=== PATIENT | male | born 1970 | race Caucasian/White ===

== ENCOUNTER → 2017-09-13 11:19 | Outpatient (CLI) | payer BC, SELFPAY ==
--- NOTE | 2017-09-13 11:22 | CT_ITS ---
STUDY: CT ABDOMEN AND PELVIS WITH AND WITHOUT CONTRAST REASON FOR EXAM: Male, 47 years old. Left abdominal pain with left flank pain. History of kidney stones and prior lithotripsy. RADIATION DOSAGE (If Supplied By Facility): CTDIvol = ( 26.67 ) mGy, DLP = ( 4712.12 ) mGycm TECHNIQUE: Transaxial images were obtained from the dome of the diaphragm to the symphysis pubis without oral contrast. 100 ml of Isovue 300 contrast was administered. Sagittal and coronal images were reconstructed. Individualized dose optimization techniques were used for this CT. COMPARISON: Comparison is made with prior study dated January 26, 2017. FINDINGS: The visualized lung bases are unremarkable. The visualized portions of the heart are within normal limits. There is decreased attenuation of the liver consistent with steatosis. Small amount of sludge or tiny gallstones along the dependent portion of the gallbladder lumen. Normal spleen. Atherosclerotic calcification of the splenic artery. Normal pancreas. Normal bilateral adrenal glands. Punctate calcification in the lower pole calyx of the right kidney. Tiny nonobstructive calculus in the mid lower aspect of the left kidney. There is a small hiatal hernia. Normal small intestine. There is diverticulosis, with thickening of the colon wall, and pericolonic inflammation changes consistent with acute diverticulitis. The appendix is visualized and appears normal. Normal abdominal aorta. Normal inferior vena cava. There is borderline retroperitoneal lymphadenopathy with enlarged nodes no greater than 10mm in the short axis diameter. Normal urinary bladder. Small bilateral inguinal hernias containing fat. Disc space narrowing at the L5-S1 level. CT/CT Abd/Pelvis W/WO Contrast IMPRESSION: Findings in keeping with a mild degree of the sigmoid diverticulitis. Stable nonobstructive bilateral intrarenal calculi. Fatty infiltration of the liver. Small sliding hiatal hernia. Electronically Signed: Erik Ramsey MD at 12:44 EDT Tel [phone], Service support ,
[2017-09-13 11:45] LABS: CREATININE FINGERSTICK 0.9 mg/dL (0.70-1.30); EGFR FINGERSTICK > 60.0000 mL/min (>60)
== END ==
PROVIDERS: Family Provider Nurse Practitioner; PCP Nurse Practitioner; Visit Provider Nurse Practitioner Gerontology
DX: R10.9 Unspecified abdominal pain (principal)
CPT/HCPCS: 74178; Q9967

== ENCOUNTER → 2017-12-07 16:17 | Outpatient (CLI) | payer BC, SELFPAY ==
[2017-12-07 17:48] LABS: ALB/GLOB Ratio 1.1 RATIO (0.9-2.4); AST(SGOT) 16 U/L (15-37); Alanine Aminotransfer ALT/SGPT 35 U/L (16-61); Albumin, Serum 3.6 g/dL (3.2-5.0); Alkaline Phosphatase 87 U/L (45-117); Anion Gap 8 (5-15); BUN 11 mg/dL (7-18); BUN/Creat Ratio 11.2 RATIO (10-20); Calcium,Total 8.3 mg/dL (8.5-10.1); Chloride 106 mmol/L (98-107); Creatinine, Serum 0.99 mg/dL (0.70-1.30); EST Glomerular Filtration Rate 86 mL/min (>60); Est Glom Filt Rate - Afr Amer 104 mL/min (>60); Globulin 3.4 g/dL (2.2-4.2); Glucose 187 mg/dL (74-106); Potassium 3.9 mmol/L (3.5-5.1); Sodium Level 143 mmol/L (136-145); Thyroid Stim Hormone (TSH) 1.29 uIU/mL (0.358-3.74)
[2017-12-07 18:13] LABS: Erythrocyte Sedimentation Rate 14 mm/hr (0-15)
[2017-12-08 08:41] LABS: Vitamin B12 695 pg/mL (211-911)
== END ==
LOC: LAB 16:19
PROVIDERS: Family Provider Nurse Practitioner; PCP Nurse Practitioner; Visit Provider Psychiatry & Neurology Neurology
DX: G62.9 Polyneuropathy, unspecified (principal)
CPT/HCPCS: 36415; 80053; 82607; 83036; 84443; 85652

== ENCOUNTER → 2018-03-04 09:46 | Outpatient (CLI) | payer BC, SELFPAY | LOC: HPRAD 09:47 | PROVIDERS: Family Provider Nurse Practitioner; PCP Nurse Practitioner; Visit Provider Nurse Practitioner | DX: M77.11 Lateral epicondylitis, right elbow (principal) | CPT/HCPCS: 73080 ==

== ENCOUNTER → 2018-07-18 09:20 | Outpatient (CLI) | payer BC, SELFPAY ==
--- NOTE | 2018-07-18 09:43 | US_ITS ---
STUDY: RENAL ULTRASOUND - COMPLETE REASON FOR EXAM: Male, 48 years old. Flank pain. TECHNIQUE: Ultrasound evaluation of the kidneys was performed with real-time and static nava-scale imaging. COMPARISON: Comparison is made with prior ultrasound dated April 22, [address] scan dated September 13, 2017. FINDINGS: RIGHT KIDNEY: Normal location of the right kidney, which is normal in size. The right kidney measures 11.9 cm x 5.5 cm x 6.0 cm. There is a normal cortex of the right kidney. The renal cortex measures 1.4 cm. There is no right renal mass or cyst. Findings suggestive of a 1.2 cm x 0.9 cm right intrarenal calculus. There is no right hydronephrosis. DISTAL RIGHT URETER: There is non-visualization of the distal right ureter. There is no demonstrated right ureterovesical junction calculus. There is no demonstrated right ureteral jet. LEFT KIDNEY: Normal location of the left kidney, which is normal in size. The left kidney measures 13.7 cm x 5.7 cm x 6.2 cm. There is a normal cortex of the left kidney. The renal cortex measures 1.9 cm. There is no left renal mass or cyst. There is an 8 mm x 7 mm calculus in the midportion of the left kidney. There is no left hydronephrosis. DISTAL LEFT URETER: There is non-visualization of the distal left ureter. There is no demonstrated left ureterovesical junction calculus. There is no demonstrated left ureteral jet. BLADDER: The distended urinary bladder has a volume of 41.2 ml. Moderate splenomegaly. The spleen measures 15.4 cm x 7.5 cm x 6.6 cm. US/Kidney and Bladder IMPRESSION: Findings suggestive of bilateral intrarenal calculi. Splenomegaly. Electronically Signed: Erik Ramsey MD at 15:35 EST Tel [phone], Service support ,
--- OUTSIDE RECORDS SUMMARY | 2018-09-19 16:20 | XMS RPT_ITS ---
:1970 Author Organization OHIP Care Team Providers Name Role Phone Kait Tam Attending Unavailable Kait Tam Referring Unavailable Kait Tam Consulting Unavailable Kait Tam Attending Unavailable Kait Tam Referring Unavailable Kait Tam Primary Care Unavailable Kait Tam Primary Care Unavailable Kait Tam Attending Unavailable Kait Tam Referring Unavailable Hong Petty Consulting Unavailable Mela Abrams DRAFTING SUPERVISOR-C Attending Unavailable Kait Tam Primary Care Unavailable [...] Status: F Source: [place] CONT 3:41 PM [facility] REPOSITORY [facility] Imaging Services [address] [place] [place] [address] Abdomen/Pelvis without Cont MR#: [id number] Acct: [id number] Name: NIEVES JACKSON Rep #: [id number] : 1970 M 48 From: Maricel Sanchez MD PCP: Kait Tam NP Status: REG CLI Study: Abdomen/Pelvis without Cont Date of Exam: 07/19/18 Exam# [id number] Ordering Dr: Kait Tam DRAFTING SUPERVISORKarissaC STUDY: CT ABDOMEN AND PELVIS WITHOUT CONTRAST [...] Service support , CC: Kait Tam NP Glass Blower Helper: Signed KIDNEY AND BLADDER Observed: 07/18/2018 Status: F Source: [place] 9:43 AM [facility] REPOSITORY [facility] Imaging Services [address] [place] [address] Kidney and Bladder MR#: [id number] Acct: [id number] Name: NIEVES JACKSON Rep #: [id number] : 1970 M 48 From: Erik Ramsey MD PCP: Kait Tam NP Status: REG CLI Study: Kidney and Bladder Date of Exam: 07/18/18 Exam# [id number] Ordering Dr: Kait Tam DRAFTING SUPERVISOR-C STUDY: RENAL ULTRASOUND - COMPLETE REASON FOR [...] Erik Ramsey MD at 15:35 EST Tel [phone], Service support , CC: Kait Tam NP Glass Blower Helper: Signed ELBOW MIN 3 VIEWS Observed: 03/04/2018 Status: F Source: [place] 9:49 AM [facility] REPOSITORY [facility] Imaging Services [address] [place] [address] Elbow min 3 Views MR#: [id number] Acct: [id number] Name: NIEVES JACKSON Rep #: [id number] : 1970 M 47 From: Anuradha Medel MD PCP: Kait Tam NP Status: REG CLI Study: Elbow min 3 Views Date of Exam: 03/04/18 Exam# [id number] Ordering Dr: Kait Tam STUDY: X-RAY - [...] Service support , CC: Kait Tam NP Glass Blower Helper: Signed COMPREHENSIVE METABOLIC Collected: 12/07/2017 Status: F Source: [place] EMIGDIO 4:27 PM [facility] REPOSITORY TYPE CODE TESTS RESULT OUT OF [...] 8 Performed By: #### L500.4050, L501.9520 #### [facility] [address] [place], [place], [address] THYROID STIM HORMONE Collected: 12/07/2017 Status: F Source: [place] (TSH) 4:27 PM [facility] REPOSITORY TYPE CODE TESTS RESULT OUT OF RANGE REFERENCE UNITS LAB L501.9520 0.358-3.74 uIU/mL Normal TSH 1.29 Performed By: #### L500.4050, L501.9520 #### [facility] [address] [place], [address] ERYTHROCYTE SED RATE Collected: 12/07/2017 Status: F Source: [place] 4:27 PM [facility] REPOSITORY TYPE CODE TESTS RESULT OUT OF RANGE REFERENCE UNITS LAB L102.0000 0-15 mm/hr Normal SED RATE 14 Performed By: #### L101.9900 #### [facility] [address] [place], [address] HEMOGLOBIN A1C Collected: 12/07/2017 Status: F Source: [place] 4:27 PM [facility] REPOSITORY TYPE CODE TESTS RESULT OUT OF RANGE REFERENCE UNITS LAB L501.9985 4.2-6.3 % High HGB A1C 7.0 Performed By: #### L501.9985 #### [facility] [address] [place], [address] VITAMIN B12 Collected: 12/07/2017 Status: F Source: [place] 4:27 PM [facility] REPOSITORY TYPE CODE TESTS RESULT OUT OF RANGE REFERENCE UNITS LAB L503.0105 211-911 pg/mL Normal Vitamin B12 695 Performed By: #### L503.0105 #### [facility] [address] [place], [address] CREATININE FINGERSTICK Collected: 09/13/2017 Status: F Source: [place] 11:38 AM [facility] REPOSITORY TYPE CODE TESTS RESULT OUT OF RANGE REFERENCE UNITS LAB L9100.0210 0.70-1.30 mg/dL Normal CREATININE WB 0.9 LAB L9100.0220 >60 mL/min EGFR WB Normal > 60.0000 Performed By: #### L9100.0200 #### [facility] Point of Care [address] [place] [address] CT ABD/PELVIS W/WO Observed: 09/13/2017 Status: F Source: [place] CONTRAST 11:22 AM [facility] REPOSITORY [facility] Imaging Services [address] [place] [address] CT Abd/Pelvis W/WO Contrast MR#: [id number] Acct: [id number] Name: NIEVES JACKSON Rep #: [id number] : 1970 M 47 From: Erik Ramsey MD PCP: Kait Tam NP Status: REG CLI Study: CT Abd/Pelvis W/WO Contrast Date of Exam: 09/13/17 Exam# [id number] Ordering Dr: Mela Abrams NP-C STUDY: CT [...] Erik Ramsey MD at 12:44 EDT Tel [phone], Service support , CC: Kait Tam NP; SAM Abrams Glass Blower Helper: Signed ALLERGIES ALLERGIES DATE TYPE / CODE NAME / CODE REACTION SEVERITY SOURCE 01/26/2017 Drug oxycodone BECOMES VIOLENT Unknown [facility] All[facility]/416 HCl/[id number](R [facility] 556861(SNOM XNORM) Repository ED CT) 01/26/2017 Drug Penicillins/F001 Rash Unknown [facility]/416 488437(RXNORM) [facility] 764863(SNOM Repository ED CT) 01/26/2017 Drug ibuprofen/P79010 Upset Stomach Unknown [place] [facility] All[facility]/416 2377(RXNORM) Hospital 364190(SNOM Repository ED CT) ENCOUNTERS ENCOUNTERS ADMIT/DISCHARGE ACCOUNT ADMITTING ENCOUNTER LOCATION SOURCE NUMBER CLASS 07/19/2018 [id number] Ambulatory [place] [facility] ing:CT Repository 07/18/2018 [id number] Ambulatory [place] 5 [facility] ing:US Repository 07/15/2018 [id number] Ambulatory Building:[facility] [place] Practices Repository 03/04/2018 [id number] Ambulatory [place] 3 [facility] ing:HPRAD Repository 12/28/2017 [id number] Ambulatory [place] 7 [facility] ing:SL Repository 12/07/2017 [id number] Ambulatory [place] 1 [facility] ing:LAB Repository 09/13/2017 [id number] Ambulatory [place] 1 [facility] ing:CT Repository PAYERS PAYERS ENCOUNTER GUARANTOR PAYER SUBSCRIBER SOURCE 07/19/2018 NIEVES Fernandez Primary DANGELO D [place] [id number] S Insurance:ANTHEMPolic [facility]: [facility] scott BRUNO Number: [id number] [facility] [address]Tdd: [id number] Repository Date:7630-13-56WU [address] () [address]19146YFBTXSW, [place] [address]CT: 07/19/2018 Secondary NOT GIVENUNK [place] Insurance:SELF PAY [facility] Number: Effective Repository Date:2018-07-15 07/18/2018 NIEVES Fernandez Primary DANGELO D [place] [id number] S Insurance:ANTHEMPolic HANCOCKDOB: [facility] scott Bruno Number: [id number] Comprehensive Health Care Facility [address]War: [id number] Repository Date:1860-60-07[address] () [place]797[address]XKIXZHL, [place] [address]KK: 07/18/2018 Secondary NOT GIVENUNK [place] Insurance:SELF PAY [facility] Number: Effective Repository Date:2018-07-15 07/15/2018 Nieves P Primary Nieves P OHIP Practices HancockDOB: Insurance:[place] HancockDOB: Repository [facility] Number: [id number] [facility] [id number] [place], [place] Date:0763-58-27WwpfNorth [place], [place] [address]Ime: (968) Name:[facility] [address] [address]Jkd: [place], [place] [address] () ()Tel: [phone]: [phone] 03/04/2018 Nieves P Primary DANGELO D [place] [id number] S Insurance:ANTHEMPolic HANCOCKDOB: Community Gerber [place], y Number: [id number] Comprehensive Health Care Facility [address]Prj: [id number] Repository Date:2516-74-35AV [address] () [address]BRPGOZC, [place] [address]LD: 03/04/2018 Secondary NOT GIVENUNK [place] Insurance:SELF PAY [facility] Number: Effective Repository Date:2018-03-04 12/28/2017 Nieves P Primary Dangelo D [place] [id number] Insurance:ANTHEMPolic HancockDOB: Community [facility] [place], y Number: [id number] Comprehensive Health Care Facility [address]Izp: [id number] Repository Date:2453-76-33CZ [address] () [address]367[address]PIJHWMM, [place] [address]NC: 12/28/2017 Secondary NOT GIVENUNK [place] Insurance:SELF PAY [facility] Number: Effective Repository Date:2017-12-08 12/07/2017 Nieves P Primary Dangelo [address] Insurance:ANTHEMPolic ManuelDOB: [facility] Gerber [place], y Number: [id number] Comprehensive Health Care Facility [address]Fpt: [id number] Repository Date:8279-96-66MR BOX () 127496ADTEAJJ [place] [address]LR: 12/07/2017 Secondary NOT GIVENUNK [place] Insurance:SELF PAY [facility] Number: Effective Repository Date:2017-12-07 09/13/2017 Nieves Fernandez Primary Dangelo [address] Insurance:ANTHEMPolic ManuelDOB: [facility] Gerber Bruno, y Number: [id number] Comprehensive Health Care Facility [address]Zjl: [id number] Repository Date:4916-80-57CI [address] () 386638MMXGDUV, [place] [address]JJ: 09/13/2017 Secondary NOT GIVENUNK [place] Insurance:SELF PAY [facility] Number: Effective Repository Date:2017-09-13
== END ==
LOC: US 09:20
PROVIDERS: Family Provider Nurse Practitioner; PCP Nurse Practitioner; Referring Provider Nurse Practitioner; Visit Provider Nurse Practitioner
DX: R10.9 Unspecified abdominal pain (principal)
CPT/HCPCS: 76770

== ENCOUNTER → 2018-07-19 15:08 | Outpatient (CLI) | payer BC, SELFPAY ==
--- NOTE | 2018-07-19 15:41 | CT_ITS ---
STUDY: CT ABDOMEN AND PELVIS WITHOUT CONTRAST REASON FOR EXAM: Male, 48 years old. Bilateral flank pain. RADIATION DOSAGE (If Supplied By Facility): CTDIvol = ( 24.18 ) mGy, DLP = ( 1377.32 ) mGycm TECHNIQUE: Transaxial images were obtained from the dome of the diaphragm to the symphysis pubis without oral contrast, and without intravenous contrast. Sagittal and coronal images were reconstructed. Individualized dose optimization techniques were used for this CT. COMPARISON: September 13, 2017 FINDINGS: The visualized lung bases are unremarkable. There are coronary artery calcifications. There is decreased attenuation of the liver consistent with steatosis. Normal gallbladder and extrahepatic biliary system. Normal spleen. Normal pancreas. Normal bilateral adrenal glands. There is a nonobstructing 2.8 mm right renal calculus. There is a 4.1 mm calculus within the proximal left ureter. There is no associated hydroureteronephrosis. There is a small hiatal hernia. There is retained fluid within the mid/distal esophagus. Normal small intestine. There are multiple colonic diverticula consistent with diverticulosis. The appendix is visualized and appears normal. Normal abdominal aorta. Normal inferior vena cava. Normal retroperitoneum. Normal urinary bladder. Normal abdominal wall. There are diffuse degenerative changes of the visualized lumbar spine. CT/Abdomen/Pelvis without Cont IMPRESSION: 4.1 mm calculus within the left proximal ureter. Nonobstructing 2.8 mm right renal calculus. Fatty infiltration of the liver. Hiatal hernia. Retained fluid within the mid/distal esophagus this may be secondary to underlying gastroesophageal reflux or dysmotility. Atherosclerosis. Electronically Signed: Maricel Sanchez MD at 16:10 EST Tel , Service support ,
--- OUTSIDE RECORDS SUMMARY | 2018-09-19 01:38 | XMS RPT_ITS | Continuity of Care Document ---
:1970 Author Organization [facility] Address [address] [facility] [address] [place] [address] Phone Care Team Providers Name Role Phone Kait Tam CNP Unavailable Veronica Casas Unavailable Elaine PENA, John Tucker Unavailable Monica Manuel Unavailable Unavailable Rox, [place] Unavailable Unavailable Slarb SEAWEED HARVESTER, Rita Unavailable Unavailable Long SEAWEED HARVESTER, Rachele L Unavailable Unavailable Unavailable Unavailable Problems Name Dates Details Abdominal pain (R10.9, 789.00) Status: Active Acute meniscal tear of right knee (S83.206A, 836.2) Status: Active Arthritis Comments: left knee Status: Active Backache Status: Active Bilateral kidney stones (N20.0, 592.0) Comments: Stable nonobstructive bilateral kidney stones.-09/13/17. Status: Active BMI 45.0-49.9, adult (Z68.42, V85.42) Status: Active CRP elevated (R79.82, 790.95) Comments: 13.90 on 03-19-16 Status: Active Diabetes mellitus type 2, uncontrolled (Renamed from Uncontrolled type 2 diabetes mellitus) (E11.65, 250.02) Comments: on metformin cannot take Farxiga because of cost Status: Active Elevated sed rate (R70.0, 790.1) Comments: 19 on 9-20-16 Status: Active Elevated WBC count (D72.829, 288.60) Status: Active Epicondylitis, lateral, right (M77.11, 726.32) Status: Active Epigastric pain (R10.13, 789.06) Status: Active Fatty liver (K76.0, 571.8) Status: Active Folliculitis (L73.9, 704.8) Comments: observe for now, use antibacterial soap Status: Active Foot pain, left (M79.672, 729.5) Comments: peripheral neuropathy ? left foot per MRI done by Asmita, nerve conduction pending, starting on metanx Status: Active GERD (gastroesophageal reflux disease) (K21.9, 530.81) Status: Active Hematuria (R31.9, 599.70) Status: Active History of kidney stones (Z87.442, V13.01) Status: Active History of pancreatitis (Z87.19, V12.79) Status: Active Hypercholesteremia (E78.00, 272.0) Comments: will increase rosuvastatin Status: Active Hyperglycemia (R73.9, 790.29) Comments: prediabetes 6.1 Status: Active Hypertension (I10, 401.9) Status: Active Hypertension (I10, 401.9) Status: Active Impaired fasting glucose (R73.01, 790.21) Comments: will start with metformin and add on trulicity once a week if labs up in December Status: Active Irritated nevus (D22.9, 216.9) Status: Active Kidney stone on left side (N20.0, 592.0) Comments: rt and left done on May 03, Lithotripsy passed more stones at work afterHas seen Jocelynn in past for kidney stone Status: Active Left elbow pain (M25.522, 719.42) Status: Active Left flank pain (R10.9, 789.09) Comments: consider CTand pelvic pain in male Status: Active Leg swelling (M79.89, 729.81) Comments: try support stockings Status: Active Low testosterone (R79.89, 790.99) Status: Active Metabolic syndrome (E88.81, 277.7) Comments: start on metformin add victoza later Status: Active Morning joint stiffness of multiple sites (M25.60, 719.59) Comments: begins on tailbone ribs, back, knees hips feet, starting on celebrex sending rheum as discussed with Dr. Dominguez Status: Active Need for prophylactic vaccination and inoculation against influenza (Renamed from Need for immunization against influenza) (Z23, V04.81) Status: Active Neuropathy (G62.9, 355.9) Comments: Length dependent neuropathy per nerve conduction 05-14 Status: Active Neuropathy, leg (G57.90, 355.8) Comments: Saw him in November, off gabapentin, wants back on metanex, Elaine gave him amitriptyline 25mg qhsper EMG read by Elaine is length dependant Status: Active Obesity (E66.9, 278.00) Comments: consider obesity med Status: Active Obesity, morbid (more than 100 lbs over ideal weight or BMI > 40) (E66.01, 278.01) Status: Active Osteoarthritis (M19.90, 715.90) Status: Active Pain of left calf (M79.662, 729.5) Status: Active Pancreatitis Status: Active Polyneuropathy (G62.9, 356.9) Comments: idiopathic Status: Active Sigmoid diverticulitis (K57.32, 562.11) Status: Active Sleep apnea (G47.30, 780.57) Comments: on cpap via [facility] Status: Active Sliding hiatal hernia (K44.9, 553.3) Status: Active Smoker (F17.200, 305.1) Status: Active Splenomegaly, not elsewhere classified (R16.1, 789.2) Comments: seen on US of 04-22-15 , but not seen on CT on 05-01-15 Status: Active Swelling of foot joint, left (M25.475, 719.07) Status: Active Unspecified Diagnosis Status: Active Unspecified Diagnosis Status: Active Unspecified Diagnosis Status: Active Vitamin B12 deficiency (E53.8, 266.2) Comments: had B12 shot weekly x 4 weeks, and daily SL cyanocobalamin, now switch to every other day recheck Oct Status: Active Vitamin D deficiency (E55.9, 268.9) Status: Active Medications Name Dates Details Amitriptyline HCl 25 MG Oral Tablet 1 (one) Tablet daily for 0 days Quantity: 90 {Tablet} Refills: 3 Ordered:6-Nov-2018 Yonatan AMBRIZ, Kait Garcia CNP Start : 03-May-2018 Active Amitriptyline HCl 25 MG Oral Tablet 1 (one) Tablet daily for 30 days Quantity: 30 {Tablet} Refills: 0 Ordered:03-May-2018 Yonatan AMBRIZ, Kait Garcia CNP Start : 03-May-2018 Active Cozaar 50 MG Oral Tablet 1 tablet Tablet daily for 90 days Quantity: 30 {Tablet} Refills: 11 Ordered:17-Jan-2018 Yonatan AMBRIZ, Kait Garcia CNP Start : 17-Jan-2018 Active Cozaar 50 MG Oral Tablet 1 tablet Tablet daily for 0 days Quantity: 90 {Tablet} Refills: 3 Ordered:17-Jan-2018 Yonatan AMBRIZ Kait Garcia CNP Start : 17-Jan-2018 Active Cyanocobalamin 2500 MCG Sublingual Tablet Sublingual 1 (one) Tablet Tablet daily for 90 days Quantity: 90 {Tablet} Refills: 3 Ordered:06-Aug-2017 Yonatan AMBRIZ Kait Garcia CNP Start : 06-Aug-2017 Active Ibuprofen 200 MG Oral Capsule 1 (one) Capsule Capsule q6hrs prn for 0 days Quantity: 30 {Capsule} Refills: 0 Ordered:03-May-2018 Virginia Gramajo Start : 04-Mar-2018 Active Comments:Not to exceed 2400mg /day MetFORMIN HCl ER 500 MG Oral Tablet Extended Release 24 Hour 2 (two) Tablet bid for 0 days Quantity: 360 {Tablet} Refills: 3 Ordered:03-May-2018 Yonatan AMBRIZ Kait Garcia CNP Start : 03-May-2018 Active MetFORMIN HCl ER 500 MG Oral Tablet Extended Release 24 Hour 2 (two) Tablet bid for 30 days Quantity: 60 {Tablet} Refills: 4 Ordered:03-May-2018 Yonatan AMBRIZ Kait Garcia CNP Start : 03-May-2018 Active PriLOSEC OTC 20 MG Oral Tablet Delayed Release 1 (one) Tablet DR before breakfast for 0 days Quantity: 30 {Tablet} Refills: 0 Ordered:28-Jan-2016 Yonatan AMBRIZ Kait Garcia CNP Start : 28-Jan-2016 Active Rosuvastatin Calcium 10 MG Oral Tablet 1 (one) Tablet qhs for 0 days Quantity: 90 {Tablet} Refills: 3 Ordered:03-May-2018 Yonatan AMBRIZ, Kait Sellers CNP, Belen Start : 03-May-2018 Active Rosuvastatin Calcium 10 MG Oral Tablet 1 (one) Tablet qhs for 0 days Quantity: 90 {Tablet} Refills: 3 Ordered:03-May-2018 Yonatan AMBRIZ, Kait Sellers CNP, Belen Start : 03-May-2018 Active Vitamin D3 2000 UNIT Oral Capsule 2 (two) Capsule daily for 0 days Quantity: 30 {Capsule} Refills: 0 Ordered:03-May-2018 Yonatan AMBRIZ, Kait Sellers CNP, Belen Start : 03-May-2018 Active Bactrim DS 800-160 MG Oral Tablet 1 (one) Tablet BID for 7 days Quantity: 14 {Tablet} Refills: 0 Ordered:13-Aug-2016 Mela Abrams Start : 13-Aug-2016 End : 20-Aug-2016 Inactive CeleBREX 200 MG Oral Capsule 1 (one) Capsule daily for 90 days Quantity: 90 {Capsule} Refills: 1 Ordered:30-Mar-2017 Mela Abrams Start : 31-Mar-2016 End : 30-Mar-2017 Inactive Comments:Generic is okay CeleBREX 200 MG Oral Capsule 1 (one) Capsule daily for 0 days Quantity: 90 {Capsule} Refills: 0 Ordered:30-Mar-2017 Mela Abrams Start : 31-Mar-2016 End : 30-Mar-2017 Inactive Comments:Generic Only Ciprofloxacin HCl 500 MG Oral Tablet 1 (one) Tablet PO BID for 14 days Quantity: 28 {Tablet} Refills: 0 Ordered:13-Sep-2017 Mela Abrams Start : 13-Sep-2017 End : 27-Sep-2017 Inactive Doxycycline Hyclate 100 MG Oral Capsule 1 (one) Capsule Capsule BID for 7 days Quantity: 14 {Capsule} Refills: 0 Ordered:30-Mar-2017 Rita Burks LPN Start : 30-Mar-2017 End : 06-Apr-2017 Inactive Gabapentin 300 MG Oral Capsule 1 (one) Tablet qhs for 1 week and then increase to bid for 0 days Quantity: 60 {Tablet} Refills: 6 Ordered:17-Jan-2018 Rita Burks LPN Start : 12-Oct-2017 End : 17-Jan-2018 Inactive Comments:Oarrs run for neuropathic pain Neuropathychronic Gabapentin 300 MG Oral Capsule 1 (one) Tablet qhs for 1 week and then increase to bid for 0 days Quantity: 60 {Tablet} Refills: 6 Ordered:17-Jan-2018 Rita Burks LPN Start : 12-Oct-2017 End : 17-Jan-2018 Inactive Comments:for neuropathy Oarrs run Ketorolac Tromethamine 10 MG Oral Tablet 1 (one) Tablet PO Q 6 Hours for 3 days Quantity: 12 {Tablet} Refills: 0 Ordered:13-Sep-2017 Mela Abrams Start : 13-Sep-2017 End : 16-Sep-2017 Inactive Comments:Take with food Metanx 3-90.314-2-35 MG Oral Capsule 1 (one) Capsule Capsule daily as directed for 0 days Quantity: 30 {Capsule} Refills: 11 Ordered:03-May-2018 Yonatan AMBRIZ, Kait Marcanomel AMBRIZ, Belen Start : 17-Jan-2018 End : 03-May-2018 Inactive Rosuvastatin Calcium 5 MG Oral Tablet 1 (one) Tablet Tablet daily for 0 days Quantity: 30 {Tablet} Refills: 6 Ordered:03-May-2018 Vytazmel AMBRIZ, Kait Sellers CREDIT COLLECTOR, Belen Start : 17-Jan-2018 End : 03-May-2018 Inactive Rosuvastatin Calcium 5 MG Oral Tablet 1 (one) Tablet Tablet daily for 0 days Quantity: 90 {Tablet} Refills: 3 Ordered:03-May-2018 Vyvaldemar CREDIT COLLECTOR, Kait Sellers CREDIT COLLECTOR, Belen Start : 17-Jan-2018 End : 03-May-2018 Inactive Vitamin D3 01178 UNIT Oral Capsule 1 (one) Capsule twice weekly for 0 days Quantity: 30 {Capsule} Refills: 0 Ordered:02-Apr-2017 Rita Burks LPN Start : 28-Jan-2016 End : 02-Apr-2017 Inactive CONTRAVE, 8/ 90MG (Oral Tablet) (Free Text) 2 (two) Tablet Tablet TAD for 0 days Quantity: 70 {Tablet} Refills: 0 Ordered:28-Jan-2016 Rita Burks LPN Start : 14-Aug-2015 End : 28-Jan-2016 Discontinued Comments:Week# 1 Take 1 tab in am Week #2 1 tab twice daily Week #3 2 tabs every am and 1 tab qpmWeek #4 2 tabs twice daily Ergocalciferol 43066 UNIT Oral Capsule 1 (one) Capsule twice weekly for 0 days Quantity: 24 {Capsule} Refills: 0 Ordered:28-Jan-2016 Rita Burks LPN Start : 05-Nov-2015 End : 28-Jan-2016 Discontinued Farxiga 5 MG Oral Tablet 1 (one) Tablet Tablet daily as directed for 0 days Quantity: 30 {Tablet} Refills: 3 Ordered:04-Mar-2018 MarMonica Start : 10-Dec-2017 End : 04-Mar-2018 Discontinued Medrol 4 MG Oral Tablet Therapy Pack 1 (one) Milligram TAD for 0 days Quantity: 1 {Package} Refills: 0 Ordered:03-May-2018 Virginia Gramajo Start : 04-Mar-2018 End : 03-May-2018 Discontinued Comments:with food MOBIC, 15MG (Oral Tablet) 1 tab at bedtime (15 MG) End : 20-Feb-2015 Discontinued probiotic daily End : 13-Sep-2017 Discontinued TRAMADOL HCL, 50MG (Oral Tablet) 1 tablet bid for 0 days Refills: 0 Ordered:14-Aug-2015 Rita Burks LPN Start : 06-Mar-2015 End : 14-Aug-2015 Discontinued Comments:Dr. Dominguez VITAMIN D3, 5000UNIT (Oral Capsule) 1 daily for 0 days Refills: 0 Ordered:14-Aug-2015 Rita Burks LPN Start : 05-Feb-2015 End : 14-Aug-2015 Discontinued ZORVOLEX, 18MG (Oral Capsule) 1 (one) Capsule tid for 0 days Quantity: 15 {Capsule} Refills: 0 Ordered:20-Feb-2015 Rita Burks LPN Start : 05-Feb-2015 End : 20-Feb-2015 Discontinued Allergies and Adverse Reactions Name Dates Details Penicillin G Potassium *PENICILLINS* (Allergy) Reaction: Rash Status: Active Percocet *ANALGESICS - OPIOID* (Allergy) Status: Active Comments: Mood swings Past Medical History Name Dates Details Abdominal pain (R10.9, 789.00) Comments: epigastric Ruq and left flank Status: Inactive as of 02-Apr-2017 BMI 45.0-49.9, adult (Z68.42, V85.42) Status: Inactive as of 02-Apr-2017 BMI 45.0-49.9, adult (Z68.42, V85.42) Status: Inactive as of 19-Apr-2017 BMI 45.0-49.9, adult (Z68.42, V85.42) Status: Inactive as of 12-Jul-2017 BMI 45.0-49.9, adult (Z68.42, V85.42) Status: Inactive as of 11-Oct-2017 Boil (L02.92, 680.9) Status: Inactive as of 02-Apr-2017 Cellulitis, leg (L03.119, 682.6) Status: Inactive as of 02-Apr-2017 Chest pain at rest (R07.9, 786.50) Status: Inactive as of 11-Oct-2017 Diarrhea (R19.7, 787.91) Comments: change in bowel habits Status: Inactive as of 02-Apr-2017 Diarrhea Status: Inactive as of 02-Apr-2017 Diarrhea (R19.7, 787.91) Status: Inactive as of 17-Jan-2018 Infected lesion of skin (L08.9, 686.9) Status: Inactive as of 02-Apr-2017 Knee pain, acute, right (M25.561, 719.46) Comments: on mobic 8 months without relief, will xray, PT, referral to Ortho and then ? MRI, on tramadol Status: Inactive as of 02-Apr-2017 Rib pain (R07.81, 786.50) Comments: to touch ? costochondritis vs fibro? Status: Inactive as of 17-Jan-2018 Procedures Procedure Dates Details Colonoscopy, Screening Completed Comments: When 18 years old Kidney stone sx Apr 2015 Completed Knee surgery Completed Comments: July 10 2015 left knee cap put back in place Completed meniscus tear 2007 Completed sinus sx Completed tubes in ears Completed Date Value Details 04-Mar-2018 Elbow min 3 Views Result: Comments: See Note; NOTES: [facility] Imaging Services [address] [place] [address] Elbow min 3 Views MR#: [id number] Acct: [id number] Name: NIEVES JACKOSN Rep #: [id number] : 1970 M 47 From: Anuradha Medel MD PCP: Kait Tam NP Status: REG CLI Study: Elbow min 3 Views Date of Exam: 03/04/18 Exam# [id number] Ordering Dr: Kait Tam STUDY: X-RAY - RIGHT ELBOW REAS ON FOR EXAM: Male, 47 years old. Pain swelling denies trauma TECHNIQUE: 3 view(s) of the elbow. COMPARISON: None. FINDINGS: Normal visualized humerus, radius and u plumbing assembler installer. Normal radiocapitellar and ulnotrochlear articulations. There is minimal enthesopathy at the lateral aspect of the humerus. The soft tissue structures are unremarkable. RAD/Elbow min 3 Views IMPRESSION: Normal x-ray examination of the elbow. Electronically Signed: Anuradha Medel MD at 19:49 EDT Tel , Service support , CC: Kait Tam NP Ornamenter: Signed 13-Sep-2017 CT Abd/Pelvis W/WO Contrast Result: Comments: See Note; NOTES: [facility] Imaging Services [address] [place] [address] Abd/Pelvis W/WO Contrast MR#: [id number] Acct: [id number] Name: NIEVES JACKSON Rep #: [id number] : 1970 M 47 From: Erik Ramsey MD PCP: Kait Tam NP Status: REG CLI Study: CT Abd/Pelvis W/WO Contrast Date of Exam: 09/13/17 Exam# [id number] Ordering Dr: Mela Abrams FURNACE CLEANER-C STUDY: CT ABDOMEN AND PELVIS WITH AND WITHOUT CONTRAST REASON FOR EXAM: Male, 47 years old. Left abdominal pain with left flank pain. History of kidney stones and prior lithotripsy. RADIATION DOSAG E (If Supplied By Facility): CTDIvol = ( 26.67 ) mGy, DLP = ( 4712.12 ) mGycm TECHNIQUE: Transaxial images were obtained from the dome of the diaphragm to the symphysis pubis without oral contrast. 100 ml of Isovue 300 contrast was administered. Sagittal and coronal images were reconstructed. Individualized dose optimization techniques were used for this CT. COMPARISON: Comparison is made with prio r study dated January 26, 2017. FINDINGS: The visualized lung bases are unremarkable. The visualized portions of the heart are within normal limits. There is decrease d attenuation of the liver consistent with steatosis. Small amount of sludge or tiny gallstones along the dependent portion of the gallbladder lumen. Normal spleen. Atherosclerotic calcification of the splenic artery. Normal pancreas. Normal bilateral adrenal glands. Punctate calcification in the lower pole calyx of the right kidney. Tiny nonobstructive calculus in the mid lower aspect of the left k idney. There is a small hiatal hernia. Normal small intestine. There is diverticulosis, with thickening of the colon wall, and pericolonic inflammation changes consistent with acute diverticulitis. The appendix is visualized and appears normal. Normal abdominal aorta. Normal inferior vena cava. There is borderline retroperitoneal lymphadenopathy with enlarged nodes no greater than 10mm in the short axis diameter. Normal urinary bladder. Small bilateral inguinal hernias containing fat. Disc space narrowing at the L5-S1 level. CT/CT Abd/Pelv is W/WO Contrast IMPRESSION: Findings in keeping with a mild degree of the sigmoid diverticulitis. Stable nonobstructive bilateral intrarenal calculi. Fatty infiltration of the liver. Small sliding hi atal hernia. Electronically Signed: Erik Ramsey MD at 12:44 EDT Tel [phone], Service support , CC: Kait Tam NP; SAM Abrams Ornamenter: Signed 26-May-2017 NCS and/or EMG Patient Result: Comments: See Note; NOTES: [facility] Pulmonary Services/Neurology [address] [place] [address] MR#: [id number] Acct: [id number] Name: NIEVES JACKSON Rep #: [id number] : 1 07/17/1969 47 From: John Henry MD Referring Dr: Kait Tam Status: REG CLI Ordering Dr: Date: Location: PSN Sex: M C NCS and/or EMG Patient Report Ordering Doctor: Kati Tam DATE OF SERVICE: 07/26/16 This is a left lower extremity EMG and nerve conduction study performed on this 47-year-old male with a history of abnormal sensations on the dorsum of his left foot worse at night and worse in the supine position. He denies back pain. He says he has very mild diabetes. Left lower extremity sensory and motor nerve conduction studies performed. The sural sensory responses normal. The common pe roneal motor distal latencies prolonged with reduced amplitude and conduction velocities. The tibial motor response below the knee is not obtainable. At the knee the distal latency is prolonged with red uced amplitude. The tibial F-wave on the left is not obtainable and the common peroneal F-wave on the left is prolonged. The tibial H reflex amplitudes are suppressed bilaterally more so on the right. Right lower extremity needle electromyography was performed. Muscles evaluated included the extensor digitorum brevis, abductor hallucis, medial gastrocnemius, anterior tibialis, vastus lateralis, and v astus medialis. Distal muscles demonstrated increased insertional activity with 1-2+ fibrillation potentials and large motor units. These abnormalities resolve more proximally. All other muscles demonst rated normal insertional activity with absence of pathologic spontaneous activity, motor unit potential recruitment pattern and amplitude was otherwise normal. Impression: Abnormal nerve conduction arthur dy and EMG consistent with length dependent neuropathy. There is no evidence of radiculopathy. 05/26/17 1029 <Electronically signed by John Henry MD> Date John Henry MD CC: Kait Tam; John Henry MD Date Dictated: 05/26/17 1025 Date Transcribed: 05/26/17 102 Ornamenter: NF Signed 13-Apr-2017 Venous Duplex Lower Extremity Result: Comments: See Note; NOTES: [facility] Cardiovascular Services [address] [facility] [address] Venous Duplex US, Unilateral 04/13/17 1054 MR#: [id number] Acct: [id number] Name: NIEVES COYNE Rep #: [id number] : 1970 46 From: Pasha Rosales MD Attending Dr: Kait Tam Status: REG CLI Ordering Dr: Kait Tam Date: 04/13/17 Location: [facility] Sex: M C Admitted: Reason F or Study: foot pain RIGHT LEFT CFV is compressible, spontaneous, phasic, GSV is normal. competent and demonstrates normal CFV is compressible, spontaneous, phasic, augmentation. competent, and demonstr ates normal Procedure augmentation. Exam performed in department. FV is compressible, spontaneous, phasic, The exam was diagnostic. competent and demonstrates normal A preliminary report was called and/ or faxed augmentation. to Kait Tam. POP V is compressible, spontaneous, phasic, competent and demonstrates normal augmentation. T/P Trunk is compressible. PTV is compressible. LT PerV is compressible. Interpretation Summary Deep veins of the left lower extremity are patent and compressible segmentally. There is no evidence of left lower extremity deep vein thrombosis. Valvular competence appears in tact within the proximal deep venous system on the left . The left greater saphenous vein appears patent and compressible segmentally. Ordering Physician: Kait Tam Performed By: Baldo Adams, RVT 04/13/17 1425 Date _ Pasha Rosales MD CC: Kait Tam Date Dictated: 04/13/17 1054 Date Transcribed: 04/13/17 1425 Ornamenter: Signed 08-Apr-2017 Ankle min 3 Views Result: Comments: See Note; NOTES: [facility] Imaging Services [address] [place] [address] Ankle min 3 Views MR#: [id number] Acct: [id number] Name: NIEVES JACKSON Rep #: [id number] : 1970 M 46 From: Erik Ramsey MD PCP: Kait Tam Status: REG CLI Study: Ankle min 3 Views Date of Exam: 04/08/17 Exam# [id number] Ordering Dr: Kait Tam STUDY: X-RAY - LEFT ANKLE R RAVINDER FOR EXAM: Male, 46 years old. Tingling in the foot. No known injury. TECHNIQUE: 3 view(s) of the ankle. COMPARISON: None. FINDINGS: Normal visualized distal tibia and fibula. Normal medial and lateral malleoli. Normal tibiotalar articulation and ankle mortise. Plantar spur. The visualized subtalar, talonavicular, calcaneocuboid and tarsal articulations ar e normal. The soft tissue structures are unremarkable. RAD/Ankle min 3 Views IMPRESSION: Plantar spur. Electronically Signed: Erik Zuñiga i, MD at 15:28 EDT Tel [phone], Service support , CC: Kait Tam Ornamenter: Signed 08-Apr-2017 Foot min 3 Views Result: Comments: See Note; NOTES: [facility] Imaging Services [address] [place] [address] Foot min 3 Views MR#: [id number] Acct: [id number] Name: NIEVES JACKSON Rep #: [id number] D OB: 1970 M 46 From: Erik Ramsey MD PCP: Kait Tam Status: REG CLI Study: Foot min 3 Views Date of Exam: 04/08/17 Exam# [id number] Ordering Dr: Kait Tam STUDY: X-RAY - LEFT FOOT CLIN ICAL: Male, 46 years old. Tingling sensation in the foot. TECHNIQUE: 3 view(s) of the foot. COMPARISON: None. FINDINGS: There is a plantar calcaneal spur. Normal visualized subtalar, talonavicular, calcaneocuboid, tarsal and tarsometatarsal articulations. Normal metatarsi. Normal metatarsophalangeal joint of the great toe. Normal tibial and fibular sesamoid yfn rommel. Normal interphalangeal joint of the great toe. Normal phalanges of the great toe. Normal second through fifth metatarsophalangeal joints. Normal interphalangeal joints and phalanges of the lesser toes. The soft tissue structures are unremarkable. RAD/Foot min 3 Views IMPRESSION: Plantar spur. Electronically Signed: Erik Ramsey MD at 15:27 EDT Tel [phone], Service support , CC: Kait Tam Ornamenter: Signed 26-Jan-2017 Discharge Instruction Result: Comments: See Note; NOTES: [facility] Medical Records Department [address] [place] [address] Discharge Instruction 01/26/17 1031 MR#: [id number] Acct: [id number] Name: JACKSON NIEVES Rep #: [id number] : 1970 46 From: Kyler Pickens MD PCP: Kait Tam Status: DEP ER ED Disposition - Plan for ED Patient: Chief Complaint: Flank Pain Instructions: ED Stone Renal W Co lic Prescriptions: Hydrocodone Bitart/Apap 5-325 [Swanquarter 5/325] 1 - 2 tablet PO Q4H PRN PRN #20 tablet PRN Reason: Pain Ondansetron [Zofran Odt] 4 mg PO Q8H PRN PRN #10 tablet PRN Reason: Nausea Tamsulos in HCl [Flomax] 0.4 mg PO DAILY 14 Days Referrals: Kait Tam [Primary Care Provider] - What to do if you have Problems For any increased pain, shortness of breath, bleeding, nausea or vomiting, stacey st pain, or any unexpected problems, contact your Primary Care Provider. Call [facility] ([phone]) or report to the closest Emergency Room. Call 911 if necessary. 01/26/17 1719 <Nicole ctronically signed by Kyler Pickens MD> Date Kyler Pickens MD Cosigner Signature (If Indicated): Date CC: Kait Tam 26-Jan-2017 Emergency Department Summary Result: Comments: See Note; NOTES: [facility] Medical Records Department [address] [facility] [address] Emergency Department Summary 01/26/17 0939 MR#: [id number] Acct: [id number] Name: NIEVES JACKSON Jim Rep #: [id number] : 1970 46 From: Kyler Pickens MD PCP: Kait Tam Status: DEP ER - ER Visit Summary Date of Service: 01/26/17 Chief Complaint: Flank pain History of Present Illness: The patient is a 46 M with a prior history of 23 kidney stones. He required lithotripsy in 2014. He presents today with sudden onset left flank pain that radiates to his left abdomen. It start ed at 3 AM last night suddenly. It feels sharp and severe. Nothing makes it better or worse. He also reports some associated subjective fevers, dysuria, hematuria, urinary frequency, nausea. Denies any other GI symptoms. Denies any history of vascular/aortic disease. Physical Examination: Blood pressure is 201/115. Heart rate 103. Otherwise afebrile vitals unremarkable. He appears uncomfortable but i s not toxic or in distress. Heart and lung exams unremarkable. Left side abdomen is tender to palpation and left CVA is tender to palpation. Test Results: Will check labs, urinalysis, CT. Emergency De partment Course and Treatment: Patient's history and symptoms are concerning for ureteral colic. I did consider vascular and GI causes as well. He was treated with fluids, Toradol, and Zofran while awai ting results. Lab work unremarkable. Patient is not septic. He does have some blood in his urine. His CT showed a 3 mm stone at the left UVJ with mild left hydronephrosis. The patient was feeling much better. Treatment Plan: Outpatient treatment. Pain medicine, nausea medicine, Flomax. Follow-up with urology. Return if worse. Disposition: Discharge home Impression: 1. Ureteral colic ED Dispositi on - Plan for ED Patient: Chief Complaint: Flank Pain What to do if you have Problems For any increased pain, shortness of breath, bleeding, nausea or vomiting, chest pain, or any unexpected proble ms, contact your Primary Care Provider. Call [facility] ([phone]) or report to the closest Emergency Room. Call 911 if necessary. 01/26/17 9367 <Electronically signed by Kyler schneider MD> Date Kyler Pickens MD Cosigner Signature (If Indicated): Date CC: Kait Tam 26-Jan-2017 Abdomen/Pelvis without Cont Result: Comments: See Note; NOTES: [facility] Imaging Services [address] [place] [address] Verdana 4d Abdomen/Pelvis without Cont MR#: [id number] Acct: [id number] Name: MALA JACKSON Rep #: [id number] : 1970 M 46 From: Erik Ramsey MD PCP: Kait Tam Status: REG ER Study: Abdomen/Pelvis without Cont Date of Exam: 01/26/17 Exam# [id number] Ordering Dr: Geovani Pickens MD STUDY: CT ABDOMEN AND PELVIS WITHOUT CONTRAST REASON FOR EXAM: Male, 46 years old. Left flank pain. Painful urination. History of prior nephrolithiasis. RADIATION DOSAGE (If Supplied By Facilit y): CTDIvol = ( 17.58 ) mGy, DLP = ( 902.13 ) mGycm TECHNIQUE: Transaxial images were obtained from the dome of the diaphragm to the symphysis pubis without oral contrast, and without intravenous contr ast. Sagittal and coronal images were reconstructed. Individualized dose optimization techniques were used for this CT. COMPARISON: Comparison is made with prior examination dated May 01, 2015. __ FINDINGS: The visualized lung bases are unremarkable. The visualized portions of the heart are within normal limits. There is decreased attenuation of the liver consi stent with steatosis. Normal gallbladder and extrahepatic biliary system. Normal spleen. Normal pancreas. Normal bilateral adrenal glands. Normal right kidney. Mild degree of left hydronephrosis. Ther e is a 3 mm calculus at the left ureterovesical junction as it enters the bladder. Punctate calcification in the middle pole calyx of the left kidney. There is a small hiatal hernia with fluid in the d istal esophagus.. Normal small intestine. Normal colon. The appendix is visualized and appears normal. Normal abdominal aorta. Normal inferior vena cava. There is borderline retroperitoneal lymphadenop athy with enlarged nodes no greater than 10mm in the short axis diameter. The bladder is not adequately distended with mild degree of bladder wall thickness. There are prostatic calcifications. Small b enign appearing bilateral inguinal lymph nodes. Small bilateral inguinal hernias containing fat. Disc space narrowing and disc degeneration at the L5-S1 level ORDE R #: [id number] CT/Abdomen/Pelvis without Cont IMPRESSION: 3 mm calculus at the left ureterovesical junction causing a mild degree of left hydronephrosis. Fatty infiltration of the liver. Electronicall y Signed: Erik Ramsey MD at 10:01 EDT Tel [phone], Service support , CC: Kait Tam; Kyler Pickens MD Ornamenter: Signed 17-Nov-2016 Abd Inc Decub and/or Erect Result: Comments: See Note; NOTES: [facility] Imaging Services [address] [place] [address] Verdana 4d Abd Inc Decub and/or Erect MR#: [id number] Acct: [id number] Name: NIEVES JACKSON Rep #: [id number] : 1970 46 From: Erik Ramsey MD PCP: Kait Tam Status: REG CLI Study: Abd Inc Decub and/or Erect Date of Exam: 11/17/16 Exam# [id number] Ordering Dr: Otoniel Peoples STUDY: X-RAY - ABDOMEN/PELVIS REASON FOR EXAM: Male, 46 years old. Left- sided abdominal pain and diarrhea for one week. TECHNIQUE: AP supine and upright views of the abdomen and pelvis. COMPARIS ON: None. FINDINGS: Normal visualized lung bases. There is a moderate amount of colonic fecal material. There is no demonstrated free abdominal air. The visualized liver, spleen and kidneys are grossly normal in size and morphology. Normal soft tissue structures. Normal visualized osseous structures. RAD/A bd Inc Decub and/or Erect IMPRESSION: A moderate amount of fecal material is seen in the colon. Electronically Signed: Erik Ramsey MD at 14:11 EDT Tel [phone], Service support 07-05 [phone], CC: Kait GOMEZ Ornamenter: Signed 17-Nov-2016 Chest 1 View Result: Comments: See Note; NOTES: [facility] Imaging Services [address] [place] [address] Verdana 4d Chest 1 View MR#: [id number] Acct: [id number] Name: NIEVES JACKSON Jim Rep #: [id number] : 1970 M 46 From: Erik Ramsey MD PCP: Kait Tam Status: REG CLI Study: Chest 1 View Date of Exam: 11/17/16 Exam# [id number] Ordering Dr: Otoniel Peoples STUDY: X-RAY CHEST TANVI SON FOR EXAM: Male, 46 years old. Left-sided chest pain and abdominal pain. TECHNIQUE: Single AP portable view of the chest. COMPARISON: None. FINDINGS: The lungs are clear and expanded. There is no demonstrated pleural abnormality. Normal size heart. Normal mediastinum and noemi. Normal visualized pulmonary arteries. Normal visualized aortic arch and descending thoracic aorta. Normal visualized thoracic spine. Normal visualized ribs, clavicles, and shoulders. There is no demonstrated abnormality of the visualized soft tissue structures of the upper abdomen. RAD/Chest 1 View IMPRESSION: Normal x-ray examination of the chest. Electronically Signed: Erik Ramsey MD at 14:10 EDT Tel [phone], Service support , CC: Kait Tam; Otoniel GOMEZ Ornamenter: Signed 13-Aug-2016 Venous Duplex Lower Extremity Result: Comments: See Note; NOTES: [facility] Cardiovascular Services [address] [place] [address] Venous Duplex US, Unilateral 08/13/16 1202 MR#: [id number] Acct: [id number] Name: Alberto KATIERONALDONIEVES Rep #: [id number] : 1970 46 From: Pasha Rosales MD Attending Dr: Marcia Hughes DO Status: REG CLI Ordering Dr: Marcia Hughes DO Date: 08/13/16 Location: CVS Sex: M C Admitted : Reason For Study: LEG PAIN RIGHT LEFT CFV is compressible, spontaneous, phasic, GSV is normal. competent and demonstrates normal CFV is compressible, spontaneous, phasic , augmentation. competen t, and demonstrates normal Procedure augmentation. Exam performed in department. FV is compressible, spontaneous, phasic, A preliminary report was called and/or faxed competent and demonstrates normal t o Dr. Hughes. augmentation. POP V is compressible, spontaneous, phasic, competent and demonstrates normal augmentation. T/P Trunk is compressible. PTV is compressible. LT PerV is compressible. Interpre tation Summary Deep veins of the left lower extremity are patent and compressible segmentally. There is no evidence of left lower extremity deep vein thrombosis. Valvular competence appears intact withi n the proximal deep venous system on the left . The left greater saphenous vein appears patent and compressible segmentally. Ordering Physician: Marcia Hughes Performed By: Valentina Mackay RVT 08/13/16 1602 Date _ Pasha Rosales MD CC: Kait Tam; Marcia Hughes DO Date Dictated: 08/13/16 1202 Date Transcribed: 08/13/16 1602 Ornamenter: Signed 18-Apr-2016 Lower Ext/No Jt/w/o Result: Comments: See Note; NOTES: [facility] Imaging Services [address] [place] [address] Verdana 4d Lower Ext/No Jt/w/o MR#: [id number] Acct: [id number] Name: NIEVES JACKSON Rep #: [id number] : 1970 M 45 From: Clinton Valdez MD PCP: Kait Tam Status: REG CLI Study: Lower Ext/No Jt/w/o Date of Exam: 04/18/16 Exam# [id number] Ordering Dr: Diogo Tian DPGarrett STUDY: MRI LEFT FOREFOOT WITHOUT CONTRAST REASON FOR EXAM: Male, 45 years old. Torn plantar plate second MTP joint. Capsulitis. No injury. Pain in the distal mid second and third MTP joints. Feels like walki ng on a ball. Symptoms for 3 years TECHNIQUE: Standardized fat and water weighted pulse sequences were obtained in all 3 orthogonal planes. COMPARISON: None. FINDI NGS: There are mild degenerative changes of the metatarsophalangeal joint of the hallux. There are degenerative changes of the first metatarsal sesamoid joints Normal interphalangeal joint of the hallux . Normal proximal and distal phalanges of the great toe. Normal medial and lateral heads of the flexor hallucis brevis tendons. Normal flexor and extensor hallucis longus tendons. Normal second throug h fifth metatarsophalangeal (MTP) joints. Normal interphalangeal joints of the second through fifth toes. Normal proximal, middle and distal phalanges of the second through fifth toes. Normal first thr ough fourth intermetatarsal spaces. Normal flexor and extensor tendons of the second through fifth toes. Normal metatarsi. Normal tarsometatarsal joint with normal Lisfranc ligament complex appear nor mal visualized tarsal bones and intertarsal joints. There is diffuse atrophy of the intrinsic muscles of the forefoot consisten twith a peripheral neuropathy. OR GLYNN #: [id number] MRI/Lower Ext/No Jt/w/o IMPRESSION: Degenerative changes of first MTP joint and first metatarsal sesamoid joints. No evidence of plantar plate degeneration or tear. No signs of interme tatarsal neuroma. Diffuse atrophy of the intrinsic muscles of the foot possibly related to peripheral neuropathy. Electronically Signed: Clinton Valdez MD, FACR at 17:59 EDT Tel , Service support [phone], CC: Kait Tam; Diogo Tian DPM Ornamenter: Signed 17-Mar-2016 L/S Spine w Bend Min 6 Vw Result: Comments: See Note; NOTES: [facility] Imaging Services [address] [place] [address] Verdana 4d L/S Spine w Bend Min 6 Vw MR#: [id number] Acct: [id number] Name: NIEVES JACKSON Rep #: [id number] : 1970 M 45 From: Clinton Valdez MD PCP: Kait Tam Status: REG CLI Study: L/S Spine w Bend Min 6 Vw Date of Exam: 03/17/16 Exam# [id number] Ordering Dr: Carola Francis STUDY: X-RAY - LUMBOSACRAL SPINE REASON FOR EXAM: Male, 45 years old. Low back pain TECHNIQUE: 8 view(s) of the lumbosacral spine were obtained. COMPARISON: Prior x-rays of the lumbar spine on 0 07-11-14 FINDINGS: Normal lumbar lordosis. There is levoscoliosis. There is normal alignment of the vertebrae. There are no signs of instability on the lateral flexio n-extension views Normal vertebral bodies. There is degenerative disc disease at L5-S1 with disc space narrowing, vacuum phenomenon and small anterior osteophytes. There is facet arthrosis . Normal bi lateral sacral ala, sacroiliac joints, and visualized sacrum. Normal visualized soft tissue structures. 0042 RAD/L/S Spine w Bend Min 6 Vw IMPRESSIO N: L5-S1 degenerative disc disease with facet arthrosis. Unchanged since the last examination. Electronically Signed: Clinton Valdez MD, FACR at 11:13 EDT , Service suppo rt [phone], CC: Kait Tam; Carola Francis DO Ornamenter: Signed 24-Oct-2015 PT D/C of Non Returning Pt (1) Result: Comments: See Note; NOTES: [facility] Physical Therapy [facility] [place], [place] [address] Fax REHABILITATION SE RVICES DISCHARGE SUMMARY MR#: [id number] Acct: [id number] Name: NIEVES JACKSON Rep #: [id number] : 1970 45 From: Linda Moon DPT Referring DrKailyn: Carola Francis DO Status: REG RCR E janeth Date: Discharge Date: HP - Discharge Summary (1) - Patient Information NIEVES JACKSON was seen in my office for initial evaluation on 07/24/15. The following Plan of Care was establishe d for this patient: Initial Frequency: 2-3x /Week Initial Duration: 4 Weeks - Anticipated Interventions Patient/Client Instruction: Educate patient on: Benefits of Fitness Program For the Purpose of:: To increase tolerance to activity/condition/position Therapeutic Exercise to Include: Strength training, Endurance training, Agility training, Postural training, Flexibilty training, Gait and lo comotor training, Passive ROM, Active ROM For the Purpose of:: To improve muscle performance and motor function TENS: Yes Cryotherapy (ice pack, ice massage): Yes Thermo therapy (hot pack): Yes Ult rasound (thermal/non thermal): Yes For the Purpose of:: To decrease pain This patient was last seen in our office . Pertinent comments regarding their Physical therapy will appear below: Patient has not attended PT and it is appropriate for discharge and return to MD for further evaluation. At this point I will be discontinuing this patient from physical therapy. I would be happy to see this patient again in the future if found appropriate by the physician. Thank you! Linda Moon <Electronically signed by Linda Moon DPT> 10/24/15 1334 CC: Kait Tam; Carola grover DO ELR Signed 2-Jul-2015 Inital Evaluation (1) - PT Result: Comments: See Note; NOTES: [facility] Physical Therapy [facility] [address] [place] [address] Fax REHABILITATION SE RVICES INITIAL EVALUATION MR#: [id number] Acct: [id number] Name: NIEVES JACKSON Rep #: [id number] : 1970 45 From: Linda Moon DPDerrek Referring Dr.: Carola Francis DO Status: REG RCR Insurance: [employer] Date: Patient's Visit Information NIEVES JACKSON is a 45 year old M, referred to Physical Therapy by Carola Francis,, with a diagnosis of Right knee scope. Date of Ev aluation: 07/24/15 Physical Therapist: Linda Moon - Visit Plan Frequency: 2-3x /Week Duration: 4 Weeks - Subjective Dr Cabrera performed a knee scope and cleaned out the meniscus. It was worst then they thought. Surgery was performed 2 weeks ago 07/10/15. Saw MD yesterday who was happy with progress. Dr. Ricks said don't push into pain and is concerned about the quad weakness. Will sta rt ice machine again today. Pain is located around the whole knee- sharp. Hip was killing him last night. Worst: 7/10, Best: 0/10. Agg: being up on it, sleep Eases:ice, elevation, rest. Hard to sleep- wakes him up- sleeps on left side. 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 - Objective Posture: FH, RS, Increased kyphosis. Stairs: non recip with 2 HR. Gait: antalgic- uses axillary crut ch in the right hand- when asked to switch the left he reports having a bad arm- doesn't use at home. Antalgic with decreased stance on the right LE. Decreased heel/toe strike. HR/TR- able but increas ed pain with TR. Balance: WS but unable to SLS. Observation: well healed incisions. Palpation: tender along medial joint line. Strength:Ankle:5/5, Knee: 4 /5, Hip:4/5. ROM: 10 degrees from neutral to 9 8 degrees - Goals Goal 1:: Patient will be I with HEP and progression Goal Time Frame: 4-6 Weeks Goal 2:: Patient will ambulate >300 feet with a normalized gait pattern. Goal Time Frame: 4 -6 Weeks Goal 3:: Patient will asc/desc 8 stairs recip with 0/10 pain and 1 HR. Goal Time Frame: 4-6 Weeks Goal 4:: Patient will report 0/10 pain with return to all normal ADL's and work rel ated tasks. Goal Time Frame: 4-6 Weeks - Rehabilitation Potential Physical Therapy Diagnosis: Right knee scope Rehabilitation Potential: Good - Anticipated Interventions Patient/Client Instructi on: Educate patient on: Benefits of Fitness Program For the Purpose of:: To increase tolerance to activity/condition/position Therapeutic Exercise to Include: Strength training, Endurance training, Ag ility training, Postural training, Flexibilty training, Gait and locomotor training, Passive ROM, Active ROM For the Purpose of:: To improve muscle performance and motor function TENS: Yes Cryothera py (ice pack, ice massage): Yes Thermo therapy (hot pack): Yes Ultrasound (thermal/non thermal): Yes For the Purpose of:: To decrease pain Thank you for the opportunity to evaluate your patient. For Medicare and Medicare HMO plans, please review the plan of care and approve it. It will need to be FAXED BACK to us at [phone] for Medicare purposes. Please let me know if there are ques tions or concerns regarding this plan of care. Physician Signature: Date: <Electronically signed by Linda Moon DPT> 0 07/30/15 9513 CC: Kait Francis DO ELR Signed For Medicare only, by signing this I certify the plan of care. Physicians Signature Date 08-May-2015 Operative Report Result: Comments: See Note; NOTES: [facility] Medical Records Department [address] [place] [address] Operative Report MR#: [id number] Acct: [id number] Name: NIEVES BARROSO Rep #: [id number] : 1970 44 From: Eros Gomez MD PCP: Kait Tam Status: DEP [facility] DATE OF SERVICE: DATE OF PROCEDURE: May 03, 2015. PREOPERATIVE DIAGNOSIS: Bilateral renal li thiasis. POSTOPERATIVE DIAGNOSIS: Bilateral renal lithiasis. PROCEDURE: Cystoscopy and bilateral extracorporeal shockwave lithotripsy. INDICATIONS: This is a 44-year-old gentleman who has noted a little bit of blood in the urine and during evaluation was found to have a stone on the right and left side, one was 4 mm and one was 6 and he had seen some blood in urine, but no clots. He is [facility] at this time for resolution of the stones as well as evaluation of the bladder. DESCRIPTION OF PROCEDURE: The patient was taken to the operating room and was placed under general anesthesia by Yesenia Tellez and Dr. Rojo. He was positioned on the table, some difficulty identifying where the stones were evident. We started on the right side first. However, prior to this, we elected a cys toscopy before blood was coming down the ureter and subsequently a flexible cystoscopy was performed after prepping and draping genital with sterile technique. No evidence of any strictures. Prostatic fossa showed some mild obstruction and the bladder itself had to be distended slightly, visualized the whole bladder, but no evidence of any stones or tumors nor any pathology was seen within the jennie dder itself. There was no evidence of any strictures and at this point, all the instruments were removed. Extracorporeal shockwave lithotripsy was initiated and did the right side first, the left eric e second and both stones were very difficult to see prior, but they were visible and nothing could be found at the end of procedure. Overall, the patient appeared to tolerate the procedure well. He wa s then taken to recovery room in stable condition. Eros Gomez MD T: NTS JOB: [id number] 05/08/15 1450 <Electronically signed by Eros Gomez MD> Date Eros Gomez MD Cosigner Signature (If Indicated): Date CC: Kait Tam; Eros Gomez MD Date Dictated: 05/06 Date Transcribed: 05/06/151745 Ornamenter: Signed 08-May-2015 PT D/C of Non Returning Pt. Result: Comments: See Note; NOTES: [facility] Physical Therapy [facility] [address] [place], [place] [address] Fax REHABILITATION RVICES DISCHARGE SUMMARY MR#: [id number] Acct: [id number] Name: NIEVES BARROSO Rep #: [id number] : 1970 44 From: Linda Moon Referring Dr.: Kait Tam Status: PRE RCR Eval Date: Discha rge Date: HP - Discharge Summary - Patient Information NIEVES BARROSO was seen in my office for initial evaluation on 02/08/15. The following Plan of Care was established for this patient: In itial Duration: 4 Weeks - Anticipated Interventions Patient/Client Instruction: Educate patient on: Benefits of Fitness Program Therapeutic Exercise to Include: Strength training, Endurance training , Balance training, Coordination, Body mechanics, Postural training, Flexibilty training, Gait and locomotor training, Neuromotor development, Dynamic Lumbar Stabilization TENS: Yes Cryotherapy (ice pack, ice massage): Yes Thermo therapy (hot pack): Yes Ultrasound (thermal/non thermal): Yes This patient was last seen in our office 02/26/15. Pertinent comments regarding their Physical therapy wi ll appear below: Patient has not returned to PT since 02/26/15 and is appropriate to be d/c at this time. At this point I will be discontinuing this patient from physical therapy. I would be happy to see this patient again in the future if found appropriate by the physician. Thank you! Linda Snow Red <Electronically signed by Linda Moon > 05/08/15 0953 CC: Kait Tam ELR Signed 03-May-2015 12 Lead Electrocardiogram Result: Comments: See Note; NOTES: [facility] Cardiovascular Services [address] [place] [address] EKG - SDC 05/01/1532 MR#: [id number] Acct: [id number] Name: NIEVES BARROSO Rep #: [id number] : 1970 44 From: Kyler Zambrano MD Attending Dr: Eros Gomez MD Status: REG [facility] Ordering Dr: Eros Gomez MD Date: 05/01/15 Location: AC Sex: M C Admitted: Te st Reason : Blood Pressure : / mmHG Vent. Rate : 085 BPM Atrial Rate : 085 BPM P-R Int : 156 ms QRS Dur : 090 ms QT Int : 368 ms P-R-T Axes : 026 034 032 degrees QTc Int : 437 ms Normal sinus rhythm Normal ECG Confirmed by KYLER ZAMBRANO ([id number]), editorial assistant GIBRAN POWELL ([id number]) on 05/03/2015 1:15:28 PM Referred By: JULITO Confirmed By:KYLER ZAMBRANO 05/03/15 1315 Date ____ Kyler Zambrano MD CC: Kait Tam; Kyler Zambrano MD Date Dictated: 05/01/1532 Date Transcribed: 05/01/15931 Ornamenter: Signed 03-May-2015 Discharge Instruction Result: Comments: See Note; NOTES: [facility] Medical Records Department [address] [place] [address] Instructions for Home/Discharge Instructions 05/03/15 1236 MR#: [id number] Acct: [id number] Name: NIEVES BARROSO Rep #: [id number] : 1970 44 From: Eros Gomez MD PCP: Kait Tam Status: REG [facility] Discharge Diet: No Restrictions Discharge Activity: Return to Normal Activity, May Not Drive - UNTIL TOMORROW, May not drive while taking narcotic pain medications., May Shower, - - EXPECT SOME BLOOD IN URINE Return to work on:: 05/06/15 Call your doctor if your incision/area has: Increased Redness Call your doctor if you observe: Fever of 101 or Higher, Inability to urinate Allergies/Adverse Reactions: Allergies Penicillins Allergy (Verified 05/01/15 09:07) Rash ibuprofen Adverse Reaction (Verified 05/01/15 09:07) Upset Stomach oxycodone HCl [From Percocet] Adverse Reaction (Verified 05/01/15 09:07) Other Medications to take at Discharge Ergocalciferol [Vitamin D] 50,000 unit PO SUWE 09/25/14 Omeprazole [Prilosec] 40 mg PO QHS 09/25/14 TraMADol [Ultram (G)] 50 mg PO Q4H PRN PRN #20 tablet 09/25/14 Losartan Potassium [Cozaar] 50 mg PO QHS 05/01/15 Please Follow Up With: Eros Gomez - [phone] When: CALL SOON ON WEDNESDAY FOR AN APPT IN 4-5 WKS [phone] TO PAGE 05/03/15 6167 <Electronically signed by Eros Gomez MD> Date Eros Gomez MD CC: Kait Mcclellantazmel 01-May-2015 Abdomen/Pelvis without Cont Result: Comments: See Note; NOTES: [facility] Imaging Services [address] [place] [address] Verdana 4d Abdomen/Pelvis without Cont MR#: [id number] Acct: [id number] Name: NIEVES BARROSO Rep #: [id number] : 1970 M 44 From: Erik Ramsey MD PCP: Kait Tam Status: PRE SDC Study: Abdomen/Pelvis without Cont Date of Exam: 05/01/15 Exam# [id number] Ordering Dr : Eros Gomez MD STUDY: CT ABDOMEN AND PELVIS WITHOUT CONTRAST REASON FOR EXAM: Male, 44 years old. History of bilateral renal calculi. RADIATION DOSAGE (If Supplied By Facility): CTDIvol = ( 36.42 ) mGy, DLP = ( 1982.48 ) mGycm TECHNIQUE: Transaxial images were obtained from the dome of the diaphragm to the symphysis pubis without oral contrast, and without intravenous contrast. Sagi ttal and coronal images were reconstructed. COMPARISON: Comparison is made with prior study dated September 07, 2011. FINDINGS: The visualized lung bases are unrema rkable. The visualized portions of the heart are within normal limits. There is decreased attenuation of the liver consistent with steatosis. Normal gallbladder and extrahepatic biliary system. Norm al spleen. Normal pancreas. Normal bilateral adrenal glands. There is a 4.1 mm calculus in the proximal portion of the right renal pelvis. No significant hydronephrosis is seen. There is a 6 mm x 1 mm calculus in the midportion of the left kidney. Small hiatal hernia with air-fluid level. Normal small intestine. Normal colon. The appendix is visualized and appears normal. Normal abdominal aorta. Normal inferior vena cava. There is borderline retroperitoneal lymphadenopathy with enlarged nodes no greater than 10mm in the short axis diameter. Normal urinary bladder. There are prostatic calcifications. Small bilateral inguinal hernias containing fat. Disc space narrowing and disc degeneration at the L4-L5 and L5-S1 levels. IMPRESSION: Small n onobstructive bilateral intrarenal calculi. Fatty infiltration of the liver. Electronically Signed: Erik Ramsey MD at 10:30 EST Tel [phone], Service support [phone], Fa x [phone] CC: Kait Tam; Eros Gomez MD Ornamenter: Signed 22-Apr-2015 Kidney and Bladder Result: Comments: See Note; NOTES: [facility] Imaging Services [address] [place] [address] [place] 4d Kidney and Bladder MR#: [id number] Acct: [id number] Name: ALFREDO BARROSO Rep #: [id number] : 1970 M 44 From: Erik Ramesy MD PCP: Kait Tam Status: REG CLI Study: Kidney and Bladder Date of Exam: 04/22/15 Exam# [id number] Ordering Dr: Marcia Hughes DO STUDY: RENAL ULTRASOUND - COMPLETE REASON FOR EXAM: Male, 44 years old. History of bilateral nephrolithiasis. TECHNIQUE: Ultrasound evaluation of the kidneys was performed with real-time a nd static nava-scale imaging. COMPARISON: None. FINDINGS: RIGHT KIDNEY: Normal location of the right kidney, which is normal in size. The right kidney measure s 12.2 cm x 6.5 cm x 5.2 cm. There is a normal cortex of the right kidney. The renal cortex measures 1.9 cm. There is no right renal mass or cyst. There are 2 tiny nonobstructive intrarenal calculi. The larger measures 5 mm. There is no right hydronephrosis. DISTAL RIGHT URETER: There is non-visualization of the distal right ureter. There is no demonstrated right ureterovesical junction calculu s. There is a visualized right ureteral jet. LEFT KIDNEY: Normal location of the left kidney, which is normal in size. The left kidney measures 12.5 cm x 6.5 cm x 5.3 cm. There is a normal cortex o f the left kidney. The renal cortex measures 1.6 cm. There is no left renal mass or cyst. There are 3 nonobstructive intrarenal calculi. The largest measures 8 mm x 9 mm x 7 mm. There is no left hydro nephrosis. DISTAL LEFT URETER: There is non-visualization of the distal left ureter. There is no demonstrated left ureterovesical junction calculus. There is a visualized left ureteral jet. BLADDE R: The distended urinary bladder has a volume of 49.1 ml. The empty urinary bladder has a volume of 2.0 ml. There is a normal wall thickness of the distended urinary bladder. There is no demonstrated mass within the urinary bladder. There are no demonstrated bladder calculi. Incidental note is made of splenomegaly. The spleen measures 14.6 cm x 6.2 cm x 7.7 cm per IMPRESSION: Small bilateral intrarenal calculi. Splenomegaly. Electronically Signed: Erik Ramsey MD at 12:30 EDT Tel [phone], Service support [phone], Fax CC: Kait Tam; Marcia Hughes DO Ornamenter: Signed 18-Apr-2015 Abdomen Single View Result: Comments: See Note; NOTES: [facility] Imaging Services [address] [place] [address] [place] 4d Abdomen Single View MR#: [id number] Acct: [id number] Name: Hugo BARROSO Rep #: [id number] : 1970 M 44 From: Anthony Garcia MD PCP: Kait Tam Status: REG CLI Study: Abdomen Single View Date of Exam: 04/18/15 Exam# [id number] Ordering Dr: Marcia Hughes DO STUDY: X-RAY - ABDOMEN/PELVIS REASON FOR EXAM: Male, 44 years old. Hematuria. Patient has history of kidney stones TECHNIQUE: Two AP supine views of the abdomen and pelvis. COMPARISON: CT sc an from September 07, 2011. FINDINGS: Normal visualized lung bases. There is an unremarkable bowel gas pattern. There is no demonstrated free abdominal air. Calc ifications are seen projecting over both kidneys suggesting kidney stones largest is in the left kidney measures 5 mm. Normal soft tissue structures. Normal visualized osseous structures. IMPRESSION: Bilateral kidney stones largest in the left kidney measures 5 mm. Electronically Signed: Crissy Garcia MD at 9:10 EDT Tel , Service support [phone], RAD/Abdomen Single View IMPRESSION: Bilateral kidney stones largest in the left kidney measures 5 mm. Electronically Signed: Crissy noriega MD at 9:10 EDT Tel , Service support [phone], CC: Kait Tam; Marcia Hughes DO Ornamenter: Signed 13-Mar-2015 Lower Ext Joint Only (Routine) Result: Comments: See Note; NOTES: [facility] Imaging Services [address] [place] [address] MRI Report MR#: [id number] Acct: [id number] Name: NIEVES BARROSO Rep #: [id number] : 1970 M 44 From: Clinton Valdez MD PCP: Kait Tam Status: REG CLI Study: Lower Ext Joint Only (Routine) Date of Exam: 03/13/15 Exam# [id number] Ordering Dr: Carola Francis DO STUDY: MR I RIGHT KNEE REASON FOR EXAM: Male, 44 years old. Right knee pain. Rule out medial meniscal tear. Medial pain. No known injury. TECHNIQUE: Standardized fat and water weighted pulse sequences were obtained in all 3 orthogonal planes. COMPARISON: X-rays of the right knee on 02-05-15. FINDINGS: There is an irregular tear of the posterior horn of the medial meniscus with extension into the anterior horn (sagittal T2 series 4 image 20 and coronal T2 series 6 image 17). There is meniscal extrusion. There is diffuse, greater than 50% thickness articular ca rtilage loss of the medial femorotibial compartment. Normal medial femoral condyle and tibial plateau. Normal medial collateral ligamentous complex (MCL). Normal distal semimembranosus, gracilis an d semitendinosus tendons. Normal lateral meniscus. Normal hyaline cartilage of the lateral femorotibial compartment. Normal lateral femoral condyle and tibial plateau. Normal proximal tibiofibular articulation. Normal lateral collateral (fibular) ligament. Normal popliteus tendon. Normal biceps femoris tendon. Normal anterior cruciate ligament (ACL). Normal posterior crucia te ligament (PCL). Normal congruent patellofemoral articulation. Normal hyaline cartilage of the patellofemoral compartment. Normal medial and lateral patellar retinaculum. Normal quadriceps tend on. Normal patellar tendon. Normal Hoffa's fat pad. There is a small volume joint effusion. There is a short medial patellar plica The soft tissues are unremarkable. The otherwise visualized osseou s structures are unremarkable. IMPRESSION: Irregular tear of the medial meniscus with meniscal extrusion. Arthrosis of the medial compartment. Small volume j oint effusion Electronically Signed: Clinton Valdez MD, FACR at 8:51 EDT , Service support [phone], CC: Kait Tam; Carola Francis DO Ornamenter: Signed 08-Feb-2015 Inital Evaluation - PT Result: Comments: See Note; NOTES: [facility] [address] [place] [address]. [address] [place] [address] Fax REHABILITATION SERVICES INITIAL EVALUATION MR#: [id number] Acct: [id number] Name: NIEVES BARROSO Rep #: [id number] : 1970 44 From: Linda Moon Referring DrKailyn: Kait Tam Status: REG R [facility] Date: Patient's Visit Information NIEVES BARROSO is a 44 year old M, referred to Physical Therapy by Kait Tam,, with a diagnosis of Right Knee. Date of Evaluation: 02/08/15 Physical Therapist : Linda Moon - Visit Plan Frequency: 3x /Week Duration: 4 Weeks - Subjective Right knee pain since about June with insidious onset. Started with swelling and pain. Agg : walking up steps, Going from sit to stand, bending the knee for to long, touch. Eases: ice- but very little. Sleep is disturbed- on his side with a pillow between the knees. No N/T. Dull/Achy pain. No radiating pain-mo stly medial knee and posterior knee. 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 Special Tests: Steps: rec with 2 HR. Signifi cant UE assistance both asc/desc. Very slow with descent. HR-no pain TR-increases pain but is able to perform. Gait: antalgic- decreased rosas with toes turned out. Balance: SLS- unable without UE A a nd does report pain. Palpation: tender along medial joint line and posterior knee. Sensation: WNL. ROM: 0-120 degrees. Strength: Ankle-5/5. Knee-4+/5. Hip- 4/ 5 t/o. Core- poor minus. VMO-4-/5 - Goal s Goal 1:: Patient will be independent with HEP and progression Goal Time Frame: 4-6 Weeks Goal 2:: Patient will demonstrate 5/5 strength in LE where deficit to ease ADL's. Goal Time Frame: 4-6 Week s Goal 3:: Patient will asc/desc 8 steps rec without HR to ease ADL's. Goal Time Frame: 4-6 Weeks Goal 4:: Patient will report 0/10 pain for 1 week to ease ADL's - Rehabilitation Potential Rehabilitation Potential: Fair - Anticipated Interventions Patient/Client Instruction: Educate patient on: Benefits of Fitness Program For the Purpose of:: To increase tolerance to activity/condit ion/position Therapeutic Exercise to Include: Strength training, Endurance training, Balance training, Coordination, Body mechanics, Postural training, Flexibilty training, Gait and locomotor trainin g, Neuromotor development, Dynamic Lumbar Stabilization For the Purpose of:: To improve muscle performance and motor function TENS: Yes Cryotherapy (ice pack, ice massage): Yes Thermo therapy (hot p ack): Yes Ultrasound (thermal/non thermal): Yes For the Purpose of:: To decrease pain, To decrease swelling/inflammation Thank you for the opportunity to evaluate your patient. For Medicare and Medicare HMO plans, please review the plan of care and approve it. It will need to be FAXED BACK to us at [phone] for Medicare purposes. Please let me know if there are questions or concerns r egarding this plan of care. Physician Signature: Date: <Electronically signed by Linda Moon > 02/08/15 0947 CC: ELR Signed For Medicare only, by signing this I certify the plan of care. Physicians Signature Date 05-Feb-2015 Knee 4 or More Views Result: Comments: See Note; NOTES: [facility] Imaging Services [address] [place] [address] Radiology Report MR#: [id number] Acct: [id number] Name: NIEVES BARROSO Rep #: [id number] : 1970 M 44 From: Josue Meza DO PCP: Kait Tam Status: REG CLI Study: Knee 4 or More Views Date of Exam: 02/05/15 Exam# [id number] Ordering Dr: Kait Tam STUDY: X-RAY - RIGHT KNE E REASON FOR EXAM: Male, 44 years old. Knee pain without injury. TECHNIQUE: 4 view(s) of the knee. COMPARISON: None. FINDINGS: Normal visualized distal femu r. Normal visualized proximal tibia and fibula. Normal proximal tibiofibular articulation. There is no acute fracture, dislocation or destructive osseous pathology. There is mild degenerative arthro sis of the medial femorotibial compartment. There is mild degenerative arthrosis of the lateral femorotibial compartment. There is mild degenerative arthrosis of the patellofemoral articulation. Ther e is no demonstrated joint effusion. The soft tissue structures are unremarkable. IMPRESSION: Periarticular soft tissue swelling. Electronically Signed: Malika Meza at 23:52 EDT Tel [phone], Service support [phone], RAD/Knee 4 or More Views IMPRESSION: Periarticular soft tissue swelling. 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 Comments: 20 cig. a day Status: Active Vital Signs Date Test Result Details :02 Temperature 97.7 f Comments: Method: Temporal Pulse 82 /min Comments: Pattern: Regular Respiration Rate 16 /min Comments: Pattern: Unlabored O2 SAT 96 % Comments: Room air BP Systolic 148 mm[Hg] Comments: Patient Position: Sitting; Cuff Location: Left Arm; Cuff Size: Standard BP Diastolic 92 mm[Hg] Comments: Patient Position: Sitting; Cuff Location: Left Arm; Cuff Size: Standard Weight 354.125 lb Height 73 in Body Mass Index Calculated 46.72 kg/m2 Body Surface Area Calculated 2.74 m2 :52 Temperature 96.5 f Comments: Method: Temporal Pulse 102 /min Comments: Pattern: Regular Respiration Rate 18 /min Comments: Pattern: Unlabored O2 SAT 95 % Comments: Room air BP Systolic 142 mm[Hg] Comments: Patient Position: Sitting; Cuff Location: Left Arm; Cuff Size: Standard BP Diastolic 88 mm[Hg] Comments: Patient Position: Sitting; Cuff Location: Left Arm; Cuff Size: Standard Weight 349.125 lb Height 73 in Body Mass Index Calculated 46.06 kg/m2 Body Surface Area Calculated 2.73 m2 :50 Temperature 97.4 f Pulse 83 /min Comments: Pattern: Regular Respiration Rate 17 /min Comments: Pattern: Unlabored O2 SAT 96 % Comments: Room air BP Systolic 126 mm[Hg] Comments: Patient Position: Sitting; Cuff Location: Left Arm; Cuff Size: Standard BP Diastolic 84 mm[Hg] Comments: Patient Position: Sitting; Cuff Location: Left Arm; Cuff Size: Standard Weight 349.125 lb Height 73 in Body Mass Index Calculated 46.06 kg/m2 Body Surface Area Calculated 2.73 m2 [id number]-[id number]:47 Temperature 97.6 f Pulse 98 /min Comments: Pattern: Regular Respiration Rate 17 /min Comments: Pattern: Unlabored O2 SAT 97 % Comments: Room air BP Systolic 130 mm[Hg] Comments: Patient Position: Sitting; Cuff Location: Left Arm; Cuff Size: Standard BP Diastolic 84 mm[Hg] Comments: Patient Position: Sitting; Cuff Location: Left Arm; Cuff Size: Standard Weight 355 lb Height 73 in Body Mass Index Calculated 46.84 kg/m2 Body Surface Area Calculated 2.75 m2 :56 Temperature 97.7 f Comments: Method: Temporal Pulse 55 /min Comments: Pattern: Regular Respiration Rate 16 /min Comments: Pattern: Unlabored O2 SAT 96 % Comments: Room air BP Systolic 130 mm[Hg] Comments: Patient Position: Sitting; Cuff Location: Left Arm; Cuff Size: Standard BP Diastolic 76 mm[Hg] Comments: Patient Position: Sitting; Cuff Location: Left Arm; Cuff Size: Standard Weight 356 lb Height 73 in Body Mass Index Calculated 46.97 kg/m2 Body Surface Area Calculated 2.75 m2 :05 Weight 356 lb Height 73 in Body Mass Index Calculated 46.97 kg/m2 Body Surface Area Calculated 2.75 m2 [id number]-[id number]:33 Temperature 97.6 f Pulse 90 /min Comments: Pattern: Regular Respiration Rate 16 /min Comments: Pattern: Unlabored O2 SAT 96 % Comments: Room air BP Systolic 128 mm[Hg] Comments: Patient Position: Sitting; Cuff Location: Left Arm; Cuff Size: Standard BP Diastolic 82 mm[Hg] Comments: Patient Position: Sitting; Cuff Location: Left Arm; Cuff Size: Standard Weight 356 lb Height 73 in Body Mass Index Calculated 46.97 kg/m2 Body Surface Area Calculated 2.75 m2 :50 Temperature 97.4 f Pulse 95 /min Comments: Pattern: Regular Respiration Rate 16 /min Comments: Pattern: Unlabored O2 SAT 95 % Comments: Room air BP Systolic 126 mm[Hg] Comments: Patient Position: Sitting; Cuff Location: Left Arm; Cuff Size: Standard BP Diastolic 84 mm[Hg] Comments: Patient Position: Sitting; Cuff Location: Left Arm; Cuff Size: Standard Weight 358.25 lb Height 73 in Body Mass Index Calculated 47.26 kg/m2 Body Surface Area Calculated 2.76 m2 :30 Temperature 97.6 f Pulse 86 /min Comments: Pattern: Regular Respiration Rate 16 /min Comments: Pattern: Unlabored O2 SAT 97 % Comments: Room air BP Systolic 132 mm[Hg] Comments: Patient Position: Sitting; Cuff Location: Left Arm; Cuff Size: Standard BP Diastolic 84 mm[Hg] Comments: Patient Position: Sitting; Cuff Location: Left Arm; Cuff Size: Standard Weight 358.5 lb Height 73 in Body Mass Index Calculated 47.3 kg/m2 Body Surface Area Calculated 2.76 m2 :59 Pulse 85 /min Comments: Pattern: Regular Respiration Rate 18 /min Comments: Pattern: Unlabored O2 SAT 94 % Comments: Room air BP Systolic 138 mm[Hg] Comments: Patient Position: Sitting; Cuff Location: Left Arm; Cuff Size: Large BP Diastolic 88 mm[Hg] Comments: Patient Position: Sitting; Cuff Location: Left Arm; Cuff Size: Large Weight 356.375 lb Height 73 in Body Mass Index Calculated 47.02 kg/m2 Body Surface Area Calculated 2.75 m2 52-[id number]-[id number]:11 Pulse 90 /min Comments: Pattern: Regular Respiration Rate 18 /min Comments: Pattern: Unlabored O2 SAT 95 % Comments: Room air BP Systolic 126 mm[Hg] Comments: Patient Position: Standing; Cuff Location: Left Arm; Cuff Size: Large BP Diastolic 84 mm[Hg] Comments: Patient Position: Standing; Cuff Location: Left Arm; Cuff Size: Large Weight 356.375 lb Height 73 in Body Mass Index Calculated 47.02 kg/m2 Body Surface Area Calculated 2.75 m2 :13 Temperature 97.9 f Pulse 96 /min Comments: Pattern: Regular Respiration Rate 18 /min Comments: Pattern: Unlabored O2 SAT 97 % Comments: Room air BP Systolic 142 mm[Hg] Comments: Patient Position: Sitting; Cuff Location: Left Arm; Cuff Size: Standard BP Diastolic 90 mm[Hg] Comments: Patient Position: Sitting; Cuff Location: Left Arm; Cuff Size: Standard Weight 335 lb Height 73 in Body Mass Index Calculated 44.2 kg/m2 Body Surface Area Calculated 2.68 m2 :01 Temperature 97.8 f Pulse 93 /min Comments: Pattern: Regular Respiration Rate 18 /min Comments: Pattern: Unlabored O2 SAT 95 % Comments: Room air BP Systolic 138 mm[Hg] Comments: Patient Position: Sitting; Cuff Location: Left Arm; Cuff Size: Standard BP Diastolic 88 mm[Hg] Comments: Patient Position: Sitting; Cuff Location: Left Arm; Cuff Size: Standard Weight 335 lb Height 73 in Body Mass Index Calculated 44.2 kg/m2 Body Surface Area Calculated 2.68 m2 :25 Temperature 98.6 f Pulse 87 /min Comments: Pattern: Regular Respiration Rate 17 /min Comments: Pattern: Unlabored O2 SAT 97 % Comments: Room air BP Systolic 128 mm[Hg] Comments: Patient Position: Sitting; Cuff Location: Left Arm; Cuff Size: Standard BP Diastolic 82 mm[Hg] Comments: Patient Position: Sitting; Cuff Location: Left Arm; Cuff Size: Standard Weight 335 lb Height 73 in Body Mass Index Calculated 44.2 kg/m2 Body Surface Area Calculated 2.68 m2 :26 Temperature 98.2 f Pulse 94 /min Comments: Pattern: Regular Respiration Rate 18 /min Comments: Pattern: Unlabored O2 SAT 98 % Comments: Room air BP Systolic 138 mm[Hg] Comments: Patient Position: Sitting; Cuff Location: Left Arm; Cuff Size: Standard BP Diastolic 86 mm[Hg] Comments: Patient Position: Sitting; Cuff Location: Left Arm; Cuff Size: Standard Weight 342.25 lb Height 73 in Body Mass Index Calculated 45.15 kg/m2 Body Surface Area Calculated 2.7 m2 :52 Temperature 97.6 f Pulse 85 /min Comments: Pattern: Regular Respiration Rate 16 /min Comments: Pattern: Unlabored O2 SAT 96 % Comments: Room air BP Systolic 126 mm[Hg] Comments: Patient Position: Sitting; Cuff Location: Left Arm; Cuff Size: Standard BP Diastolic 78 mm[Hg] Comments: Patient Position: Sitting; Cuff Location: Left Arm; Cuff Size: Standard Weight 335.125 lb Height 73 in Body Mass Index Calculated 44.21 kg/m2 Body Surface Area Calculated 2.68 m2 :00 Pulse 97 /min Comments: Pattern: Regular Respiration Rate 20 /min Comments: Pattern: Unlabored O2 SAT 95 % Comments: Room air BP Systolic 142 mm[Hg] Comments: Patient Position: Sitting; Cuff Location: Left Arm; Cuff Size: Large BP Diastolic 82 mm[Hg] Comments: Patient Position: Sitting; Cuff Location: Left Arm; Cuff Size: Large Weight 343.5 lb Height 73 in Body Mass Index Calculated 45.32 kg/m2 Body Surface Area Calculated 2.71 m2 :18 Temperature 98.9 f Pulse 89 /min Comments: Pattern: Regular Respiration Rate 18 /min Comments: Pattern: Unlabored O2 SAT 98 % Comments: Room air BP Systolic 118 mm[Hg] Comments: Patient Position: Sitting; Cuff Location: Left Arm; Cuff Size: Standard BP Diastolic 82 mm[Hg] Comments: Patient Position: Sitting; Cuff Location: Left Arm; Cuff Size: Standard Weight 343.5 lb Height 73 in Body Mass Index Calculated 45.32 kg/m2 Body Surface Area Calculated 2.71 m2 :07 Temperature 97.5 f Pulse 96 /min Comments: Pattern: Regular Respiration Rate 18 /min Comments: Pattern: Unlabored O2 SAT 97 % Comments: Room air BP Systolic 132 mm[Hg] Comments: Patient Position: Sitting; Cuff Location: Left Arm; Cuff Size: Standard BP Diastolic 86 mm[Hg] Comments: Patient Position: Sitting; Cuff Location: Left Arm; Cuff Size: Standard Weight 342.125 lb Height 73 in Body Mass Index Calculated 45.14 kg/m2 Body Surface Area Calculated 2.7 m2 :15 Temperature 97.4 f Pulse 88 /min Comments: Pattern: Regular Respiration Rate 16 /min Comments: Pattern: Unlabored O2 SAT 97 % Comments: Room air BP Systolic 128 mm[Hg] Comments: Patient Position: Sitting; Cuff Location: Left Arm; Cuff Size: Standard BP Diastolic 84 mm[Hg] Comments: Patient Position: Sitting; Cuff Location: Left Arm; Cuff Size: Standard Weight 185 lb Height 185 in Body Mass Index Calculated 3.8 kg/m2 Body Surface Area Calculated 4.09 m2 Results Date Description Value Details :04 HgA1C , Office (54023) HgA1C , Office 7.1 % (Normal) Range: 4.6 - 7.1 8-Szn-068412:04 Blood Glucose , Office (67696) Blood Glucose , Office 147 (Normal) 4-Yhz-467749:31 URIC ACID BLOOD (81843) Comments: PATIENT NOT FASTINGPERFORMED BY: [facility] [id number] RoadDublin [place] [id number] Uric Acid 4.9 mg/dL (Normal) Range: 3.7-8.6 Comments: Therapeutic target for gout patients: <6.0 5-Lin-667986:28 TESTOSTERONE FREE (75429) Comments: Mar 2018; PATIENT WAS FASTINGPERFORMED BY: [facility] [id number] [facility] [place] [id number] BY: [facility] [address] [id number] Free Testosterone(Direct) 7.1 pg/mL (Normal) Range: 6.8-21.5 9-Wfd-012493:28 CALCIFEDIOL (47765) Comments: Mar 2018; PATIENT WAS FASTINGPERFORMED BY: [facility] [id number] [facility] [place] [id number] BY: [facility] [address] [id number] Vitamin D, 25-Hydroxy 19.4 ng/mL (Abnormal) Range: 30.0-100.0 Comments: Vitamin D deficiency has been defined by the [place] of[facility] and an Endocrine Society practice guideline as alevel of serum 25-OH vitamin D less than 20 ng/mL (1,2).The Endocrine Society went on to further define vitamin Dinsufficiency as a level between 21 and 29 ng/mL (2).1. IOM ([place] of Medicine). 2010. Dietary reference intakes for calcium and D. [place]: The National Academies Press.2. Pietro MF, Joaquin EVANS, Bonifacio HANSON, et al. Evaluation, treatment, and prevention of vitamin D deficiency: an Endocrine Society clinical practice guideline. JCEM. 2010; 96(7):1911-30. 4-Zew-424542:28 Metabolic Panel, Comments: Mar 2018; PATIENT WAS FASTINGPERFORMED BY: Gimmie Mazuzs8604 [facility] [id number] BY: [employer] [id number] Comprehensive (93780) ALT (SGPT) 31 [iU]/L (Normal) Range: 0-44 AST (SGOT) 29 [iU]/L (Normal) Range: 0-40 Alkaline Phosphatase 85 [iU]/L (Normal) Range: 39-117 Bilirubin, Total 0.8 mg/dL (Normal) Range: 0.0-1.2 A/G Ratio 1.8 (Normal) Range: 1.2-2.2 Globulin, Total 2.4 g/dL (Normal) Range: 1.5-4.5 Albumin 4.2 g/dL (Normal) Range: 3.5-5.5 Protein, Total 6.6 g/dL (Normal) Range: 6.0-8.5 Calcium 9.1 mg/dL (Normal) Range: 8.7-10.2 Carbon Dioxide, Total 24 mmol/L (Normal) Range: 20-29 Chloride 100 mmol/L (Normal) Range: 96-106 Potassium 4.9 mmol/L (Normal) Range: 3.5-5.2 Sodium 143 mmol/L (Normal) Range: 134-144 BUN/Creatinine Ratio 10 (Normal) Range: 9-20 eGFR If Africn Am 112 mL/min/1.73 (Normal) eGFR If NonAfricn Am 97 mL/min/1.73 (Normal) Creatinine 0.93 mg/dL (Normal) Range: 0.76-1.27 BUN 9 mg/dL (Normal) Range: 6-24 Glucose 151 mg/dL (Abnormal) Range: 65-99 0-Cup-329986:28 LIPID PANEL (15869) Comments: Mar 2018; PATIENT WAS FASTINGPERFORMED BY: GimmieMonmouth Medical CenterGdxltn5023 [facility] [id number] BY: InDMusic[address] [id number] LDL/HDL Ratio 3.3 {ratio} (Normal) Range: 0.0-3.6 Comments: LDL/HDL Ratio Men Women 1/2 Avg.Risk 1.0 1.5 Av g.Risk 3.6 3.2 2X Avg.Risk 6.2 5.0 3X Avg.Risk 8.0 6.1 LDL Cholesterol Calc 137 mg/dL (Abnormal) Range: 0-99 VLDL Cholesterol Sundar 21 mg/dL (Normal) Range: 5-40 HDL Cholesterol 42 mg/dL (Normal) Triglycerides 104 mg/dL (Normal) Range: 0-149 Cholesterol, Total 200 mg/dL (Abnormal) Range: 100-199 0-Hku-977230:28 VITAMIN B12 AND FOLATES Comments: Mar 2018; PATIENT WAS FASTINGPERFORMED BY: Dejamor70 [facility] [id number] BY: InDMusic[address] [id number] (39817) Folate (Folic Acid), Serum 7.2 ng/mL (Normal) Comments: A serum folate concentration of less than 3.1 ng/mL isconsidered to represent clinical deficiency. Vitamin B12 645 pg/mL (Normal) Range: 232-1245 13-Roi-604066:28 TESTOSTERONE FREE (78897) Comments: PATIENT WAS FASTINGPERFORMED BY: [employer]6370 [facility] [id number] BY: InDMusic[address] [id number] Free Testosterone(Direct) 5.1 pg/mL (Abnormal) Range: 6.8-21.5 76-Ior-514393:28 CALCIFEDIOL (71457) Comments: PATIENT WAS FASTINGPERFORMED BY: Dejamor70 [facility] [id number] BY: InDMusic[address] [id number] Vitamin D, 25-Hydroxy 19.4 ng/mL (Abnormal) Range: 30.0-100.0 Comments: Vitamin D deficiency has been defined by the [place] ofMedicine and an Endocrine Society practice guideline as alevel of serum 25-OH vitamin D less than 20 ng/mL (1,2).The Endocrine Society went on to further define vitamin Dinsufficiency as a level between 21 and 29 ng/mL (2).1. IOM ([place] of Medicine). 2010. Dietary reference intakes for calcium and D. [place]: The National Academies Press.2. Pietro MF, Joaquin NC, Bonifacio HANSON, et al. Evaluation, treatment, and prevention of vitamin D deficiency: an Endocrine Society clinical practice guideline. JCEM. 2010; 96(7):1911-30. 96-Eqy-186196:28 Metabolic Panel, Comments: PATIENT WAS FASTINGPERFORMED BY: CB [facility] Imwgrz2393 [facility] [id number] BY: BN [facility] Pzrcswxrur0645 [facility] [id number] Inf ormation: [id number] Comprehensive (85283) ALT (SGPT) 29 [iU]/L (Normal) Range: 0-44 AST (SGOT) 21 [iU]/L (Normal) Range: 0-40 Alkaline Phosphatase 92 [iU]/L (Normal) Range: 39-117 Bilirubin, Total 0.6 mg/dL (Normal) Range: 0.0-1.2 A/G Ratio 1.6 (Normal) Range: 1.2-2.2 Globulin, Total 2.5 g/dL (Normal) Range: 1.5-4.5 Albumin 4.1 g/dL (Normal) Range: 3.5-5.5 Protein, Total 6.6 g/dL (Normal) Range: 6.0-8.5 Calcium 8.9 mg/dL (Normal) Range: 8.7-10.2 Carbon Dioxide, Total 23 mmol/L (Normal) Range: 20-29 Chloride 104 mmol/L (Normal) Range: 96-106 Potassium 4.3 mmol/L (Normal) Range: 3.5-5.2 Sodium 141 mmol/L (Normal) Range: 134-144 BUN/Creatinine Ratio 8 (Abnormal) Range: 9-20 eGFR If Africn Am 108 mL/min/1.73 (Normal) eGFR If NonAfricn Am 93 mL/min/1.73 (Normal) Creatinine 0.96 mg/dL (Normal) Range: 0.76-1.27 BUN 8 mg/dL (Normal) Range: 6-24 Glucose 120 mg/dL (Abnormal) Range: 65-99 13-Fds-606657:28 LIPID PANEL (37644) Comments: PATIENT WAS FASTINGPERFORMED BY: InDMusicMonmouth Medical CenterIeycxl2981 [facility] [id number] BY: [address] [id number] LDL/HDL Ratio 3.3 {ratio} (Normal) Range: 0.0-3.6 Comments: LDL/HDL Ratio Men Women 1/2 Avg.Risk 1.0 1.5 Av g.Risk 3.6 3.2 2X Avg.Risk 6.2 5.0 3X Avg.Risk 8.0 6.1 LDL Cholesterol Calc 127 mg/dL (Abnormal) Range: 0-99 VLDL Cholesterol Sundar 19 mg/dL (Normal) Range: 5-40 HDL Cholesterol 38 mg/dL (Abnormal) Triglycerides 93 mg/dL (Normal) Range: 0-149 Cholesterol, Total 184 mg/dL (Normal) Range: 100-199 98-Vvh-683927:28 VITAMIN B12 AND FOLATES Comments: PATIENT WAS FASTINGPERFORMED BY: InDMusicRicky [place] 9090270 [facility] [id number] BY: Black [employer] [id number] (86246) Folate (Folic Acid), Serum 7.1 ng/mL (Normal) Comments: A serum folate concentration of less than 3.1 ng/mL isconsidered to represent clinical deficiency. Vitamin B12 665 pg/mL (Normal) Range: 232-1245 77-Mea-830158:27 Comprehensive Metabolic Profil Comments: [facility] [address] [place], [address] GAP 8 (Normal) Range: 5-15 CO2 29.0 mmol/L (Normal) Range: 21.0-32.0 CL 106 mmol/L (Normal) Range: 98-107 K 3.9 mmol/L (Normal) Range: 3.5-5.1 NA 143 mmol/L (Normal) Range: 136-145 T BILI 0.30 mg/dL (Normal) Range: 0.20-1.00 ALT 35 U/L (Normal) Range: 16-61 ALK P 87 U/L (Normal) Range: 45-117 AST 16 U/L (Normal) Range: 15-37 CA 8.3 mg/dL (Abnormal) Range: 8.5-10.1 A/G 1.1 {RATIO} (Normal) Range: 0.9-2.4 GLOB 3.4 g/dL (Normal) Range: 2.2-4.2 ALB 3.6 g/dL (Normal) Range: 3.2-5.0 T PROT 7.0 g/dL (Normal) Range: 6.4-8.2 BUN/CRE 11.2 {RATIO} (Normal) Range: 10-20 EST GFR - AA 104 mL/min (Normal) Comments: GFR Calc EST GFR 86 mL/min (Normal) Comments: Non- GFR Calc CREAT,SERUM 0.99 mg/dL (Normal) Range: 0.70-1.30 Comments: The validity of the calculated GFR AND GFRAA in patients over70 years has not been determined. Clinical correlation isessential. BUN 11 mg/dL (Normal) Range: 7-18 GLU 187 mg/dL (Abnormal) Range: 74-106 Comments: Fasting Glucose result greater than or equal to 126 mg/dLsuggests DIABETES MELLITUS per A.D.A. criteria.Please note revised GLUCOSE reference range wojtheoqj67/02/2018. 98-Ykr-707812:27 Erythrocyte Sed Rate Comments: [facility] Yjdjdoxpqb1588 [facility] [address]. [place], [place], [address] SED RATE 14 mm/h (Normal) Range: 0-15 40-Thb-852309:27 Hemoglobin A1c Comments: [facility] Azspdvhkkq6738 [facility] [place], [address] HGB A1C 7.0 % (Abnormal) Range: 4.2-6.3 27-Dhy-009643:27 Thyroid Stim Hormone (TSH) Comments: [facility] [address] [place], [place], [address] TSH 1.29 {uIU/mL} (Normal) Range: 0.358-3.74 83-Rny-601679:27 Vitamin B12 695 pg/mL (Normal) Comments: [facility] [address] [place], [place], [address] Range: 211-911 16-Hkv-942233:38 HgA1C , Office (05971) HgA1C , Office 6.5 % (Normal) Range: 4.6 - 7.1 74-Has-978544:38 Blood Glucose , Office (42159) Blood Glucose , Office 129 (Normal) 47-Lav-502825:38 CREATININE FINGERSTICK Comments: [facility] LaboratoryPoint of Otvn[address] [place], [place] [address] EGFR WB > 60.0000 mL/min (Normal) CREATININE WB 0.9 mg/dL (Normal) Range: 0.70-1.30 22-Esk-603590:35 URINE BROOKS CULTURE-IDENTIFICATN Comments: PATIENT NOT FASTINGPERFORMED BY: [employer]6370 [facility] [id number] Information: SRC:UC (60783) Result 1 NG36 (Normal) Comments: No growth in 36 - 48 hours. Urine Culture,Comprehensive Final report (Normal) 65-Kvc-601856:00 Urinalysis, Office (70169) UA - LEUKOCYTE ESTERASE Negative (Normal) UA - NITRITE Negative (Normal) URINE UROBILINGN EUGENIE TIMED Normal mg/dL (Normal) UA - PROTEIN Negative mg/dL (Normal) UA - PH 6 (Abnormal) UA - BLOOD Negative (Normal) UA - SPECIFIC GRAVITY 1.025 (Normal) UA - KETONES Negative mg/dL (Normal) UA - BILIRUBIN Negative (Normal) UA - GLUCOSE Negative (Normal) 17-Vhu-715252:10 UPEP (94041) Comments: PATIENT NOT FASTINGPERFORMED BY: [facility] Cgvgqa0958 [facility] [id number] Please note: SPRCS (Normal) Comments: Protein electrophoresis scan will follow via computer, mail, orcourier delivery. M-Jaspal, % Not Observed % (Normal) Gamma Globulin, U 22.7 % (Normal) Beta Globulin, U 31.8 % (Normal) Vhcxj-5-Rmemnben, U 19.5 % (Normal) Wqdmq-6-Adopbezz, U 3.9 % (Normal) Albumin, U 22.1 % (Normal) Protein,Total,Urine 11.8 mg/dL (Normal) 28-Qbs-483877:10 [facility] (39308) Comments: PATIENT NOT FASTINGPERFORMED BY: [employer]6370 [facility] [id number] Please note: SPRCS (Normal) Comments: Protein electrophoresis scan will follow via computer, mail, orcourier delivery. A/G Ratio 1.1 (Normal) Range: 0.7-1.7 Globulin, Total 3.1 g/dL (Normal) Range: 2.2-3.9 M-Jaspal Not Observed g/dL (Normal) Gamma Globulin 1.0 g/dL (Normal) Range: 0.4-1.8 Beta Globulin 1.1 g/dL (Normal) Range: 0.7-1.3 Wngei-2-Dndghnbv 0.8 g/dL (Normal) Range: 0.4-1.0 Nuovs-4-Vabygfua 0.3 g/dL (Normal) Range: 0.0-0.4 Albumin 3.5 g/dL (Normal) Range: 2.9-4.4 Protein, Total, Serum 6.6 g/dL (Normal) Range: 6.0-8.5 23-Pps-366715:10 VITAMIN B12 AND FOLATES Comments: PATIENT NOT FASTINGPERFORMED BY: Dejamor70 [facility] [id number] (25543) Folate (Folic Acid), Serum 7.3 ng/mL (Normal) Comments: A serum folate concentration of less than 3.1 ng/mL isconsidered to represent clinical deficiency. Vitamin B12 390 pg/mL (Normal) Range: 232-1245 50-Gvs-812746:21 HgA1C , Office (77320) HgA1C , Office 140 % (Abnormal) Range: 4.6 - 7.1 8-Dua-010394:07 HGB A1C (44889) Comments: PATIENT NOT FASTINGPERFORMED BY: Dejamor70 [facility] [id number] Hemoglobin A1c 6.3 % (Abnormal) Range: 4.8-5.6 Comments: . Pre-diabetes: 5.7 - 6.4 Diabetes: >6.4 Glycemic control for adults with diabetes: <7.0 4-Pdf-357928:07 Metabolic Panel, Comments: PATIENT NOT FASTINGPERFORMED BY: InDMusicMonmouth Medical CenterJfgpxv7255 [facility] [id number] Information: [id number] [facility] (64439) ALT (SGPT) 24 [iU]/L (Normal) Range: 0-44 AST (SGOT) 19 [iU]/L (Normal) Range: 0-40 Alkaline Phosphatase, S 85 [iU]/L (Normal) Range: 39-117 Bilirubin, Total 0.5 mg/dL (Normal) Range: 0.0-1.2 A/G Ratio 1.7 (Normal) Range: 1.2-2.2 Globulin, Total 2.5 g/dL (Normal) Range: 1.5-4.5 Albumin, Serum 4.3 g/dL (Normal) Range: 3.5-5.5 Protein, Total, Serum 6.8 g/dL (Normal) Range: 6.0-8.5 Calcium, Serum 9.3 mg/dL (Normal) Range: 8.7-10.2 Carbon Dioxide, Total 25 mmol/L (Normal) Range: 18-29 Chloride, Serum 99 mmol/L (Normal) Range: 96-106 Potassium, Serum 4.5 mmol/L (Normal) Range: 3.5-5.2 Sodium, Serum 142 mmol/L (Normal) Range: 134-144 BUN/Creatinine Ratio 11 (Normal) Range: 9-20 eGFR If Africn Am 108 mL/min/1.73 (Normal) eGFR If NonAfricn Am 94 mL/min/1.73 (Normal) Creatinine, Serum 0.96 mg/dL (Normal) Range: 0.76-1.27 BUN 11 mg/dL (Normal) Range: 6-24 Glucose, Serum 122 mg/dL (Abnormal) Range: 65-99 2-Cpd-663772:30 Anaerobic and Aerobic Comments: PATIENT NOT FASTINGPERFORMED BY: InDMusicMonmouth Medical CenterLaxmmk0097 [facility] [id number] BY: [employer] [id number] Inf ormation: SRC:LE SRC:AM Culture Result 1 Mixed skin carlene (Normal) Aerobic Culture Final report (Normal) Result 1 CATRINA (Normal) Comments: No anaerobes recovered. Anaerobic Culture Final report (Normal) 26-Jan-20179:20 Basic Metabolic Profile (BMP) Comments: [facility] [address] [place], [address] GAP 8 (Normal) Range: 5-15 CO2 28.0 mmol/L (Normal) Range: 21.0-32.0 CL 106 mmol/L (Normal) Range: 98-107 K 3.8 mmol/L (Normal) Range: 3.5-5.1 NA 142 mmol/L (Normal) Range: 136-145 CA 9.0 mg/dL (Normal) Range: 8.5-10.1 BUN/CRE 9.0 {RATIO} (Abnormal) Range: 10-20 Estimated CRCL 103.20 ml/min (Normal) EST GFR - AA 103 mL/min (Normal) Comments: GFR Calc EST GFR 85 mL/min (Normal) Comments: Non- GFR Calc CREAT,SERUM 1.00 mg/dL (Normal) Range: 0.70-1.30 Comments: The validity of the calculated GFR AND GFRAA in patients over70 years has not been determined. Clinical correlation isessential. BUN 9 mg/dL (Normal) Range: 7-18 GLU 120 mg/dL (Abnormal) Range: 70-110 Comments: Fasting Glucose result from 110 to <126 mg/dLsuggests IMPAIRED HOMEOSTASIS per A.D.A. criteria. 67-Vzv-606877:05 ANTINUCLEAR ANTIBODIES DIRECT Comments: Order Date: 03/17/16Order Date: 03/17/16[facility] (refer to report for specific site)refer to report for address and phone number GORDON-DIRECT Negative (Normal) Comments: Performed at: - [facility] [address] [id number] Director: Jordy Alfredo PhD, Phone: [phone] 23-Pqu-488796:05 CBC W/Diff, Automated Comments: Order Date: 03/17/16Interface Comments: Reason:Order Date: [facility]/17/[facility] [address]vezz[address] [place], [place], [address] ; another doc Absolute Lymph 1.58 {X10_3/ul} (Normal) Range: 0.83-4.51 Absolute Neut 6.9 {X10_3/uL} (Normal) Range: 2.0-7.7 IM GRAN % 0.500 % (Normal) Range: 0.0-0.9 Comments: IG% - Immature Granulocytes (promyelocytes, myelocytes andmetamyelocytes) > 1% indicates that a LEFT SHIFT is Present. BASO% 0.1 % (Normal) Range: 0-1 EO% 0.9 % (Normal) Range: 0-5 MONO% 7.3 % (Normal) Range: 0-10 LY% 17.0 % (Abnormal) Range: 19-41 NEUT% 74.2 % (Abnormal) Range: 47-70 MPV 11.2 fL (Normal) Range: 6.2-12.0 PLT 233 K/mm3 (Normal) Range: 150-450 RDW SD 46.1 fL (Abnormal) Range: 35.1-43.9 RDW CV 14.2 % (Normal) Range: 11.6-14.6 MCHC 33.7 {g/gl} (Normal) Range: 32-36 MCH 30.0 pg (Normal) Range: 27.0-32.0 MCV 89.1 fL (Normal) Range: 80-94 HCT 47.5 % (Normal) Range: 40-54 HGB 16.0 g/dL (Normal) Range: 13.0-16.5 RBC 5.33 {M/mm3} (Normal) Range: 4.6-6.2 WBC 9.3 K/mm3 (Normal) Range: 4.4-11.0 :05 CRP Comments: Order Date: 03/17/16Order Date: 03/17/16[facility] [address]wrfxawbh[address] [place], [place], [address] C-REACTIVE PROT 13.90 mg/L (Abnormal) Range: 0.0-3.0 Comments: C-Reactive Protein (CRP) provides useful information for thediagnosis, therapy and monitoring of inflammatory processesand associated diseases. For the evaluation of Relative Riskfor Cardiovascular Dise ase, a High Sensitivity CRP (HSCRP)should be ordered. :05 Erythrocyte Sed Rate Comments: Order Date: 03/17/16Interface Comments: Reason:Order Date: 03/17/16[facility] [address] [place], [place], [address] SED RATE 19 mm/h (Abnormal) Range: 0-15 42-Elh-944180:05 Lyme Screen W/Reflex WB Comments: Order Date: 03/17/16Order Date: 03/17/16[facility] (refer to report for specific site)refer to report for address and phone number LYME SCN INTERP (Normal) Comments: ISR 0.00 - 0.90Negative <0.91Equivocal 0.91 - 1.09Positive >1.09 LYME SCN AB <0.91 (Normal) 13-Iag-853053:05 Rheumatoid Factor Comments: Order Date: 03/17/16Order Date: 03/17/16[facility] Taglp[address]chk[address] [place], [place], [address] RHEUMATOID FAC < 10.0 {IU/mL} (Normal) 1-Ddg-365913:29 Blood Glucose , Office (59880) Blood Glucose , Office 92 (Normal) 3-Ddm-378077:29 HgA1C , Office (78341) HgA1C , Office 6.1 % (Normal) Range: 4.6 - 7.1 :29 CBC, Platelets & Auto Diff Comments: PATIENT NOT FASTINGPERFORMED BY: [facility] Plhlov7541 [facility] [id number] Information: [id number] (42232) Immature Grans (Abs) 0.0 {x10E3/uL} (Normal) Range: 0.0-0.1 Immature Granulocytes 0 % (Normal) Baso (Absolute) 0.0 {x10E3/uL} (Normal) Range: 0.0-0.2 Eos (Absolute) 0.1 {x10E3/uL} (Normal) Range: 0.0-0.4 Monocytes(Absolute) 0.7 {x10E3/uL} (Normal) Range: 0.1-0.9 Lymphs (Absolute) 1.8 {x10E3/uL} (Normal) Range: 0.7-3.1 Neutrophils (Absolute) 7.2 {x10E3/uL} (Abnormal) Range: 1.4-7.0 Basos 0 % (Normal) Eos 1 % (Normal) Monocytes 7 % (Normal) Lymphs 18 % (Normal) Neutrophils 74 % (Normal) Platelets 243 {x10E3/uL} (Normal) Range: 150-379 RDW 14.3 % (Normal) Range: 12.3-15.4 MCHC 33.9 g/dL (Normal) Range: 31.5-35.7 MCH 29.7 pg (Normal) Range: 26.6-33.0 MCV 88 fL (Normal) Range: 79-97 Hematocrit 44.3 % (Normal) Range: 37.5-51.0 Hemoglobin 15.0 g/dL (Normal) Range: 12.6-17.7 RBC 5.05 {x10E6/uL} (Normal) Range: 4.14-5.80 WBC 9.8 {x10E3/uL} (Normal) Range: 3.4-10.8 2-Zca-114787:29 Metabolic Panel, Comprehensive Comments: PATIENT NOT FASTINGPERFORMED BY: LabCoMonmouth Medical CenterOlalbb4168 [facility] [id number] (16179) ALT (SGPT) 20 [iU]/L (Normal) Range: 0-44 AST (SGOT) 11 [iU]/L (Normal) Range: 0-40 Alkaline Phosphatase, S 85 [iU]/L (Normal) Range: 39-117 Bilirubin, Total 0.5 mg/dL (Normal) Range: 0.0-1.2 A/G Ratio 2.0 (Normal) Range: 1.1-2.5 Globulin, Total 2.1 g/dL (Normal) Range: 1.5-4.5 Albumin, Serum 4.3 g/dL (Normal) Range: 3.5-5.5 Protein, Total, Serum 6.4 g/dL (Normal) Range: 6.0-8.5 Calcium, Serum 9.2 mg/dL (Normal) Range: 8.7-10.2 Carbon Dioxide, Total 25 mmol/L (Normal) Range: 18-29 Chloride, Serum 101 mmol/L (Normal) Range: 97-108 Potassium, Serum 4.7 mmol/L (Normal) Range: 3.5-5.2 Sodium, Serum 141 mmol/L (Normal) Range: 134-144 BUN/Creatinine Ratio 11 (Normal) Range: 9-20 eGFR If Africn Am 113 mL/min/1.73 (Normal) eGFR If NonAfricn Am 98 mL/min/1.73 (Normal) Creatinine, Serum 0.93 mg/dL (Normal) Range: 0.76-1.27 BUN 10 mg/dL (Normal) Range: 6-24 Glucose, Serum 105 mg/dL (Abnormal) Range: 65-99 :29 AMYLASE (70119) Comments: PATIENT NOT FASTINGPERFORMED BY: [facility] Cenywe0448 [facility] [id number] Amylase, Serum 57 U/L (Normal) Range: 31-124 :29 LIPASE (53369) Comments: PATIENT NOT FASTINGPERFORMED BY: [address] YOYO [facility] [id number] Lipase, Serum 32 U/L (Normal) Range: 0-59 :29 OVA & PARASITE DIR SMEAR Comments: PATIENT NOT FASTINGPERFORMED BY: Gimmie Msbayj9895 [facility] [id number] (07697) Result 1 NOCP (Normal) Comments: No ova, cysts, or parasites seen. Ova + Parasite Exam Final report (Normal) Comments: These results were obtained using wet preparation(s) and trichromestained smear. This test does not include testing for Cryptosporidiumparvum, Cyclospora, or Microsporidia. :29 OCCULT BLOOD FECES SCREEN Comments: PATIENT NOT FASTINGPERFORMED BY: [facility] Gnqzqz3946 [facility] [id number] (19974) Occult Blood, Fecal, IA Negative (Normal) :29 LEUKOCYTE COUNT, FECAL (30194) Comments: PATIENT NOT FASTINGPERFORMED BY: [facility]6370 [facility] [id number] Result 1 NWBC (Normal) Comments: No white blood cells seen. White Blood Cells (WBC), Final report (Normal) Stool :26 C-DIFFICILE, STOOL (31667) Comments: PATIENT NOT FASTINGPERFORMED BY: [facility]6370 [facility] [id number] Information: [id number] C difficile Toxins A+B, EIA Negative (Normal) :29 BROOKS CULTURE-STOOL (35339) Comments: PATIENT NOT FASTINGPERFORMED BY: [facility]6370 [facility] [id number] Information: [id number] E coli Shiga Toxin EIA Negative (Normal) Result 1 NCI (Normal) Comments: No Campylobacter species isolated. Campylobacter Culture Final report (Normal) Result 1 NSS (Normal) Comments: No Salmonella or Shigella recovered. Salmonella/Shigella Screen Final report (Normal) :47 HgA1C , Office (06163) HgA1C , Office 6.1 % (Normal) Range: 4.6 - 7.1 :16 CALCIFEDIOL (43028) Comments: PATIENT NOT FASTINGPERFORMED BY: [facility]6370 [facility] [id number] Vitamin D, 25-Hydroxy 24.6 ng/mL (Abnormal) Range: 30.0-100.0 Comments: Vitamin D deficiency has been defined by the [place] ofMedicine and an Endocrine Society practice guideline as alevel of serum 25-OH vitamin D less than 20 ng/mL (1,2).The Endocrine Society went on to further define vitamin Dinsufficiency as a level between 21 and 29 ng/mL (2).1. IOM ([place] of Medicine). 2010. Dietary reference intakes for calcium and D. [place]: The National Academies Press.2. Pietro MF, Joaquin NC, Bonifacio HANSON, et al. Evaluation, treatment, and prevention of vitamin D deficiency: an Endocrine Society clinical practice guideline. JCEM. 2010; 96(7):1911-30. :16 CBC, Platelets & Auto Diff Comments: PATIENT NOT FASTINGPERFORMED BY: [place] 7112170 [facility] [id number] Information: [id number] (78185) Immature Grans (Abs) 0.0 {x10E3/uL} (Normal) Range: 0.0-0.1 Immature Granulocytes 0 % (Normal) Baso (Absolute) 0.0 {x10E3/uL} (Normal) Range: 0.0-0.2 Eos (Absolute) 0.1 {x10E3/uL} (Normal) Range: 0.0-0.4 Monocytes(Absolute) 1.0 {x10E3/uL} (Abnormal) Range: 0.1-0.9 Lymphs (Absolute) 2.4 {x10E3/uL} (Normal) Range: 0.7-3.1 Neutrophils (Absolute) 7.4 {x10E3/uL} (Abnormal) Range: 1.4-7.0 Basos 0 % (Normal) Eos 1 % (Normal) Monocytes 9 % (Normal) Lymphs 22 % (Normal) Neutrophils 68 % (Normal) Platelets 244 {x10E3/uL} (Normal) Range: 150-379 RDW 14.3 % (Normal) Range: 12.3-15.4 MCHC 34.8 g/dL (Normal) Range: 31.5-35.7 MCH 29.8 pg (Normal) Range: 26.6-33.0 MCV 86 fL (Normal) Range: 79-97 Hematocrit 43.4 % (Normal) Range: 37.5-51.0 Hemoglobin 15.1 g/dL (Normal) Range: 12.6-17.7 RBC 5.07 {x10E6/uL} (Normal) Range: 4.14-5.80 WBC 10.9 {x10E3/uL} (Abnormal) Range: 3.4-10.8 33-Ils-851013:32 AFP, Tumor Marker Comments: Is Patient ? NComments: [id number] BLOOD SMEAR INTERPRETATION,LAV,[facility] (refer to report for specific site)refer to report for address and phone number AFP TUMOR 2253 1.8 ng/mL (Normal) Range: 0.0-8.3 Comments: Ashlee ECLIA methodologyPerformed at: CB - [facility] [address] [id number] Director: Jordy Alfredo PhD, Phone: [phone] 33-Zhs-563244:32 Bilirubin, Direct Comments: Comments: [id number] BLOOD SMEAR INTERPRETATION,LAV,[facility] Licfpmonmr[address], [place], [address] D BILI 0.15 mg/dL (Normal) Range: 0.00-0.30 64-Icd-531502:32 CBC W/Diff, Automated Comments: [facility] [address] [place], [place], [id number] Absolute Lymph 1.68 {X10_3/ul} (Normal) Range: 0.83-4.51 Absolute Neut 5.5 {X10_3/uL} (Normal) Range: 2.0-7.7 IM GRAN % 0.400 % (Normal) Range: 0.0-0.9 Comments: IG% - Immature Granulocytes (promyelocytes, myelocytes andmetamyelocytes) > 1% indicates that a LEFT SHIFT is Present. BASO% 0.3 % (Normal) Range: 0-1 EO% 1.6 % (Normal) Range: 0-5 MONO% 7.5 % (Normal) Range: 0-10 LY% 21.1 % (Normal) Range: 19-41 NEUT% 69.1 % (Normal) Range: 47-70 MPV 11.0 fL (Normal) Range: 6.2-12.0 PLT 240 K/mm3 (Normal) Range: 150-450 RDW SD 45.6 fL (Abnormal) Range: 35.1-43.9 RDW CV 13.9 % (Normal) Range: 11.6-14.6 MCHC 34.1 {g/gl} (Normal) Range: 32-36 MCH 31.0 pg (Normal) Range: 27.0-32.0 MCV 91.0 fL (Normal) Range: 80-94 HCT 43.4 % (Normal) Range: 40-54 HGB 14.8 g/dL (Normal) Range: 13.0-16.5 RBC 4.77 {M/mm3} (Normal) Range: 4.6-6.2 WBC 8.0 K/mm3 (Normal) Range: 4.4-11.0 [id number] Comprehensive Metabolic Comments: Comments: [id number] BLOOD SMEAR INTERPRETATION,LAV,[facility]Woo[facility] [id number], [address] Profil GAP 4 (Abnormal) Range: 5-15 CO2 31.0 mmol/L (Normal) Range: 21.0-32.0 CL 108 mmol/L (Abnormal) Range: 98-107 K 4.5 mmol/L (Normal) Range: 3.5-5.1 NA 143 mmol/L (Normal) Range: 136-145 T BILI 0.70 mg/dL (Normal) Range: 0.20-1.00 ALT 38 U/L (Normal) Range: 12-78 ALK P 85 U/L (Normal) Range: 50-136 AST 19 U/L (Normal) Range: 15-37 CA 8.8 mg/dL (Normal) Range: 8.5-10.1 A/G 1.2 {RATIO} (Normal) Range: 0.9-2.4 GLOB 3.2 g/dL (Normal) Range: 2.3-3.5 ALB 3.9 g/dL (Normal) Range: 3.4-5.0 T PROT 7.1 g/dL (Normal) Range: 6.4-8.2 BUN/CRE 10.9 {RATIO} (Normal) Range: 10-20 EST GFR - AA 102 mL/min (Normal) Comments: GFR Calc EST GFR 85 mL/min (Normal) Comments: Non- GFR Calc CREAT,SERUM 1.01 mg/dL (Normal) Range: 0.70-1.30 Comments: The validity of the calculated GFR AND GFRAA in patients over70 years has not been determined. Clinical correlation isessential. BUN 11 mg/dL (Normal) Range: 7-18 GLU 110 mg/dL (Normal) Range: 70-110 Comments: Fasting Glucose result from 110 to <126 mg/dLsuggests IMPAIRED HOMEOSTASIS per A.D.A. criteria. [id number] Hepatitis ABC Profile Comments: Is Patient ? NComments: [id number] BLOOD SMEAR INTERPRETATION,LAV,[facility] (refer to report for specific site)refer to report for address and phone number COMMENT Comment (Normal) Comments: Non reactive HCV antibody screen is consistent with no HCVinfection, unless recent infection is suspected or otherevidence exists to indicate HCV infection. HCV Ab <0.1 {s/co_ratio} (Normal) Range: 0.0-0.9 Hep B Nehal AB Non Reactive (Normal) Comments: Non Reactive: Inconsistent with immunity, less than 10 mIU/mL Reactive: Consistent with immunity, greater than 9.9 mIU/ mL HEP B CORE,TOT Negative (Normal) HB CORE [id number] Negative (Normal) HB SURF AG Negative (Normal) HEP A AB,T.6726 Positive (Abnormal) HEP A IgM 6734 Negative (Normal) :32 Vitamin D,25 Hydroxy Comments: [facility] [id number] [place], [place], [address] Vitamin D 25-OH 94.6 ng/mL (Normal) Comments: Vitamin D 25(OH) Status Range Deficiency <20 ng/mL (50nmol/L) Insuffciency 20 - 30 ng/mL (50 - 75 nmol/L) Sufficiency 30 - 100 ng/mL (75 - 250 nmol/L) Toxicity >100 ng/mL (>250 nmol/L) :39 Basic Metabolic Profile (BMP) Comments: [facility] [id number] [place], [place], [id number] GAP 5 (Normal) Range: 5-15 CO2 30.0 mmol/L (Normal) Range: 21.0-32.0 CL 107 mmol/L (Normal) Range: 98-107 K 4.3 mmol/L (Normal) Range: 3.5-5.1 NA 142 mmol/L (Normal) Range: 136-145 CA 8.6 mg/dL (Normal) Range: 8.5-10.1 BUN/CRE 13.4 {RATIO} (Normal) Range: 10-20 Estimated CRCL 108.68 ml/min (Normal) EST GFR - AA 107 mL/min (Normal) Comments: GFR Calc EST GFR 88 mL/min (Normal) Comments: Non- GFR Calc CREAT,SERUM 0.97 mg/dL (Normal) Range: 0.70-1.30 Comments: The validity of the calculated GFR AND GFRAA in patients over70 years has not been determined. Clinical correlation isessential. BUN 13 mg/dL (Normal) Range: 7-18 GLU 88 mg/dL (Normal) Range: 70-110 :39 CBC-Complete Blood Cnt No Diff Comments: [facility] [id number] [place], [address] MPV 10.8 fL (Normal) Range: 6.2-12.0 PLT 227 K/mm3 (Normal) Range: 150-450 RDW SD 46.8 fL (Abnormal) Range: 35.1-43.9 RDW CV 14.4 % (Normal) Range: 11.6-14.6 MCHC 33.9 {g/gl} (Normal) Range: 32-36 MCH 30.5 pg (Normal) Range: 27.0-32.0 MCV 90.2 fL (Normal) Range: 80-94 HCT 44.3 % (Normal) Range: 40-54 HGB 15.0 g/dL (Normal) Range: 13.0-16.5 RBC 4.91 {M/mm3} (Normal) Range: 4.6-6.2 WBC 10.7 K/mm3 (Normal) Range: 4.4-11.0 35-Fox-992764:05 URINE BROOKS CULTURE (EUEGNIE Comments: PATIENT NOT FASTINGPERFORMED BY: [facility]sw[facility]ks[facility] [id number] Information: SRC:[facility] [id number] COL COUNT) ([id number]) Result 1 NG36 (Normal) Comments: No growth in 36 - 48 hours. Urine Culture,Comprehensive Final report (Normal) 34-Zyt-29206:58 Urinalysis, Office (07701) UA - LEUKOCYTE ESTERASE Negative (Normal) UA - NITRITE Negative (Normal) URINE UROBILINGN EUGENIE TIMED Normal mg/dL (Normal) UA - PROTEIN Trace mg/dL (Normal) UA - PH 6 (Abnormal) UA - BLOOD Hemolyzed Large (Normal) UA - SPECIFIC GRAVITY 1.020 (Normal) UA - KETONES Negative mg/dL (Normal) UA - BILIRUBIN Small (Normal) UA - GLUCOSE Negative (Normal) 48-Tzo-[id number]:16 Urinalysis, Office ([id number]) UA - LEUKOCYTE ESTERASE Negative (Normal) UA - NITRITE Negative (Normal) URINE UROBILINGN EUGENIE TIMED Normal mg/dL (Normal) UA - PROTEIN Negative mg/dL (Normal) UA - PH 7.0 (Normal) UA - BLOOD Negative (Normal) UA - SPECIFIC GRAVITY 1.020 (Normal) UA - KETONES Negative mg/dL (Normal) UA - BILIRUBIN Negative (Normal) UA - GLUCOSE Negative (Normal) Plan of Care Name Dates Details Instructions Vitamin D deficiency : Follow up in 3 months Indication: Vitamin D deficiency Vitamin D deficiency : Reviewed Lab Indication: Vitamin D deficiency Neuropathy, leg : Reviewed Lab Indication: Neuropathy, leg Hypercholesteremia : Reviewed Lab Indication: Hypercholesteremia Smoker : Eprescribed prescriptions (G8553) Indication: Smoker Epicondylitis, lateral, right : Follow up as needed Indication: Epicondylitis, lateral, right Epicondylitis, lateral, right : Lateral Epicondylitis (Tennis Elbow) *: elbow Indication: Epicondylitis, lateral, right Smoker : Eprescribed prescriptions (G8553) Indication: Smoker Irritated nevus : Follow up in 3 months for gen med and as needed for removal of skin tags Indication: Irritated nevus Hypertension : Eprescribed prescriptions (G8553) Indication: Hypertension Smoker : Follow up in 3 months Indication: Smoker Impaired fasting glucose : Eprescribed prescriptions (G8553) Indication: Impaired fasting glucose Sliding hiatal hernia : Continue Current Prescription(s) Indication: Sliding hiatal hernia Epigastric pain : Reflux Esophagitis *: heartburn Indication: Epigastric pain Abdominal pain : Follow up if no improvement or if symptoms worsen Indication: Abdominal pain Smoker : Eprescribed prescriptions (G8553) Indication: Smoker BMI 45.0-49.9, adult : Follow up in 3 months Indication: BMI 45.0-49.9, adult Impaired fasting glucose : Eprescribed prescriptions (G8553) Indication: Impaired fasting glucose Smoker : Follow up in 3 months Indication: Smoker Foot pain, left : Eprescribed prescriptions (G8553) Indication: Foot pain, left Smoker : Follow up in 2 weeks Indication: Smoker Swelling of foot joint, left : Eprescribed prescriptions (G8553) Indication: Swelling of foot joint, left Boil : Follow up if no improvement or if symptoms worsen Indication: Boil Boil : Boils and Carbuncles: bacteria Indication: Boil Smoker : Follow up if no improvement or if symptoms worsen Indication: Smoker CRP elevated : Reviewed Lab Indication: CRP elevated Elevated sed rate : Reviewed Lab Indication: Elevated sed rate Morning joint stiffness of multiple sites : Reviewed Lab Indication: Morning joint stiffness of multiple sites Vitamin D deficiency : Follow up in 3 months Indication: Vitamin D deficiency Diarrhea : Celiac Disease and the Gluten-Free Diet: diet Indication: Diarrhea Diarrhea : Reviewed Lab Indication: Diarrhea Folliculitis : Follow up in 1 week Indication: Folliculitis Diarrhea : Diarrhea instructions Indication: Diarrhea Diarrhea : *Abd Pain Red Flags Indication: Diarrhea Diarrhea : Eprescribed prescriptions (G8553) Indication: Diarrhea Fatty liver : Diet, Exercise, and Wt loss Indication: Fatty liver BMI 45.0-49.9, adult : Follow up in 1 month Indication: BMI 45.0-49.9, adult Vitamin D deficiency : Follow up in 3 months Indication: Vitamin D deficiency Hematuria : Eprescribed prescriptions (G8553) Indication: Hematuria Hematuria : Hematuria (Blood in Urine): bleeding Indication: Hematuria Leg swelling : Follow up in 2 weeks Indication: Leg swelling Obesity : Follow up in 2 weeks Indication: Obesity Planned Observations LIPID PANEL (40154)Indication: Hypercholesteremia On: 83-Vxm-749538:02 Request CALCIFEDIOL (63777)Indication: Vitamin D deficiency On: 09-Aug-2018 Request METABOLIC PANEL, COMPREHENSIVE (98764)Indication: Abdominal pain On: 79-Jmr-166590:23 Request Blood Glucose , Office (10947)Indication: Impaired fasting glucose On: 65-Cbx-556503:21 Request Anaerobic & Aerobic Culture (61486)Indication: Infected lesion of skin On: 3-Svt-344261:26 Request MRSA Culture (56555)Indication: Infected lesion of skin On: 2-Lfn-249002:20 Request CALCIFEDIOL (87496)Indication: Vitamin D deficiency On: 31-Ogo-65384:33 Request KHHJB-ZAHNWHAKTLJ-DQATT (55469)Indication: Fatty liver On: 71-Onp-35373:31 Request HEPATIC FUNCTION PANEL (82122)Indication: Fatty liver On: :31 Request Metabolic Panel, Comprehensive (03795)Indication: Fatty liver On: 76-Wjw-30113:29 Request HEPATITIS PANEL (42267)Indication: Fatty liver On: :29 Request BLOOD SMEAR INTERPRETATION (95091)Indication: Splenomegaly, not elsewhere classified On: 89-Ezo-21694:15 Request CBC, Platelets & Auto Diff ([id number])Indication: Splenomegaly, not elsewhere classified On: 14-Swt-58170:12 Request Planned Encounters Medical; 3 Month FU - On: 15-Aug-2018 8:30 [facility] Kait Tam CNP Ciesa CREDIT COLLECTOR, Kait Farooq Planned Procedures XR ELBOW RIGHT COMPLETE ([id number])By: On: 04-Mar-2018 Intent Yonatan AMBRIZ BelenOseas Tam CNP Kait Farooq Toradol Injection, 30 mg ([id number])By: On: 13-Sep-2017 Intent Mela Abrams Comments: [id number]/2019 CT - Abdomen & Pelvis Stone On: 13-Sep-2017 Intent ProtocolBy: Mela Abrams Comments: R/O left sided kidney stone CT - Abdomen & Pelvis (IV Contrast On: 13-Sep-2017 Intent Needed)By: Mela Abrams Comments: R/O diverticulitis. ELECTROCARDIOGRAM, COMPLETE (ECG) On: 13-Sep-2017 Intent (71284)By: Mela Abrams Comments: NSR-Hr 86 B 12 Injection, 1000 mcg (J3420)By: On: 06-Aug-2017 Intent Visit, Nurse Comments: [id number] - 1mlMLONG SEAWEED HARVESTER B 12 Injection, 1000 mcg (J3420)By: On: 30-Jul-2017 Intent Yonatan AMBRIZ Belen Citazmel AMBRIZ Kait Farooq Comments: vitamin b12 1000mcg injectionlot: [id number]: 10/2019L DELT IMpt tolerated wellAD SEAWEED HARVESTER B 12 Injection, 1000 mcg (J3420)By: On: 23-Jul-2017 Intent Marcia Hughes DO Comments: lot [id number] mcgright dltdIMas, SEAWEED HARVESTER INJECTION, VITAMIN B-12 On: 16-Jul-2017 Intent CYANOCOBALAMIN, UP TO 1000 MCG Comments: [id number]/[id number]/mlr arm, IMMLONG (Special Coverage Instructions Apply. See CIM: 45-4 and MCM: 2049) (J3420)By: Visit, Nurse Flu Vaccine (Quadrivalent) [id number]: On: 02-Apr-2017 Intent Yonatan AMBRIZ BelenOseas Tam CNP Belen Comments: QUAD flu shotlot number: [id number]: 09/2017L Deltoid IMAD SEAWEED HARVESTER Venous Doppler - LeftBy: Yonatan AMBRIZ, On: 02-Apr-2017 Intent Kait العراقي CNP EMGBy: Kait Tam CNP, CNP, On: 02-Apr-2017 Intent Belen Nerve ConductionBy: Yonatan PB Kait Farooq On: 02-Apr-2017 Intent Yonatan PB Kait Farooq Radiology - Ankle - LeftBy: Yonatan PB, On: 02-Apr-2017 Intent Kait Tam PB Kait Farooq Radiology - Foot - LeftBy: Yonatan PB, On: 02-Apr-2017 Intent Kait Tam PB Kait Farooq DOPPLER ULTRASOUND OF LEFT LOWER On: 13-Aug-2016 Intent EXTREMITY FOR VENOUS THROMBOEMBOLISM Comments: Eval for venous insufficency. ([id number]) : STATBy: Mela Abrams Nuclear Medicine - HIDA w/CPKBy: Ciesa On: 28-Jan-2016 Intent PB BelenOseas Tam CNP [place] Ultrasound - GallbladderBy: Vytazmel AMBRIZ, On: 28-Jan-2016 Intent Kait Velezmel AMBRIZ [place] Ultrasound - RenalBy: Saul ALMONTE, On: 19-Apr-2015 Intent Marcia CODY ([id number])By: Marcia Hughes DO On: 18-Apr-2015 Intent PHYSICAL THERAPY EVALUATION ([id number])By: On: 05-Feb-2015 Intent Yonatan AMBRIZ Belen Agustinmel AMBRIZ [facility] Radiology - Knee - RightBy: Vytazmel AMBRIZ, On: 05-Feb-2015 Intent Kait Farooq Vytazmel AMBRIZ [place]en Planned Medications INJECTION, KETOROLAC TROMETHAMINE, PER 15 MG Ordered: 13-Sep-2017 Pending Mela Abrams Vitamin B-12 1000 MCG/ML Injection Solution Ordered: 16-Jul-2017 Pending Visit, Nurse Vitamin B-12 1000 MCG/ML Injection Solution Ordered: 23-Jul-2017 Pending Marcia Hughes DO Vitamin B-12 1000 MCG/ML Injection Solution Ordered: 30-Jul-2017 Pending Yonatan AMBRIZ Belen Citazmel AMBRIZ Bleen Vitamin B-12 1000 MCG/ML Injection Solution Ordered: 06-Aug-2017 Pending Visit, Nurse Instructions Name Dates Details Smoker : How to access health information online Indication: Smoker Smoker : How to access health information online - Detail Indication: Smoker Vitamin D deficiency : Patient Instructions Indication: Vitamin D deficiency Smoker : How to access health information online Indication: Smoker Smoker : How to access health information online - Detail Indication: Smoker Smoker : Patient Instructions Indication: Smoker Hypertension : How to access health information online Indication: Hypertension Hypertension : How to access health information online - Detail Indication: Hypertension Low testosterone : Patient Instructions Indication: Low testosterone Impaired fasting glucose : How to access health information online Indication: Impaired fasting glucose Impaired fasting glucose : How to access health information online - Detail Indication: Impaired fasting glucose Impaired fasting glucose : Patient Instructions Indication: Impaired fasting glucose Smoker : How to access health information online Indication: Smoker Smoker : How to access health information online - Detail Indication: Smoker Left flank pain : Patient Instructions Indication: Left flank pain Impaired fasting glucose : How to access health information online Indication: Impaired fasting glucose Impaired fasting glucose : How to access health information online - Detail Indication: Impaired fasting glucose Impaired fasting glucose : Patient Instructions Indication: Impaired fasting glucose Foot pain, left : How to access health information online Indication: Foot pain, left Foot pain, left : How to access health information online - Detail Indication: Foot pain, left Foot pain, left : Patient Instructions Indication: Foot pain, left Swelling of foot joint, left : How to access health information online Indication: Swelling of foot joint, left Swelling of foot joint, left : How to access health information online - Detail Indication: Swelling of foot joint, left Swelling of foot joint, left : Patient Instructions Indication: Swelling of foot joint, left Smoker : How to access health information online Indication: Smoker Smoker : How to access health information online - Detail Indication: Smoker Smoker : Patient Instructions Indication: Smoker Smoker : How to access health information online Indication: Smoker Smoker : How to access health information online - Detail Indication: Smoker Smoker : Patient Instructions Indication: Smoker Diarrhea : Patient Instructions Indication: Diarrhea Diarrhea : Patient Instructions Indication: Diarrhea Diarrhea : How to access health information online Indication: Diarrhea Diarrhea : How to access health information online - Detail Indication: Diarrhea Hyperglycemia : Patient Instructions Indication: Hyperglycemia Vitamin D deficiency : Patient Instructions Indication: Vitamin D deficiency Hematuria : How to access health information online Indication: Hematuria Hematuria : How to access health information online - Detail Indication: Hematuria Hematuria : Patient Instructions Indication: Hematuria Encounters Office Visit On: 03-May-2018 9:59 Encounter Reason: Follow up for chronic medical issues - The patient feels well with no complaints, has decreased energy level and is sleeping poorly. Patient has been compliant with instructions. Current medication use: End: 03-May-2018 11:16 non-compliant with dosing regimen (stop taking diabetic medication). Patient sleeps 6 hours per night. Nutrition: balanced diet. The medical issues the patient is following up for include other (GERD, Spleenomegaly, vitamin D def. ). Note for Follow up for chronic medical issues: Review labs and get refillsEncounter Diagnosis: Smoker, Diabetes mellitus type 2, uncontrolled (Renamed from Uncontrolled type 2 diabetes mellitus), BMI 45.0-49.9, adult, Hypercholesteremia, Neuropathy, leg, Vitamin D deficiency [facility] Office Visit On: 04-Mar-2018 8:51 Encounter Reason: Elbow Problem - This condition occurred without any known injury. The patient is right hand dominant. The injury involved the right elbow. Symptoms include difficulty extending the elbow, difficulty fle End: 04-Mar-2018 9:36 fernando the elbow, stiffness and elbow pain. Note for Elbow problem: Elbow pain x 3 weeks and getting worse. Just touching with shirt.Encounter Diagnosis: BMI 45.0-49.9, adult, Smoker, Epicondylitis, lateral, right, Left elbow pain [facility] Annotation/Addendum On: 18-Jan-2018 11:39 Encounter Diagnosis: Polyneuropathy End: 18-Jan-2018 11:55 [facility] Office Visit On: 17-Jan-2018 7:35 Encounter Reason: Follow up for chronic medical issues - The patient feels well with minor complaints (left lower back pain, skin lesions). Patient has been compliant with instructions. Patient sleeps 7 hours per night. End: 17-Jan-2018 10:41 Nutrition: balanced diet. The medical issues the patient is following up for include other (GERD, Spleenomegaly, vitamin D def. ). Note for Follow up for chronic medical issues: Seeing neurologist for neuropathy, [ADDITIONAL REASON] Follow up tests - Diagnostic tests include other (labs). Encounter Diagnosis: Neuropathy, leg, Hypertension, Smoker, BMI 45.0-49.9, adult, Bilateral kidney stones, Fatty liver, Leg swelling, Vitamin B12 deficiency, Vitamin D deficiency, Hypercholesteremia, Low testosterone, Diabetes mellitus type 2, uncontrolled (Renamed from Uncontrolled type 2 diabetes mellitus), Irritated nevus [facility] Annotation/Addendum On: 10-Dec-2017 12:56 Encounter Diagnosis: Unspecified Diagnosis End: 10-Dec-2017 13:10 [facility] Annotation/Addendum On: 09-Dec-2017 22:10 [facility] End: 09-Dec-2017 22:11 Annotation/Addendum On: 12-Oct-2017 13:07 Encounter Diagnosis: Unspecified Diagnosis End: 12-Oct-2017 13:10 [facility] Office Visit On: 11-Oct-2017 10:35 Encounter Reason: Follow up for chronic medical issues - The patient feels well with minor complaints (Still having neuropathy). Patient has been compliant with instructions. Current medication use: experiencing side eff End: 11-Oct-2017 11:55 ects (Metformin). Nutrition: balanced diet. The medical issues the patient is following up for include other (GERD, Spleenomegaly, vitamin D def. ). Note for Follow up for chronic medical issues: Pain in feet and legs, left worse foot with standing. Had nerve conduction. Seeing neuron December 06thEncounter Diagnosis: Impaired fasting glucose, Smoker, Neuropathy, leg, Vitamin B12 deficiency [facility] Annotation/Addendum On: 13-Sep-2017 13:13 Encounter Diagnosis: Sliding hiatal hernia, Bilateral kidney stones, Sigmoid diverticulitis End: 13-Sep-2017 13:20 [facility] Office Visit On: 13-Sep-2017 9:55 Encounter Reason: Abdominal pain - The pain has been occurring for 3 days. Note for Pain: Symptoms started 3 days ago with left flank pain radiating around to right abd, and lower abd pain. Diarrhea at first and now st End: 13-Sep-2017 10:53 ools are soft. Nausea for about and hour and then goes away. No appetite. Gas pains in lower abd. No fever or chills, vomiting, blood in urine,frequency or urgency. 2 days ago had pressure in lower abd while urinating, also noticed a slight odor. Does have Chest pain right in the epigastric area while laying down-started 2 days ago-feels like punched in chest-once stands up goes away-no dizziness or l ightheadedness, jaw pain, or pain radiating to left arm. History of kidney stones, and still has appendix. Has taken tylenol arthritis with ??little relief.Encounter Diagnosis: BMI 45.0-49.9, adult, Smoker, Left flank pain, History of kidney stones, Diarrhea, Abdominal pain, Chest pain at rest, Epigastric pain [facility] Nurse Visit On: 06-Aug-2017 10:04 Encounter Reason: Injections - The medication the patient is here to receive is vitamin B12 IM.Encounter Diagnosis: Vitamin B12 deficiency End: 06-Aug-2017 16:04 [facility] Office Visit On: 30-Jul-2017 8:47 Encounter Reason: Injections - The medication the patient is here to receive is vitamin B12 IM.Encounter Diagnosis: Vitamin B12 deficiency End: 30-Jul-2017 9:48 [facility] Office Visit On: 23-Jul-2017 10:38 Encounter Reason: Injections - The medication the patient is here to receive is vitamin B12 IM.Encounter Diagnosis: Vitamin B12 deficiency End: 23-Jul-2017 12:48 [facility] Office Visit On: 16-Jul-2017 10:32 Encounter Reason: InjectionsEncounter Diagnosis: Vitamin B12 deficiency End: 16-Jul-2017 10:55 [facility] Annotation/Addendum On: 13-Jul-2017 16:50 Encounter Diagnosis: Vitamin B12 deficiency End: 13-Jul-2017 16:57 [facility] Office Visit On: 12-Jul-2017 11:20 Encounter Reason: Follow up for chronic medical issues - The patient feels well with minor complaints (skin tags.). Patient has been compliant with instructions. Current medication use: no side effects. Patient sleeps 4 End: 12-Jul-2017 12:34 hours per night. Nutrition: balanced diet. The medical issues the patient is following up for include other (GERD, Spleenomegaly, vitamin D def. ). Note for Follow up for chronic medical issues: Bar davalos metformin A1c 6.3, Probiotic is helping gut and diarrhea, [ADDITIONAL REASON] Skin Lesions - Symptoms include multiple skin lesions. The symptoms occur constantly. , [ADDITIONAL REASON] Follow up tests - Diagnostic tests include other (nerve conduction). Encounter Diagnosis: Smoker, Impaired fasting glucose, BMI 45.0-49.9, adult, Neuropathy, leg [facility] Annotation/Addendum On: 27-May-2017 8:24 Encounter Diagnosis: Neuropathy End: 27-May-2017 8:29 [facility] Office Visit On: 19-Apr-2017 8:13 Encounter Reason: Follow up tests - Diagnostic tests include other (labs, doppler) and X-Ray., [ADDITIONAL REASON] Mood swing - having mood swings with taking gabapentin for nerve pain , End: 19-Apr-2017 10:43 [ADDITIONAL REASON] Leg Numbness - Note for Leg numbness: foot pain bilateral Encounter Diagnosis: BMI 45.0-49.9, adult, Foot pain, left, Smoker, Metabolic syndrome, Impaired fasting glucose [facility] Office Visit On: 04-Apr-2017 7:33 Encounter Diagnosis: Impaired fasting glucose End: 04-Apr-2017 7:35 [facility] Annotation/Addendum On: 02-Apr-2017 9:36 Encounter Diagnosis: Need for prophylactic vaccination and inoculation against influenza (Renamed from Need for immunization against influenza) End: 02-Apr-2017 11:23 [facility] Office Visit On: 02-Apr-2017 8:25 Encounter Reason: Foot Problem - This condition occurred without any known injury. The injury involved the left foot. Symptoms include foot pain (needles in foot, ankle has been giving out. Lately having burning sensatio End: 02-Apr-2017 9:29 n. Worse at night when laying down.), foot swelling and foot numbness. Symptoms are located in the left foot. The symptoms occur constantly. The patient describes symptoms as worsening. Previous present ation included foot pain, foot swelling and foot numbness. Note for Foot problem: Left foot sweeling, color change and pigment worsening, and on going burning at night worse, when flex foot pain in calfJob is standing.Encounter Diagnosis: BMI 45.0-49.9, adult, Smoker, Swelling of foot joint, left, Foot pain, left [facility] Office Visit On: 30-Mar-2017 9:56 Encounter Reason: Skin Lesions - No changes in management were made at the last visit. Symptoms include single skin lesion. Lesion(s) are located on the right trunk area (under skin fold). Onset was sudden. The symptoms End: 30-Mar-2017 11:53 occur constantly. The patient describes this as moderate in severity and worsening. The patient is not currently being treated for this problem. Note for Skin lesions: Noticed a painful lump right kendall in area a few days ago. Looked at it yesterday and it was inflammed, red, and purple center. Squeezed-blood came out, then this morning seems to be bigger. No fever or chills, SOB, CP.Encounter Diagnosis: BMI 45.0-49.9, adult, Smoker, Infected lesion of skin, Boil [facility] Office Visit On: 13-Aug-2016 9:54 Encounter Reason: Leg Pain - This condition occurred without any known injury. The patient sustained an injury to the left lower leg. This occurred 4 day(s) ago. Symptoms include leg pain and decreased range of motion.Encounter Diagnosis: End: 13-Aug-2016 14:45 BMI 45.0-49.9, adult, Smoker, Pain of left calf, Cellulitis, leg [facility] Office Visit On: 31-Mar-2016 8:35 Encounter Reason: Follow up tests - Diagnostic tests include other (labs) and X- Ray.Encounter Diagnosis: Morning joint stiffness of multiple sites, Elevated sed rate, CRP elevated End: 31-Mar-2016 9:55 [facility] Annotation/Addendum On: 14-Feb-2016 15:38 Encounter Diagnosis: Unspecified Diagnosis End: 14-Feb-2016 15:40 [facility] Office Visit On: 04-Feb-2016 8:17 Encounter Reason: Follow up tests - Diagnostic tests include other (labs/stools). Current symptoms include other (low back pain).Encounter Diagnosis: Diarrhea, Vitamin D deficiency, Hyperglycemia, Morning joint stiffness of multiple sites End: 04-Feb-2016 12:02 [facility] Office Visit On: 28-Jan-2016 10:16 Encounter Reason: Diarrhea - Adult - Symptoms include diarrhea and fecal urgency. The stools are described as loose, watery, green and mucoid. The symptoms occur intermittently., End: 28-Jan-2016 11:21 [ADDITIONAL REASON] Skin Lesions - Symptoms include single skin lesion. Lesion(s) are located on the right trunk area (groin). The patient describes the lesion(s) as crusted. The symptoms occur constantly. Encounter Diagnosis: Vitamin D deficiency, Diarrhea, Abdominal pain, Left flank pain, Folliculitis, Rib pain [facility] Office Visit On: 14-Aug-2015 7:54 Encounter Reason: Follow up for chronic medical issues - The patient feels well with minor complaints (would like to discuss hep. A results, also vitamin D. ??Noticing feeling need to move arms). Patient has been complia End: 14-Aug-2015 9:19 nt with instructions. Current medication use: no side effects. Patient sleeps 4 hours per night. Nutrition: balanced diet. The medical issues the patient is following up for include other (GERD, Spleeno megaly, vitamin D def. ). Note for Follow up for chronic medical issues: Jul 10 Rt Encounter Diagnosis: Vitamin D deficiency, Fatty liver, Elevated WBC count, Hyperglycemia, BMI 45.0-49.9, adult [facility] Annotation/Addendum On: 08-Aug-2015 8:11 Encounter Diagnosis: Vitamin D deficiency, Splenomegaly, not elsewhere classified End: 09-Aug-2015 8:36 [facility] Office Visit On: 08-May-2015 8:41 Encounter Reason: Follow up tests - Diagnostic tests include ultrasound.Encounter Diagnosis: Splenomegaly, not elsewhere classified, Kidney stone on left side, Acute meniscal tear of right knee, Fatty liver, Vitamin D deficiency End: 08-May-2015 9:36 [facility] Phone Encounter On: 19-Apr-2015 10:01 Encounter Diagnosis: Kidney stone on left side End: 19-Apr-2015 10:09 [facility] Office Visit On: 18-Apr-2015 8:55 Encounter Reason: Hematuria - The last clinic visit was 1 day(s) ago. No changes in management were made at the last visit. Symptoms include bright red urine, charbel colored urine and tea colored urine, while symptoms do n End: 18-Apr-2015 9:31 ot include frequency, abdominal pain or flank pain. There is no known event that preceded symptom onset. The symptoms occur constantly. The patient describes this as moderate in severity and worsening. The patient is not currently being treated for this problem.Encounter Diagnosis: Hematuria [facility] Office Visit On: 06-Mar-2015 7:54 Encounter Reason: Back Pain - This condition occurred without any known injury. The injury involved the lower back. This occurred 1 month(s) ago. Symptoms include back pain. Symptoms are located in the left lower back. T End: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
--- OUTSIDE RECORDS SUMMARY | 2018-09-19 01:39 | XMS RPT_ITS | Continuity of Care Document ---
:1970 Author Organization [facility] Address [address] [facility] [address] [place] [address] Phone Care Team Providers Name Role Phone Kait Tam CNP Unavailable Veronica Casas Unavailable Elaine PENA, John Tuckre Unavailable Jovanny REYNOSO MD, Hugo Sullivan Unavailable Monica Manuel Unavailable Unavailable Robbin Camarena Unavailable Unavailable Slarb AGRICULTURAL APPRAISER, Rita Unavailable Unavailable Long AGRICULTURAL APPRAISER, Rachele Snow Unavailable Unavailable Unavailable Unavailable Problems Name Dates [...] sed rate (R70.0, 790.1) Comments: 19 on 03-17-16 Status: Active Elevated WBC count (D72.829, 288.60) Status: Active Epicondylitis, lateral, right (M77.11, 726.32) Status: Active Epigastric pain (R10.13, 789.06) Status: Active Fatty liver (K76.0, 571.8) Status: Active Flank pain (R10.9, 789.09) Comments: suspect stone Status: Active Folliculitis (L73.9, 704.8) Comments: observe [...] as discussed with Dr. Dominguez Status: Active Nausea (R11.0, 787.02) Status: Active Need for prophylactic vaccination and [...] Pancreatitis Status: Active Polyneuropathy (G62.9, 356.9) Comments: idiopathic, both legs Status: Active Sigmoid diverticulitis (K57.32, 562.11) Status: Active Sleep apnea (G47.30, 780.57) Comments: on cpap via [facility] Status: Active Sliding hiatal hernia (K44.9, 553.3) [...] now switch to every other day recheck Mar Status: Active Vitamin D deficiency (E55.9, 268.9) Status: Active Medications Name Dates Details Cozaar 50 MG Oral Tablet 1 tablet Tablet daily for 0 days Quantity: 90 {Tablet} Refills: 3 Ordered:17-Jan-2018 Yonatan AMBRIZ, Kait Garcia CNP Start [...] Kait Garcia CNP Start : 06-Aug-2017 Active Flomax 0.4 MG Oral Capsule 1 (one) Capsule daily for 14 days Quantity: 30 {Capsule} Refills: 0 Ordered:15-Jul-2018 Yonatan AMBRIZ Kait Sellers CNP Kait Farooq Start : 15-Jul-2018 Active Ibuprofen 200 MG Oral Capsule 1 (one) Capsule Capsule q6hrs prn for 0 days Quantity: 30 {Capsule} Refills: 0 Ordered:03-May-2018 Virginia Gramajo Start : 04-Mar-2018 Active Comments:Not to exceed 2400mg /day Ketorolac Tromethamine 10 MG Oral Tablet 1 (one) Tablet PO Q 6 Hours for 3 days Quantity: 12 {Tablet} Refills: 0 Ordered:15-Jul-2018 Yonatan AMBRIZ Kait Sellers CNP Kait Farooq Start : 15-Jul-2018 Active Comments:Take with food MetFORMIN HCl ER 500 MG Oral Tablet Extended Release 24 Hour 2 (two) Tablet bid for 0 days Quantity: 360 {Tablet} Refills: 3 Ordered:03-May-2018 Yonatan AMBRIZ Kait Garcia CNP Start : 03-May-2018 Active MetFORMIN HCl ER 500 MG Oral Tablet Extended Release 24 Hour 2 (two) Tablet bid for 30 days Quantity: 60 {Tablet} Refills: 4 Ordered:03-May-2018 Yonatan AMBRIZ Kait Sellers CNP Kait Farooq Start : 03-May-2018 Active PriLOSEC OTC 20 MG Oral Tablet Delayed Release 1 (one) Tablet DR before breakfast for 0 days Quantity: 30 {Tablet} Refills: 0 Ordered:28-Jan-2016 Yonatan AMBRIZ, Kait Garcia CNP Start : 28-Jan-2016 Active Promethazine HCl 25 MG Oral Tablet 1 (one) Tablet q8hrs prn for nausea for 0 days Quantity: 30 {Tablet} Refills: 0 Ordered:15-Jul-2018 Yonatan AMBRIZ, Kait Garcia CNP Start : 15-Jul-2018 Active Rosuvastatin Calcium 10 MG Oral Tablet 1 (one) Tablet Tablet qhs for 0 days Quantity: 90 {Tablet} Refills: 3 Ordered:03-May-2018 Monica Manuel Start : 03-May-2018 Active Rosuvastatin Calcium 10 MG Oral Tablet 1 (one) Tablet Tablet qhs for 0 days Quantity: 90 {Tablet} Refills: 3 Ordered:03-May-2018 Monica Manuel Start : 03-May-2018 Active Vitamin D3 2000 UNIT Oral Capsule 2 (two) Capsule daily for 0 days Quantity: 30 {Capsule} Refills: 0 Ordered:03-May-2018 Yonatan AMBRIZ, Kait Garcia CNP Start : 03-May-2018 Active Amitriptyline HCl 25 MG Oral Tablet 1 (one) Tablet daily for 30 days Quantity: 30 {Tablet} Refills: 0 Ordered:03-May-2018 Yonatan AMBRIZ, Kait Garcia CNP Start : 03-May-2018 End : 02-Jun-2018 Inactive Amitriptyline HCl 25 MG Oral Tablet 1 (one) Tablet daily for 0 days Quantity: 90 {Tablet} Refills: 3 Ordered:03-May-2018 Yonatan AMBRIZ, Kait Garcia CNP Start : 03-May-2018 End : 02-Jun-2018 Inactive Bactrim DS 800-160 MG Oral Tablet 1 (one) Tablet BID for 7 days Quantity: 14 {Tablet} Refills: 0 Ordered:13-Aug-2016 Mela Abrams Start : 13-Aug-2016 End : 20-Aug-2016 Inactive CeleBREX 200 MG Oral Capsule 1 (one) Capsule daily for 0 days Quantity: 90 {Capsule} Refills: 0 Ordered:30-Mar-2017 Mela Abrams Start : 31-Mar-2016 End : 30-Mar-2017 Inactive Comments:Generic Only CeleBREX 200 MG Oral Capsule 1 (one) Capsule daily for 90 days Quantity: 90 {Capsule} Refills: 1 Ordered:30-Mar-2017 Mela Abrams Start : 31-Mar-2016 End : 30-Mar-2017 Inactive Comments:Generic is okay Ciprofloxacin HCl 500 MG Oral Tablet 1 [...] : 17-Jan-2018 Inactive Comments:for neuropathy Oarrs run Gabapentin 300 MG Oral Capsule 1 (one) Tablet qhs for 1 week and then increase to bid for 0 days Quantity: 60 {Tablet} Refills: 6 Ordered:17-Jan-2018 Rita Burks LPN Start : 12-Oct-2017 End : 17-Jan-2018 Inactive Comments:Oarrs run for neuropathic pain Neuropathychronic Metanx 3-90.314-2-35 MG Oral Capsule 1 (one) Capsule Capsule daily as directed for 0 days Quantity: 30 {Capsule} Refills: 11 Ordered:03-May-2018 Kait Tam CNP, CNP, Mary E Start : 17-Jan-2018 End : 03-May-2018 Inactive Rosuvastatin Calcium 5 MG Oral Tablet 1 (one) Tablet Tablet daily for 0 days Quantity: 30 {Tablet} Refills: 6 Ordered:03-May-2018 Kait Tam CNP, CNP, Mary E Start : 17-Jan-2018 End : 03-May-2018 Inactive Rosuvastatin Calcium 5 MG Oral Tablet 1 (one) Tablet Tablet daily for 0 days Quantity: 90 {Tablet} Refills: 3 Ordered:03-May-2018 Kait Tam CNP, CNP, Mary E Start : 17-Jan-2018 End : 03-May-2018 Inactive Vitamin D3 41615 UNIT Oral Capsule 1 (one) Capsule twice [...] qpmWeek #4 2 tabs twice daily Ergocalciferol 32150 UNIT Oral Capsule 1 (one) Capsule twice weekly for 0 days Quantity: 24 {Capsule} Refills: 0 Ordered:28-Jan-2016 Rita Burks LPN Start : 05-Nov-2015 End : 28-Jan-2016 Discontinued Farxiga 5 MG Oral Tablet 1 (one) Tablet Tablet daily as directed for 0 days Quantity: 30 {Tablet} Refills: 3 Ordered:04-Mar-2018 Monica Manuel Start : 10-Dec-2017 End : 04-Mar-2018 Discontinued [...] 3 Views Result: Comments: See Note; NOTES: [facility] Imaging Services [address] [place] [address] Elbow min 3 Views MR#: [id number] Acct: [id number] Name: GARIMANIEVES Rep #: [id number] : 1970 M 47 From: Anuradha Medel MD PCP: Kait Tam NP Status: REG CLI Study: Elbow min 3 Views Date of Exam: 03/04/18 Exam# [id number] Ordering Dr: Kait Tam STUDY: X-RAY - RIGHT ELBOW REAS ON FOR EXAM: Male, 47 years old. Pain swelling denies trauma TECHNIQUE: 3 view(s) of the elbow. COMPARISON: None. FINDINGS: Normal visualized humerus, radius and u [employer] financial[employer] consultant. Normal radiocapitellar and ulnotrochlear articulations. There is minimal enthesopathy at the lateral aspect of the humerus. The soft tissue structures are unremarkable. RAD/Elbow min 3 Views IMPRESSION: Normal x-ray examination of the elbow. Electronically Signed: Anuradha Medel MD at 19:49 EDT Tel , Service support , CC: Kait Tam NP Math And Science Instructor: Signed 13-Sep-2017 CT Abd/Pelvis W/WO Contrast Result: Comments: See Note; NOTES: [facility] Imaging Services [address] [place] [address] CT Abd/Pelvis W/WO Contrast MR#: [id number] Acct: [id number] Name: NIEVES JACKSON Rep #: [id number] : 1970 M 47 From: Erik Ramsey MD PCP: Kait Tam NP Status: REG CLI Study: CT Abd/Pelvis W/WO Contrast Date of Exam: 09/13/17 Exam# [id number] Ordering Dr: Mela Abrams ELEMENTARY EDUCATION TEACHER-C STUDY: CT ABDOMEN AND PELVIS WITH AND [...] Erik Ramsey MD at 12:44 EDT Tel [phone], Service support , CC: Kait Tam ELEMENTARY EDUCATION TEACHER; SAM Abrams Math And Science Instructor: Signed 26-May-2017 NCS and/or EMG Patient Result: Comments: See Note; NOTES: [facility] Pulmonary Services/Neurology [address] [place] [address] MR#: [id number] Acct: [id number] Name: NIEVES JACKSON Rep #: [id number] : 1 07/17/1969 47 From: John Henry MD Referring Dr: Kait Tam Status: REG CLI Ordering Dr: Date: Location: [facility] Sex: M C NCS and/or EMG Patient Report Ordering Doctor: Kait Tam DATE OF SERVICE: 07/26/16 This is [...] Kait Tam; John Henry MD Date Dictated: 05/26/171024 Date Transcribed: 05/26/171024 Math And Science Instructor: NF Signed 13-Apr-2017 Venous Duplex Lower Extremity Result: Comments: See Note; NOTES: [facility] Cardiovascular Services [address] [place] [address] Venous Duplex US, Unilateral 04/13/17 1054 MR#: [id number] Acct: [id number] Name: NIEVES COYNE Rep #: [id number] : 1970 46 From: Pasha Rosales MD [...] Tam Date Dictated: 04/13/17 1054 Date Transcribed: 04/13/171424 Math And Science Instructor: Signed 08-Apr-2017 Ankle min 3 Views Result: Comments: See Note; NOTES: [facility] Imaging Services [address] [place] [address] Ankle min 3 Views MR#: [id number] Acct: [id number] Name: NIEVES JACKSON Rep #: [id number] : 1970 M 46 From: Erik Ramsey MD PCP: Kait Tam Status: REG CLI Study: Ankle min 3 Views Date of Exam: 04/08/17 Exam# [id number] Ordering Dr: Kait Tam STUDY: X-RAY - [...] Zuñiga i, MD at 15:28 EDT Tel [phone], Service support , CC: Kait Tam Math And Science Instructor: Signed 08-Apr-2017 Foot min 3 Views Result: Comments: See Note; NOTES: [facility] Imaging Services [address] [place] [address] Foot min 3 Views MR#: [id number] Acct: [id number] Name: NIEVES JACKSON Rep #: [id number] D OB: 1970 M 46 From: Erik Ramsey MD PCP: Kait Tam Status: REG CLI Study: Foot min 3 Views Date of Exam: 04/08/17 Exam# [id number] Ordering Dr: Kait Tam STUDY: X-RAY - [...] Erik Ramsey MD at 15:27 EDT Tel [phone], Service support , CC: Kait Tam Math And Science Instructor: Signed 26-Jan-2017 Discharge Instruction Result: Comments: See Note; NOTES: [facility] Medical Records Department [address] [place] [address] Discharge Instruction 01/26/17 1031 MR#: [id number] Acct: [id number] Name: NIEVES JACKSON Rep #: [id number] : 1970 46 From: Kyler Pickens MD PCP: Kait Tam Status: DEP ER ED Disposition - Plan for ED Patient: Chief Complaint: Flank Pain Instructions: ED Stone Renal W Co lic Prescriptions: Hydrocodone Bitart/Apap 5-325 [Madison 5/325] 1 - 2 tablet PO Q4H [...] your Primary Care Provider. Call [facility] ([phone]) or report to the closest Emergency Room. Call 911 if necessary. 01/26/17 1719 <Nicole ctronically signed by Kyler Pickens MD> Date Kyler Pickens MD Cosigner Signature (If Indicated): Date CC: Kait Tam 26-Jan-2017 Emergency Department Summary Result: Comments: See Note; NOTES: [facility] Medical Records Department [address] [place] [address] Emergency Department Summary 01/26/17 0939 MR#: [id number] Acct: [id number] Name: NIEVES JACKSON Rep #: [id number] : 1970 46 From: Kyler Pickens MD [...] your Primary Care Provider. Call [facility] ([phone]) or report to the closest Emergency Room. Call 911 if necessary. 01/26/17 2047 <Electronically signed by Kyler schneider MD> Date Kyler Pickens MD Cosigner Signature (If Indicated): Date CC: Kait Tam 26-Jan-2017 Abdomen/Pelvis without Cont Result: Comments: See Note; NOTES: [facility] Imaging Services [address] [place] [address] Verdana 4d Abdomen/Pelvis without Cont MR#: [id number] Acct: [id number] Name: MALA JACKSON Rep #: [id number] : 1970 M 46 From: Erik Ramsey MD PCP: Kait Tam Status: REG ER Study: Abdomen/Pelvis without Cont Date of Exam: 01/26/17 Exam# [id number] Ordering Dr: Geovani Pickens MD STUDY: CT [...] at the L5-S1 level ORDE R #: [id number] CT/Abdomen/Pelvis without Cont IMPRESSION: 3 mm calculus at the left ureterovesical junction causing a mild degree of left hydronephrosis. Fatty infiltration of the liver. Electronicall y Signed: Erik Ramsey MD at 10:01 EDT Tel [phone], Service support , CC: Kait Tam; Kyler Pickens MD Math And Science Instructor: Signed 17-Nov-2016 Abd Inc Decub and/or Erect Result: Comments: See Note; NOTES: [facility] Imaging Services [address] [place] [address] Verdana 4d Abd Inc Decub and/or Erect MR#: [id number] Acct: [id number] Name: NIEVES JACKSON Rep #: [id number] : 1970 46 From: Erik Ramsey MD PCP: Kait Tam Status: REG CLI Study: Abd Inc Decub and/or Erect Date of Exam: 11/17/16 Exam# [id number] Ordering Dr: Otoniel Peoples STUDY: X-RAY - [...] Erik Ramsey MD at 14:11 EDT Tel [phone], Service support 07-05 [phone], CC: Kait Tam; Otoniel GOMEZ Math And Science Instructor: Signed 17-Nov-2016 Chest 1 View Result: Comments: See Note; NOTES: [facility] Imaging Services [address] [place] [address] Verdana 4d Chest 1 View MR#: [id number] Acct: [id number] Name: NIEVES JACKSON Rep #: [id number] : 1970 M 46 From: Erik Ramsey MD PCP: Kait Tam Status: REG CLI Study: Chest 1 View Date of Exam: 11/17/16 Exam# [id number] Ordering Dr: Otoniel Peoples STUDY: X-RAY CHEST [...] Ramsey MD at 14:10 EDT Tel [phone], Service support , CC: Kait Tam; Otoniel GOMEZ Math And Science Instructor: Signed 13-Aug-2016 Venous Duplex Lower Extremity Result: Comments: See Note; NOTES: [facility] Cardiovascular Services [address] [place] [address] Venous Duplex US, Unilateral 08/13/16 1202 MR#: [id number] Acct: [id number] Name: NIEVES COYNE Rep #: [id number] : 1970 46 From: Pasha Rosales MD [...] _ Pasha Rosales MD CC: Kait Tam; Marcialuna Hughes DO Date Dictated: 08/13/16 1202 Date Transcribed: 08/13/16 1602 Math And Science Instructor: Signed 18-Apr-2016 Lower Ext/No Jt/w/o Result: Comments: See Note; NOTES: [facility] Imaging Services [address] [facility] [place] [address] Verdana 4d Lower Ext/No Jt/w/o MR#: [id number] Acct: [id number] Name: NIEVES JACKSON Rep #: [id number] : 1970 M 45 From: Clinton Valdez MD PCP: Kait Tam Status: REG CLI Study: Lower Ext/No Jt/w/o Date of Exam: 04/18/16 Exam# [id number] Ordering Dr: Diogo Tian DPGarrett STUDY: MRI [...] twith a peripheral neuropathy. OR GLYNN #: [id number] MRI/Lower Ext/No Jt/w/o IMPRESSION: Degenerative changes of first MTP joint and first metatarsal sesamoid joints. No evidence of plantar plate degeneration or tear. No signs of interme tatarsal neuroma. Diffuse atrophy of the intrinsic muscles of the foot possibly related to peripheral neuropathy. Electronically Signed: Clinton Valdez MD, FACR at 17:59 EDT Tel , Service support [phone], CC: Kait Tam; Diogo Tian DPM Math And Science Instructor: Signed 17-Mar-2016 L/S Spine w Bend Min 6 Vw Result: Comments: See Note; NOTES: [facility] Imaging Services [address] [place] [address] Verdana 4d L/S Spine w Bend Min 6 Vw MR#: [id number] Acct: [id number] Name: NIEVES JACKSON Rep #: [id number] : 1970 M 45 From: Clinton Valdez MD PCP: Kait Tam Status: REG CLI Study: L/S Spine w Bend Min 6 Vw Date of Exam: 03/17/16 Exam# [id number] Ordering Dr: Carola Francis STUDY: X-RAY - [...] at 11:13 EDT , Service suppo rt [phone], CC: Kait Tam; Carola Francis DO Math And Science Instructor: Signed 24-Oct-2015 PT D/C of Non Returning Pt (1) Result: Comments: See Note; NOTES: [facility] [address] [place] [address]. [address] [place] [address] Fax REHABILITATION RVICES DISCHARGE SUMMARY MR#: [id number] Acct: [id number] Name: NIEVES JACKSON Rep #: [id number] : 1970 45 From: Linda Moon DPT Referring : Carola Francis DO Status: REG RCR E [...] Kait Tam; Carola grover DO ELR Signed 30-Jul-2015 Inital Evaluation (1) - PT Result: Comments: See Note; NOTES: [facility] [address] [place] [address]. [address] [place], [place] [address] Fax REHABILITATION SE RVICES INITIAL EVALUATION MR#: [id number] Acct: [id number] Name: NIEVES JACKSON Rep #: [id number] : 1970 45 From: Linda Moon DPT Referring DrKailyn: Carola Francis DO Status: REG R Insurance: ANTH Evtx Date: Patient's Visit Information NIEVES JACKSON is [...] was performed 2 weeks ago 07/10/15. Saw yesterday who was happy with progress. Dr. [...] side. 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 - Objective Posture: FH, RS, Increased kyphosis. [...] to be FAXED BACK to us at [phone] for Medicare purposes. Please let me know if there are ques tions or concerns regarding this plan of care. Physician Signature: Date: <Electronically signed by Linda Moon DPT> 0 07/30/15 1551 CC: Kait Tam; Carola Francis DO ELR Signed For Medicare only, by signing this I certify the plan of care. Physicians Signature Date 08-May-2015 Operative Report Result: Comments: See Note; NOTES: [facility] Medical Records Department [address] [place] [address] Operative Report MR#: [id number] Acct: [id number] Name: NIEVES BARROSO Rep #: [id number] : 1970 44 From: Eros Gomez MD PCP: Kait Tam Status: [facility] DATE OF SERVICE: DATE OF PROCEDURE: May [...] urine, but no clots. He is brou t at this time for resolution of the [...] condition. Eros Gomez MD T: NTS JOB: [id number] 05/08/15 1450 <Electronically signed by Eros Gomez MD> Date Eros Gomez MD Cosigner Signature (If Indicated): Date CC: Kait Gomez MD Date Dictated: 05/06 Date Transcribed: 05/06/151745 Math And Science Instructor: Signed 08-May-2015 PT D/C of Non Returning Pt. Result: Comments: See Note; NOTES: [facility] [facility]. [address] [place], [place] [address] Fax REHABILITATION SE RVICES DISCHARGE SUMMARY MR#: [id number] Acct: [id number] Name: NIEVES BARROSO Rep #: [id number] : 1970 44 From: Linda Moon Referring [...] Linda Moon <Electronically signed by Linda Moon > 05/08/15 0953 CC: Kait Tam ELR Signed 03-May-2015 12 Lead Electrocardiogram Result: Comments: See Note; NOTES: [facility] Cardiovascular Services [address] [place] [address] EKG - [facility] 05/01/15 0932 MR#: [id number] Acct: [id number] Name: NIEVES BARROSO Rep #: [id number] : 1970 44 From: Kyler Zambrano MD Attending Dr: Eros Gomez MD Status: REG [facility] Ordering Dr: Eros Gomez MD Date: 05/01/15 [...] Normal ECG Confirmed by KYLER ZAMBRANO ([id number]), videotape editor GIBRAN POWELL ([id number]) on 05/03/2015 1:15:28 PM Referred By: JULITO Confirmed By:KYLER ZAMBRANO 05/03/15 1315 Date ____ Kyler Zambrano MD CC: Kait Tam; Kyler Zambrano MD Date Dictated: 05/01/15931 Date Transcribed: 05/01/15931 Math And Science Instructor: Signed 03-May-2015 Discharge Instruction Result: Comments: See Note; NOTES: [facility] Medical Records Department [address] [place] [address] Instructions for Home/Discharge Instructions 05/03/15 1236 MR#: [id number] Acct: [id number] Name: NIEVES BARROSO Rep #: [id number] : 1970 44 From: Eros Gomez MD PCP: Kait Tam Status: REG [facility] Discharge Diet: No Restrictions Discharge Activity: Return [...] Please Follow Up With: Eros Gomez - [phone] When: CALL SOON ON WEDNESDAY FOR AN APPT IN 4-5 WKS [phone] TO PAGE 05/03/15 1723 <Electronically signed by Eros Gomez MD> Date Eros Gomez MD CC: Kait Tam 01-May-2015 Abdomen/Pelvis without Cont Result: Comments: See Note; NOTES: [facility] Imaging Services [address] [place] [address] Verdana 4d Abdomen/Pelvis without Cont MR#: [id number] Acct: [id number] Name: NIEVES BARROSO Rep #: [id number] : 1970 M 44 From: Erik Ramsey MD PCP: Kait Tam Status: PRE SDC Study: Abdomen/Pelvis without Cont Date of Exam: 05/01/15 Exam# [id number] Ordering Dr : Eros Gomez MD STUDY: [...] Erik Ramsey MD at 10:30 EST Tel [phone], Service support [phone], Fa x [phone] CC: Kait Tam; Eros Gomez MD Math And Science Instructor: Signed 22-Apr-2015 Kidney and Bladder Result: Comments: See Note; NOTES: [facility] Imaging Services [address] [place] [address] Verdana 4d Kidney and Bladder MR#: [id number] Acct: [id number] Name: ALFREDO BARROSO EB Rep #: [id number] : 1970 M 44 From: Erik Ramsey MD PCP: Kati Tam Status: REG CLI Study: Kidney and Bladder Date of Exam: 04/22/15 Exam# [id number] Ordering Dr: Marcia Hughes DO STUDY: RENAL [...] Erik Ramsey MD at 12:30 EDT Tel [phone], Service support [phone], Fax CC: Kait Tam; Marcia Hughes DO Math And Science Instructor: Signed 18-Apr-2015 Abdomen Single View Result: Comments: See Note; NOTES: [facility] Imaging Services [address] [place] [address] Verdana 4d Abdomen Single View MR#: [id number] Acct: [id number] Name: Hugo BARROSO Rep #: [id number] : 1970 M 44 From: Anthony Garcia MD PCP: Kait Tam Status: REG CLI Study: Abdomen Single View Date of Exam: 04/18/15 Exam# [id number] Ordering Dr: Marcia Hughes DO STUDY: X-RAY [...] at 9:10 EDT Tel , Service support [phone], RAD/Abdomen Single View IMPRESSION: Bilateral kidney stones largest in the left kidney measures 5 mm. Electronically Signed: Crissy noriega MD at 9:10 EDT Tel , Service support [phone], CC: Kait Tam; Marcia Hughes DO Math And Science Instructor: Signed 13-Mar-2015 Lower Ext Joint Only (Routine) Result: Comments: See Note; NOTES: [facility] Imaging Services [address] [place] [address] MRI Report MR#: [id number] Acct: [id number] Name: NIEVES BARROSO Rep #: [id number] : 1970 M 44 From: Clinton Valdez MD PCP: Kait Tam Status: REG CLI Study: Lower Ext Joint Only (Routine) Date of Exam: 03/13/15 Exam# [id number] Ordering Dr: Carola Francis DO STUDY: MR [...] FACR at 8:51 EDT , Service support [phone], CC: Kait Francis DO Math And Science Instructor: Signed 08-Feb-2015 Inital Evaluation - PT Result: Comments: See Note; NOTES: [facility] Physical [facility] [address] [place] [address]. [address] [place] [address] Fax REHABILITATION SERVICES INITIAL EVALUATION MR#: [id number] Acct: [id number] Name: NIEVES BARROSO Rep #: [id number] : 1970 44 From: Linda Moon Referring Dr.: Kait Tam Status: REG R [facility] Date: Patient's Visit Information NIEVES BARROSO is [...] medial knee and posterior knee. 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 Please let me know if there are questions or concerns r egarding this plan of care. Physician Signature: Date: <Electronically signed by Linda Moon > 02/08/15 0947 CC: ELR Signed For Medicare only, by signing this I certify the plan of care. Physicians Signature Date 05-Feb-2015 Knee 4 or More Views Result: Comments: See Note; NOTES: [facility] Imaging Services [address] [facility] [place] [address] Radiology Report MR#: [id number] Acct: [id number] Name: NIEVES BARROSO Rep #: [id number] : 1970 M 44 From: Josue Meza DO PCP: Kait Tam Status: REG CLI Study: Knee 4 or More Views Date of Exam: 02/05/15 Exam# [id number] Ordering Dr: Kait Tam STUDY: X-RAY - [...] soft tissue swelling. Electronically Signed: Malika Meza DO at 23:52 EDT Tel [phone], Service support [phone], RAD/Knee 4 or More Views IMPRESSION: Periarticular soft tissue swelling. E lectronically Signed: Josue Meza DO at 23:52 EDT Tel [phone], Service support [phone], CC: Kait Tam Math And Science Instructor: Signed Family History Unknown Family Member Name [...] Active Vital Signs Date Test Result Details [id number]-Ibs-525497:02 Temperature 97.7 f Comments: Method: Temporal Pulse 91 /min Comments: Pattern: Regular Respiration Rate 19 /min Comments: Pattern: Unlabored O2 SAT 93 % Comments: Room air BP Systolic 148 mm[Hg] Comments: Patient Position: Sitting; Cuff Location: Left Arm; Cuff Size: Standard BP Diastolic 98 mm[Hg] Comments: Patient Position: Sitting; Cuff Location: Left Arm; Cuff Size: Standard Weight 354.125 lb Height 73 in Body Mass Index Calculated 46.72 kg/m2 Body Surface Area Calculated 2.74 m2 :02 Temperature 97.7 f Comments: Method: Temporal [...] kg/m2 Body Surface Area Calculated 2.73 m2 :47 Temperature 97.6 f Pulse 98 /min Comments: [...] kg/m2 Body Surface Area Calculated 2.75 m2 :33 Temperature 97.6 f Pulse 90 /min Comments: [...] kg/m2 Body Surface Area Calculated 2.75 m2 :11 Pulse 90 /min Comments: Pattern: Regular Respiration [...] 4.09 m2 Results Date Description Value Details 35-Mar-263342:03 Urinalysis, Office (66430) UA - LEUKOCYTE ESTERASE Negative (Normal) UA - NITRITE Negative (Normal) URINE UROBILINGN EUGENIE TIMED Normal mg/dL (Normal) UA - PROTEIN Negative mg/dL (Normal) UA - PH 6 (Abnormal) UA - BLOOD + (Abnormal) UA - SPECIFIC GRAVITY 1.030 (Abnormal) UA - KETONES Negative mg/dL (Normal) UA - BILIRUBIN Negative (Normal) UA - GLUCOSE Negative (Normal) :04 HgA1C , Office (90731) HgA1C , Office 7.1 % (Normal) Range: 4.6 - 7.1 :04 Blood Glucose , Office (53030) Blood Glucose , Office 147 (Normal) :31 URIC ACID BLOOD (21652) Comments: PATIENT NOT FASTINGPERFORMED BY: [facility] Ztqbxh9212 [facility] [id number] Uric Acid 4.9 mg/dL (Normal) Range: 3.7-8.6 Comments: Therapeutic target for gout patients: <6.0 2-Cri-887470:28 TESTOSTERONE FREE (92519) Comments: Mar 2018; PATIENT WAS FASTINGPERFORMED BY: [facility] Nxmtcj1446 [facility] [id number] BY: [address] [id number] Free Testosterone(Direct) 7.1 pg/mL (Normal) Range: 6.8-21.5 1-Hem-047219:28 CALCIFEDIOL (42390) Comments: Mar 2018; PATIENT WAS FASTINGPERFORMED BY: [facility] Ltkjue6564 [facility] [id number] BY: eGym[address] [id number] Vitamin D, 25-Hydroxy 19.4 ng/mL (Abnormal) Range: 30.0-100.0 Comments: Vitamin D deficiency has been defined by the [place] ofMedicine and an Endocrine Society practice guideline as alevel of serum 25-OH vitamin D less than 20 ng/mL (1,2).The Endocrine Society went on to further define vitamin Dinsufficiency as a level between 21 and 29 ng/mL (2).1. IOM ([place] of Medicine). 2010. Dietary reference intakes for calcium and D. [place]: The National Academies Press.2. Pietro MF, Joaquin EVANS, Bonifacio HANSON, et al. Evaluation, treatment, and prevention of vitamin D deficiency: an Endocrine Society clinical practice guideline. JCEM. 2010; 96(7):1911-30. 4-Xty-763524:28 Metabolic Panel, Comments: Mar 2018; PATIENT WAS FASTINGPERFORMED BY: [facility] Etwhpe8158 [facility] [id number] BY: eGym[address] [id number] Comprehensive (39742) ALT (SGPT) 31 [iU]/L (Normal) Range: 0-44 [...] 6-24 Glucose 151 mg/dL (Abnormal) Range: 65-99 1-Lww-006865:28 LIPID PANEL (64335) Comments: Mar 2018; PATIENT WAS FASTINGPERFORMED BY: CB [facility] Wiqxku8316 [facility] [id number] BY: BN [facility] [address] [id number] LDL/HDL Ratio 3.3 {ratio} (Normal) Range: 0.0-3.6 Comments: LDL/HDL Ratio Men Women 1/2 Avg.Risk 1.0 1.5 Av g.Risk 3.6 3.2 2X Avg.Risk 6.2 5.0 3X Avg.Risk 8.0 6.1 LDL Cholesterol Calc 137 mg/dL (Abnormal) Range: 0-99 VLDL Cholesterol Sundar 21 mg/dL (Normal) Range: 5-40 HDL Cholesterol 42 mg/dL (Normal) Triglycerides 104 mg/dL (Normal) Range: 0-149 Cholesterol, Total 200 mg/dL (Abnormal) Range: 100-199 3-Mfe-265009:28 VITAMIN B12 AND FOLATES Comments: Mar 2018; PATIENT WAS FASTINGPERFORMED BY: Foodyn Chfedh8142 [facility] [id number] BY: eGym[address] [id number] (59265) Folate (Folic Acid), Serum 7.2 ng/mL (Normal) Comments: A serum folate concentration of less than 3.1 ng/mL isconsidered to represent clinical deficiency. Vitamin B12 645 pg/mL (Normal) Range: 232-1245 84-Lvv-451973:28 TESTOSTERONE FREE (68452) Comments: PATIENT WAS FASTINGPERFORMED BY: [facility] Riruex5198 [facility] [id number] BY: Foodyn[address] [id number] Free Testosterone(Direct) 5.1 pg/mL (Abnormal) Range: 6.8-21.5 84-Foa-780579:28 CALCIFEDIOL (94093) Comments: PATIENT WAS FASTINGPERFORMED BY: Foodynrp Tutdea1880 [facility] [id number] BY: Foodyn[address] [id number] Vitamin D, 25-Hydroxy 19.4 ng/mL (Abnormal) Range: 30.0-100.0 Comments: Vitamin D deficiency has been defined by the [place] of[facility] Hospitalcine and an Endocrine Society practice guideline as alevel of serum 25-OH vitamin D less than 20 ng/mL (1,2).The Endocrine Society went on to further define vitamin Dinsufficiency as a level between 21 and 29 ng/mL (2).1. IOM ([place] of Medicine). 2010. Dietary reference intakes for calcium and D. [place]: The National Academies Press.2. Pietro MF, Joaquin EVANS, Bonifacio HANSON, et al. Evaluation, treatment, and prevention of vitamin D deficiency: an Endocrine Society clinical practice guideline. JCEM. 2010; 96(7):1911-30. 85-Nqz-104017:28 Metabolic Panel, Comments: PATIENT WAS FASTINGPERFORMED BY: [employer]70 [facility] [id number] BY: Foodyn[address] [id number] Inf ormation: [id number] Comprehensive (25941) ALT (SGPT) 29 [iU]/L (Normal) Range: 0-44 [...] 6-24 Glucose 120 mg/dL (Abnormal) Range: 65-99 70-Lqw-714393:28 LIPID PANEL (18311) Comments: PATIENT WAS FASTINGPERFORMED BY: [employer] Ifuvnw7442 [facility] [id number] BY: Foodyn[address] [id number] LDL/HDL Ratio 3.3 {ratio} (Normal) Range: 0.0-3.6 Comments: LDL/HDL Ratio Men Women 1/2 Avg.Risk 1.0 1.5 Av g.Risk 3.6 3.2 2X Avg.Risk 6.2 5.0 3X Avg.Risk 8.0 6.1 LDL Cholesterol Calc 127 mg/dL (Abnormal) Range: 0-99 VLDL Cholesterol Sundar 19 mg/dL (Normal) Range: 5-40 HDL Cholesterol 38 mg/dL (Abnormal) Triglycerides 93 mg/dL (Normal) Range: 0-149 Cholesterol, Total 184 mg/dL (Normal) Range: 100-199 28-Lhp-261679:28 VITAMIN B12 AND FOLATES Comments: PATIENT WAS FASTINGPERFORMED BY: CB [facility] Ykoqzp8521 [facility] [id number] BY: BN [facility] Eixnqgmxop8499 [facility] [id number] (67162) Folate (Folic Acid), Serum 7.1 ng/mL (Normal) Comments: A serum folate concentration of less than 3.1 ng/mL isconsidered to represent clinical deficiency. Vitamin B12 665 pg/mL (Normal) Range: 232-1245 48-Ovh-157111:27 Comprehensive Metabolic Profil Comments: [facility] [address] [place], [place], [address] GAP 8 (Normal) Range: 5-15 CO2 29.0 [...] A.D.A. criteria.Please note revised GLUCOSE reference range omdnmcgmp14/02/2018. 25-Nmv-751168:27 Erythrocyte Sed Rate Comments: [facility] [address] [place], [place], [address] SED RATE 14 mm/h (Normal) Range: 0-15 34-Lmk-282003:27 Hemoglobin A1c Comments: [facility] [address] [place], [place], [address] HGB A1C 7.0 % (Abnormal) Range: 4.2-6.3 91-Xwg-655760:27 Thyroid Stim Hormone (TSH) Comments: [facility] [address] [place], [place], [address] TSH 1.29 {uIU/mL} (Normal) Range: 0.358-3.74 14-Fgm-453519:27 Vitamin B12 695 pg/mL (Normal) Comments: [facility] [address] [place], [place], [address] Range: 211-911 26-Wgx-595516:38 HgA1C , Office (68924) HgA1C , Office 6.5 % (Normal) Range: 4.6 - 7.1 45-Lgn-214600:38 Blood Glucose , Office (82907) Blood Glucose , Office 129 (Normal) :38 CREATININE FINGERSTICK Comments: [facility] LaboratoryPoint of Riv[address] [place] [address] EGFR WB > 60.0000 mL/min (Normal) CREATININE WB 0.9 mg/dL (Normal) Range: 0.70-1.30 41-Pkp-280883:35 URINE BROOKS CULTURE-IDENTIFICATN Comments: PATIENT NOT FASTINGPERFORMED BY: [employer] Fjtkks2712 [facility] [id number] Information: SRC:UC (65260) Result 1 NG36 (Normal) Comments: No growth in 36 - 48 hours. Urine Culture,Comprehensive Final report (Normal) 54-Njw-142363:00 Urinalysis, Office (65026) UA - LEUKOCYTE ESTERASE Negative (Normal) UA - NITRITE Negative (Normal) URINE UROBILINGN EUGENIE TIMED Normal mg/dL (Normal) UA - PROTEIN Negative mg/dL (Normal) UA - PH 6 (Abnormal) UA - BLOOD Negative (Normal) UA - SPECIFIC GRAVITY 1.025 (Normal) UA - KETONES Negative mg/dL (Normal) UA - BILIRUBIN Negative (Normal) UA - GLUCOSE Negative (Normal) 97-Lmj-475015:10 UPEP (86295) Comments: PATIENT NOT FASTINGPERFORMED BY: [employer]70 [facility] [id number] Please note: SPRCS (Normal) Comments: Protein electrophoresis scan will follow via computer, mail, orcourier delivery. M-Jaspal, % Not Observed % (Normal) Gamma Globulin, U 22.7 % (Normal) Beta Globulin, U 31.8 % (Normal) Kuqjo-9-Bpzttfiv, U 19.5 % (Normal) Jmjql-8-Itorbbju, U 3.9 % (Normal) Albumin, U 22.1 % (Normal) Protein,Total,Urine 11.8 mg/dL (Normal) 60-Jxc-066019:10 SPEP (13840) Comments: PATIENT NOT FASTINGPERFORMED BY: [employer] Ftxapv8668 [facility] [id number] Please note: SPRCS (Normal) Comments: Protein electrophoresis scan will follow via computer, mail, orcourier delivery. A/G Ratio 1.1 (Normal) Range: 0.7-1.7 Globulin, Total 3.1 g/dL (Normal) Range: 2.2-3.9 M-Jaspal Not Observed g/dL (Normal) Gamma Globulin 1.0 g/dL (Normal) Range: 0.4-1.8 Beta Globulin 1.1 g/dL (Normal) Range: 0.7-1.3 Euagh-8-Sovfyzyt 0.8 g/dL (Normal) Range: 0.4-1.0 Xxowz-6-Gtqwulfh 0.3 g/dL (Normal) Range: 0.0-0.4 Albumin 3.5 g/dL (Normal) Range: 2.9-4.4 Protein, Total, Serum 6.6 g/dL (Normal) Range: 6.0-8.5 23-Ybb-578651:10 VITAMIN B12 AND FOLATES Comments: PATIENT NOT FASTINGPERFORMED BY: [employer] [facility] [id number] (09977) Folate (Folic Acid), Serum 7.3 ng/mL (Normal) Comments: A serum folate concentration of less than 3.1 ng/mL isconsidered to represent clinical deficiency. Vitamin B12 390 pg/mL (Normal) Range: 232-1245 37-Ltx-894979:21 HgA1C , Office (28748) HgA1C , Office 140 % (Abnormal) Range: 4.6 - 7.1 0-Fml-510830:07 HGB A1C (49600) Comments: PATIENT NOT FASTINGPERFORMED BY: [employer] Feayiw8955 [facility] [id number] Hemoglobin A1c 6.3 % (Abnormal) Range: 4.8-5.6 Comments: . Pre-diabetes: 5.7 - 6.4 Diabetes: >6.4 Glycemic control for adults with diabetes: <7.0 6-Cyz-008112:07 Metabolic Panel, Comments: PATIENT NOT FASTINGPERFORMED BY: [employer] Springr [facility] [id number] Information: [id number] Comprehensive (77715) ALT (SGPT) 24 [iU]/L (Normal) Range: 0-44 [...] Glucose, Serum 122 mg/dL (Abnormal) Range: 65-99 8-Pbs-688826:30 Anaerobic and Aerobic Comments: PATIENT NOT FASTINGPERFORMED BY: [facility] Zrfffh3289 [facility] [id number] BY: [facility] [address] [id number] Inf ormation: SRC:DIANE SRC:AM Culture Result 1 Mixed skin carlene (Normal) Aerobic Culture Final report (Normal) Result 1 CATRINA (Normal) Comments: No anaerobes recovered. Anaerobic Culture Final report (Normal) 26-Jan-20179:20 Basic Metabolic Profile (BMP) Comments: [facility] [address] [place], [address] GAP 8 (Normal) Range: 5-15 CO2 28.0 [...] <126 mg/dLsuggests IMPAIRED HOMEOSTASIS per A.D.A. criteria. 09-Hwv-049916:05 ANTINUCLEAR ANTIBODIES DIRECT Comments: Order Date: 03/17/16Order Date: 03/17/16[facility] (refer to report for specific site)refer to report for address and phone number GORDON-DIRECT Negative (Normal) Comments: Performed at: - [facility] [id number] Director: Jordy Alfredo PhD, Phone: [phone] 42-Mev-303122:05 CBC W/Diff, Automated Comments: Order Date: 03/17/16Interface Comments: Reason:Order Date: 03/17/16[facility] [address] [place], [address] ; another doc Absolute Lymph 1.58 {X10_3/ul} [...] 4.6-6.2 WBC 9.3 K/mm3 (Normal) Range: 4.4-11.0 05-Uzm-117000:05 CRP Comments: Order Date: 03/17/16Order Date: 03/17/16[facility] [address] [place], [place], [id number] C-REACTIVE PROT 13.90 mg/L (Abnormal) Range: 0.0-3.0 Comments: C-Reactive Protein (CRP) provides useful information for thediagnosis, therapy and monitoring of inflammatory processesand associated diseases. For the evaluation of Relative Riskfor Cardiovascular Dise ase, a High Sensitivity CRP (HSCRP)should be ordered. 29-Jee-041769:05 Erythrocyte Sed Rate Comments: Order Date: 03/17/16Interface Comments: Reason:Order Date: 03/17/16[facility] [address] [place], [address] SED RATE 19 mm/h (Abnormal) Range: 0-15 :05 Lyme Screen W/Reflex WB Comments: Order Date: 03/17/16Order Date: 03/17/16[facility] (refer to report for specific site)refer to report for address and phone number LYME SCN INTERP (Normal) Comments: ISR 0.00 - 0.90Negative <0.91Equivocal 0.91 - 1.09Positive >1.09 LYME SCN AB <0.91 (Normal) 68-Fpr-098445:05 Rheumatoid Factor Comments: Order Date: 03/17/16Order Date: 03/17/16[facility] [address] [place], [place], [address] RHEUMATOID FAC < 10.0 {IU/mL} (Normal) :29 Blood Glucose , Office (73280) Blood Glucose , Office 92 (Normal) :29 HgA1C , Office (27108) HgA1C , Office 6.1 % (Normal) Range: 4.6 - 7.1 :29 CBC, Platelets & Auto Diff Comments: PATIENT NOT FASTINGPERFORMED BY: [facility] Ucgdmy5175 [facility] [id number] Information: [id number] (54154) Immature Grans (Abs) 0.0 {x10E3/uL} (Normal) Range: [...] 4.14-5.80 WBC 9.8 {x10E3/uL} (Normal) Range: 3.4-10.8 :29 Metabolic Panel, Comprehensive Comments: PATIENT NOT FASTINGPERFORMED BY: [facility]CoH[facility]ow[facility] HospitalCexnrd5015 [facility] [id number] (23572) ALT (SGPT) 20 [iU]/L (Normal) Range: 0-44 [...] Glucose, Serum 105 mg/dL (Abnormal) Range: 65-99 0-Bun-729649:29 AMYLASE (21672) Comments: PATIENT NOT FASTINGPERFORMED BY: [facility]6370 [facility] [id number] Amylase, Serum 57 U/L (Normal) Range: 31-124 :29 LIPASE (59158) Comments: PATIENT NOT FASTINGPERFORMED BY: [facility]6370 [facility] [id number] Lipase, Serum 32 U/L (Normal) Range: 0-59 2-Ozv-439675:29 OVA & PARASITE DIR SMEAR Comments: PATIENT NOT FASTINGPERFORMED BY: [facility]6370 [facility] [id number] (48393) Result 1 NOCP (Normal) Comments: No ova, cysts, or parasites seen. Ova + Parasite Exam Final report (Normal) Comments: These results were obtained using wet preparation(s) and trichromestained smear. This test does not include testing for Cryptosporidiumparvum, Cyclospora, or Microsporidia. :29 OCCULT BLOOD FECES SCREEN Comments: PATIENT NOT FASTINGPERFORMED BY: [facility]6370 [facility] [id number] (24797) Occult Blood, Fecal, IA Negative (Normal) :29 LEUKOCYTE COUNT, FECAL (61184) Comments: PATIENT NOT FASTINGPERFORMED BY: [facility]6370 [facility] [id number] Result 1 NWBC (Normal) Comments: No white blood cells seen. White Blood Cells (WBC), Final report (Normal) Stool :26 C-DIFFICILE, STOOL (57028) Comments: PATIENT NOT FASTINGPERFORMED BY: [facility]6370 [facility] [id number] Information: [id number] C difficile Toxins A+B, EIA Negative (Normal) :29 BROOKS CULTURE-STOOL (84498) Comments: PATIENT NOT FASTINGPERFORMED BY: [facility]6370 [facility] [id number] Information: [id number] E coli Shiga Toxin EIA Negative (Normal) Result 1 NCI (Normal) Comments: No Campylobacter species isolated. Campylobacter Culture Final report (Normal) Result 1 NSS (Normal) Comments: No Salmonella or Shigella recovered. Salmonella/Shigella Screen Final report (Normal) :47 HgA1C , Office (50338) HgA1C , Office 6.1 % (Normal) Range: 4.6 - 7.1 :16 CALCIFEDIOL (61470) Comments: PATIENT NOT FASTINGPERFORMED BY: [facility]6370 [facility] [id number] Vitamin D, 25-Hydroxy 24.6 ng/mL (Abnormal) Range: 30.0-100.0 Comments: Vitamin D deficiency has been defined by the [place] ofMedicine and an Endocrine Society practice guideline as alevel of serum 25-OH vitamin D less than 20 ng/mL (1,2).The Endocrine Society went on to further define vitamin Dinsufficiency as a level between 21 and 29 ng/mL (2).1. IOM ([place] of [employer]). 2010. Dietary reference intakes for calcium and D. [place]: The National Academies Press.2. Pietro MF, Joaquin NC, Zina-Eliot HANSON, et al. Evaluation, treatment, and prevention of vitamin D deficiency: an Endocrine Society clinical practice guideline. JCEM. 2010; 96(7):1911-30. :16 CBC, Platelets & Auto Diff Comments: PATIENT NOT FASTINGPERFORMED BY: [facility]6370 [facility] [id number] Information: [id number] (77644) Immature Grans (Abs) 0.0 {x10E3/uL} (Normal) Range: [...] 4.14-5.80 WBC 10.9 {x10E3/uL} (Abnormal) Range: 3.4-10.8 08-Vih-391181:32 AFP, Tumor Marker Comments: Is Patient ? NComments: [id number] BLOOD SMEAR INTERPRETATION,LAV,[facility] (refer to report for specific site)refer to report for address and phone number AFP TUMOR 2253 1.8 ng/mL (Normal) Range: 0.0-8.3 Comments: Ashlee ECLIA methodologyPerformed at: [facility] [address] [id number] Director: Jordy Alfredo PhD, Phone: [phone] 90-Vfy-851970:32 Bilirubin, Direct Comments: Comments: [id number] BLOOD SMEAR INTERPRETATION,LAV,[facility] [address] [place], [address] D BILI 0.15 mg/dL (Normal) Range: 0.00-0.30 91-Kxg-368992:32 CBC W/Diff, Automated Comments: [facility] [address] [place], [address] Absolute Lymph 1.68 {X10_3/ul} (Normal) Range: 0.83-4.51 [...] 4.6-6.2 WBC 8.0 K/mm3 (Normal) Range: 4.4-11.0 76-Yvh-467214:32 Comprehensive Metabolic Comments: Comments: [id number] BLOOD SMEAR INTERPRETATION,[facility] [address] [place], [place], [address] Profil GAP 4 (Abnormal) Range: 5-15 CO2 [...] <126 mg/dLsuggests IMPAIRED HOMEOSTASIS per A.D.A. criteria. 18-Led-609231:32 Hepatitis ABC Profile Comments: Is Patient ? NComments: [id number] BLOOD SMEAR INTERPRETATION,LAV,[facility] (refer to report for [...] HEP B CORE,TOT Negative (Normal) HB CORE [id number] Negative (Normal) HB SURF AG Negative (Normal) HEP A AB,T.6726 Positive (Abnormal) HEP A IgM 6734 Negative (Normal) 30-Xkp-082144:32 Vitamin D,25 Hydroxy Comments: [facility] [address] [place], [id number] Vitamin D 25-OH 94.6 ng/mL (Normal) Comments: Vitamin D 25(OH) Status Range Deficiency <20 ng/mL (50nmol/L) Insuffciency 20 - 30 ng/mL (50 - 75 nmol/L) Sufficiency 30 - 100 ng/mL (75 - 250 nmol/L) Toxicity >100 ng/mL (>250 nmol/L) :39 Basic Metabolic Profile (BMP) Comments: [facility] [address] [place], [id number] GAP 5 (Normal) Range: 5-15 CO2 30.0 [...] :39 CBC-Complete Blood Cnt No Diff Comments: [facility] [address] [place], [address] MPV 10.8 fL (Normal) Range: 6.2-12.0 PLT [...] 4.6-6.2 WBC 10.7 K/mm3 (Normal) Range: 4.4-11.0 17-Zwc-779098:05 URINE BROOKS CULTURE (EUGENIE Comments: PATIENT NOT FASTINGPERFORMED BY: [facility] Alajgn3030 [facility] [id number] Information: SRC:UR [id number] COL COUNT) (24134) Result 1 NG36 (Normal) Comments: No growth in 36 - 48 hours. Urine Culture,Comprehensive Final report (Normal) 48-Ffl-99061:58 Urinalysis, Office (99499) UA - LEUKOCYTE ESTERASE Negative (Normal) UA - NITRITE Negative (Normal) URINE UROBILINGN EUGENIE TIMED Normal mg/dL (Normal) UA - PROTEIN Trace mg/dL (Normal) UA - PH 6 (Abnormal) UA - BLOOD Hemolyzed Large (Normal) UA - SPECIFIC GRAVITY 1.020 (Normal) UA - KETONES Negative mg/dL (Normal) UA - BILIRUBIN Small (Normal) UA - GLUCOSE Negative (Normal) 63-Xhc-068207:16 Urinalysis, Office (56784) UA - LEUKOCYTE ESTERASE Negative (Normal) UA - NITRITE Negative (Normal) URINE UROBILINGN EUGENIE TIMED Normal mg/dL (Normal) UA - PROTEIN Negative mg/dL (Normal) UA - PH 7.0 (Normal) UA - BLOOD Negative (Normal) UA - SPECIFIC GRAVITY 1.020 (Normal) UA - KETONES Negative mg/dL (Normal) UA - BILIRUBIN Negative (Normal) UA - GLUCOSE Negative (Normal) Plan of Care Name Dates Details Instructions Smoker : Follow up if no improvement or if symptoms worsen Indication: Smoker Smoker : Eprescribed prescriptions (G8553) Indication: Smoker Vitamin D deficiency : Follow up in [...] weeks Indication: Obesity Planned Observations LIPID PANEL (83510)Indication: Hypercholesteremia On: 82-Vvm-951100:02 Request CALCIFEDIOL (49405)Indication: Vitamin D deficiency On: 09-Aug-2018 Request METABOLIC PANEL, COMPREHENSIVE (50111)Indication: Abdominal pain On: 42-Abi-006187:23 Request Blood Glucose , Office (53707)Indication: Impaired fasting glucose On: 60-Qub-707405:21 Request Anaerobic & Aerobic Culture (07978)Indication: Infected lesion of skin On: 4-Mto-955455:26 Request MRSA Culture (37514)Indication: Infected lesion of skin On: 3-Hbd-029137:20 Request CALCIFEDIOL (41976)Indication: Vitamin D deficiency On: 49-Hgf-88155:33 Request DBSXE-WHMKCLSDIOS-UOHQS (40933)Indication: Fatty liver On: 82-Qhg-76988:31 Request HEPATIC FUNCTION PANEL (00633)Indication: Fatty liver On: 68-Myt-97035:31 Request Metabolic Panel, Comprehensive (93776)Indication: Fatty liver On: 72-Xks-84666:29 Request HEPATITIS PANEL (18186)Indication: Fatty liver On: 83-Wat-27567:29 Request BLOOD SMEAR INTERPRETATION (77231)Indication: Splenomegaly, not elsewhere classified On: 49-Bkb-56201:15 Request CBC, Platelets & Auto Diff (32540)Indication: Splenomegaly, not elsewhere classified On: 73-Hgt-11990:12 Request Planned Encounters Medical; 3 Month FU - On: 15-Aug-2018 8:30 Comprehensive Internal Medicine Kait Tam CNP, CNP, Mary E Planned Procedures COMPLETE ULTRASOUND OF KIDNEY On: 15-Jul-2018 Intent (40577)By: Kait Tam CNP Comments: Left sided pain checking for kidney stones Kait AMBRIZ Toradol Injection, 30 mg (J1885)By: On: 15-Jul-2018 Intent Kait Tam CNP, CNP, Mary E CT - Abdomen & Pelvis Stone On: 15-Jul-2018 Intent ProtocolBy: Kait Tam CNP, CNP, Mary E XR ELBOW RIGHT COMPLETE (65922)By: On: 04-Mar-2018 Intent Kait Tam CNP, CNP, Mary E Toradol Injection, 30 mg (J1885)By: On: 13-Sep-2017 Intent Mela Abrams Comments: 80-334-dk01/2019 CT - Abdomen & Pelvis Stone On: 13-Sep-2017 Intent ProtocolBy: Mela Abrams Comments: R/O left sided kidney stone CT - Abdomen & Pelvis (IV Contrast On: 13-Sep-2017 Intent Needed)By: Mela Abrams Comments: R/O diverticulitis. ELECTROCARDIOGRAM, COMPLETE (ECG) On: 13-Sep-2017 Intent (04321)By: Mela Abrams Comments: NSR-Hr 86 B 12 Injection, 1000 mcg (J3420)By: On: 06-Aug-2017 Intent Visit, Nurse Comments: [id number] - 1mlMLONG AGRICULTURAL APPRAISER B 12 Injection, 1000 mcg (J3420)By: On: 30-Jul-2017 Intent Kait Tam CNP, CNP, Mary E Comments: vitamin b12 1000mcg injectionlot: [id number]: 10/2019L DELT IMpt tolerated wellAD AGRICULTURAL APPRAISER B 12 Injection, 1000 mcg (J3420)By: On: 23-Jul-2017 Intent Marcia Hughes DO Comments: lot [id number] mcgright dltdIMas, AGRICULTURAL APPRAISER INJECTION, VITAMIN B-12 On: 16-Jul-2017 Intent CYANOCOBALAMIN, UP TO 1000 MCG Comments: 2096921.15/020154fqi/mlr arm, IMMLONG (Special Coverage Instructions Apply. See CIM: 45-4 and MCM: 2049) (J3420)By: Visit, Nurse Flu Vaccine (Quadrivalent) 50085Cp: On: 02-Apr-2017 Intent Kait Tam CNP, CNP, Mary E Comments: QUAD flu shotlot number: [id number]: 09/2017L Deltoid IMAD AGRICULTURAL APPRAISER Venous Doppler - LeftBy: Yonatan AMBRIZ On: 02-Apr-2017 Intent Kait Tam CNP, Kait Farooq EMGBy: Yonatan AMBRIZ, Belen Yonatan AMBRIZ, On: 02-Apr-2017 Intent Kait Farooq Nerve ConductionBy: Yonatan PB Kait Farooq On: 02-Apr-2017 Intent Yonatan DOG SHOW JUDGE, Kait Farooq Radiology - Ankle - LeftBy: Agustina DOG SHOW JUDGE, On: 02-Apr-2017 Intent Kait Tam CNP Kait Farooq Radiology - Foot - LeftBy: Agustina DOG SHOW JUDGE, On: 02-Apr-2017 Intent Kait Tam CNP, Kait Farooq DOPPLER ULTRASOUND OF LEFT LOWER On: 13-Aug-2016 Intent EXTREMITY FOR VENOUS THROMBOEMBOLISM Comments: Eval for venous insufficency. ([id number]) : STATBy: Mela Abrams Nuclear Medicine - HIDA w/CPKBy: Ciesa On: 28-Jan-2016 Intent Kait AMBRIZ PB Kait Farooq Ultrasound - GallbladderBy: Agustinmel AMBRIZ, On: 28-Jan-2016 Intent Kait Tam PB, Kait Farooq Ultrasound - RenalBy: Saul ALMONTE, On: 19-Apr-2015 Intent Marcia CODY ([id number])By: Marcia Hughes DO On: 18-Apr-2015 Intent PHYSICAL THERAPY EVALUATION ([id number])By: On: 05-Feb-2015 Intent Yonatan PB Kait Tam PB Kait Farooq Radiology - Knee - RightBy: Yonatan PB, On: 05-Feb-2015 Intent Kait Tam PB, Kait Farooq Planned Medications INJECTION, KETOROLAC TROMETHAMINE, PER 15 MG Ordered: 13-Sep-2017 Pending Mela Abrams INJECTION, KETOROLAC TROMETHAMINE, PER 15 MG Ordered: 15-Jul-2018 Pending Vytazmel AMBRIZ Kait Tam PB Kait Farooq Vitamin B-12 1000 MCG/ML Injection Solution Ordered: 16-Jul-2017 Pending Visit, Nurse Vitamin B-12 1000 MCG/ML Injection Solution Ordered: 23-Jul-2017 Pending Marcia Hughes DO Vitamin B-12 1000 MCG/ML Injection Solution Ordered: 30-Jul-2017 Pending Agustinmel AMBRIZ Kait Veleza DOG SHOW JUDGE, Kait Farooq Vitamin B-12 1000 MCG/ML Injection Solution Ordered: 9-Feb-2018 Pending Visit, Nurse Instructions Name Dates Details [...] Hematuria : Patient Instructions Indication: Hematuria Encounters Annotation/Addendum On: 15-Jul-2018 12:53 Encounter Diagnosis: Flank pain End: 15-Jul-2018 12:59 [facility] Office Visit On: 15-Jul-2018 11:01 Encounter Reason: UTI - The urinary symptoms are described as flank pain. The symptoms have been occurring for 1 day. The urine is described as bloody. The symptoms have been associated with nausea., End: 15-Jul-2018 11:45 [ADDITIONAL REASON] Hematuria - Note for Hematuria: Peeing blood , [ADDITIONAL REASON] Nausea - Note for Nausea: Nausea with back pain , [ADDITIONAL REASON] Flank Pain - Note for Flank pain: left flank pain Encounter Diagnosis: BMI 45.0-49.9, adult, Smoker, Flank pain, History of kidney stones, Nausea [facility] Annotation/Addendum On: 03-May-2018 13:13 Encounter Diagnosis: Polyneuropathy End: 03-May-2018 16:22 [facility] Office Visit On: 03-May-2018 9:59 Encounter Reason: [...] around [address] Crawford in [place])., [ADDITIONAL REASON] Back Pain - This condition [...]
--- OUTSIDE RECORDS SUMMARY | 2018-09-19 01:40 | XMS RPT_ITS ---
:1970 Author Organization OHIP Care Team Providers Name Role Phone Kait Tam Attending Unavailable Kait Tam Referring Unavailable Kait Tam Consulting Unavailable Kait Tam Attending Unavailable Kait Tam Referring Unavailable Kait Tam Primary Care Unavailable Kait Tam Primary Care Unavailable Kait Tam Attending Unavailable Kait Tam Referring Unavailable Hong Petty Consulting Unavailable Mela Abrams LEADERSHIP COACH-C Attending Unavailable Kait Tam Primary Care Unavailable John Henry Attending Unavailable John Henry Referring Unavailable Kait Tam Primary Care Unavailable John Henry Attending Unavailable Kait Tam Primary Care Unavailable Kait Tam Attending Unavailable Kait Tam Referring Unavailable Kait Tam Primary Care Unavailable PROBLEMS PROBLEMS No Problem Records FoundPROCEDURES PROCEDURES No Procedure Records FoundRESULTS RESULTS ABDOMEN/PELVIS WITHOUT Observed: 07/19/2018 Status: F Source: [place] CONT 3:41 PM [facility] REPOSITORY [facility] Imaging Services [address] [place] [address] Abdomen/Pelvis without Cont MR#: [id number] Acct: [id number] Name: NIEVES JACKSON Rep #: [id number] : 1970 M 48 From: Maricel Sanchez MD PCP: Kait Tam NP Status: REG CLI Study: Abdomen/Pelvis without Cont Date of Exam: 07/19/18 Exam# [id number] Ordering Dr: Kait Tam LEADERSHIP COACHKarissaC STUDY: CT ABDOMEN AND PELVIS WITHOUT CONTRAST REASON FOR EXAM: Male, 48 years old. Bilateral flank pain. RADIATION DOSAGE (If Supplied By Facility): CTDIvol = ( 24.18 ) mGy, DLP = ( 1377.32 ) mGycm TECHNIQUE: Transaxial images were obtained from the dome of the diaphragm to the symphysis pubis without oral contrast, and without intravenous contrast. Sagittal and coronal images were reconstructed. Individualized dose optimization techniques were used for this CT. COMPARISON: September 13, 2017 FINDINGS: The visualized lung bases are unremarkable. There are coronary artery calcifications. There is decreased attenuation of the liver consistent with steatosis. Normal gallbladder and extrahepatic biliary system. Normal spleen. Normal pancreas. Normal bilateral adrenal glands. There is a nonobstructing 2.8 mm right renal calculus. There is a 4.1 mm calculus within the proximal left ureter. There is no associated hydroureteronephrosis. There is a small hiatal hernia. There is retained fluid within the mid/distal esophagus. Normal small intestine. There are multiple colonic diverticula consistent with diverticulosis. The appendix is visualized and appears normal. Normal abdominal aorta. Normal inferior vena cava. Normal retroperitoneum. Normal urinary bladder. Normal abdominal wall. There are diffuse degenerative changes of the visualized lumbar spine. CT/Abdomen/Pelvis without Cont IMPRESSION: 4.1 mm calculus within the left proximal ureter. Nonobstructing 2.8 mm right renal calculus. Fatty infiltration of the liver. Hiatal hernia. Retained fluid within the mid/distal esophagus this may be secondary to underlying gastroesophageal reflux or dysmotility. Atherosclerosis. Electronically Signed: Maricel Sanchez MD at 16:10 EST Tel , Service support , CC: Kait Tam NP Deburrer Machine: Signed KIDNEY AND BLADDER Observed: 07/18/2018 Status: F Source: [place] 9:43 AM [facility] REPOSITORY [facility] Imaging Services [address] [place] [address] Kidney and Bladder MR#: [id number] Acct: [id number] Name: NIEVES JACKSON Rep #: [id number] : 1970 M 48 From: Erik Ramsey MD PCP: Kait Tam NP Status: REG CLI Study: Kidney and Bladder Date of Exam: 07/18/18 Exam# [id number] Ordering Dr: Kait Tam LEADERSHIP COACH-C STUDY: RENAL ULTRASOUND - COMPLETE REASON FOR EXAM: Male, 48 years old. Flank pain. TECHNIQUE: Ultrasound evaluation of the kidneys was performed with real-time and static nava-scale imaging. COMPARISON: Comparison is made with prior ultrasound dated April 22, [address] scan dated September 13, 2017. FINDINGS: RIGHT KIDNEY: Normal location of the right kidney, which is normal in size. The right kidney measures 11.9 cm x 5.5 cm x 6.0 cm. There is a normal cortex of the right kidney. The renal cortex measures 1.4 cm. There is no right renal mass or cyst. Findings suggestive of a 1.2 cm x 0.9 cm right intrarenal calculus. There is no right hydronephrosis. DISTAL RIGHT URETER: There is non-visualization of the distal right ureter. There is no demonstrated right ureterovesical junction calculus. There is no demonstrated right ureteral jet. LEFT KIDNEY: Normal location of the left kidney, which is normal in size. The left kidney measures 13.7 cm x 5.7 cm x 6.2 cm. There is a normal cortex of the left kidney. The renal cortex measures 1.9 cm. There is no left renal mass or cyst. There is an 8 mm x 7 mm calculus in the midportion of the left kidney. There is no left hydronephrosis. DISTAL LEFT URETER: There is non-visualization of the distal left ureter. There is no demonstrated left ureterovesical junction calculus. There is no demonstrated left ureteral jet. BLADDER: The distended urinary bladder has a volume of 41.2 ml. Moderate splenomegaly. The spleen measures 15.4 cm x 7.5 cm x 6.6 cm. US/Kidney and Bladder IMPRESSION: Findings suggestive of bilateral intrarenal calculi. Splenomegaly. Electronically Signed: Erik Ramsey MD at 15:35 EST Tel [phone], Service support , CC: Kait Tam NP Deburrer Machine: Signed ELBOW MIN 3 VIEWS Observed: 03/04/2018 Status: F Source: [place] 9:49 AM [facility] REPOSITORY [facility] Imaging Services [address] [place] [address] Elbow min 3 Views MR#: [id number] Acct: [id number] Name: NIEVES JACKSON Rep #: [id number] : 1970 M 47 From: Anuradha Medel MD PCP: Kait Tam NP Status: REG CLI Study: Elbow min 3 Views Date of Exam: 03/04/18 Exam# [id number] Ordering Dr: Kait Tam STUDY: X-RAY - RIGHT ELBOW REASON FOR EXAM: Male, 47 years old. Pain swelling denies trauma TECHNIQUE: 3 view(s) of the elbow. COMPARISON: None. FINDINGS: Normal visualized humerus, radius and ulna. Normal radiocapitellar and ulnotrochlear articulations. There is minimal enthesopathy at the lateral aspect of the humerus. The soft tissue structures are unremarkable. RAD/Elbow min 3 Views IMPRESSION: Normal x-ray examination of the elbow. Electronically Signed: Anuradha Medel MD at 19:49 EDT Tel , Service support , CC: Kait Tam NP Deburrer Machine: Signed COMPREHENSIVE METABOLIC Collected: 12/07/2017 Status: F Source: [place] 4:27 PM [facility] REPOSITORY TYPE CODE TESTS RESULT OUT OF RANGE REFERENCE UNITS LAB L501.0100 74-106 mg/dL High GLU 187 Result Comment: Fasting Glucose result greater than or equal to 126 mg/dL suggests DIABETES MELLITUS per A.D.A. criteria. Please note revised GLUCOSE reference range effective 2017. LAB L501.1000 7-18 mg/dL Normal BUN 11 LAB L501.1100 0.70-1.30 mg/dL Normal CREAT,SERUM 0.99 Result Comment: The validity of the calculated GFR AND GFRAA in patients over 70 years has not been determined. Clinical correlation is essential. LAB L501.1110 >60 mL/min Normal EST GFR 86 Result Comment: Non- GFR Calc LAB L501.1115 >60 mL/min Normal EST GFR - AA 104 Result Comment: GFR Calc LAB L501.1300 10-20 RATIO Normal BUN/CRE 11.2 LAB L501.1500 6.4-8.2 g/dL T Normal PROT 7.0 LAB L501.1800 3.2-5.0 g/dL Normal ALB 3.6 LAB L501.1950 2.2-4.2 g/dL Normal GLOB 3.4 LAB L501.2000 0.9-2.4 RATIO Normal A/G 1.1 LAB L501.2200 8.5-10.1 mg/dL Low CA 8.3 LAB L501.4100 15-37 U/L Normal AST 16 LAB L501.4305 45-117 U/L Normal ALK P 87 LAB L501.4405 16-61 U/L Normal ALT 35 LAB L501.4600 0.20-1.00 mg/dL T Normal BILI 0.30 LAB L501.5300 136-145 mmol/L NA Normal 143 LAB L501.5600 3.5-5.1 mmol/L K Normal 3.9 LAB L501.5900 98-107 mmol/L CL Normal 106 LAB L501.6100 21.0-32.0 mmol/L Normal CO2 29.0 LAB L501.6200 5-15 Normal GAP 8 Performed By: #### L500.4050, L501.9520 #### [facility] [address] [place], [place], [address] THYROID STIM HORMONE Collected: 12/07/2017 Status: F Source: [place] (TSH) 4:27 PM [facility] REPOSITORY TYPE CODE TESTS RESULT OUT OF RANGE REFERENCE UNITS LAB L501.9520 0.358-3.74 uIU/mL Normal TSH 1.29 Performed By: #### L500.4050, L501.9520 #### [facility] [address] [place], [address] ERYTHROCYTE SED RATE Collected: 12/07/2017 Status: F Source: [place] 4:27 PM [facility] REPOSITORY TYPE CODE TESTS RESULT OUT OF RANGE REFERENCE UNITS LAB L102.0000 0-15 mm/hr Normal SED RATE 14 Performed By: #### L101.9900 #### [facility] [address] [place], [address] HEMOGLOBIN A1C Collected: 12/07/2017 Status: F Source: [place] 4:27 PM [facility] REPOSITORY TYPE CODE TESTS RESULT OUT OF RANGE REFERENCE UNITS LAB L501.9985 4.2-6.3 % High HGB A1C 7.0 Performed By: #### L501.9985 #### [facility] [address] [place], [address] VITAMIN B12 Collected: 12/07/2017 Status: F Source: [place] 4:27 PM [facility] REPOSITORY TYPE CODE TESTS RESULT OUT OF RANGE REFERENCE UNITS LAB L503.0105 211-911 pg/mL Normal Vitamin B12 695 Performed By: #### L503.0105 #### [facility] [address] [place], [address] CREATININE FINGERSTICK Collected: 09/13/2017 Status: F Source: [place] 11:38 AM [facility] REPOSITORY TYPE CODE TESTS RESULT OUT OF RANGE REFERENCE UNITS LAB L9100.0210 0.70-1.30 mg/dL Normal CREATININE WB 0.9 LAB L9100.0220 >60 mL/min EGFR WB Normal > 60.0000 Performed By: #### L9100.0200 #### [facility] Point of Care [address] [place] [address] CT ABD/PELVIS W/WO Observed: 09/13/2017 Status: F Source: [place] CONTRAST 11:22 AM [facility] REPOSITORY [facility] Imaging Services [address] [place] [address] CT Abd/Pelvis W/WO Contrast MR#: [id number] Acct: [id number] Name: NIEVES JACKSON Rep #: [id number] : 1970 M 47 From: Erik Ramsey MD PCP: Kait Tam NP Status: REG CLI Study: CT Abd/Pelvis W/WO Contrast Date of Exam: 09/13/17 Exam# [id number] Ordering Dr: Mela Abrams NP-C STUDY: CT ABDOMEN AND PELVIS WITH AND WITHOUT CONTRAST REASON FOR EXAM: Male, 47 years old. Left abdominal pain with left flank pain. History of kidney stones and prior lithotripsy. RADIATION DOSAGE (If Supplied By Facility): CTDIvol [...] CT. COMPARISON: Comparison is made with prior study dated January 26, 2017. FINDINGS: The [...] the mid lower aspect of the left kidney. There is a small hiatal hernia. Normal [...] space narrowing at the L5-S1 level. CT/CT Abd/Pelvis W/WO Contrast IMPRESSION: Findings in keeping with a mild degree of the sigmoid diverticulitis. Stable nonobstructive bilateral intrarenal calculi. Fatty infiltration of the liver. Small sliding hiatal hernia. Electronically Signed: Erik Ramsey MD at 12:44 EDT Tel [phone], Service support , CC: Kait Tam NP; SAM Abrams Deburrer Machine: Signed ALLERGIES ALLERGIES DATE TYPE / CODE NAME / CODE REACTION SEVERITY SOURCE 01/26/2017 Drug oxycodone BECOMES VIOLENT Unknown [facility] HCl/[id number](R [facility] 731357(SNOM XNORM) Repository ED CT) 01/26/2017 Drug Penicillins/F001 Rash Unknown [facility]416 067032(RXNORM) Hospital 820668(SNOM Repository ED CT) 01/26/2017 Drug ibuprofen/K87840 Upset Stomach Unknown [facility]416 2377(RXNORM) Hospital 292145(SNOM Repository ED CT) ENCOUNTERS ENCOUNTERS ADMIT/DISCHARGE ACCOUNT ADMITTING ENCOUNTER LOCATION SOURCE NUMBER CLASS 07/19/2018 [id number] Ambulatory [place] [facility] ing:CT Repository 07/18/2018 [id number] Ambulatory [place] [facility] ing:US Repository 07/15/2018 [id number] Ambulatory Building:[facility] [place] Practices Repository 03/04/2018 [id number] Ambulatory [place] [facility] ing:HPRAD Repository 12/28/2017 [id number] Ambulatory [place] 7 [facility] ing:SL Repository 12/07/2017 [id number] Ambulatory [place] 1 [facility] ing:LAB Repository 09/13/2017 [id number] Ambulatory [place] 1 [facility] ing:CT Repository PAYERS PAYERS ENCOUNTER GUARANTOR PAYER SUBSCRIBER SOURCE 07/19/2018 NIEVES Fernandez Primary DANGELO D [place] [id number] Insurance:ANTHEMPolic [facility] [place] [place] Number: [id number] [address]Peh: [id number] Repository Date:7409-86-45[address] () [address]XYYKZWZ, [place] [address]PP: 07/19/2018 Secondary NOT GIVENUNK [place] Insurance:SELF PAY [facility] Number: Effective Repository Date:2018-07-15 07/18/2018 NIEVES Fernandez Primary DNAGELO D [place] [id number] Insurance:ANTHEMPolic HANCOCKDOB: [facility] sc[facility] [place] Number: [id number] County Hospital [address]Uoh: [id number] Repository Date:1039-67-33JR [address] () [address]OMQVZCN, [place] [address]DP: 07/18/2018 Secondary NOT GIVENUNK [place] Insurance:SELF PAY [facility] Number: Effective Repository Date:2018-07-15 07/15/2018 Nieves P Primary Nieves P OHIP Practices HancockDOB: Insurance:Darfur HancockDOB: Repository /[facility] Number: [id number] [facility] [id number] [place], [place] Date:6510-63-92[place]apjKernersville, [place] [address]Zgo: ([phone]) Name:[facility] [address] [address]Xya: [address], [place] [address] () ()Tel: [phone]: [phone] 03/04/2018 Nieves P Primary DANGELO D [place] [id number] Insurance:ANTHEMPolic HANCOCKDOB: [facility] [place], y Number: [id number] County Hospital [address]Qwc: [id number] Repository Date:4104-05-92[address] () [address], [place] [address]KW: 03/04/2018 Secondary NOT GIVENUNK [place] Insurance:SELF PAY [facility] Number: Effective Repository Date:2018-03-04 12/28/2017 Nieves P Primary Dangelo D [place] [id number] S Insurance:ANTHEMPolic HancockDOB: [facility] [place], y Number: [id number] County Hospital [address]Zgk: [id number] Repository Date:3462-80-66CT [address] () [address]798[address]UZGWCIC, [place] [address]JV: 12/28/2017 Secondary NOT GIVENUNK [place] Insurance:SELF PAY [facility] Number: Effective Repository Date:2017-12-08 12/07/2017 Nieves P Primary Dangelo [id number] Insurance:ANTHEMPolic ManuelDOB: [facility] Ger[place], y Number: [id number] County Hospital [address]Ryt: [id number] Repository Date:9571-13-91QL [address] () [id number] [place] [address]ZM: 12/07/2017 Secondary NOT GIVENUNK [place] Insurance:SELF PAY [facility] Number: Effective Repository Date:2017-12-07 09/13/2017 Nieves Fernandez Primary Dangelo [id number] Insurance:ANTHEMPolic ManuelDOB: [facility] Ger[place], y Number: [id number] County Hospital [address]Yht: [id number] Repository Date:8075-62-02DR [address] () [address]20[address]DVFBGSM, [place] [address]XL: 09/13/2017 Secondary NOT GIVENUNK [place] Insurance:SELF PAY [facility] Number: Effective Repository Date:2017-09-13
--- OUTSIDE RECORDS SUMMARY | 2018-09-19 01:40 | XMS RPT_ITS | Continuity of Care Document ---
:1970 Author Organization [facility] Address [address] [place] [address] Phone Care Team Providers Name Role Phone Kait Tam CNP Unavailable Veronica Casas Unavailable Elaine PENA, John Tucker Unavailable Monica Manuel Unavailable Unavailable Rox, Virginia Unavailable Unavailable Slarb PASSENGER CAR UPHOLSTERER APPRENTICE, Rita Unavailable Unavailable Long PASSENGER CAR UPHOLSTERER APPRENTICE, Rachele L Unavailable Unavailable Unavailable Unavailable Problems [...] apnea (G47.30, 780.57) Comments: on cpap via [facility] Status: Active Sliding [...] 3 Ordered:03-May-2018 Yonatan AMBRIZ, Kait Sellers CNP, Kait Farooq Start : 03-May-2018 Active Amitriptyline HCl 25 MG Oral Tablet 1 (one) Tablet daily for 30 days Quantity: 30 {Tablet} Refills: 0 Ordered:03-May-2018 Yonatan AMBRIZ, Kait Sellers CNP, Kait Farooq Start : 03-May-2018 Active Cozaar 50 MG Oral Tablet 1 tablet Tablet daily for 90 days Quantity: 30 {Tablet} Refills: 11 Ordered:17-Jan-2018 Yonatan AMBRIZ, Kait Sellers CNP, Kait Farooq Start : 17-Jan-2018 Active Cozaar 50 MG [...] days Quantity: 30 {Capsule} Refills: 11 Ordered:03-May-2018 Vytazmel AMBRIZ, Kait Marcanomel AMBRIZ, Belen Start : 17-Jan-2018 End : 03-May-2018 Inactive Rosuvastatin Calcium 5 MG Oral Tablet 1 (one) Tablet Tablet daily for 0 days Quantity: 30 {Tablet} Refills: 6 Ordered:03-May-2018 Vytazmel AMBRIZ, Kait Sellers DEPUTY DIRECTOR, Belen Start : 17-Jan-2018 End : 03-May-2018 Inactive Rosuvastatin Calcium 5 MG Oral Tablet 1 (one) Tablet Tablet daily for 0 days Quantity: 90 {Tablet} Refills: 3 Ordered:03-May-2018 Yonatan DEPUTY DIRECTOR, Kait Sellers DEPUTY DIRECTOR, Belen Start : 17-Jan-2018 End : 03-May-2018 Inactive Vitamin D3 68902 UNIT Oral Capsule 1 (one) Capsule twice [...] qpmWeek #4 2 tabs twice daily Ergocalciferol 37689 UNIT Oral Capsule 1 (one) Capsule twice [...] 3 Views Result: Comments: See Note; NOTES: [facility] Imaging Services [address] [place] [address] Elbow min 3 Views MR#: [id number] Acct: [id number] Name: NIEVES JACKSON Rep #: [id number] : 1970 M 47 From: Anuradha Medel MD PCP: Kait Tam NP Status: REG CLI Study: Elbow min 3 Views Date of Exam: 03/04/18 Exam# [id number] Ordering Dr: Kait Tam STUDY: X-RAY - RIGHT ELBOW REAS ON FOR EXAM: Male, 47 years old. Pain swelling denies trauma TECHNIQUE: 3 view(s) of the elbow. COMPARISON: None. FINDINGS: Normal visualized humerus, radius and u computer science intern. Normal radiocapitellar and ulnotrochlear articulations. There is minimal enthesopathy at the lateral aspect of the humerus. The soft tissue structures are unremarkable. RAD/Elbow min 3 Views IMPRESSION: Normal x-ray examination of the elbow. Electronically Signed: Anuradha Medel MD at 19:49 EDT Tel , Service support , CC: Kait Tam NP Unloader Operator: Signed 13-Sep-2017 CT Abd/Pelvis W/WO Contrast Result: Comments: See Note; NOTES: [facility] Imaging Services [address] [place] [address] Abd/Pelvis W/WO Contrast MR#: [id number] Acct: [id number] Name: NIEVES JACKSON Rep #: [id number] : 1970 M 47 From: Erik Ramsey MD PCP: Kait Tam NP Status: REG CLI Study: CT Abd/Pelvis W/WO Contrast Date of Exam: 09/13/17 Exam# [id number] Ordering Dr: Mela Abrams LIQUID FERTILIZER SERVICER-C STUDY: CT ABDOMEN AND PELVIS WITH AND [...] Erik Ramsey MD at 12:44 EDT Tel [phone], Service support , CC: Kait Tam NP; SAM Abrams Unloader Operator: Signed 26-May-2017 NCS and/or EMG Patient Result: Comments: See Note; NOTES: [facility] Pulmonary Services/Neurology [address] [place] [address] MR#: [id number] Acct: [id number] Name: NIEVES JACKSON #: [id number] : 1 07/17/1969 47 From: John Henry MD Referring Dr: Kait Tam Status: REG CLI Ordering Dr: Date: Location: [facility] Sex: M C NCS and/or EMG Patient [...] Dictated: 05/26/17 1025 Date Transcribed: 05/26/17 102 Unloader Operator: NF Signed 13-Apr-2017 Venous Duplex Lower Extremity Result: Comments: See Note; NOTES: [facility] Cardiovascular Services [address] [facility] [place] [address] Venous Duplex US, Unilateral 04/13/17 1054 MR#: [id number] Acct: [id number] Name: NIEVES COYNE Rep #: [id number] : 1970 46 From: Pasha Rosales MD [...] Dictated: 04/13/17 1054 Date Transcribed: 04/13/17 1425 Unloader Operator: Signed 08-Apr-2017 Ankle min 3 Views Result: Comments: See Note; NOTES: [facility] Imaging Services [address] [place] [address] Ankle min 3 Views MR#: [id number] Acct: [id number] Name: NIEVES JACKSON Rep #: [id number] : 1970 M 46 From: Erik Ramsey MD PCP: Kait Tam Status: REG CLI Study: Ankle min 3 Views Date of Exam: 04/08/17 Exam# [id number] Ordering Dr: Kait Tam STUDY: X-RAY - [...] Zuñiga i, MD at 15:28 EDT Tel [phone], Service support , CC: Kait Tam Unloader Operator: Signed 08-Apr-2017 Foot min 3 Views Result: Comments: See Note; NOTES: [facility] Imaging Services [address] [place] [address] Foot min 3 Views MR#: [id number] Acct: [id number] Name: NIEVES JACKSON Jim Rep #: [id number] D OB: 1970 M 46 From: Erik Ramsey MD PCP: Kait Tam Status: REG CLI Study: Foot min 3 Views Date of Exam: 04/08/17 Exam# [id number] Ordering Dr: Kait Tam STUDY: X-RAY - [...] Erik Ramsey MD at 15:27 EDT Tel [phone], Service support , CC: Kait Tam Unloader Operator: Signed 26-Jan-2017 Discharge Instruction Result: Comments: See Note; NOTES: [facility] Medical Records Department [address] [place] [address] Discharge Instruction 01/26/17 1031 MR#: [id number] Acct: [id number] Name: JACKSON NIEVES Rep #: [id number] : 1970 46 From: Kyler Pickens MD PCP: Kait Tam Status: DEP ER ED Disposition - Plan for ED Patient: Chief Complaint: Flank Pain Instructions: ED Stone Renal W Co lic Prescriptions: Hydrocodone Bitart/Apap 5-325 [Columbia 5/325] 1 - 2 tablet PO Q4H [...] your Primary Care Provider. Call [facility] ([phone]) or report to the closest Emergency Room. Call 911 if necessary. 01/26/17 1719 <Nicole ctronically signed by Kyler Pickens MD> Date Kyler Pickens MD Cosigner Signature (If Indicated): Date CC: Kait Tam 26-Jan-2017 Emergency Department Summary Result: Comments: See Note; NOTES: [facility] Medical Records Department [address] [place] [address] Emergency Department Summary 01/26/17 0939 MR#: [id number] Acct: [id number] Name: NIEVES JACKSON Jim Rep #: [id number] : 1970 46 From: Kyler Pickens MD [...] your Primary Care Provider. Call [facility] ([phone]) or report to the closest Emergency Room. Call 911 if necessary. 01/26/17 5136 <Electronically signed by Kyler schneider MD> Date Kyler Pickens MD Cosigner Signature (If Indicated): Date CC: Kait Tam 26-Jan-2017 Abdomen/Pelvis without Cont Result: Comments: See Note; NOTES: [facility] Imaging Services [address] [place] [address] Verdana 4d Abdomen/Pelvis without Cont MR#: [id number] Acct: [id number] Name: MALA JACKSON Rep #: [id number] : 1970 M 46 From: Erik Ramsey MD PCP: Kait Tam Status: REG ER Study: Abdomen/Pelvis without Cont Date of Exam: 01/26/17 Exam# [id number] Ordering Dr: Geovani Pickens MD STUDY: CT [...] at the L5-S1 level ORDE R #: [id number] CT/Abdomen/Pelvis without Cont IMPRESSION: 3 mm calculus at the left ureterovesical junction causing a mild degree of left hydronephrosis. Fatty infiltration of the liver. Electronicall y Signed: Erik Ramsey MD at 10:01 EDT Tel [phone], Service support , CC: Kait Tam; Kyler Pickens MD Unloader Operator: Signed 17-Nov-2016 Abd Inc Decub and/or Erect Result: Comments: See Note; NOTES: [facility] Imaging Services [address] [place] [address] Verdana 4d Abd Inc Decub and/or Erect MR#: [id number] Acct: [id number] Name: NIEVES JACKSON Rep #: [id number] : 1970 46 From: Erik Ramsey MD PCP: Kait Tam Status: REG CLI Study: Abd Inc Decub and/or Erect Date of Exam: 11/17/16 Exam# [id number] Ordering Dr: Otoniel Peoples STUDY: X-RAY - [...] Erik Ramsey MD at 14:11 EDT Tel [phone], Service support 07-05 [phone], CC: Kait GOMEZ Unloader Operator: Signed 17-Nov-2016 Chest 1 View Result: Comments: See Note; NOTES: [facility] Imaging Services [address] [place] [address] Verdana 4d Chest 1 View MR#: [id number] Acct: [id number] Name: NIEVES JACKSON Jim Rep #: [id number] : 1970 M 46 From: Erik Ramsey MD PCP: Kait Tam Status: REG CLI Study: Chest 1 View Date of Exam: 11/17/16 Exam# [id number] Ordering Dr: Otoniel Peoples STUDY: X-RAY CHEST [...] Ramsey MD at 14:10 EDT Tel [phone], Service support , CC: Kait GOMEZ Unloader Operator: Signed 13-Aug-2016 Venous Duplex Lower Extremity Result: Comments: See Note; NOTES: [facility] Cardiovascular Services [address] [place] [address] Venous Duplex US, Unilateral 08/13/16 1202 MR#: [id number] Acct: [id number] Name: NIEVES COYNE Rep #: [id number] : 1970 46 From: Pasha Rosales MD [...] Dictated: 08/13/16 1202 Date Transcribed: 08/13/16 1602 Unloader Operator: Signed 18-Apr-2016 Lower Ext/No Jt/w/o Result: Comments: See Note; NOTES: [facility] Imaging Services [address] [place] [address] Verdana 4d Lower Ext/No Jt/w/o MR#: [id number] Acct: [id number] Name: NIEVES JACKSON Rep #: [id number] : 1970 M 45 From: Clinton Valdez MD PCP: Kait Tam Status: REG CLI Study: Lower Ext/No Jt/w/o Date of Exam: 04/18/16 Exam# [id number] Ordering Dr: Diogo Tian DPGarrett STUDY: MRI [...] twith a peripheral neuropathy. OR GLYNN #: [id number] MRI/Lower Ext/No Jt/w/o IMPRESSION: Degenerative changes of first MTP joint and first metatarsal sesamoid joints. No evidence of plantar plate degeneration or tear. No signs of interme tatarsal neuroma. Diffuse atrophy of the intrinsic muscles of the foot possibly related to peripheral neuropathy. Electronically Signed: Clinton Valdez MD, FACR at 17:59 EDT Tel , Service support [phone], CC: Kait Tam; Diogo Tian DPM Unloader Operator: Signed 17-Mar-2016 L/S Spine w Bend Min 6 Vw Result: Comments: See Note; NOTES: [facility] Imaging Services [address] [place] [address] Verdana 4d L/S Spine w Bend Min 6 Vw MR#: [id number] Acct: [id number] Name: NIEVES JACKSON Rep #: [id number] : 1970 M 45 From: Clinton Valdez MD PCP: Kait Tam Status: REG CLI Study: L/S Spine w Bend Min 6 Vw Date of Exam: 03/17/16 Exam# [id number] Ordering Dr: Carola Francis STUDY: X-RAY - [...] at 11:13 EDT , Service suppo rt [phone], CC: Kait Tam; Carola Francis DO Unloader Operator: Signed 24-Oct-2015 PT D/C of Non Returning Pt (1) Result: Comments: See Note; NOTES: [facility] Physical Therapy [facility] [facility] [place], [place] [address] Fax REHABILITATION SE RVICES DISCHARGE SUMMARY MR#: [id number] Acct: [id number] Name: NIEVES JACKSON Rep #: [id number] : 1970 45 From: Linda Moon DPT [...] Kait Tam; Carola grover DO ELR Signed 2 Inital Evaluation (1) - PT Result: Comments: See Note; NOTES: [facility] [address] [facility] [place] [address] Fax REHABILITATION SE RVICES INITIAL EVALUATION MR#: [id number] Acct: [id number] Name: NIEVES JACKSON Rep #: [id number] : 1970 45 From: Linda Moon DPDerrek Referring Dr.: Carola Francis DO Status: REG RCR Insurance: [employer] 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 - Objective Posture: FH, RS, Increased kyphosis. [...] to be FAXED BACK to us at [phone] for Medicare purposes. Please let me know if there are ques tions or concerns regarding this plan of care. Physician Signature: Date: <Electronically signed by Linda Moon DPT> 0 07/30/15 9386 CC: Kait Francis DO, ELR Signed For Medicare only, by signing this I certify the plan of care. Physicians Signature Date 08-May-2015 Operative Report Result: Comments: See Note; NOTES: [facility] Medical Records Department [address] [place] [address] Operative Report MR#: [id number] Acct: [id number] Name: NIEVES BARROSO Rep #: [id number] : 1970 44 From: Eros Gomez MD PCP: Kait Tam Status: [facility] DATE OF SERVICE: DATE OF PROCEDURE: May [...] urine, but no clots. [facility] for [facility] the [...] condition. Eros Gomez MD T: NTS JOB: [id number] 05/08/15 1450 <Electronically signed by Eros Gomez MD> Date Eros Gomez MD Cosigner Signature (If Indicated): Date CC: Kait Tam; Eros Gomez MD Date Dictated: 05/06 Date Transcribed: 05/06/151745 Unloader Operator: Signed 08-May-2015 PT D/C of Non Returning Pt. Result: Comments: See Note; NOTES: [facility] Physical Therapy [facility] [address] [place] [address]. [address] [place], [place] [address] Fax REHABILITATION SE RVICES DISCHARGE SUMMARY MR#: [id number] Acct: [id number] Name: NIEVES BARROSO Rep #: [id number] : 1970 44 From: Linda Moon Referring [...] Lead Electrocardiogram Result: Comments: See Note; NOTES: [facility] Cardiovascular Services [address] [place] [address] EKG - SDC 05/01/15931 MR#: [id number] Acct: [id number] Name: NIEVES BARROSO Rep #: [id number] : 1970 44 From: Kyler Zambrano MD Attending Dr: Eros Gomez MD Status: REG [facility] Ordering Dr: Eros Gomez MD Date: 05/01/15 [...] Normal ECG Confirmed by KYLER ZAMBRANO ([id number]), loan expeditor GIBRAN POWELL ([id number]) on 05/03/2015 1:15:28 PM Referred By: JULITO Confirmed By:KYLER ZAMBRANO 05/03/15 1315 Date ____ Kyler Zambrano MD CC: Kait Tam; Kyler Zambrano MD Date Dictated: 05/01/1532 Date Transcribed: 05/01/15931 Unloader Operator: Signed 03-May-2015 Discharge Instruction Result: Comments: See Note; NOTES: [facility] Medical Records Department [address] [place] [address] Instructions for Home/Discharge Instructions 05/03/15 1236 MR#: [id number] Acct: [id number] Name: NIEVES BARROSO Rep #: [id number] : 1970 44 From: Eros Gomez MD PCP: Kait Tam Status: REG [facility] Discharge Diet: No Restrictions Discharge Activity: Return [...] Please Follow Up With: Eros Gomez - [phone] When: CALL SOON ON WEDNESDAY FOR AN APPT IN 4-5 WKS [phone] TO PAGE 05/03/15 8856 <Electronically signed by Eros Gomez MD> Date Eros Gomez MD CC: Kait Tam 01-May-2015 Abdomen/Pelvis without Cont Result: Comments: See Note; NOTES: [facility] Imaging Services [address] [facility] [facility] [address] Verdana 4d Abdomen/Pelvis without Cont MR#: [id number] Acct: [id number] Name: NIEVES BARROSO Rep #: [id number] : 1970 M 44 From: Erik Ramsey MD PCP: Kait Tam Status: PRE NCC Study: Abdomen/Pelvis without Cont Date of Exam: 05/01/15 Exam# [id number] Ordering Dr : Eros Gomez MD STUDY: [...] Erik Ramsey MD at 10:30 EST Tel [phone], Service support [phone], Fa x [phone] CC: Kait Tam; Eros Gomez MD Unloader Operator: Signed 22-Apr-2015 Kidney and Bladder Result: Comments: See Note; NOTES: [facility] Imaging Services [address] [place] [address] [place] 4d Kidney and Bladder MR#: [id number] Acct: [id number] Name: ALFREDO BARROSO Rep #: [id number] : 1970 M 44 From: Erik Ramsey MD PCP: Kait Tam Status: REG CLI Study: Kidney and Bladder Date of Exam: 04/22/15 Exam# [id number] Ordering Dr: Marcia Hughes DO STUDY: RENAL [...] Erik Ramsey MD at 12:30 EDT Tel [phone], Service support [phone], Fax CC: Kait Tam; Marcia Hughes DO Unloader Operator: Signed 18-Apr-2015 Abdomen Single View Result: Comments: See Note; NOTES: [facility] Imaging Services [address] [place] [address] Verdana 4d Abdomen Single View MR#: [id number] Acct: [id number] Name: Hugo BARROSO Rep #: [id number] : 1970 M 44 From: Anthony Garcia MD PCP: Kait Tam Status: REG CLI Study: Abdomen Single View Date of Exam: 04/18/15 Exam# [id number] Ordering Dr: Marcia Hughes DO STUDY: X-RAY [...] at 9:10 EDT Tel , Service support [phone], RAD/Abdomen Single View IMPRESSION: Bilateral kidney stones largest in the left kidney measures 5 mm. Electronically Signed: Crissy noriega MD at 9:10 EDT Tel , Service support [phone], CC: Kait Tam; Marcia Hughes DO Unloader Operator: Signed 13-Mar-2015 Lower Ext Joint Only (Routine) Result: Comments: See Note; NOTES: [facility] Imaging Services [address] [facility] [place] [address] MRI Report MR#: [id number] Acct: [id number] Name: NIEVES BARROSO Rep #: [id number] : 1970 M 44 From: Clinton Valdez MD PCP: Kait Tam Status: REG CLI Study: Lower Ext Joint Only (Routine) Date of Exam: 03/13/15 Exam# [id number] Ordering Dr: Carola Francis DO STUDY: MR [...] FACR at 8:51 EDT , Service support [phone], CC: Kait Francis DO Unloader Operator: Signed 08-Feb-2015 Inital Evaluation - PT Result: Comments: See Note; NOTES: [facility] Physical Therapy [facility] [address] [place] [address]. [address] [place] [address] Fax REHABILITATION SERVICES INITIAL EVALUATION MR#: [id number] Acct: [id number] Name: NIEVES BARROSO Rep #: [id number] : 1970 44 From: Linda Moon Referring Dr.: Kait Tam Status: REG RCR Insurance: [email or web address] Date: Patient's Visit Information NIEVES BARROSO is [...] knee and posterior knee. 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 Please let me know if there are questions or concerns r egarding this plan of care. Physician Signature: Date: <Electronically signed by Linda Moon > 02/08/15 0947 CC: ELR Signed For Medicare only, by signing this I certify the plan of care. Physicians Signature Date 05-Feb-2015 Knee 4 or More Views Result: Comments: See Note; NOTES: [facility] Imaging Services [address] [place] [address] Radiology Report MR#: [id number] Acct: [id number] Name: NIEVES BARROSO Rep #: [id number] : 1970 M 44 From: Josue Meza DO PCP: Kait Tam Status: REG CLI Study: Knee 4 or More Views Date of Exam: 02/05/15 Exam# [id number] Ordering Dr: Kait Tam STUDY: X-RAY - [...] Periarticular soft tissue swelling. Electronically Signed: Malika Meza, at 23:52 EDT Tel [phone], Service support [phone], RAD/Knee 4 or More Views IMPRESSION: Periarticular soft tissue swelling. E lectronically Signed: Josue Meza at 23:52 EDT Tel [phone], Service support [phone], CC: Kait Tam Unloader Operator: Signed Family History Unknown Family Member Name [...] kg/m2 Body Surface Area Calculated 2.73 m2 74-Fjg-800247:47 Temperature 97.6 f Pulse 98 /min Comments: [...] kg/m2 Body Surface Area Calculated 2.75 m2 64-Dit-449023:33 Temperature 97.6 f Pulse 90 /min Comments: [...] Description Value Details :04 HgA1C , Office (92016) HgA1C , Office 7.1 % (Normal) Range: 4.6 - 7.1 9-Iab-233779:04 Blood Glucose , Office (61955) Blood Glucose , Office 147 (Normal) 9-Vzi-011325:31 URIC ACID BLOOD (15325) Comments: PATIENT NOT FASTINGPERFORMED BY: CB [facility] Tsdjmg7[address] Road[address]ublin [place] [id number] Uric Acid 4.9 mg/dL (Normal) Range: 3.7-8.6 Comments: Therapeutic target for gout patients: <6.0 9-Jia-230544:28 TESTOSTERONE FREE (55393) Comments: Mar 2018; PATIENT WAS FASTINGPERFORMED BY: CB [facility] Agdaxi[address] [facility] [place] [id number] BY: [facility] [address] [id number] Free Testosterone(Direct) 7.1 pg/mL (Normal) Range: 6.8-21.5 1-Vni-163660:28 CALCIFEDIOL (39407) Comments: Mar 2018; PATIENT WAS FASTINGPERFORMED BY: CB [facility] Feoeqw[address] [facility] [place] [id number] BY: [facility] [address] [id number] Vitamin D, 25-Hydroxy 19.4 ng/mL (Abnormal) Range: 30.0-100.0 Comments: Vitamin D deficiency has been defined by the [place] of[facility] and an Endocrine Society practice guideline as alevel of serum 25-OH vitamin D less than 20 ng/mL (1,2).The Endocrine Society went on to further define vitamin Dinsufficiency as a level between 21 and 29 ng/mL (2).1. IOM ([place] of Medicine). 2010. Dietary reference intakes for calcium and D. [place]: The National Academies Press.2. Pietro MF, Joaquin EVANS, Bonifacio HANSON, et al. Evaluation, treatment, and prevention of vitamin D deficiency: an Endocrine Society clinical practice guideline. JCEM. 2010; 96(7):1911-30. 9-Muj-334588:28 Metabolic Panel, Comments: Mar 2018; PATIENT WAS FASTINGPERFORMED BY: [employer]6370 [facility] [id number] BY: [employer] [id number] Comprehensive (49135) ALT (SGPT) 31 [iU]/L (Normal) Range: 0-44 [...] 6-24 Glucose 151 mg/dL (Abnormal) Range: 65-99 8-Vvg-220141:28 LIPID PANEL (58827) Comments: Mar 2018; PATIENT WAS FASTINGPERFORMED BY: [employer]70 [facility] [id number] BY: [employer] [id number] LDL/HDL Ratio 3.3 {ratio} (Normal) Range: 0.0-3.6 Comments: LDL/HDL Ratio Men Women 1/2 Avg.Risk 1.0 1.5 Av g.Risk 3.6 3.2 2X Avg.Risk 6.2 5.0 3X Avg.Risk 8.0 6.1 LDL Cholesterol Calc 137 mg/dL (Abnormal) Range: 0-99 VLDL Cholesterol Sundar 21 mg/dL (Normal) Range: 5-40 HDL Cholesterol 42 mg/dL (Normal) Triglycerides 104 mg/dL (Normal) Range: 0-149 Cholesterol, Total 200 mg/dL (Abnormal) Range: 100-199 8-Ldh-588671:28 VITAMIN B12 AND FOLATES Comments: Mar 2018; PATIENT WAS FASTINGPERFORMED BY: [employer] [facility] [id number] BY: [place]ured Mail[place] [id number] (71760) Folate (Folic Acid), Serum 7.2 ng/mL (Normal) Comments: A serum folate concentration of less than 3.1 ng/mL isconsidered to represent clinical deficiency. Vitamin B12 645 pg/mL (Normal) Range: 232-1245 03-Koq-395053:28 TESTOSTERONE FREE (19733) Comments: PATIENT WAS FASTINGPERFORMED BY: [employer]70 [facility] [id number] BY: [employer] [id number] Free Testosterone(Direct) 5.1 pg/mL (Abnormal) Range: 6.8-21.5 75-Qnb-793507:28 CALCIFEDIOL (08923) Comments: PATIENT WAS FASTINGPERFORMED BY: [employer] [facility] [id number] BY: [employer] [id number] Vitamin D, 25-Hydroxy 19.4 ng/mL (Abnormal) Range: 30.0-100.0 Comments: Vitamin D deficiency has been defined by the [place] ofMedicine and an Endocrine Society practice guideline as alevel of serum 25-OH vitamin D less than 20 ng/mL (1,2).The Endocrine Society went on to further define vitamin Dinsufficiency as a level between 21 and 29 ng/mL (2).1. IOM ([place] of Medicine). 2010. Dietary reference intakes for calcium and D. [place]: The National Academies Press.2. Pietro MF, Joaquin EVANS, Bonifacio HANSON, et al. Evaluation, treatment, and prevention of vitamin D deficiency: an Endocrine Society clinical practice guideline. JCEM. 2010; 96(7):1911-30. 36-Rdg-931747:28 Metabolic Panel, Comments: PATIENT WAS FASTINGPERFORMED BY: CB [facility] Ynizbv6433 [facility] [id number] BY: BN [facility] Lkocabxoya1931 [facility] [id number] Inf ormation: [id number] Comprehensive (09662) ALT (SGPT) 29 [iU]/L (Normal) Range: 0-44 [...] 6-24 Glucose 120 mg/dL (Abnormal) Range: 65-99 65-Nxf-767257:28 LIPID PANEL (91311) Comments: PATIENT WAS FASTINGPERFORMED BY: Secured MailJohn [place] 6721370 [facility] [id number] BY: [address] [id number] LDL/HDL Ratio 3.3 {ratio} (Normal) Range: 0.0-3.6 Comments: LDL/HDL Ratio Men Women 1/2 Avg.Risk 1.0 1.5 Av g.Risk 3.6 3.2 2X Avg.Risk 6.2 5.0 3X Avg.Risk 8.0 6.1 LDL Cholesterol Calc 127 mg/dL (Abnormal) Range: 0-99 VLDL Cholesterol Sundar 19 mg/dL (Normal) Range: 5-40 HDL Cholesterol 38 mg/dL (Abnormal) Triglycerides 93 mg/dL (Normal) Range: 0-149 Cholesterol, Total 184 mg/dL (Normal) Range: 100-199 27-Npu-303751:28 VITAMIN B12 AND FOLATES Comments: PATIENT WAS FASTINGPERFORMED BY: LabVuzixJohn Ville [id number] [facility] [id number] BY: Secured Mail[address] [id number] (90927) Folate (Folic Acid), Serum 7.1 ng/mL (Normal) Comments: A serum folate concentration of less than 3.1 ng/mL isconsidered to represent clinical deficiency. Vitamin B12 665 pg/mL (Normal) Range: 232-1245 70-Bqt-212362:27 Comprehensive Metabolic Profil Comments: [facility] [address] [place], [address] GAP 8 (Normal) Range: 5-15 CO2 29.0 [...] A.D.A. criteria.Please note revised GLUCOSE reference range /02/2018. 56-Xkl-622709:27 Erythrocyte Sed Rate Comments: [facility] [address] [facility] [place], [place], [id number] SED RATE 14 mm/h (Normal) Range: 0-15 66-Jix-844119:27 Hemoglobin A1c Comments: [facility] Xinfl[address]ajt[address] [facility] [place], [place], [address] HGB A1C 7.0 % (Abnormal) Range: 4.2-6.3 21-Pgl-170214:27 Thyroid Stim Hormone (TSH) Comments: [facility] [address] [place], [place], [address] TSH 1.29 {uIU/mL} (Normal) Range: 0.358-3.74 19-Irh-560459:27 Vitamin B12 695 pg/mL (Normal) Comments: [facility] Doore[address]gr[address] [facility] [place], [place], [address] Range: 211-911 51-Mnp-045488:38 HgA1C , Office (29556) HgA1C , Office 6.5 % (Normal) Range: 4.6 - 7.1 46-Nfn-774585:38 Blood Glucose , Office (95085) Blood Glucose , Office 129 (Normal) 38-Dzc-831910:38 CREATININE FINGERSTICK Comments: [facility] LaboratoryPoint of Freb[address] [place], [place] [address] EGFR WB > 60.0000 mL/min (Normal) CREATININE WB 0.9 mg/dL (Normal) Range: 0.70-1.30 70-Tgc-250573:35 URINE BROOKS CULTURE-IDENTIFICATN Comments: PATIENT NOT FASTINGPERFORMED BY: Donews [facility] Zkblmt1470 [facility] [id number] Information: SRC:UC (37133) Result 1 NG36 (Normal) Comments: No growth in 36 - 48 hours. Urine Culture,Comprehensive Final report (Normal) 19-Wvs-367956:00 Urinalysis, Office (94124) UA - LEUKOCYTE ESTERASE Negative (Normal) UA - NITRITE Negative (Normal) URINE UROBILINGN EUGENIE TIMED Normal mg/dL (Normal) UA - PROTEIN Negative mg/dL (Normal) UA - PH 6 (Abnormal) UA - BLOOD Negative (Normal) UA - SPECIFIC GRAVITY 1.025 (Normal) UA - KETONES Negative mg/dL (Normal) UA - BILIRUBIN Negative (Normal) UA - GLUCOSE Negative (Normal) 19-Kws-608145:10 UPEP (66868) Comments: PATIENT NOT FASTINGPERFORMED BY: Donews [facility] Uobujk0443 [facility] [id number] Please note: SPRCS (Normal) Comments: Protein electrophoresis scan will follow via computer, mail, orcourier delivery. M-Jaspal, % Not Observed % (Normal) Gamma Globulin, U 22.7 % (Normal) Beta Globulin, U 31.8 % (Normal) Qpucy-0-Owgjrrzi, U 19.5 % (Normal) Bimxd-0-Pjpgflae, U 3.9 % (Normal) Albumin, U 22.1 % (Normal) Protein,Total,Urine 11.8 mg/dL (Normal) 42-Vch-883798:10 SPEP (63761) Comments: PATIENT NOT FASTINGPERFORMED BY: [employer]70 [facility] [id number] Please note: SPRCS (Normal) Comments: Protein electrophoresis scan will follow via computer, mail, orcourier delivery. A/G Ratio 1.1 (Normal) Range: 0.7-1.7 Globulin, Total 3.1 g/dL (Normal) Range: 2.2-3.9 M-Jaspal Not Observed g/dL (Normal) Gamma Globulin 1.0 g/dL (Normal) Range: 0.4-1.8 Beta Globulin 1.1 g/dL (Normal) Range: 0.7-1.3 Rmpsj-0-Awnuxcgv 0.8 g/dL (Normal) Range: 0.4-1.0 Vxfuo-9-Xpkjjccm 0.3 g/dL (Normal) Range: 0.0-0.4 Albumin 3.5 g/dL (Normal) Range: 2.9-4.4 Protein, Total, Serum 6.6 g/dL (Normal) Range: 6.0-8.5 26-Jos-787000:10 VITAMIN B12 AND FOLATES Comments: PATIENT NOT FASTINGPERFORMED BY: [employer]6370 [employer] [id number] (94006) Folate (Folic Acid), Serum 7.3 ng/mL (Normal) Comments: A serum folate concentration of less than 3.1 ng/mL isconsidered to represent clinical deficiency. Vitamin B12 390 pg/mL (Normal) Range: 232-1245 37-Zjs-818618:21 HgA1C , Office (16516) HgA1C , Office 140 % (Abnormal) Range: 4.6 - 7.1 0-Hok-577383:07 HGB A1C (70900) Comments: PATIENT NOT FASTINGPERFORMED BY: [employer] Tfauep6862 [facility] [id number] Hemoglobin A1c 6.3 % (Abnormal) Range: 4.8-5.6 Comments: . Pre-diabetes: 5.7 - 6.4 Diabetes: >6.4 Glycemic control for adults with diabetes: <7.0 6-Bvl-582779:07 Metabolic Panel, Comments: PATIENT NOT FASTINGPERFORMED BY: Secured MailLyons VA Medical CenterGgaqct4484 [facility] [id number] Information: [id number], [id number] [facility] (69806) ALT (SGPT) 24 [iU]/L (Normal) Range: 0-44 [...] Glucose, Serum 122 mg/dL (Abnormal) Range: 65-99 8-Lfq-706947:30 Anaerobic and Aerobic Comments: PATIENT NOT FASTINGPERFORMED BY: Secured MailLyons VA Medical CenterPnleqk7230 [facility] [id number] BY: Lab[address] [id number] Inf ormation: SRC:LE SRC:AM Culture Result 1 Mixed skin carlene (Normal) Aerobic Culture Final report (Normal) Result 1 CATRINA (Normal) Comments: No anaerobes recovered. Anaerobic Culture Final report (Normal) 26-Jan-20179:20 Basic Metabolic Profile (BMP) Comments: [facility] [address] [place], [address] GAP 8 (Normal) Range: 5-15 [...] <126 mg/dLsuggests IMPAIRED HOMEOSTASIS per A.D.A. criteria. 48-Ofg-429662:05 ANTINUCLEAR ANTIBODIES DIRECT Comments: Order Date: 03/17/16Order Date: 03/17/16[facility] (refer to report for specific site)refer to report for address and phone number GORDON-DIRECT Negative (Normal) Comments: Performed at: - [facility] [address] [id number] Director: Jordy Alfredo PhD, Phone: [phone] 58-Yjn-091102:05 CBC W/Diff, Automated Comments: Order Date: 03/17/16Interface Comments: Reason:Order Date: 03/17/16[facility] [address]ajd[address] [place], [place], [id number] ; another doc Absolute Lymph 1.58 {X10_3/ul} [...] :05 CRP Comments: Order Date: 03/17/16Order Date: 03/17/16[facility] [address] [place], [place], [address] C-REACTIVE PROT 13.90 mg/L (Abnormal) Range: 0.0-3.0 Comments: C-Reactive Protein (CRP) provides useful information for thediagnosis, therapy and monitoring of inflammatory processesand associated diseases. For the evaluation of Relative Riskfor Cardiovascular Dise ase, a High Sensitivity CRP (HSCRP)should be ordered. :05 Erythrocyte Sed Rate Comments: Order Date: 03/17/16Interface Comments: Reason:Order Date: 03/17/16[facility] [address] [place], [place], [address] SED RATE 19 mm/h (Abnormal) Range: 0-15 07-Sva-135751:05 Lyme Screen W/Reflex WB Comments: Order Date: 03/17/16Order Date: 03/17/16[facility] (refer to report for specific site)refer to report for address and phone number LYME SCN INTERP (Normal) Comments: ISR 0.00 - 0.90Negative <0.91Equivocal 0.91 - 1.09Positive >1.09 LYME SCN AB <0.91 (Normal) 87-Nqe-692856:05 Rheumatoid Factor Comments: Order Date: 03/17/16Order Date: 03/17/16[facility] [address] [place], [place], [address] RHEUMATOID FAC < 10.0 {IU/mL} (Normal) 6-Hzt-946250:29 Blood Glucose , Office (10842) Blood Glucose , Office 92 (Normal) 5-Dbj-868724:29 HgA1C , Office (36994) HgA1C , Office 6.1 % (Normal) Range: 4.6 - 7.1 :29 CBC, Platelets & Auto Diff Comments: PATIENT NOT FASTINGPERFORMED BY: [facility] Ybcebd8634 [facility] [id number] Information: [id number] (97324) Immature Grans (Abs) 0.0 {x10E3/uL} (Normal) Range: [...] 4.14-5.80 WBC 9.8 {x10E3/uL} (Normal) Range: 3.4-10.8 8-Buf-495574:29 Metabolic Panel, Comprehensive Comments: PATIENT NOT FASTINGPERFORMED BY: [facility] Hkqzlc8425 [facility] [id number] (49887) ALT (SGPT) 20 [iU]/L (Normal) Range: 0-44 [...] Glucose, Serum 105 mg/dL (Abnormal) Range: 65-99 2-Tuj-432622:29 AMYLASE (22753) Comments: PATIENT NOT FASTINGPERFORMED BY: [facility]6370 [facility] [id number] Amylase, Serum 57 U/L (Normal) Range: 31-124 :29 LIPASE (05916) Comments: PATIENT NOT FASTINGPERFORMED BY: [employer] Mhgziu4388 [facility] [id number] Lipase, Serum 32 U/L (Normal) Range: 0-59 4-Tnv-895493:29 OVA & PARASITE DIR SMEAR Comments: PATIENT NOT FASTINGPERFORMED BY: Secured MailLyons VA Medical CenterSkavdh8813 [facility] [id number] (62795) Result 1 NOCP (Normal) Comments: No ova, cysts, or parasites seen. Ova + Parasite Exam Final report (Normal) Comments: These results were obtained using wet preparation(s) and trichromestained smear. This test does not include testing for Cryptosporidiumparvum, Cyclospora, or Microsporidia. :29 OCCULT BLOOD FECES SCREEN Comments: PATIENT NOT FASTINGPERFORMED BY: [facility]6370 [facility] [id number] (29816) Occult Blood, Fecal, IA Negative (Normal) :29 LEUKOCYTE COUNT, FECAL (50042) Comments: PATIENT NOT FASTINGPERFORMED BY: [facility]6370 [facility] [id number] Result 1 NWBC (Normal) Comments: No white blood cells seen. White Blood Cells (WBC), Final report (Normal) Stool :26 C-DIFFICILE, STOOL (55208) Comments: PATIENT NOT FASTINGPERFORMED BY: [facility]6370 [facility] [id number] Information: [id number] C difficile Toxins A+B, EIA Negative (Normal) :29 BROOKS CULTURE-STOOL (85144) Comments: PATIENT NOT FASTINGPERFORMED BY: [facility]6370 [facility] [id number] Information: [id number] E coli Shiga Toxin EIA Negative (Normal) Result 1 NCI (Normal) Comments: No Campylobacter species isolated. Campylobacter Culture Final report (Normal) Result 1 NSS (Normal) Comments: No Salmonella or Shigella recovered. Salmonella/Shigella Screen Final report (Normal) :47 HgA1C , Office (03456) HgA1C , Office 6.1 % (Normal) Range: 4.6 - 7.1 :16 CALCIFEDIOL (15691) Comments: PATIENT NOT FASTINGPERFORMED BY: [facility]6370 [facility] [id number] Vitamin D, 25-Hydroxy 24.6 ng/mL (Abnormal) Range: 30.0-100.0 Comments: Vitamin D deficiency has been defined by the [place] ofMedicine and an Endocrine Society practice guideline as alevel of serum 25-OH vitamin D less than 20 ng/mL (1,2).The Endocrine Society went on to further define vitamin Dinsufficiency as a level between 21 and 29 ng/mL (2).1. IOM ([place] of Medicine). 2010. Dietary reference intakes for calcium and D. [place]: The National Academies Press.2. Pietro MF, Joaquin [place], Bonifacio HANSON, et al. Evaluation, treatment, and prevention of vitamin D deficiency: an Endocrine Society clinical practice guideline. JCEM. 2010; 96(7):1911-30. :16 CBC, Platelets & Auto Diff Comments: PATIENT NOT FASTINGPERFORMED BY: [facility]6370 [facility] [id number] Information: [id number] (07374) Immature Grans (Abs) 0.0 {x10E3/uL} (Normal) Range: [...] 4.14-5.80 WBC 10.9 {x10E3/uL} (Abnormal) Range: 3.4-10.8 25-Usf-980015:32 AFP, Tumor Marker Comments: Is Patient ? NComments: [id number] BLOOD SMEAR INTERPRETATION,LAV,[facility] (refer to report for specific site)refer to report for address and phone number AFP TUMOR 2253 1.8 ng/mL (Normal) Range: 0.0-8.3 Comments: Ashlee ECLIA methodologyPerformed at: CB - [facility] [address] [id number] Director: Jordy Alfredo PhD, Phone: [phone] 33-Pea-163290:32 Bilirubin, Direct Comments: Comments: [id number] BLOOD SMEAR INTERPRETATION,LAV,[facility] [address]sl[address] [place], [place], [address] D BILI 0.15 mg/dL (Normal) Range: 0.00-0.30 :32 CBC W/Diff, Automated Comments: [facility] [address] [place], [place], [address] Absolute Lymph 1.68 {X10_3/ul} (Normal) Range: 0.83-4.51 [...] 4.6-6.2 WBC 8.0 K/mm3 (Normal) Range: 4.4-11.0 94-Tod-652489:32 Comprehensive Metabolic Comments: Comments: [id number] BLOOD SMEAR INTERPRETATION,LAV,RTWSumma Health [facility] [address]ewl[address] [place], [place], [address] Profil GAP 4 (Abnormal) Range: 5-15 CO2 [...] <126 mg/dLsuggests IMPAIRED HOMEOSTASIS per A.D.A. criteria. 72-Drb-837834:32 Hepatitis ABC Profile Comments: Is Patient ? NComments: [id number] BLOOD SMEAR INTERPRETATION,LAV,[facility] (refer to report for [...] HEP B CORE,TOT Negative (Normal) HB CORE [id number] Negative (Normal) HB SURF AG Negative (Normal) HEP A AB,T.6726 Positive (Abnormal) HEP A IgM 6734 Negative (Normal) :32 Vitamin D,25 Hydroxy Comments: [facility] [address] [place], [place], [address] Vitamin D 25-OH 94.6 ng/mL (Normal) Comments: Vitamin D 25(OH) Status Range Deficiency <20 ng/mL (50nmol/L) Insuffciency 20 - 30 ng/mL (50 - 75 nmol/L) Sufficiency 30 - 100 ng/mL (75 - 250 nmol/L) Toxicity >100 ng/mL (>250 nmol/L) :39 Basic Metabolic Profile (BMP) Comments: [facility] [address] [place], [place], [address] GAP 5 (Normal) Range: 5-15 CO2 30.0 [...] :39 CBC-Complete Blood Cnt No Diff Comments: [facility] [address] [place], [address] MPV 10.8 fL (Normal) Range: 6.2-12.0 PLT [...] 4.6-6.2 WBC 10.7 K/mm3 (Normal) Range: 4.4-11.0 83-Hel-949787:05 URINE BROOKS CULTURE (EUGENIE Comments: PATIENT NOT FASTINGPERFORMED BY: LabCoLyons VA Medical CenterCsvvey0444 [facility] [id number] Information: SRC:[facility] [id number] COL COUNT) (37762) Result 1 NG36 (Normal) Comments: No growth in 36 - 48 hours. Urine Culture,Comprehensive Final report (Normal) 34-Oin-40811:58 Urinalysis, Office (48624) UA - LEUKOCYTE ESTERASE Negative (Normal) UA - NITRITE Negative (Normal) URINE UROBILINGN EUGENIE TIMED Normal mg/dL (Normal) UA - PROTEIN Trace mg/dL (Normal) UA - PH 6 (Abnormal) UA - BLOOD Hemolyzed Large (Normal) UA - SPECIFIC GRAVITY 1.020 (Normal) UA - KETONES Negative mg/dL (Normal) UA - BILIRUBIN Small (Normal) UA - GLUCOSE Negative (Normal) 59-Xuu-895373:16 Urinalysis, Office (29224) UA - LEUKOCYTE ESTERASE Negative (Normal) UA [...] weeks Indication: Obesity Planned Observations LIPID PANEL (25158)Indication: Hypercholesteremia On: 46-Szb-875661:02 Request CALCIFEDIOL (27831)Indication: Vitamin D deficiency On: 09-Aug-2018 Request METABOLIC PANEL, COMPREHENSIVE (12560)Indication: Abdominal pain On: 06-Ury-289805:23 Request Blood Glucose , Office (89249)Indication: Impaired fasting glucose On: 21-Nuc-907056:21 Request Anaerobic & Aerobic Culture (07862)Indication: Infected lesion of skin On: 7-Hqy-763662:26 Request MRSA Culture (80697)Indication: Infected lesion of skin On: 8-Ubx-912530:20 Request CALCIFEDIOL (47066)Indication: Vitamin D deficiency On: 34-Qtj-14254:33 Request SSQFB-CWHOWUNRPKD-IOYEU (42551)Indication: Fatty liver On: :31 Request HEPATIC FUNCTION PANEL (65083)Indication: Fatty liver On: :31 Request Metabolic Panel, Comprehensive (45769)Indication: Fatty liver On: :29 Request HEPATITIS PANEL (33646)Indication: Fatty liver On: :29 Request BLOOD SMEAR INTERPRETATION (66468)Indication: Splenomegaly, not elsewhere classified On: :15 Request CBC, Platelets & Auto Diff (25040)Indication: Splenomegaly, not elsewhere classified On: 21-Phw-59830:12 Request Planned Encounters Medical; 3 Month FU - On: 15-Aug-2018 8:30 Comprehensive Internal Medicine [facility], Kait Tam PB Kait Farooq Planned Procedures XR ELBOW RIGHT COMPLETE (88876)By: On: 04-Mar-2018 Intent Vytazmel AMBRIZ Kait Farooq Vytazmel AMBRIZ Kait Farooq Toradol Injection, 30 mg (J1885)By: On: 13-Sep-2017 Intent Mela Abrams Comments: 80-334-dk01/2019 CT - Abdomen & Pelvis Stone On: 13-Sep-2017 Intent ProtocolBy: Mela Abrams Comments: R/O left sided kidney stone CT - Abdomen & Pelvis (IV Contrast On: 13-Sep-2017 Intent Needed)By: Mela Abrams Comments: R/O diverticulitis. 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 (81091) : STATBy: Mela Abrams Nuclear Medicine - HIDA w/CPKBy: Ciesa On: 28-Jan-2016 Intent PB Kait Tam PB [place] Ultrasound - GallbladderBy: Yonatan PB, On: 28-Jan-2016 Intent Kait Tam PB Kait Farooq Ultrasound - RenalBy: Saul ALMONTE, On: 19-Apr-2015 Intent Marcia CODY (03717)By: Marcia Hughes DO On: 18-Apr-2015 Intent PHYSICAL THERAPY EVALUATION (21535)By: On: 05-Feb-2015 Intent Agustinmel AMBRIZ Kait Tam PB [place] Radiology - Knee - RightBy: Vytazmel AMBRIZ, On: 05-Feb-2015 Intent Kait Tam PB Kait Farooq Planned Medications INJECTION, KETOROLAC TROMETHAMINE, PER 15 MG Ordered: 13-Sep-2017 Pending Mela Abrams Vitamin B-12 1000 MCG/ML Injection Solution Ordered: 16-Jul-2017 Pending Visit, Nurse Vitamin B-12 1000 MCG/ML Injection Solution Ordered: 23-Jul-2017 Pending Marcia Hughes DO Vitamin B-12 1000 MCG/ML Injection Solution Ordered: 30-Jul-2017 Pending Vytazmel AMBRIZ [place] Yonatan PB Kait Farooq Vitamin B-12 1000 MCG/ML [...] Patient Instructions Indication: Hematuria Encounters Annotation/Addendum On: 03-May-2018 13:13 Encounter Diagnosis: Polyneuropathy [...] for Follow up for chronic medical issues: Takin g metformin A1c 6.3, Probiotic is helping gut [...] 05-Feb-2015 9:15 Encounter Reason: new patient male yue - Last seen between 1-3 months ago. [...] around [address] Crawford in [place])., [ADDITIONAL REASON] Back Pain - This condition [...] Comprehensive Internal Medicine Payers Lamin DANGELO/Justin Jackson; a guarantor
--- OUTSIDE RECORDS SUMMARY | 2018-09-19 01:40 | XMS RPT_ITS | Continuity of Care Document ---
:1970 Author Organization [facility] Address [address] [place] [address] Phone Care Team Providers Name Role Phone Kait Tam CNP Unavailable Veronica Casas Unavailable Elaine PENA, John Tucker Unavailable Monica Manuel Unavailable Unavailable Rox, Virginia Unavailable Unavailable Slarb SOLAR LAB TECHNICIAN, Rita Unavailable Unavailable Long SOLAR LAB TECHNICIAN, Rachele L Unavailable Unavailable Unavailable Unavailable Problems [...] apnea (G47.30, 780.57) Comments: on cpap via [facility] Status: Active Sliding hiatal hernia (K44.9, [...] Refills: 6 Ordered:03-May-2018 Vytazmel AMBRIZ, Kait Sellers ENERGY BROKER, Belen Start : 17-Jan-2018 End : 03-May-2018 Inactive Rosuvastatin Calcium 5 MG Oral Tablet 1 (one) Tablet Tablet daily for 0 days Quantity: 90 {Tablet} Refills: 3 Ordered:03-May-2018 Vyvaldemar ENERGY BROKER, Kait Sellers ENERGY BROKER, Belen Start : 17-Jan-2018 End : 03-May-2018 Inactive Vitamin D3 03455 UNIT Oral Capsule 1 (one) Capsule twice [...] qpmWeek #4 2 tabs twice daily Ergocalciferol 00588 UNIT Oral Capsule 1 (one) Capsule twice [...] 3 Views Result: Comments: See Note; NOTES: [facility] Imaging Services [address] [place] [address] Elbow min 3 Views MR#: [id number] Acct: [id number] Name: NIEVES JACKSON Rep #: [id number] : 1970 M 47 From: Anuradha Medel MD PCP: Kait Tam NP Status: REG CLI Study: Elbow min 3 Views Date of Exam: 03/04/18 Exam# [id number] Ordering Dr: Kait Tam STUDY: X-RAY - RIGHT ELBOW REAS ON FOR EXAM: Male, 47 years old. Pain swelling denies trauma TECHNIQUE: 3 view(s) of the elbow. COMPARISON: None. FINDINGS: Normal visualized humerus, radius and u counter help. Normal radiocapitellar and ulnotrochlear articulations. There is minimal enthesopathy at the lateral aspect of the humerus. The soft tissue structures are unremarkable. RAD/Elbow min 3 Views IMPRESSION: Normal x-ray examination of the elbow. Electronically Signed: Anuradha Medel MD at 19:49 EDT Tel , Service support , CC: Kait Tam NP Silk Presser: Signed 13-Sep-2017 CT Abd/Pelvis W/WO Contrast Result: Comments: See Note; NOTES: [facility] Imaging Services [address] [place] [address] [address] Abd/Pelvis W/WO Contrast MR#: [id number] Acct: [id number] Name: NIEVES JACKSON Rep #: [id number] : 1970 M 47 From: Erik Ramsey MD PCP: Kait Tam NP Status: REG CLI Study: CT Abd/Pelvis W/WO Contrast Date of Exam: 09/13/17 Exam# [id number] Ordering Dr: Mela Abrams CHIEF COUNSEL-C STUDY: CT ABDOMEN AND PELVIS WITH AND [...] Erik Ramsey MD at 12:44 EDT Tel [phone], Service support , CC: Kait Tam NP; SAM Abrams Silk Presser: Signed 26-May-2017 NCS and/or EMG Patient Result: Comments: See Note; NOTES: [facility] Pulmonary Services/Neurology [address] [place] [address] MR#: [id number] Acct: [id number] Name: NIEVES JACKSON Rep #: [id number] : 1 07/17/1969 47 From: John Henry [...] Dictated: 05/26/17 1025 Date Transcribed: 05/26/17 102 Silk Presser: NF Signed 13-Apr-2017 Venous Duplex Lower Extremity Result: Comments: See Note; NOTES: [facility] Cardiovascular Services [address] [place] [address] Venous Duplex US, Unilateral 04/13/17 1054 MR#: [id number] Acct: [id number] Name: NIEVES COYNE Rep #: [id number] : 1970 46 From: Pasha Rosales MD [...] Dictated: 04/13/17 1054 Date Transcribed: 04/13/17 1425 Silk Presser: Signed 08-Apr-2017 Ankle min 3 Views Result: Comments: See Note; NOTES: [facility] Imaging Services [address] [place] [address] Ankle min 3 Views MR#: [id number] Acct: [id number] Name: NIEVES JACKSON Rep #: [id number] : 1970 M 46 From: Erik Ramsey MD PCP: Kait Tam Status: REG CLI Study: Ankle min 3 Views Date of Exam: 04/08/17 Exam# [id number] Ordering Dr: Kait Tam STUDY: X-RAY - [...] Zuñiga i, MD at 15:28 EDT Tel [phone], Service support , CC: Kait Tam Silk Presser: Signed 08-Apr-2017 Foot min 3 Views Result: Comments: See Note; NOTES: [facility] Imaging Services [address] [place] [address] Foot min 3 Views MR#: [id number] Acct: [id number] Name: NIEVES JACKSON Rep #: [id number] D OB: 1970 M 46 From: Erik Ramsey MD PCP: Kait Tam Status: REG CLI Study: Foot min 3 Views Date of Exam: 04/08/17 Exam# [id number] Ordering Dr: Kait Tam STUDY: X-RAY - [...] Erik Ramsey MD at 15:27 EDT Tel [phone], Service support , CC: Kait Tam Silk Presser: Signed 26-Jan-2017 Discharge Instruction Result: Comments: See Note; NOTES: [facility] Medical Records Department [address] [place] [address] Discharge Instruction 01/26/17 1031 MR#: [id number] Acct: [id number] Name: JACKSON NIEVES Rep #: [id number] : 1970 46 From: Kyler Pickens MD PCP: Kait Tam Status: DEP ER ED Disposition - Plan for ED Patient: Chief Complaint: Flank Pain Instructions: ED Stone Renal W Co lic Prescriptions: Hydrocodone Bitart/Apap 5-325 [[place] 5/325] 1 - 2 tablet PO Q4H [...] your Primary Care Provider. Call [facility] ([phone]) or report to the closest Emergency Room. Call 911 if necessary. 01/26/17 1719 <Nicole ctronically signed by Kyler Pickens MD> Date Kyler Pickens MD Cosigner Signature (If Indicated): Date CC: Kait Tam 26-Jan-2017 Emergency Department Summary Result: Comments: See Note; NOTES: [facility] Medical Records Department [address] [place] [address] Emergency Department Summary 01/26/17 0939 MR#: [id number] Acct: [id number] Name: NIEVES JACKSON Jim Rep #: [id number] : 1970 46 From: Kyler Pickens MD [...] your Primary Care Provider. Call [facility] ([phone]) or report to the closest Emergency Room. Call 911 if necessary. 01/26/17 2898 <Electronically signed by Kyler schneider MD> Date Kylre Pickens MD Cosigner Signature (If Indicated): Date CC: Kait Tam 26-Jan-2017 Abdomen/Pelvis without Cont Result: Comments: See Note; NOTES: [facility] Imaging Services [address] [place] [address] Verdana 4d Abdomen/Pelvis without Cont MR#: [id number] Acct: [id number] Name: MALA JACKSON Rep #: [id number] : 1970 M 46 From: Erik Ramsey MD PCP: Kait Tam Status: REG ER Study: Abdomen/Pelvis without Cont Date of Exam: 01/26/17 Exam# [id number] Ordering Dr: Geovani Pickens MD STUDY: CT [...] at the L5-S1 level ORDE R #: [id number] CT/Abdomen/Pelvis without Cont IMPRESSION: 3 mm calculus at the left ureterovesical junction causing a mild degree of left hydronephrosis. Fatty infiltration of the liver. Electronicall y Signed: Erik Ramsey MD at 10:01 EDT Tel [phone], Service support , CC: Kait Tam; Kyler Pickens MD Silk Presser: Signed 17-Nov-2016 Abd Inc Decub and/or Erect Result: Comments: See Note; NOTES: [facility] Imaging Services [address] [place] [address] Verdana 4d Abd Inc Decub and/or Erect MR#: [id number] Acct: [id number] Name: NIEVES JACKSON Rep #: [id number] : 1970 46 From: Erik Ramsey MD PCP: Kait Tam Status: REG CLI Study: Abd Inc Decub and/or Erect Date of Exam: 11/17/16 Exam# [id number] Ordering Dr: Otoniel Peoples STUDY: X-RAY - [...] Erik Ramsey MD at 14:11 EDT Tel [phone], Service support 07-05 [phone], CC: Kait GOMEZ Silk Presser: Signed 17-Nov-2016 Chest 1 View Result: Comments: See Note; NOTES: [facility] Imaging Services [address] [place] [address] Verdana 4d Chest 1 View MR#: [id number] Acct: [id number] Name: NIEVES JACKSON Jim Rep #: [id number] : 1970 M 46 From: Erik Ramsey MD PCP: Kait Tam Status: REG CLI Study: Chest 1 View Date of Exam: 11/17/16 Exam# [id number] Ordering Dr: Otoniel Peoples STUDY: X-RAY CHEST [...] Ramsey MD at 14:10 EDT Tel [phone], Service support , CC: Kait Tam; Otoniel GOMEZ Silk Presser: Signed 13-Aug-2016 Venous Duplex Lower Extremity Result: Comments: See Note; NOTES: [facility] Cardiovascular Services [address] [place] [address] Venous Duplex US, Unilateral 08/13/16 1202 MR#: [id number] Acct: [id number] Name: Alberto KATIERONALDONIEVES Rep #: [id number] : 1970 46 From: Pasha Rosales MD [...] Dictated: 08/13/16 1202 Date Transcribed: 08/13/16 1602 Silk Presser: Signed 18-Apr-2016 Lower Ext/No Jt/w/o Result: Comments: See Note; NOTES: [facility] Imaging Services [address] [place] [address] Verdana 4d Lower Ext/No Jt/w/o MR#: [id number] Acct: [id number] Name: NIEVES JACKSON Rep #: [id number] : 1970 M 45 From: Clinton Valdez MD PCP: Kait Tam Status: REG CLI Study: Lower Ext/No Jt/w/o Date of Exam: 04/18/16 Exam# [id number] Ordering Dr: Diogo Tian DPGarrett STUDY: MRI [...] twith a peripheral neuropathy. OR GLYNN #: [id number] MRI/Lower Ext/No Jt/w/o IMPRESSION: Degenerative changes of first MTP joint and first metatarsal sesamoid joints. No evidence of plantar plate degeneration or tear. No signs of interme tatarsal neuroma. Diffuse atrophy of the intrinsic muscles of the foot possibly related to peripheral neuropathy. Electronically Signed: Clinton Valdez MD, FACR at 17:59 EDT Tel , Service support [phone], CC: Kait Tam; Diogo Tian DPM Silk Presser: Signed 17-Mar-2016 L/S Spine w Bend Min 6 Vw Result: Comments: See Note; NOTES: [facility] Imaging Services [address] [place] [address] Verdana 4d L/S Spine w Bend Min 6 Vw MR#: [id number] Acct: [id number] Name: NIEVES JACKSON Rep #: [id number] : 1970 M 45 From: Clinton Valdez MD PCP: Kait Tam Status: REG CLI Study: L/S Spine w Bend Min 6 Vw Date of Exam: 03/17/16 Exam# [id number] Ordering Dr: Carola Francis STUDY: X-RAY - [...] at 11:13 EDT , Service suppo rt [phone], CC: Kait Tam; Carola Francis DO Silk Presser: Signed 24-Oct-2015 PT D/C of Non Returning Pt (1) Result: Comments: See Note; NOTES: [facility] [place], [place] [address] Fax REHABILITATION SE RVICES DISCHARGE SUMMARY MR#: [id number] Acct: [id number] Name: NIEVES JACKSON Rep #: [id number] : 1970 45 From: Linda Moon DPT [...] PT Result: Comments: See Note; NOTES: [facility] 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 - Objective Posture: FH, RS, Increased kyphosis. [...] to be FAXED BACK to us at [phone] for Medicare purposes. Please let me know if there are ques tions or concerns regarding this plan of care. Physician Signature: Date: <Electronically signed by Linda Moon DPT> 0 07/30/15 8874 CC: Kait Francis DO ELR Signed For Medicare only, by signing this I certify the plan of care. Physicians Signature Date 08-May-2015 Operative Report Result: Comments: See Note; NOTES: [facility] Medical Records Department [address] [place] [address] Operative Report MR#: [id number] Acct: [id number] Name: NIEVES BARROSO Rep #: [id number] : 1970 44 From: Eros Gomez MD PCP: Kait Tam Status: DEP [facility] DATE OF SERVICE: DATE OF PROCEDURE: May [...] urine, but no clots. [facility] of [...] condition. Eros Gomez MD T: NTS JOB: [id number] 05/08/15 1450 <Electronically signed by Eros Gomez MD> Date Eros Gomez MD Cosigner Signature (If Indicated): Date CC: Kait Tam; Eros Gomez MD Date Dictated: 05/06 Date Transcribed: 05/06/151745 Silk Presser: Signed 08-May-2015 PT D/C of Non Returning Pt. Result: Comments: See Note; NOTES: [facility] [address] [place], [place] [address] Fax REHABILITATION RVICES DISCHARGE SUMMARY MR#: [id number] Acct: [id number] Name: NIEVES BARROSO Rep #: [id number] : 1970 44 From: Linda Moon Referring [...] Lead Electrocardiogram Result: Comments: See Note; NOTES: [facility] Cardiovascular Services [address] [place] [address] EKG - SDC 05/01/1532 MR#: [id number] Acct: [id number] Name: NIEVES BARROSO Rep #: [id number] : 1970 44 From: Kyler Zambrano MD Attending Dr: Eros Gomez MD Status: REG [facility] Ordering Dr: Eros Gomez MD Date: 05/01/15 [...] Normal ECG Confirmed by KYLER ZAMBRANO ([id number]), editor producer GIBRAN POWELL ([id number]) on 05/03/2015 1:15:28 PM Referred By: JULITO Confirmed By:KYLER ZAMBRANO 05/03/15 1315 Date ____ Kyler Zambrano MD CC: Kait Tam; Kyler Zambrano MD Date Dictated: 05/01/1532 Date Transcribed: 05/01/15931 Silk Presser: Signed 03-May-2015 Discharge Instruction Result: Comments: See Note; NOTES: [facility] Medical Records Department [address] [place] [address] Instructions for Home/Discharge Instructions 05/03/15 1236 MR#: [id number] Acct: [id number] Name: NIEVES BARROSO Rep #: [id number] : 1970 44 From: Eros Gomez MD PCP: Kait Tam Status: REG [facility] Discharge Diet: No Restrictions Discharge Activity: Return [...] Please Follow Up With: Eros Gomez - [phone] When: CALL SOON ON WEDNESDAY FOR AN APPT IN 4-5 WKS [phone] TO PAGE 05/03/15 0509 <Electronically signed by Eros Gomez MD> Date Eros Gomez MD CC: Kait Mcclellantazmel 01-May-2015 Abdomen/Pelvis without Cont Result: Comments: See Note; NOTES: [facility] Imaging Services [address] [place] [address] Verdana 4d Abdomen/Pelvis without Cont MR#: [id number] Acct: [id number] Name: NIEVES BARROSO Rep #: [id number] : 1970 M 44 From: Erik Ramsey MD PCP: Kait Tam Status: PRE SDC Study: Abdomen/Pelvis without Cont Date of Exam: 05/01/15 Exam# [id number] Ordering Dr : Eros Gomez MD STUDY: [...] Erik Ramsey MD at 10:30 EST Tel [phone], Service support [phone], Fa x [phone] CC: Kait Tam; Eros Gomez MD Silk Presser: Signed 22-Apr-2015 Kidney and Bladder Result: Comments: See Note; NOTES: [facility] Imaging Services [address] [place] [address] [place] 4d Kidney and Bladder MR#: [id number] Acct: [id number] Name: ALFREDO BARROSO Rep #: [id number] : 1970 M 44 From: Erik Ramsey MD PCP: Kait Tam Status: REG CLI Study: Kidney and Bladder Date of Exam: 04/22/15 Exam# [id number] Ordering Dr: Marcia Hughes DO STUDY: RENAL [...] Erik Ramsey MD at 12:30 EDT Tel [phone], Service support [phone], Fax CC: Kait Tam; Marcia Hughes DO Silk Presser: Signed 18-Apr-2015 Abdomen Single View Result: Comments: See Note; NOTES: [facility] Imaging Services [address] [place] [address] Verdana 4d Abdomen Single View MR#: [id number] Acct: [id number] Name: Hugo BARROSO Rep #: [id number] : 1970 M 44 From: Anthony Garcia MD PCP: Kait Tam Status: REG CLI Study: Abdomen Single View Date of Exam: 04/18/15 Exam# [id number] Ordering Dr: Marcia Hughes DO STUDY: X-RAY [...] at 9:10 EDT Tel , Service support [phone], RAD/Abdomen Single View IMPRESSION: Bilateral kidney stones largest in the left kidney measures 5 mm. Electronically Signed: Crissy noriega MD at 9:10 EDT Tel , Service support [phone], CC: Kait Tam; Marcia Hughes DO Silk Presser: Signed 13-Mar-2015 Lower Ext Joint Only (Routine) Result: Comments: See Note; NOTES: [facility] Imaging Services [address] [place] [address] MRI Report MR#: [id number] Acct: [id number] Name: NIEVES BARROSO Rep #: [id number] : 1970 M 44 From: Clinton Valdez MD PCP: Kait Tam Status: REG CLI Study: Lower Ext Joint Only (Routine) Date of Exam: 03/13/15 Exam# [id number] Ordering Dr: Carola Francis DO STUDY: MR [...] FACR at 8:51 EDT , Service support [phone], CC: Kait Tam; Carola Francis DO Silk Presser: Signed 08-Feb-2015 Inital Evaluation - PT Result: Comments: See Note; NOTES: [facility] [address] [place] [address]. [address] [place] [address] Fax REHABILITATION SERVICES INITIAL EVALUATION MR#: [id number] Acct: [id number] Name: NIEVES BARROSO Rep #: [id number] : 1970 44 From: Linda Moon Referring DrKailyn: Kait Tam Status: REG R [facility] Date: Patient's Visit Information NIEVES BARROSO is [...] medial knee and posterior knee. 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 Please let me know if there are questions or concerns r egarding this plan of care. Physician Signature: Date: <Electronically signed by Lidna Moon > 02/08/15 0947 CC: ELR Signed For Medicare only, by signing this I certify the plan of care. Physicians Signature Date 05-Feb-2015 Knee 4 or More Views Result: Comments: See Note; NOTES: [facility] Imaging Services [address] [place] [address] Radiology Report MR#: [id number] Acct: [id number] Name: NIEVES BARROSO Rep #: [id number] : 1970 M 44 From: Josue Meza DO PCP: Kait Tam Status: REG CLI Study: Knee 4 or More Views Date of Exam: 02/05/15 Exam# [id number] Ordering Dr: Kait Tam STUDY: X-RAY - [...] Signed: Malika Meza at 23:52 EDT Tel [phone], Service support [phone], RAD/Knee 4 or More Views IMPRESSION: Periarticular soft tissue swelling. E lectronically Signed: Josue MezaDO at 23:52 EDT Tel [phone], Service support [phone], CC: Kait Tam Silk Presser: Signed Family History Unknown Family Member Name [...] kg/m2 Body Surface Area Calculated 2.73 m2 57-Zfy-324416:47 Temperature 97.6 f Pulse 98 /min Comments: [...] kg/m2 Body Surface Area Calculated 2.75 m2 48-Ksk-589869:33 Temperature 97.6 f Pulse 90 /min Comments: [...] kg/m2 Body Surface Area Calculated 2.75 m2 08-Kuy-349758:11 Pulse 90 /min Comments: Pattern: Regular Respiration [...] Description Value Details :04 HgA1C , Office (06699) HgA1C , Office 7.1 % (Normal) Range: 4.6 - 7.1 7-Cbk-451180:04 Blood Glucose , Office (37864) Blood Glucose , Office 147 (Normal) 4-Vde-009306:31 URIC ACID BLOOD (16408) Comments: PATIENT NOT FASTINGPERFORMED BY: [facility] Duwtem[address] Road[place]ublin [place] [id number] Uric Acid 4.9 mg/dL (Normal) Range: 3.7-8.6 Comments: Therapeutic target for gout patients: <6.0 7-Jzr-284211:28 TESTOSTERONE FREE (59810) Comments: Mar 2018; PATIENT WAS FASTINGPERFORMED BY: DiBcom [facility] Ozadwj[address] [facility] [place] [id number] BY: [facility] [address] [id number] Free Testosterone(Direct) 7.1 pg/mL (Normal) Range: 6.8-21.5 6-Jbw-298105:28 CALCIFEDIOL (59535) Comments: Mar 2018; PATIENT WAS FASTINGPERFORMED BY: [facility] Kabpwj[address] [facility] [place] [id number] BY: [facility] [address] [id number] Vitamin D, 25-Hydroxy 19.4 ng/mL (Abnormal) Range: 30.0-100.0 Comments: Vitamin D deficiency has been defined by the [place] [facility] and an Endocrine Society practice guideline as alevel of serum 25-OH vitamin D less than 20 ng/mL (1,2).The Endocrine Society went on to further define vitamin Dinsufficiency as a level between 21 and 29 ng/mL (2).1. IOM ([place] [employer]). 2010. Dietary reference intakes for calcium and D. [place]: The National Academies Press.2. Pietro MF, Joaquin EVANS, Bonifacio HANSON, et al. Evaluation, treatment, and prevention of vitamin D deficiency: an Endocrine Society clinical practice guideline. JCEM. 2010; 96(7):1911-30. 9-Ejp-127804:28 Metabolic Panel, Comments: Mar 2018; PATIENT WAS FASTINGPERFORMED BY: [employer] Hcgpxs1586 [facility] [id number] BY: [employer] [id number] Comprehensive (79103) ALT (SGPT) 31 [iU]/L (Normal) Range: 0-44 [...] 6-24 Glucose 151 mg/dL (Abnormal) Range: 65-99 4-Gbx-759680:28 LIPID PANEL (86268) Comments: Mar 2018; PATIENT WAS FASTINGPERFORMED BY: BesstechJFK Medical CenterScjaie9238 [facility] [id number] BY: [employer] [id number] LDL/HDL Ratio 3.3 {ratio} (Normal) Range: 0.0-3.6 Comments: LDL/HDL Ratio Men Women 1/2 Avg.Risk 1.0 1.5 Av g.Risk 3.6 3.2 2X Avg.Risk 6.2 5.0 3X Avg.Risk 8.0 6.1 LDL Cholesterol Calc 137 mg/dL (Abnormal) Range: 0-99 VLDL Cholesterol Sundar 21 mg/dL (Normal) Range: 5-40 HDL Cholesterol 42 mg/dL (Normal) Triglycerides 104 mg/dL (Normal) Range: 0-149 Cholesterol, Total 200 mg/dL (Abnormal) Range: 100-199 8-Ivw-978614:28 VITAMIN B12 AND FOLATES Comments: Mar 2018; PATIENT WAS FASTINGPERFORMED BY: [employer]70 [facility] [id number] BY: [employer] [id number] (63345) Folate (Folic Acid), Serum 7.2 ng/mL (Normal) Comments: A serum folate concentration of less than 3.1 ng/mL isconsidered to represent clinical deficiency. Vitamin B12 645 pg/mL (Normal) Range: 232-1245 26-Vyz-006252:28 TESTOSTERONE FREE (53593) Comments: PATIENT WAS FASTINGPERFORMED BY: [employer]6370 [facility] [id number] BY: [employer] [id number] Free Testosterone(Direct) 5.1 pg/mL (Abnormal) Range: 6.8-21.5 75-Eix-095833:28 CALCIFEDIOL (22491) Comments: PATIENT WAS FASTINGPERFORMED BY: [employer]70 [facility] [id number] BY: [employer] [id number] Vitamin D, 25-Hydroxy 19.4 ng/mL (Abnormal) Range: 30.0-100.0 Comments: Vitamin D deficiency has been defined by the [place] of[place]icine and an Endocrine Society practice guideline as alevel of serum 25-OH vitamin D less than 20 ng/mL (1,2).The Endocrine Society went on to further define vitamin Dinsufficiency as a level between 21 and 29 ng/mL (2).1. IOM ([place] [employer]). 2010. Dietary reference intakes for calcium and D. [place]: The National Academies Press.2. Pietro MF, Joaquin [place], Bonifacio HANSON, et al. Evaluation, treatment, and prevention of vitamin D deficiency: an Endocrine Society clinical practice guideline. JCEM. 2010; 96(7):1911-30. 53-Lkc-178900:28 Metabolic Panel, Comments: PATIENT WAS FASTINGPERFORMED BY: CB [facility] Cszfvt6512 [facility] [id number] BY: BN [facility] Wfftuiynaa9008 [facility] [id number] Inf ormation: [id number],O77400 Comprehensive (29416) ALT (SGPT) 29 [iU]/L (Normal) Range: 0-44 [...] 6-24 Glucose 120 mg/dL (Abnormal) Range: 65-99 85-Mic-799065:28 LIPID PANEL (17540) Comments: PATIENT WAS FASTINGPERFORMED BY: Object[employer] CommunicationsJFK Medical CenterBncisl2923 [facility] [id number] BY: [address] [id number] LDL/HDL Ratio 3.3 {ratio} (Normal) Range: 0.0-3.6 Comments: LDL/HDL Ratio Men Women 1/2 Avg.Risk 1.0 1.5 Av g.Risk 3.6 3.2 2X Avg.Risk 6.2 5.0 3X Avg.Risk 8.0 6.1 LDL Cholesterol Calc 127 mg/dL (Abnormal) Range: 0-99 VLDL Cholesterol Sundar 19 mg/dL (Normal) Range: 5-40 HDL Cholesterol 38 mg/dL (Abnormal) Triglycerides 93 mg/dL (Normal) Range: 0-149 Cholesterol, Total 184 mg/dL (Normal) Range: 100-199 04-Tfn-159146:28 VITAMIN B12 AND FOLATES Comments: PATIENT WAS FASTINGPERFORMED BY: [employer] CommunicationsJamie [place] 6270070 [facility] [id number] BY: [employer] [id number] (00122) Folate (Folic Acid), Serum 7.1 ng/mL (Normal) Comments: A serum folate concentration of less than 3.1 ng/mL isconsidered to represent clinical deficiency. Vitamin B12 665 pg/mL (Normal) Range: 232-1245 78-Zwq-318995:27 Comprehensive Metabolic Profil Comments: [facility] [address] [place], [address] GAP 8 (Normal) Range: 5-15 CO2 29.0 [...] A.D.A. criteria.Please note revised GLUCOSE reference range nbncjixvm21/02/2018. 88-Bup-381095:27 Erythrocyte Sed Rate Comments: [facility] Oxfedputjx8960 [facility] [address]. [place], [place], [address] SED RATE 14 mm/h (Normal) Range: 0-15 86-Vri-891416:27 Hemoglobin A1c Comments: [facility] Mqzxorioja9522 [facility] [place], [address] HGB A1C 7.0 % (Abnormal) Range: 4.2-6.3 15-Ovi-733975:27 Thyroid Stim Hormone (TSH) Comments: [facility] [address] [place], [place], [address] TSH 1.29 {uIU/mL} (Normal) Range: 0.358-3.74 65-Rcl-100553:27 Vitamin B12 695 pg/mL (Normal) Comments: [facility] [address] [place], [place], [address] Range: 211-911 57-Crq-846847:38 HgA1C , Office (68447) HgA1C , Office 6.5 % (Normal) Range: 4.6 - 7.1 17-Zqo-341642:38 Blood Glucose , Office (68943) Blood Glucose , Office 129 (Normal) 48-Dya-207402:38 CREATININE FINGERSTICK Comments: [facility] LaboratoryPoint of Hjgl[address] [place], [place] [address] EGFR WB > 60.0000 mL/min (Normal) CREATININE WB 0.9 mg/dL (Normal) Range: 0.70-1.30 38-Uyv-608178:35 URINE BROOKS CULTURE-IDENTIFICATN Comments: PATIENT NOT FASTINGPERFORMED BY: GigsTime6370 [facility] [id number] Information: SRC:UC (15565) Result 1 NG36 (Normal) Comments: No growth in 36 - 48 hours. Urine Culture,Comprehensive Final report (Normal) 04-Unx-552477:00 Urinalysis, Office (62001) UA - LEUKOCYTE ESTERASE Negative (Normal) UA - NITRITE Negative (Normal) URINE UROBILINGN EUGENIE TIMED Normal mg/dL (Normal) UA - PROTEIN Negative mg/dL (Normal) UA - PH 6 (Abnormal) UA - BLOOD Negative (Normal) UA - SPECIFIC GRAVITY 1.025 (Normal) UA - KETONES Negative mg/dL (Normal) UA - BILIRUBIN Negative (Normal) UA - GLUCOSE Negative (Normal) 77-Sbu-238660:10 UPEP (52066) Comments: PATIENT NOT FASTINGPERFORMED BY: DiBcom [facility] Dnorlx5129 [facility] [id number] Please note: SPRCS (Normal) Comments: Protein electrophoresis scan will follow via computer, mail, orcourier delivery. M-Jaspal, % Not Observed % (Normal) Gamma Globulin, U 22.7 % (Normal) Beta Globulin, U 31.8 % (Normal) Csgnv-9-Asvvitdu, U 19.5 % (Normal) Qotcm-9-Hgisfxbg, U 3.9 % (Normal) Albumin, U 22.1 % (Normal) Protein,Total,Urine 11.8 mg/dL (Normal) 77-Cuv-376390:10 [facility] (44076) Comments: PATIENT NOT FASTINGPERFORMED BY: GigsTime6370 [facility]Rita Sloss EnterprisesC[facility] [id number] Please note: SPRCS (Normal) Comments: Protein electrophoresis scan will follow via computer, mail, orcourier delivery. A/G Ratio 1.1 (Normal) Range: 0.7-1.7 Globulin, Total 3.1 g/dL (Normal) Range: 2.2-3.9 M-Jaspal Not Observed g/dL (Normal) Gamma Globulin 1.0 g/dL (Normal) Range: 0.4-1.8 Beta Globulin 1.1 g/dL (Normal) Range: 0.7-1.3 Ttmby-7-Trvdrpcc 0.8 g/dL (Normal) Range: 0.4-1.0 Ufbza-0-Xlivyljz 0.3 g/dL (Normal) Range: 0.0-0.4 Albumin 3.5 g/dL (Normal) Range: 2.9-4.4 Protein, Total, Serum 6.6 g/dL (Normal) Range: 6.0-8.5 03-Cjp-934021:10 VITAMIN B12 AND FOLATES Comments: PATIENT NOT FASTINGPERFORMED BY: [employer]ak70 [facility]-Rita Sloss EnterprisesC[facility] [id number] (13236) Folate (Folic Acid), Serum 7.3 ng/mL (Normal) Comments: A serum folate concentration of less than 3.1 ng/mL isconsidered to represent clinical deficiency. Vitamin B12 390 pg/mL (Normal) Range: 232-1245 68-Gbf-297008:21 HgA1C , Office (48258) HgA1C , Office 140 % (Abnormal) Range: 4.6 - 7.1 9-Sxd-056007:07 HGB A1C (35245) Comments: PATIENT NOT FASTINGPERFORMED BY: [employer]ak70 [facility] [id number] Hemoglobin A1c 6.3 % (Abnormal) Range: 4.8-5.6 Comments: . Pre-diabetes: 5.7 - 6.4 Diabetes: >6.4 Glycemic control for adults with diabetes: <7.0 1-Pis-294315:07 Metabolic Panel, Comments: PATIENT NOT FASTINGPERFORMED BY: Objectworld CommunicationsJFK Medical CenterPcqnys9833 [facility] [id number] Information: [id number], [id number] [facility] (68331) ALT (SGPT) 24 [iU]/L (Normal) Range: 0-44 [...] Glucose, Serum 122 mg/dL (Abnormal) Range: 65-99 0-Qzq-448430:30 Anaerobic and Aerobic Comments: PATIENT NOT FASTINGPERFORMED BY: Objectworld CommunicationsJFK Medical CenterHzzfhz1897 [facility] [id number] BY: [employer] [id number] Inf ormation: SRC:LE SRC:AM Culture Result 1 Mixed skin carlene (Normal) Aerobic Culture Final report (Normal) Result 1 CATRINA (Normal) Comments: No anaerobes recovered. Anaerobic Culture Final report (Normal) 26-Jan-20179:20 Basic Metabolic Profile (BMP) Comments: [facility] [address] [place], [address] GAP 8 (Normal) Range: 5-15 [...] <126 mg/dLsuggests IMPAIRED HOMEOSTASIS per A.D.A. criteria. 64-Pvj-363052:05 ANTINUCLEAR ANTIBODIES DIRECT Comments: Order Date: 03/17/16Order Date: 03/17/16[facility] (refer to report for specific site)refer to report for address and phone number GORDON-DIRECT Negative (Normal) Comments: Performed at: - [facility] [address] [id number] Director: Jordy Alfredo PhD, Phone: [phone] 60-Kbq-836675:05 CBC W/Diff, Automated Comments: Order Date: 03/17/16Interface Comments: Reason:Order Date: [facility]/16[facility] V[address]feimqbn22[address] [place], [place], [address] ; another doc Absolute Lymph 1.58 {X10_3/ul} [...] :05 CRP Comments: Order Date: 03/17/16Order Date: 03/17/16[facility] Pgvimxcygq7856 [address] [place], [place], [address] C-REACTIVE PROT 13.90 mg/L (Abnormal) Range: 0.0-3.0 Comments: C-Reactive Protein (CRP) provides useful information for thediagnosis, therapy and monitoring of inflammatory processesand associated diseases. For the evaluation of Relative Riskfor Cardiovascular Dise ase, a High Sensitivity CRP (HSCRP)should be ordered. :05 Erythrocyte Sed Rate Comments: Order Date: 03/17/16Interface Comments: Reason:Order Date: 03/17/16[facility] [address] [place], [place], [address] SED RATE 19 mm/h (Abnormal) Range: 0-15 92-Bvk-347138:05 Lyme Screen W/Reflex WB Comments: Order Date: 03/17/16Order Date: 03/17/16[facility] (refer to report for specific site)refer to report for address and phone number LYME SCN INTERP (Normal) Comments: ISR 0.00 - 0.90Negative <0.91Equivocal 0.91 - 1.09Positive >1.09 LYME SCN AB <0.91 (Normal) 99-Zga-073989:05 Rheumatoid Factor Comments: Order Date: 03/17/16Order Date: 03/17/16[facility] Gerwfxxvco[address] [place], [place], [address] RHEUMATOID FAC < 10.0 {IU/mL} (Normal) 1-Tmj-777231:29 Blood Glucose , Office (36071) Blood Glucose , Office 92 (Normal) 3-Hxu-032340:29 HgA1C , Office (82102) HgA1C , Office 6.1 % (Normal) Range: 4.6 - 7.1 :29 CBC, Platelets & Auto Diff Comments: PATIENT NOT FASTINGPERFORMED BY: [facility] Valwvh3703 [facility] [id number] Information: [id number] (02178) Immature Grans (Abs) 0.0 {x10E3/uL} (Normal) Range: [...] 4.14-5.80 WBC 9.8 {x10E3/uL} (Normal) Range: 3.4-10.8 1-Iho-608330:29 Metabolic Panel, Comprehensive Comments: PATIENT NOT FASTINGPERFORMED BY: LabCoJFK Medical CenterFrlorh1909 [facility] [id number] (13170) ALT (SGPT) 20 [iU]/L (Normal) Range: 0-44 [...] 105 mg/dL (Abnormal) Range: 65-99 :29 AMYLASE (08318) Comments: PATIENT NOT FASTINGPERFORMED BY: Lit MotorsSaint Mary'S Health Center Fsvjwq5168 [facility] [id number] Amylase, Serum 57 U/L (Normal) Range: 31-124 :29 LIPASE (87054) Comments: PATIENT NOT FASTINGPERFORMED BY: [employer] [facility] [id number] Lipase, Serum 32 U/L (Normal) Range: 0-59 :29 OVA & PARASITE DIR SMEAR Comments: PATIENT NOT FASTINGPERFORMED BY: [employer] Vtfnle7377 [facility] [id number] (26796) Result 1 NOCP (Normal) Comments: No ova, cysts, or parasites seen. Ova + Parasite Exam Final report (Normal) Comments: These results were obtained using wet preparation(s) and trichromestained smear. This test does not include testing for Cryptosporidiumparvum, Cyclospora, or Microsporidia. :29 OCCULT BLOOD FECES SCREEN Comments: PATIENT NOT FASTINGPERFORMED BY: Lit MotorsSaint Mary'S Health Center Oyuvry6866 [facility] [id number] (30641) Occult Blood, Fecal, IA Negative (Normal) :29 LEUKOCYTE COUNT, FECAL (58304) Comments: PATIENT NOT FASTINGPERFORMED BY: Lit MotorsVon Voigtlander Women'S Hospital6370 [facility] [id number] Result 1 NWBC (Normal) Comments: No white blood cells seen. White Blood Cells (WBC), Final report (Normal) Stool :26 C-DIFFICILE, STOOL (54604) Comments: PATIENT NOT FASTINGPERFORMED BY: [facility]6370 [facility] [id number] Information: [id number] C difficile Toxins A+B, EIA Negative (Normal) :29 BROOKS CULTURE-STOOL (29317) Comments: PATIENT NOT FASTINGPERFORMED BY: [facility]6370 [facility] [id number] Information: [id number] E coli Shiga Toxin EIA Negative (Normal) Result 1 NCI (Normal) Comments: No Campylobacter species isolated. Campylobacter Culture Final report (Normal) Result 1 NSS (Normal) Comments: No Salmonella or Shigella recovered. Salmonella/Shigella Screen Final report (Normal) :47 HgA1C , Office (62658) HgA1C , Office 6.1 % (Normal) Range: 4.6 - 7.1 :16 CALCIFEDIOL (44618) Comments: PATIENT NOT FASTINGPERFORMED BY: [facility]6370 [facility] [id number] Vitamin D, 25-Hydroxy 24.6 ng/mL (Abnormal) Range: 30.0-100.0 Comments: Vitamin D deficiency has been defined by the [place] and an Endocrine Society practice guideline as alevel of serum 25-OH vitamin D less than 20 ng/mL (1,2).The Endocrine Society went on to further define vitamin Dinsufficiency as a level between 21 and 29 ng/mL (2).1. IOM ([place] [employer]). 2010. Dietary reference intakes for calcium and D. [place]: The National Academies Press.2. Pietro MF, Joaquin NC, Bonifacio HANSON, et al. Evaluation, treatment, and prevention of vitamin D deficiency: an Endocrine Society clinical practice guideline. JCEM. 2010; 96(7):1911-30. :16 CBC, Platelets & Auto Diff Comments: PATIENT NOT FASTINGPERFORMED BY: [place] 9050170 [facility] [id number] Information: [id number] (93899) Immature Grans (Abs) 0.0 {x10E3/uL} (Normal) Range: [...] 4.14-5.80 WBC 10.9 {x10E3/uL} (Abnormal) Range: 3.4-10.8 79-Gjw-771622:32 AFP, Tumor Marker Comments: Is Patient ? NComments: [id number] BLOOD SMEAR INTERPRETATION,LAV,[facility] (refer to report for specific site)refer to report for address and phone number AFP TUMOR 2253 1.8 ng/mL (Normal) Range: 0.0-8.3 Comments: Ashlee ECLIA methodologyPerformed at: CB - [facility] [address] [id number] Director: Jordy Alfredo PhD, Phone: [phone] 09-Xqj-685409:32 Bilirubin, Direct Comments: Comments: [id number] BLOOD SMEAR INTERPRETATION,LAV,[facility] Dxrhbfiekz[address] [place], [place], [address] D BILI 0.15 mg/dL (Normal) Range: 0.00-0.30 14-Vrx-060929:32 CBC W/Diff, Automated Comments: [facility] [address]ty[address]cf[address] [place], [place], [address] Absolute Lymph 1.68 {X10_3/ul} (Normal) Range: 0.83-4.51 [...] 4.6-6.2 WBC 8.0 K/mm3 (Normal) Range: 4.4-11.0 92-Rya-868406:32 Comprehensive Metabolic Comments: Comments: [id number] BLOOD SMEAR INTERPRETATION,LAV,RTWooMansfield Hospital Yspkjcvegm5[address] [place], [address] Profil GAP 4 (Abnormal) Range: 5-15 CO2 [...] <126 mg/dLsuggests IMPAIRED HOMEOSTASIS per A.D.A. criteria. 75-Jpm-376086:32 Hepatitis ABC Profile Comments: Is Patient ? NComments: [id number] BLOOD SMEAR INTERPRETATION,LAV,[facility] (refer to report for [...] HEP B CORE,TOT Negative (Normal) HB CORE [id number] Negative (Normal) HB SURF AG Negative (Normal) HEP A AB,T.6726 Positive (Abnormal) HEP A IgM 6734 Negative (Normal) :32 Vitamin D,25 Hydroxy Comments: [facility] [address] [place], [place], [address] Vitamin D 25-OH 94.6 ng/mL (Normal) Comments: Vitamin D 25(OH) Status Range Deficiency <20 ng/mL (50nmol/L) Insuffciency 20 - 30 ng/mL (50 - 75 nmol/L) Sufficiency 30 - 100 ng/mL (75 - 250 nmol/L) Toxicity >100 ng/mL (>250 nmol/L) :39 Basic Metabolic Profile (BMP) Comments: [facility] [address] [place], [place], [address] GAP 5 (Normal) Range: 5-15 CO2 30.0 [...] CBC-Complete Blood Cnt No Diff Comments: [facility] [address]feyx[address] [place], [address] MPV 10.8 fL (Normal) Range: 6.2-12.0 PLT [...] 4.6-6.2 WBC 10.7 K/mm3 (Normal) Range: 4.4-11.0 96-Rbm-756628:05 URINE BROOKS CULTURE (EUGENIE Comments: PATIENT NOT FASTINGPERFORMED BY: LabCoJFK Medical CenterMuetkk7861 [facility] [id number] Information: SRC:[facility] [id number] COL COUNT) (41865) Result 1 NG36 (Normal) Comments: No growth in 36 - 48 hours. Urine Culture,Comprehensive Final report (Normal) 54-Zlq-83805:58 Urinalysis, Office (83495) UA - LEUKOCYTE ESTERASE Negative (Normal) UA - NITRITE Negative (Normal) URINE UROBILINGN EUGENIE TIMED Normal mg/dL (Normal) UA - PROTEIN Trace mg/dL (Normal) UA - PH 6 (Abnormal) UA - BLOOD Hemolyzed Large (Normal) UA - SPECIFIC GRAVITY 1.020 (Normal) UA - KETONES Negative mg/dL (Normal) UA - BILIRUBIN Small (Normal) UA - GLUCOSE Negative (Normal) 13-Hio-857301:16 Urinalysis, Office (75188) UA - LEUKOCYTE ESTERASE Negative (Normal) UA [...] weeks Indication: Obesity Planned Observations LIPID PANEL (07170)Indication: Hypercholesteremia On: 10-Hji-580583:02 Request CALCIFEDIOL (22271)Indication: Vitamin D deficiency On: 09-Aug-2018 Request METABOLIC PANEL, COMPREHENSIVE (49900)Indication: Abdominal pain On: 15-Kyc-762094:23 Request Blood Glucose , Office (48116)Indication: Impaired fasting glucose On: 68-Vhx-092941:21 Request Anaerobic & Aerobic Culture (97519)Indication: Infected lesion of skin On: 0-Hwg-916115:26 Request MRSA Culture (88070)Indication: Infected lesion of skin On: 1-Xxt-475722:20 Request CALCIFEDIOL (99772)Indication: Vitamin D deficiency On: 20-Yas-46470:33 Request HDEWK-RVXXEGWWXBG-GKWKX (95414)Indication: Fatty liver On: 86-Yni-99896:31 Request HEPATIC FUNCTION PANEL (97246)Indication: Fatty liver On: :31 Request Metabolic Panel, Comprehensive (77664)Indication: Fatty liver On: 32-Res-52948:29 Request HEPATITIS PANEL (79840)Indication: Fatty liver On: :29 Request BLOOD SMEAR INTERPRETATION (53734)Indication: Splenomegaly, not elsewhere classified On: 13-Tbf-67892:15 Request CBC, Platelets & Auto Diff (95601)Indication: Splenomegaly, not elsewhere classified On: 84-Mia-06945:12 Request Planned Encounters Medical; 3 Month FU - On: 15-Aug-2018 8:30 Comprehensive Internal Medicine Kait Tam CNP Ciesa ENERGY BROKER, Kait Farooq Planned Procedures XR ELBOW RIGHT COMPLETE (44901)By: On: 04-Mar-2018 Intent Yonatan AMBRIZ BelenOseas Tam CNP Kait Farooq Toradol Injection, 30 mg (J1885)By: On: 13-Sep-2017 Intent Mela Abrams Comments: 80-334-dk01/2019 CT - Abdomen & Pelvis Stone On: 13-Sep-2017 Intent ProtocolBy: Mela Abrams Comments: R/O left sided kidney stone CT - Abdomen & Pelvis (IV Contrast On: 13-Sep-2017 Intent Needed)By: Mela Abrams Comments: R/O diverticulitis. ELECTROCARDIOGRAM, COMPLETE (ECG) On: 13-Sep-2017 Intent (87873)By: Mela Abrams Comments: NSR-Hr 86 B 12 Injection, 1000 mcg (J3420)By: On: 06-Aug-2017 Intent Visit, Nurse Comments: 1182211.15/[id number] - 1mlMLONG SOLAR LAB TECHNICIAN B 12 Injection, 1000 mcg (J3420)By: On: 30-Jul-2017 Intent Yonatan AMBRIZ Belen Citazmel AMBRIZ Kait Farooq Comments: vitamin b12 1000mcg injectionlot: [id number]: 10/2019L DELT IMpt tolerated wellAD SOLAR LAB TECHNICIAN B 12 Injection, 1000 mcg (J3420)By: On: 23-Jul-2017 Intent Marcia Hughes DO Comments: lot [id number]/[id number] mcgright dltdIMas, SOLAR LAB TECHNICIAN INJECTION, VITAMIN B-12 On: 16-Jul-2017 Intent CYANOCOBALAMIN, UP TO 1000 MCG Comments: 2798477.15/908576vew/mlr arm, IMMLONG (Special Coverage Instructions Apply. See CIM: 45-4 and MCM: 2049) (J3420)By: Visit, Nurse Flu Vaccine (Quadrivalent) 71343Ng: On: 02-Apr-2017 Intent Yonatan AMBRIZ BelenOseas Tam CNP Belen Comments: QUAD flu shotlot number: [id number]: 09/2017L Deltoid IMAD SOLAR LAB TECHNICIAN Venous Doppler - LeftBy: Yonatan AMBRIZ, On: [...] VENOUS THROMBOEMBOLISM Comments: Eval for venous insufficency. (75483) : STATBy: Mela Abrams Nuclear Medicine - HIDA w/CPKBy: Ciesa On: 28-Jan-2016 Intent PB BelenOseas Tam CNP Belen Ultrasound - GallbladderBy: Vytazmel AMBRIZ, On: 28-Jan-2016 Intent Kait Velezmel AMBRIZ Belen Ultrasound - RenalBy: Saul ALMONTE, On: 19-Apr-2015 Intent Marcia CODY (55392)By: Marcia Hughes DO On: 18-Apr-2015 Intent PHYSICAL THERAPY EVALUATION (34779)By: On: 05-Feb-2015 Intent Yonatan AMBRIZ Belen Agustinmel [...] Injection Solution Ordered: 30-Jul-2017 Pending Yonatan AMBRIZ Beeln Citazmel AMBRIZ Belen Vitamin B-12 1000 MCG/ML Injection Solution Ordered: [...] around [address] [place] in [place])., [ADDITIONAL REASON] Back Pain - This condition [...]
--- OUTSIDE RECORDS SUMMARY | 2018-09-20 21:19 | XMS RPT_ITS ---
:1970 Author Organization [place] Care Team Providers Name Role Phone Kait Tam Attending Unavailable Kait Tam Referring Unavailable Kait Tam Consulting Unavailable Kait Tam Primary Care Unavailable Kait Tam Attending Unavailable Kait Tam Referring Unavailable Hong Petty Consulting Unavailable Kait Tam Attending Unavailable Kait Tam Referring Unavailable Kait Tam Primary Care Unavailable John Henry Attending Unavailable Kait Tam Primary Care Unavailable Kait Tam Attending Unavailable Kait Tam Referring Unavailable Kait Tam Primary Care Unavailable HenryJohn Attending Unavailable John Henry Referring Unavailable Kait Tam Primary Care Unavailable Mela Abrams LOG PROCESSOR OPERATOR-C Attending Unavailable Kait Tam Primary Care Unavailable PROBLEMS PROBLEMS No Problem Records FoundPROCEDURES PROCEDURES No Procedure Records FoundRESULTS RESULTS ABDOMEN/PELVIS WITHOUT Observed: 07/19/2018 Status: F Source: [place] CONT 3:41 PM [facility] REPOSITORY [facility] Imaging Services [address] [place] [address] Abdomen/Pelvis without Cont MR#: [id number] Acct: [id number] Name: NIEVES JACKSON Rep #: [id number] : 1970 M 48 From: Maricel Sanchez MD PCP: Kait Tam NP Status: REG CLI Study: Abdomen/Pelvis without Cont Date of Exam: 07/19/18 Exam# [id number] Ordering Dr: Kait TamC STUDY: CT ABDOMEN AND PELVIS WITHOUT CONTRAST [...] Service support , CC: Kait Tam NP See Supervisor: Signed KIDNEY AND BLADDER Observed: 07/18/2018 Status: F Source: [place] 9:43 AM [facility] REPOSITORY [facility] Imaging Services [address] [place] [address] Kidney and Bladder MR#: [id number] Acct: [id number] Name: NIEVES JACKSON Rep #: [id number] : 1970 M 48 From: Erik Ramsey MD PCP: Kait Tam NP Status: REG CLI Study: Kidney and Bladder Date of Exam: 07/18/18 Exam# [id number] Ordering Dr: Kait Tam LOG PROCESSOR OPERATOR-C STUDY: RENAL ULTRASOUND - COMPLETE REASON FOR [...] Erik Ramsey MD at 15:35 EST Tel [phone], Service support , CC: Kait Tam NP See Supervisor: Signed ELBOW MIN 3 VIEWS Observed: 03/04/2018 Status: F Source: [place] 9:49 AM [facility] REPOSITORY [facility] Imaging Services [address] [place] [address] Elbow min 3 Views MR#: [id number] Acct: [id number] Name: NIEVES JACKSON Rep #: [id number] : 1970 M 47 From: Anuradha Medel MD PCP: Kait Tam NP Status: REG CLI Study: Elbow min 3 Views Date of Exam: 03/04/18 Exam# [id number] Ordering Dr: Kait Tam STUDY: X-RAY - [...] Service support , CC: Kait Tam NP See Supervisor: Signed COMPREHENSIVE METABOLIC Collected: 12/07/2017 Status: F Source: [place] EMIGDIO 4:27 PM [facility] REPOSITORY TYPE CODE TESTS RESULT OUT OF [...] 8 Performed By: #### L500.4050, L501.9520 #### [facility] [address] [facility] [place], [place], [address] THYROID STIM HORMONE Collected: 12/07/2017 Status: F Source: [place] (TSH) 4:27 PM [facility] REPOSITORY TYPE CODE TESTS RESULT OUT OF RANGE REFERENCE UNITS LAB L501.9520 0.358-3.74 uIU/mL Normal TSH 1.29 Performed By: #### L500.4050, L501.9520 #### [facility] [address] [place], [address] ERYTHROCYTE SED RATE Collected: 12/07/2017 Status: F Source: [place] 4:27 PM [facility] REPOSITORY TYPE CODE TESTS RESULT OUT OF RANGE REFERENCE UNITS LAB L102.0000 0-15 mm/hr Normal SED RATE 14 Performed By: #### L101.9900 #### [facility] [address] [facility] [place], [address] HEMOGLOBIN A1C Collected: 12/07/2017 Status: F Source: [place] 4:27 PM [facility] REPOSITORY TYPE CODE TESTS RESULT OUT OF RANGE REFERENCE UNITS LAB L501.9985 4.2-6.3 % High HGB A1C 7.0 Performed By: #### L501.9985 #### [facility] [address] [place], [address] VITAMIN B12 Collected: 12/07/2017 Status: F Source: [place] 4:27 PM [facility] REPOSITORY TYPE CODE TESTS RESULT OUT OF RANGE REFERENCE UNITS LAB L503.0105 211-911 pg/mL Normal Vitamin B12 695 Performed By: #### L503.0105 #### [facility] [address] [place], [address] CREATININE FINGERSTICK Collected: 09/13/2017 Status: F Source: [place] 11:38 AM [facility] REPOSITORY TYPE CODE TESTS RESULT OUT OF RANGE REFERENCE UNITS LAB L9100.0210 0.70-1.30 mg/dL Normal CREATININE WB 0.9 LAB L9100.0220 >60 mL/min EGFR WB Normal > 60.0000 Performed By: #### L9100.0200 #### [facility] Point of Care [address] [place] [address] CT ABD/PELVIS W/WO Observed: 09/13/2017 Status: F Source: [place] CONTRAST 11:22 AM [facility] REPOSITORY [facility] Imaging Services [address] [place] [address] CT Abd/Pelvis W/WO Contrast MR#: [id number] Acct: [id number] Name: NIEVES JACKSON Rep #: [id number] : 1970 M 47 From: Erik Ramsey MD PCP: Kait Tam NP Status: REG CLI Study: CT Abd/Pelvis W/WO Contrast Date of Exam: 09/13/17 Exam# [id number] Ordering Dr: Mela Abrams NP-C STUDY: CT [...] Erik Ramsey MD at 12:44 EDT Tel [phone], Service support , CC: Kait Tam NP; SAM Abrams See Supervisor: Signed ALLERGIES ALLERGIES DATE TYPE / CODE NAME / CODE REACTION SEVERITY SOURCE 01/26/2017 Drug oxycodone BECOMES VIOLENT Unknown [place] [facility]/416 HCl/I848040469(R Hospital 896627(SNOM XNORM) Repository ED CT) 01/26/2017 Drug Penicillins/F001 Rash Unknown [place] [facility] All[facility]/416 578946(RXNORM) Hospital 889327(SNOM Repository ED CT) 01/26/2017 Drug ibuprofen/J09440 Upset Stomach Unknown [place] [facility]/416 2377(RXNORM) Hospital 163365(SNOM Repository ED CT) ENCOUNTERS ENCOUNTERS ADMIT/DISCHARGE ACCOUNT ADMITTING ENCOUNTER LOCATION SOURCE NUMBER CLASS 07/19/2018 [id number] Ambulatory [place] 3 [facility] ing:CT Repository 07/18/2018 [id number] Ambulatory [place] 5 [facility] ing:US Repository 07/15/2018 [id number] Ambulatory Building:[facility] [place] Practices Repository 03/04/2018 [id number] Ambulatory [place] 3 [facility] ing:HPRAD Repository 12/28/2017 [id number] Ambulatory [place] 7 [facility] ing:SL Repository 12/07/2017 [id number] Ambulatory [place] 1 [facility] ing:LAB Repository 09/13/2017 [id number] Ambulatory [place] 1 [facility] ing:CT Repository PAYERS PAYERS ENCOUNTER GUARANTOR PAYER SUBSCRIBER SOURCE 07/19/2018 NIEVES Fernandez Primary DANGELO D [place] [id number] S Insurance:ANTHEMPolic [facility]ERT[facility]OCKDOB: [facility] scott BRUNO Number: [id number] Memorial Hospital [address]Oje: [id number] Repository Date:8777-85-87VN [address] () [address]48[address]ATLZCTB, [place] [address]WO: 07/19/2018 Secondary NOT GIVENUNK [place] Insurance:SELF PAY [facility] Number: Effective Repository Date:2018-07-15 07/18/2018 NIEVES Fernandez Primary DANGELO D [place] [id number] Insurance:ANTHEMPolic HANCOCKDOB: [facility] scott Bruno Number: [id number] Memorial Hospital [address]Xnh: [id number] Repository Date:3600-02-03CL [address] () [address]894[address]OYDCHFP, [place] [address]TG: 07/18/2018 Secondary NOT GIVENUNK [place] Insurance:SELF PAY [facility] Number: Effective Repository Date:2018-07-15 07/15/2018 Nieves P Primary Nieves P OHIP Practices HancockDOB: Insurance:[employer] HancockDOB: Repository [facility] Number: [id number] [facility] [id number] [place], [place] Date:7579-02-04ImwbDallas, [place] [address]Jxw: (530) Name:[facility] [address] [address]Pex: [address], [place] [address] () ()Tel: [phone]: [phone] 03/04/2018 Nieves P Primary DANGELO D [place] [id number] Insurance:ANTHEMPolic HANCOCKDOB: Community [place], y Number: [id number] Memorial Hospital [address]Tav: [id number] Repository Date:5889-57-82YS [address] () [address]84[address]CWMVKQE, [place] [address]JX: 03/04/2018 Secondary NOT GIVENUNK [place] Insurance:SELF PAY [facility] Number: Effective Repository Date:2018-03-04 12/28/2017 Nieves P Primary Dangelo D [place] [id number] Insurance:ANTHEMPolic HancockDOB: Community [employer], y Number: [id number] Memorial Hospital [address]Nze: [id number] Repository Date:6480-54-71RH [address] () 992578YZSFTWZ, [place] [address]VR: 12/28/2017 Secondary NOT GIVENUNK [place] Insurance:SELF PAY [facility] Number: Effective Repository Date:2017-12-08 12/07/2017 Nieves P Primary Dangelo [address] Insurance:ANTHEMPolic ManuelDOB: [facility] Gerber Bruno, y Number: [id number] Memorial Hospital [address]Jhf: [id number] Repository Date:2362-49-27HD [address] () [address]68[address]HBYXKKO [place] [address]IY: 12/07/2017 Secondary NOT GIVENUNK [place] Insurance:SELF PAY [facility] Number: Effective Repository Date:2017-12-07 09/13/2017 Nieves Fernandez Primary Dangelo [address] Insurance:ANTHEMPolic ManuelDOB: [facility] Gerber Bruno, y Number: [id number] Memorial Hospital [address]Yzd: [id number] Repository Date:8137-07-11YJ [address] () 477[address]QBGEVNY, [place] [address]KR: 09/13/2017 Secondary NOT GIVENUNK [place] Insurance:SELF PAY [facility] Number: Effective Repository Date:2017-09-13
== END ==
PROVIDERS: Family Provider Nurse Practitioner; PCP Nurse Practitioner; Referring Provider Nurse Practitioner; Visit Provider Nurse Practitioner
DX: N20.0 Calculus of kidney (principal); R10.9 Unspecified abdominal pain
CPT/HCPCS: 74176

== ENCOUNTER → 2018-08-02 12:37 | Outpatient (CLI) | payer BC, SELFPAY ==
--- NOTE | 2018-08-02 12:39 | RAD_ITS ---
HISTORY: Kidney stone left side EXAM:Abdominal series 3 spine views COMPARISON: CT abdomen and pelvis 07/19/2018 FINDINGS: XR Abdomen [address] reviewed. By my measurement, 5 x 2 mm left UPJ level stone at the L3 level. By current KUB, no radiopaque renal or ureteral stones identified. Left upper quadrant small calcification which corresponds to a splenic artery calcification by recent CT No soft tissue mass or organomegaly. No bowel obstruction. Lumbar spine mild levorotatory scoliosis. Lower lumbar facet joint arthritis. RAD/Abdomen Single View IMPRESSION: 1. No acute disease or radiopaque urinary tract stones identified. Comment: The small left UPJ stone evident by recent CT is potentially occult by x-ray exam. Consider further correlation with renal ultrasound to exclude hydronephrosis. at 0044 Reported and signed by: Callum España MD Electronically Signed: Callum España, at 0:43 EST Tel , Service support ,
== END ==
LOC: RAD.FUTURE 12:38
PROVIDERS: Family Provider Nurse Practitioner; PCP Nurse Practitioner; Referring Provider Urology; Visit Provider Urology
DX: N20.0 Calculus of kidney (principal)
CPT/HCPCS: 74018

== ENCOUNTER 2018-08-10 11:31 | Day surgery (SDC) | payer BC, SELFPAY ==
--- NOTE | 2018-08-09 17:20 | HP.PCM_ITS ---
History and Physical Date of Admission: 08/10/18 I have kidney stones. 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 The problem is on the left side. He first noticed the symptoms 4 weeks ago. Pain is occuring on the left side. The intensity of his pain is rated as a 8. This is not his first kidney stone. He has had more than 5 stones prior to getting this one. He is currently having flank pain and back pain. He denies having groin pain, nausea, vomiting, fever, and chills. Solitary stone. The stone is obstructing The kidney.. 5mm mm. The stone is in the upj of the kidney. The stone is > 10 cm from the skin. KUB still with stone. 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, left side with residual nerve dmamge NON- PSH: Colonoscopy Knee Surgery (Unspecified), Left - 2006, Left - 1985 Pancreas Surgery (Unspecified) - 2005 Patient not documented to have received pneumococcal vaccination Sinus Surgery - 1989 Tonsillectomy PMH: Gross hematuria - 07/19/2018 Calculus of kidney - 2014, - 2014 Urgency of urination - 2012 Urinary calculus, unspecified - 2012 NON- PMH: Essential (primary) hypertension Gastro-esophageal reflux disease without esophagitis Headache Obesity, unspecified Other depressive episodes Sleep apnea, unspecified Type 2 diabetes mellitus without complications Immunizations: None FAMILY HISTORY: Arthritis - Mother Diabetes II - Runs in Family High Blood Pressure - Runs in Family SOCIAL HISTORY: Marital Status: Preferred Language: [place]an; Ethnicity: Not Or ; Race: White Current Smoking Status: Patient smokes. Has smoked since 06/28/1997. Smokes 1 pack per day. Smoking cessation counseling was provided. Does not use smokeless tobacco. Does not drink anymore. Does not use drugs. Drinks 2 caffeinated drinks per day. Has not had a blood transfusion. REVIEW OF SYSTEMS: Constitutional: Patient reports fever and chills. Patient denies weight loss and weight gain. Ears, Nose, Mouth, Throat: Patient reports sleep apnea. Patient denies hearing loss, sinus infections, and nasal stuffiness. Cardiovascular: Patient reports swollen ankles. Patient denies chest pains, irregular heartbeat, and pacemaker/defibrillator. Respiratory: BiPAP. Patient denies shortness of breath, wheezing, use oxygen, cpap at night., and copd. Gastrointestinal: constipation, diarrhea. Patient reports abdominal pain and nausea/vomiting. Patient denies change in bowels. Genitourinary: Get up at night to void, Hx of stones. Patient reports blood in urine. Patient denies incontinence and painful urination. Musculoskeletal: Patient reports sore muscles and back pain. Patient denies gout and arthritis. Integumentary/Skin: Patient denies rash, persistent itching, and skin cancer history. Hematologic/Lymphatic: Patient denies swollen glands, abnormal bleeding, transfusion history, and blood clots/dvt/pulmonary embolism. Notes: Reviewed previous review of systems 07/19/2018. No changes. VITAL SIGNS: 08/02/2018 01:09 PM Weight 352 lb / 159.66 kg Height 73 in / 185.42 cm BP 150/98 mmHg BMI 46.4 kg/m? - BMI Counseling was provided. MULTI-SYSTEM PHYSICAL EXAMINATION: Constitutional: Obese. No physical deformities. Normally developed. Good grooming. Neck: Neck symmetrical, not swollen. Normal tracheal position. Respiratory: No labored breathing, no use of accessory muscles. Cardiovascular: Normal temperature, normal extremity pulses, no swelling, no varicosities. Skin: No paleness, no jaundice, no cyanosis. No lesion, no ulcer, no rash. Neurologic / Psychiatric: Oriented to time, oriented to place, oriented to person. No depression, no anxiety, no agitation. Gastrointestinal: Obese abdomen. No mass, no tenderness, no rigidity. Eyes: Normal conjunctivae. Normal eyelids. Musculoskeletal: Normal gait and station of head and neck. PAST DATA REVIEWED: Source Of History: Patient PROCEDURES: Urinalysis - [address]23 Dipstick Dipstick Cont'd Specimen: Voided Blood: about 250 Appearance: Clear pH: 5.0 Color: Yellow Protein: Neg Glucose: 100 Urobilinogen: Neg Bilirubin: Neg Nitrites: Neg Ketones: Neg Leukocyte Esterase: Neg ASSESSMENT: ICD-10 Details 1 : Calculus of kidney - N20.0 Left PLAN: Document Letter(s): Created for Patient: Clinical Summary Notes: still has not passed stone on KUB can see stone 5mm in left UPJ plan for left ESWL.
--- NOTE | 2018-08-10 | CALC_PTH ---
PATIENT: NIEVES PAINTING LOC: [facility] [place] U#:[id number] AGE/SX: 48/M ROOM: RE08/10/[address]: Dr. Hong Petty MD : 1970 BED: DIS: 08/10/2018 SPEC #: [id number] RECD: 08/10/18 15:24 STATUS: NATALIIA REBECCA #: [id number] LYN: 08/10/18 00:[address]: Hong Petty DEPT: SURGICAL PATHOLOGY RECD BY: Aaron Christie ENTERED: 08/11/18 07:52 SP TYPE: Calculi OTHR DR: Kait Tam, DENTAL APPLIANCE MECHANIC-C Tissues: CALCULI Procedures: Surgery Specimen Level I HEADER OPERATION: Cystoscopy, left ureteroscopy, balloon dilation, basket extraction PRE-OP DIAGNOSIS: Left ureteral stone TISSUE SUBMITTED: Left ureteral calculus GROSS DIAGNOSIS A fragment of stone, clinically left ureteral calculus, submitted for analysis. SJ:florentino 08/11/18 COMMENT The calculus is submitted in its entirety for chemical stone analysis. The results from this study will be reported separately. GROSS DESCRIPTION Received in fixative is one container labeled with the patient's name and designated left ureteral calculus. The specimen consists of a fragment of yellowish-orange stone measuring 0.7 x 0.3 x 0.3 cm. The entire specimen is submitted for stone analysis. / YVON:florentino 08/11/18 CPT: 84065
[2018-08-10 12:06] VITALS: BP 140/76; PULSE 89; RESP 18; TEMP 36.5; O2SAT 94; BMI 46.5
[2018-08-10 12:30] LABS: Bedside Glucose 111 mg/dL (70-110)
--- NOTE | 2018-08-10 14:14 | DCINST_ITS ---
Discharge Diet: Light diet - advance as tolerated Discharge Activity: Return to Normal Activity Call your doctor if your incision/area has: Continuous Slow Oozing, Sudden Increased Bleeding, Increased Pain/ Swelling, Increased Redness, Foul Smelling Discharge, Swelling at the incision site Suture Line Care: Avoid Pulling/Pushing, Avoid Pinching/Bending Instructions: Shock Wave Lithotripsy Allergies/Adverse Reactions: Allergies Penicillins Allergy (Verified 01/26/17 09:05) Rash ibuprofen Adverse Reaction (Verified 01/26/17 09:05) Upset Stomach oxycodone HCl [From Percocet] Adverse Reaction (Verified 01/26/17 09:05) BECOMES VIOLENT Medications to take at Discharge Omeprazole [Prilosec] 20 mg PO DAILY 09/25/14 Losartan Potassium [Cozaar] 50 mg PO DAILY 05/01/15 Tamsulosin HCl [Flomax] 0.4 mg PO DAILY 14 Days capsule 01/26/17 Amitriptyline HCl [Elavil] 25 mg PO QHS 08/04/18 L.acid/L.casei/B.bif/B.nicole/Fos [Probiotic Blend Capsule] 1 each PO DAILY 08/04/18 Metformin HCl [Metformin ER Osmotic] 1,000 mg PO BID 08/04/18 Rosuvastatin Calcium [Crestor] 10 mg PO QHS 08/04/18 Primary Care Physician: Kait aTm NP-C [Primary Care Provider] - Test Results: Test results from this visit will be discussed in further detail at your follow- up appointment, if applicable. Please Follow Up With: Hong Petty MD When: in 2 weeks, please call to make an appointment.
[2018-08-10] MEDS: Cefazolin 2 GM in 0.9% Normal Saline 100 ML IV (14:24)
--- NOTE | 2018-08-10 14:59 | OP.PCM_ITS ---
Report of Operation Date of Procedure: 08/10/18 Pre-Operative Diagnosis: Left ureteral calculi Post-Operative Diagnosis: Same Surgery/Procedure Performed:: Cystoscopy, balloon dilation of the left ureter, manipulation of stone, left ureteroscopy and basket extraction, no stent Description of Surgical Findings:: 48-year-old male with a kidney stone is been trying passes all me in the office a few weeks ago and not been able to pass it so he followed up with an x-ray without perhaps he saw the stone in the In the kidney comes into the operating room today for you for treatment of the stone. 48-year-old male was put in the supine on the lithotripter table we spent some time looking in the kidney and UPJ area could not really find a calcification that was satisfactory to our findings the convinced we had a stone so therefore the patient was placed in dorsolithotomy position the penis and testicles were prepped and draped in usual sterile fashion went into the bladder with a 21 [place] rigid cystourethroscope I cannulated the left ureteral orifice with a Glidewire and a balloon dilator balloon dilated the the left ureter at the wire in place went in with a flexible ureteroscope was able to get into the ureter and then in the distal ureter identified a stone on ureteroscopy pulled the wire used the basket was able to basket the fragment completely and then could remove the basket fragment intact and manipulated the stone down to the UVJ junction after completing the procedure patient anesthetic was reversed plan to see him in the office in a few weeks for checkup no stent was placed and no shockwave was done. Type of Anesthesia:: General - Admit VTE Documentation VTE Present on Admission: No VTE Mechan Device Prophylaxis: SCD's
[2018-08-10 15:07] VITALS: BP 116/77; BP 140/76; PULSE 91; RESP 16; TEMP 36.6; O2SAT 94
[2018-08-10 15:15] VITALS: BP 132/82; BP 140/76; PULSE 86; RESP 18; O2SAT 92
[2018-08-10 15:30] VITALS: BP 140/76; BP 152/84; PULSE 84; RESP 18; O2SAT 92
[2018-08-10 15:52] VITALS: BP 135/78; BP 140/76; PULSE 81; RESP 18; TEMP 36.4; O2SAT 94
[2018-08-10 16:11] LABS: Bedside Glucose 113 mg/dL (70-110)
[2018-08-10 17:00] VITALS: BP 140/76; BP 147/77; PULSE 86; RESP 16; TEMP 36.9; O2SAT 93
[2018-08-17 10:28] LABS: Ca Oxalate, Monohydrate 50 % (.); Size 6x4x2 mm (.); Uric Acid 43 % (.)
== END 2018-08-10 17:05 | disposition home or self-care (01) ==
LOC: SDC 11:32 → AC 11:34
PROVIDERS: Family Provider Nurse Practitioner; PCP Nurse Practitioner; Referring Provider Urology; Visit Provider Urology
PROC: (CPT 52352; principal; 2018-08-10 13:35)
DX: N20.1 Calculus of ureter (principal); I10 Essential (primary) hypertension; K21.9 Gastro-esophageal reflux disease without esophagitis; E66.9 Obesity, unspecified; G47.30 Sleep apnea, unspecified; E11.9 Type 2 diabetes mellitus without complications; F17.200 Nicotine dependence, unspecified, uncomplicated; Z68.42 Body mass index [BMI] 45.0-49.9, adult; E78.00 Pure hypercholesterolemia, unspecified; F41.9 Anxiety disorder, unspecified; F32.9 Major depressive disorder, single episode, unspecified; Z87.442 Personal history of urinary calculi; Z79.84 Long term (current) use of oral hypoglycemic drugs; Z79.891 Long term (current) use of opiate analgesic; Z79.899 Other long term (current) drug therapy
CPT/HCPCS: 52352; 82360; 82962; 88300; J7120; C1769; J2405

== ENCOUNTER → 2019-01-26 | Outpatient (CLI) | payer BC, SELFPAY ==
[2019-01-26 10:39] LABS: Hematocrit 46.6 % (40-54); Hemoglobin 15.9 g/dL (13.0-16.5); Mean Corp Hgb Conc 34.1 g/dL (32-36); Mean Corpuscular Hgb 30.9 pg (27.0-32.0); Mean Corpuscular Volume 90.5 fL (80-94); Mean Platelet Vol. 10.8 fl (6.2-12.0); Platelet Count 228 K/mm3 (150-450); RBC Distribution Width CV 13.4 % (11.6-14.6); RBC Distribution Width SD 44.5 fl (35.1-43.9); Red Blood Count 5.15 M/mm3 (4.6-6.2); White Blood Count 10.3 K/mm3 (4.4-11.0)
[2019-01-26 10:52] LABS: ALB/GLOB Ratio 1.3 RATIO (0.9-2.4); AST(SGOT) 25 U/L (15-37); Alanine Aminotransfer ALT/SGPT 45 U/L (16-61); Albumin, Serum 3.8 g/dL (3.2-5.0); Alkaline Phosphatase 84 U/L (45-117); Amylase 46 U/L (25-115); Anion Gap 9 (5-15); BUN 11 mg/dL (7-18); BUN/Creat Ratio 11.7 RATIO (10-20); Calcium,Total 8.7 mg/dL (8.5-10.1); Chloride 102 mmol/L (98-107); Creatinine, Serum 0.94 mg/dL (0.70-1.30); EST Glomerular Filtration Rate 90 mL/min (>60); Erythrocyte Sedimentation Rate 12 mm/hr (0-15); Est Glom Filt Rate - Afr Amer 109 mL/min (>60); Glucose 146 mg/dL (74-106); Lipase 179 U/L (73-393); Potassium 4.3 mmol/L (3.5-5.1); Protein, Total 6.8 g/dL (6.4-8.2); Sodium Level 140 mmol/L (136-145)
--- NOTE | 2019-01-26 14:30 | US_ITS ---
STUDY: ABDOMINAL ULTRASOUND - RIGHT UPPER QUADRANT REASON FOR VISIT: Male, 48 years old. Epigastric pain TECHNIQUE: Ultrasound evaluation of the right upper quadrant was performed with real-time and static faustin-scale imaging. TECHNICAL QUALITY: Limited by large body habitus and bowel gas. Prior abdomen and pelvic CT exam of July 19, 2018 COMPARISON: None. FINDINGS: Liver: The liver measures 20.5 cm. There is increased echogenicity consistent with fatty infiltration. The bile ducts are within normal limits. There is hepatic color flow. The direction of portal flow is hepatopetal. There is no demonstrated mass lesion. Focal fatty spearing of the liver parenchyma around the gallbladder fossa. Gallbladder: Normal distended gallbladder. The gallbladder wall measures 2.6 mm. There is a negative sonographic Catalan's sign. There is no pericholecystic fluid. There are no gallstones. Common Bile Duct (C.B.D.): The common bile duct measures 3.2 mm. Pancreas: Normal size of the head, body and tail of the pancreas. There is increased echogenicity of the pancreas. There is no demonstrated pancreatic mass or cyst. Right Kidney: Normal size of the right kidney. The right kidney measures 12.5 x 7.2 x 4.7 cm. Normal renal cortex. The right cortex measures 1.5 cm. There is no demonstrated renal mass or cyst. There is no right hydronephrosis. US/Abdomen Limited IMPRESSION: Fatty hepatomegaly. Normal gallbladder and nondistended common bile duct. Normal pancreas. Normal right kidney. Electronically Signed: Malena Raymond MD at 16:15 EDT , Service support ,
== END | disposition home or self-care (01) ==
LOC: US 14:29
PROVIDERS: Family Provider Nurse Practitioner; PCP Nurse Practitioner; Referring Provider Internal Medicine; Visit Provider Internal Medicine
DX: R10.13 Epigastric pain (principal)
CPT/HCPCS: 76705; 80053; 82150; 83690; 85027; 85652; 86140

== ENCOUNTER → 2019-06-30 14:29 | Outpatient (CLI) | payer BC, SELFPAY | PROVIDERS: Family Provider Nurse Practitioner; PCP Nurse Practitioner; Referring Provider Nurse Practitioner Gerontology; Visit Provider Nurse Practitioner Gerontology | DX: R19.7 Diarrhea, unspecified (principal) | CPT/HCPCS: 82274; 83630; 87177; 87209; 87493; 87506 ==

== ENCOUNTER → 2019-07-13 07:55 | Outpatient (CLI) | payer BC, SELFPAY ==
--- NOTE | 2019-07-13 08:00 | US_ITS ---
STUDY: ABDOMINAL ULTRASOUND - RIGHT UPPER QUADRANT REASON FOR VISIT: Male, 49 years old RUQ PAIN 1 MONTH TECHNIQUE: Ultrasound evaluation of the right upper quadrant was performed with real-time and static faustin-scale imaging. TECHNICAL QUALITY: Limited. Examination limited due to obesity. COMPARISON: Comparison is made with prior study dated January 26, 2019. FINDINGS: Liver: The liver is enlarged and measures 20.5 cm. There is increased echogenicity consistent with fatty infiltration. The bile ducts are within normal limits. There is hepatic color flow. The direction of portal flow is hepatopetal. There is no demonstrated mass lesion. Gallbladder: Normal distended gallbladder. The gallbladder wall measures 2.8 mm. There is a negative sonographic Catalan''s sign. There is no pericholecystic fluid. There are no gallstones. Common Bile Duct (C.B.D.): The common bile duct measures 5.0 mm. Pancreas: Normal size of the head, body and tail of the pancreas. There is normal echogenicity of the pancreas. There is no demonstrated pancreatic mass or cyst. Right Kidney: Normal size of the right kidney. The right kidney measures 14.4 cm x 6.9 cm x 4.8 cm. Normal renal cortex. The right cortex measures 1.7 cm. There is no demonstrated renal mass or cyst. There is no right hydronephrosis. US/Gallbladder IMPRESSION: Mild hepatomegaly and fatty infiltration of the liver. Electronically Signed: Erik Ramsey, at 14:44 EST , Service support ,
== END ==
PROVIDERS: Family Provider Nurse Practitioner; PCP Nurse Practitioner; Referring Provider Nurse Practitioner; Visit Provider Nurse Practitioner
DX: R10.11 Right upper quadrant pain (principal)
CPT/HCPCS: 76705

== ENCOUNTER 2019-07-29 09:16 | Emergency (ER) | payer BC, SELFPAY ==
[2019-07-29 09:17] VITALS: BP 197/103; PULSE 108; RESP 17; TEMP 36.8; O2SAT 96; BMI 44.1
--- NOTE | 2019-07-29 09:30 | CT_ITS ---
STUDY: CT ABDOMEN AND PELVIS WITHOUT CONTRAST REASON FOR EXAM: Male, 49 years old. LT FLANK PAIN, HX-KS, HTN,GERD RADIATION DOSAGE (If Supplied By Facility): CTDIvol = ( 24.18 ) mGy, DLP = ( 1316.88 ) mGycm TECHNIQUE: Transaxial images were obtained from the dome of the diaphragm to the symphysis pubis without oral contrast, and without intravenous contrast. Sagittal and coronal images were reconstructed. Individualized dose optimization techniques were used for this CT. COMPARISON: None. FINDINGS: The visualized lung bases are unremarkable. The visualized portions of the heart are within normal limits. Normal liver. Normal gallbladder and extrahepatic biliary system. Normal spleen. Normal pancreas. Normal bilateral adrenal glands. Punctate nonobstructing right mid pole stone measuring 6 mm. Mild left hydronephrosis with left hydroureter. Stone in the distal left ureter measuring 5.7 mm. Mild left perinephric fat stranding and edema. Normal visualized stomach. Normal small intestine. Normal colon. The appendix is visualized and appears normal. Normal abdominal aorta. Normal inferior vena cava. Normal retroperitoneum. Normal urinary bladder. Normal visualized prostate gland. Normal abdominal wall. Normal osseous structures. CT/Abdomen/Pelvis without Cont IMPRESSION: Left mild hydronephrosis and left hydroureter with a stone in the distal left ureter as above. Nonobstructing right nephrolith. Electronically Signed: Gregorio Merrill DO at 11:20 EST Tel , Service support ,
--- NOTE | 2019-07-29 09:33 | ED.DCSUM_ITS ---
History of Present Illness Informant: Patient - Abdominal Pain/Flank Pain Onset: Today Context: Sudden Onset Timing: Intermittent Quality: Sharp, Stabbing Location: Left Flank Current Severity: Severe Maximum Severity: Severe Worsened by: Nothing Relieved by: Remaining Still - Nausea/Vomiting/Emesis GI Symptom: Nausea. Negative for: Vomiting - Diarrhea/Melena/Hematochezia GI Symptom: Negative for: Diarrhea, Melena, Hematochezia Associated Symptoms: Negative for: Dysuria, Frequency, Hematuria, Urgency Narrative: [age]-year-old male presents to the emergency department with left flank pain. He woke up with this pain suddenly about 2.5 hours ago. It is sharp stabbing and intermittent. He has a history of kidney stones and this feels similar. No difficulty urinating. No hematuria. No urinary frequency or urgency. No back pain. No vomiting or diarrhea. No melena or hematochezia. No chest pain or shortness of breath. He does not have any pain radiating to his lower extremities. He has urinated normally today. Last kidney stone was about a year ago which required surgical removal. Prior similar symptoms: Yes Recent Illness/Hospitalization: No <Michael Burgess - Last Filed: 07/29/19 11:56> <Trenton Dillon - Last Filed: 07/29/19 12:25> Chief Complaint: Flank Pain Past Medical History Prior records reviewed: Yes Past Medical History: - - HTN, T2DM Surgical History: arthroscopy, knee, - - Removal of kidney stones Lives: With Family Smoking Status: Current every day smoker Alcohol: Occasional Drugs: None <Michael Burgess - Last Filed: 07/29/19 11:56> <Trenton Dillon - Last Filed: 07/29/19 12:25> - Allergies and Home Meds Allergies/Adverse Reactions: Allergies Penicillins Allergy (Verified 07/29/19 09:17) Rash ibuprofen Adverse Reaction (Verified 07/29/19 09:17) Upset Stomach oxycodone HCl [From Percocet] Adverse Reaction (Verified 07/29/19 09:17) BECOMES VIOLENT Primary Care Physician: Hong Petty MD [STAFF PHYSICIAN] - Kait Tam NP-C [Primary Care Provider] - Review of Systems All systems negative except as indicated General: Denies: Chills, Fever Eyes: Denies: Visual changes - bilaterally, Blurred Vision - bilaterally, Diplopia ENT: Denies: Rhinorrhea, Sore throat Cardiovascular: Denies: Chest pain, Palpitations, Heart racing Respiratory: Denies: Dyspnea, Cough, Dyspnea on exertion Gastrointestinal: Reports: Abdominal pain. Denies: Nausea, Vomiting, Diarrhea, Constipation, Melena, Hematochezia Genitourinary: Denies: Dysuria, Hematuria, Frequency Musculoskeletal: Denies: Neck pain, Back pain, Extremity Pain Skin: Denies: Rash, Abrasions, Wounds Neurological: Denies: Weakness, Parasthesia, Numbness Hematologic: Denies: Easy bruising, Easy bleeding <Michael Burgess - Last Filed: 07/29/19 11:56> Physical Exam Vital Signs/Narrative: Vital Signs Temp Pulse Resp BP Pulse Ox 07/29/19 09:17 98.3 F 108 H 17 197/103 H 96 Inital Vital Signs reviewed: Yes General: Well nourished, Well developed, Obese Head: Normocephalic, Atraumatic Eyes: Perrl, EOMI ENT: Moist mucous membranes, No rhinorrhea Neck: Supple, Nontender Cardiovascular: Regular rate, Regular rhythm, No murmurs Respiratory: No distress, CTA bilaterally, Chest nontender Abdomen: Soft, Nontender, Nondistended, Normal bowel sounds, No masses Back: Nontender, Normal Inspection. Negative for: CVA tenderness, Spinal tenderness Extremities: Nontender, No edema Skin: Normal color, No rash, No Trauma Neurological: Alert, Oriented x3, Normal Gait Psychological: Normal affect <Michael Burgess - Last Filed: 07/29/19 11:56> Vital Signs/Narrative: Vital Signs Temp Pulse Resp BP Pulse Ox 07/29/19 12:13 102 H 16 97 07/29/19 09:17 98.3 F 108 H 17 197/103 H 96 <Trenton Dillon - Last Filed: 07/29/19 12:25> Diagnostic/Tx/Re-eval CT: Flank - Medical Decision Making Patient was treated with IV fluids, IV Toradol and IV Zofran. CBC, BMP both unremarkable. Urinalysis shows greater than 100 red blood cells, no white blood cells, and positive nitrates. CT scan abdomen pelvis without contrast reveals a 5.7 mm distal left ureteral stone with moderate hydronephrosis and hydroureter. Repeat exam, the patient is not having any significant pain he does not require further analgesia. Repeat abdominal exam is soft and nontender. He is able to tolerate by mouth. At this time we will discharge him home to follow-up with his urologist as an outpatient. A urine culture will be sent but at this time he does not require antibiotics. He is agreeable with our plan we discussed return precautions and he will call Wednesday to see his urologist. <Michael Burgess - Last Filed: 07/29/19 11:56> - Medical Decision Making Seen and evaluated independently and in conjunction with physician assistant professor of psychology. Agree with notes above unless documented otherwise. Patient is well-appearing, we did a CT because he has had multiple stones in the past, no recent CT, and has had surgical removal of several. It is 5.7 mm. His symptoms are well controlled, he has no symptoms of infection, I suspect his feeling like he needed to urinate frequently was probably because the stone is at the UVJ. Nitrite is present on the urinalysis, but no pyuria. I do not think he needs antibiotics for that since he is not septic and doing well clinically, we will send for culture and he can follow-up with urology if he is unable to pass the stone on his own. We discussed reasons to return. He is comfortable with that plan and symptomatic treatment. <Trenton Dillon - Last Filed: 07/29/19 12:25> ED Disposition <Michael Burgess - Last Filed: 07/29/19 11:56> <Trenton Dillon - Last Filed: 07/29/19 12:25> - Plan for ED Patient: Disposition: Home or Assisted Living Diagnosis: Ureterolithiasis Instructions: KIDNEY STONE w/ Colic Prescriptions: Tamsulosin HCl [Flomax] 0.4 mg PO DAILY #7 cap Prescription Printed Hydrocodone Bitart/Apap 5-325 [[place] 5MG-325MG] 1 tab PO Q6H PRN PRN 3 Days #10 tab PRN Reason: Pain Prescription Printed Referrals: Kait Tam NP-C [Primary Care Provider] - Hong Petty MD [STAFF PHYSICIAN] -
[2019-07-29] MEDS: Ketorolac 30 MG/ML Syringe IV (09:51)
[2019-07-29] MEDS: Ondansetron 4 MG/2 ML Vial IV (09:51)
[2019-07-29] MEDS: 0.9% Normal Saline 1,000 ML 250 ML IV (09:52)
[2019-07-29 09:54] LABS: Bacteria 0 SEEN /hpf (None Seen); Mucous, Urine 0 SEEN /hpf (<or=2+); Squamous Epithelial Cells - UA 0 SEEN /hpf (0-5); White Blood Cells 0 SEEN /hpf (0-5)
[2019-07-29 10:01] LABS: Absolute Lymphocyte Count 1.46 X10^3/uL (0.83-4.51); Basophil# 0.04 X10^3/uL; Basophil% 0.4 % (0-1); Eosinophil# 0.12 X10^3/uL; Eosinophils% 1.1 % (0-5); Hematocrit 48.9 % (40-54); Hemoglobin 16.1 g/dL (13.0-16.5); Lymphocyte # 1.46 X10^3/ul (4.0); Lymphocyte % 13.9 % (19-41); Mean Corp Hgb Conc 32.9 g/dL (32-36); Mean Corpuscular Hgb 29.5 pg (27.0-32.0); Mean Corpuscular Volume 89.7 fL (80-94); Mean Platelet Vol. 10.6 fl (6.2-12.0); Monocyte# 0.72 X10^3/uL; Monocyte% 6.9 % (0-10); NRBC Flagged by Analyzer 0 % (0-5); Neutrophil # 8.04 X10^3/uL (2.7-7.7); Neutrophil % 76.8 % (47-70); Platelet Count 248 K/mm3 (150-450); RBC Distribution Width CV 13.5 % (11.6-14.6); RBC Distribution Width SD 43.5 fl (35.1-43.9); Red Blood Count 5.45 M/mm3 (4.6-6.2); White Blood Count 10.5 K/mm3 (4.4-11.0)
[2019-07-29 10:02] LABS: Color, Urine Amber (Yellow); Glucose, Dipstick 50 mg/dl (Normal); Ketone-Dipstick 5 mg/dl (Negative); Leukocyte Esterase-Dipstick 25 /ul (Negative); Nitrite-Dipstick Positive (Negative); Occult Blood-Urine 250 /ul (Negative); Protein-Dipstick 30 mg/dl (Negative); Specific Gravity, Urine 1.025 (1.002-1.030); Urine Bilirubin Dipstick Negative (Negative); Urine Clarity Cloudy (Clear); Urine Urobilinogen 1 mg/dl (Normal)
[2019-07-29 10:09] LABS: Red Blood Cells-Urine > 100 SEEN /hpf (0-5)
[2019-07-29 10:13] LABS: Anion Gap 5 (5-15); BUN 12 mg/dL (7-18); BUN/Creat Ratio 9.5 RATIO (10-20); Calcium,Total 9.2 mg/dL (8.5-10.1); Chloride 107 mmol/L (98-107); Creatinine, Serum 1.26 mg/dL (0.70-1.30); EST Glomerular Filtration Rate 64 mL/min (>60); Est Glom Filt Rate - Afr Amer 78 mL/min (>60); Estimated Creatinine Clearance 79.27 ml/min; Glucose 181 mg/dL (74-106); Potassium 3.9 mmol/L (3.5-5.1); Sodium Level 139 mmol/L (136-145)
[2019-07-29 12:13] VITALS: PULSE 102; RESP 16; O2SAT 97
== END 2019-07-29 12:16 | disposition home or self-care (01) ==
PROVIDERS: Emergency Provider Physician Assistant Medical; PCP Nurse Practitioner; Referring Provider Nurse Practitioner
DX: N13.2 Hydronephrosis with renal and ureteral calculous obstruction (principal); I10 Essential (primary) hypertension; E11.9 Type 2 diabetes mellitus without complications; E66.9 Obesity, unspecified; F17.200 Nicotine dependence, unspecified, uncomplicated; Z68.41 Body mass index [BMI] 40.0-44.9, adult; Z79.84 Long term (current) use of oral hypoglycemic drugs; Z87.442 Personal history of urinary calculi
CPT/HCPCS: 74176; 80048; 81001; 85025; 96361; 96374; 96375; 99283; J7030; A4216; J2405

== ENCOUNTER → 2019-12-28 11:56 | Outpatient (CLI) | payer BC, SELFPAY ==
--- NOTE | 2019-12-28 12:05 | CT_ITS ---
STUDY: CT ABDOMEN AND PELVIS WITHOUT CONTRAST REASON FOR EXAM: Male, 49 years old. PT STATED BILATERAL FLANK PAIN, HX OF STONES RADIATION DOSAGE (If Supplied By Facility): CTDIvol = ( 24.18 ) mGy, DLP = ( 1486.12 ) mGycm TECHNIQUE: Transaxial images were obtained from the dome of the diaphragm to the symphysis pubis without oral contrast, and without intravenous contrast. Sagittal and coronal images were reconstructed. Individualized dose optimization techniques were used for this CT. COMPARISON: Comparison is made with prior study dated July 29, 2019. FINDINGS: Stable mild increased markings in the medial aspect of the right middle lobe suggestive of scarring. Coronary artery calcification. There is decreased attenuation of the liver consistent with steatosis. Hepatomegaly. Normal gallbladder and extrahepatic biliary system. Normal spleen. Normal pancreas. Normal bilateral adrenal glands. There is a 8 mm calculus in the right renal pelvis. Normal left kidney. There is a small hiatal hernia. Normal small intestine. Normal colon. The appendix is visualized and appears normal. Normal abdominal aorta. Normal inferior vena cava. There is borderline retroperitoneal lymphadenopathy with enlarged nodes no greater than 10mm in the short axis diameter. Normal urinary bladder. There are prostatic calcifications. Normal abdominal wall. There are mild degenerative changes of the visualized lumbar spine. CT/Abdomen/Pelvis without Cont IMPRESSION: 8mm calculus in the right renal pelvis. Fatty infiltration of the liver. Electronically Signed: Erik Ramsey, at 12:42 EDT , Service support ,
== END ==
PROVIDERS: PCP Nurse Practitioner; Referring Provider Nurse Practitioner Adult Health; Visit Provider Nurse Practitioner Adult Health
DX: N20.9 Urinary calculus, unspecified (principal)
CPT/HCPCS: 74176

== ENCOUNTER 2020-01-05 05:15 | Day surgery (SDC) | payer BC, SELFPAY ==
[2020-01-05] VITALS (7 sets, daily range): BP systolic 151–178; BP diastolic 82–109; PULSE 89–108; RESP 16–18; TEMP 36.1–36.8; O2SAT 93–98; BMI 45.3
--- NOTE | 2020-01-05 05:18 | RAD_ITS ---
STUDY: X-RAY - ABDOMEN/PELVIS REASON FOR EXAM: Male, 49 years old. Right sided kidney stone, surgery later today. TECHNIQUE: Single AP view of the abdomen / pelvis. COMPARISON: Comparison is made with prior study dated August 02, 2018. FINDINGS: Normal visualized lung bases. There is a moderate amount of colonic fecal material. The visualized liver, spleen and kidneys are grossly normal in size and morphology. Normal soft tissue structures. Normal visualized osseous structures. RAD/Abdomen Single View IMPRESSION: Moderate amount of fecal material is seen in the colon. Electronically Signed: Erik Ramsey, at 9:48 EDT , Service support ,
[2020-01-05 06:50] LABS: Bedside Glucose 154 mg/dL (70-110)
[2020-01-05] MEDS: Lactated Ringers 1,000 ML 100 ML IV (06:58)
--- NOTE | 2020-01-05 07:41 | PCM.HP.STD ---
Problem List (1) Right renal stone Status: Acute History of Present Illness Date of Admission: 01/05/20 Chief Complaint: Right renal calculi The patient is a 49 year old male with a stone 8 mm in size in the right renal pelvis causing intermittent obstruction and pain today with an plan to proceed with right shockwave lithotripsy. Past Medical History Allergies Penicillins Allergy (Verified 01/05/20 06:25) Rash ibuprofen Adverse Reaction (Verified 01/05/20 06:25) Upset Stomach oxycodone HCl [From Percocet] Adverse Reaction (Verified 01/05/20 06:25) BECOMES VIOLENT Home Medications: Ambulatory Orders Medication Instructions Recorded Omeprazole [Prilosec] 20 mg PO DAILY 09/25/14 Losartan Potassium [Cozaar] 50 mg PO DAILY 05/01/15 Amitriptyline HCl [Elavil] 50 mg PO QHS 08/04/18 Metformin HCl [Metformin ER 1,000 mg PO BID 08/04/18 Osmotic] Ascorbic Acid [Vitamin C] 1,000 mg PO DAILY 01/01/20 Cholecalciferol (VIT D3) [Vitamin 1,000 unit PO DAILY 01/01/20 D] L.acidoph,Paracasei, B.lactis 1 ea PO DAILY 01/01/20 [Probiotic] Hydrocodone/Acetaminophen 1 ea PO Q6H PRN PRN 01/05/20 [Hydrocodon-Acetaminophen 5-325] Surgical History: arthroscopy, knee, - - Removal of kidney stones Smoking Status: Current every day smoker Tobacco Use: Cigarettes Review of Systems Constitutional: Denies: Chills, Fever, Weight Change HEENT: Denies: Head Aches, Sinus Congestion, Sinus Drainage Cardiovascular: Denies: Chest Pain, Palpitations Respiratory: Denies: Cough, Shortness of breath at rest, Sputum production Gastrointestinal: Denies: Abdominal Pain, Nausea, Vomiting Genitourinary: Denies: Dysuria Musculoskeletal: Denies: Joint Pain, Joint Tenderness Skin: Denies: Rash, Wounds Neurological: Denies: Numbness, Tingling, Focal weakness Psychiatric: Denies: Anxiety, Depression, Homicidal Ideations, Suicidal Ideations Hematologic/ Lymphatic: Denies: Easy Bruising, Easy Bleeding VTE Information - Inpt Only VTE Present on Admission: No VTE Mechan Device Prophylaxis: SCD's Patient Problems: Active and Suspected Problems Right renal stone (Acute) - Physical Exam Vitals/I&O's: Vital Signs Temp Pulse Resp BP Pulse Ox 97.8 F 89 18 151/82 H 98 01/05/20 06:30 01/05/20 06:30 01/05/20 06:30 01/05/20 06:30 01/05/20 06:30 Oxygen Delivery Method Room Air Weight: 155.7 kg Body Mass Index (BMI) 45.3 Finger Stick Blood Glucose 113 General: Alert, Oriented x3, Cooperative HEENT: Atraumatic, PERRLA, EOMI, Normocephalic Neck: Supple, No JVD, Negative Carotid Bruits Lungs: Clear to auscultation, Normal air movement Cardiovascular: Regular rate, No murmurs Abdomen: Bowel Sounds Present, Soft, Non Tender Extremities: No edema, Capillary Refill Less than 3 Seconds Skin: No rashes, No breakdown Musculoskeletal: No Tenderness to Palpation of Joints or Extremities Neurological: Cranial nerves II-XII grossly intact Psych/Mental Status: Normal Affect, Appropriate Laboratory Results 01/02/20 10:20: COVID-19 (GUY) Not Detected 01/05/20 06:36: POC Glucose 154 H Current Medications Cefazolin Sodium 2 gm/ Sodium (Chloride) 110 mls @ 150 mls/hr IV PREOP ONE Stop: 01/05/20 08:03 Lactated Ringer's () 1,000 mls @ 100 mls/hr IV .Q10H DEANDRA Last Admin: 01/05/20 06:58 Dose: 100 mls/hr Documented by: Assessment/Plan All Active Problems Right renal stone (Acute) Plan to proceed with right shockwave lithotripsy, the patient does not want a stent he understands there was a rare chance that could develop Steinstrasse or severe pain with passing of fragments. plan to proceed with shockwave lithotripsy.
--- NOTE | 2020-01-05 07:44 | DCINST_ITS ---
Discharge Diet: Light diet - advance as tolerated Discharge Activity: Return to Normal Activity Instructions: Shock Wave Lithotripsy Allergies/Adverse Reactions: Allergies Penicillins Allergy (Verified 01/05/20 06:25) Rash ibuprofen Adverse Reaction (Verified 01/05/20 06:25) Upset Stomach oxycodone HCl [From Percocet] Adverse Reaction (Verified 01/05/20 06:25) BECOMES VIOLENT Medications to take at Discharge Omeprazole [Prilosec] 20 mg PO DAILY 09/25/14 Losartan Potassium [Cozaar] 50 mg PO DAILY 05/01/15 Amitriptyline HCl [Elavil] 50 mg PO QHS 08/04/18 Metformin HCl [Metformin ER Osmotic] 1,000 mg PO BID 08/04/18 Ascorbic Acid [Vitamin C] 1,000 mg PO DAILY 01/01/20 Cholecalciferol (VIT D3) [Vitamin D] 1,000 unit PO DAILY 01/01/20 L.acidoph,Paracasei, B.lactis [Probiotic] 1 ea PO DAILY 01/01/20 Hydrocodone/Acetaminophen [Hydrocodon-Acetaminophen 5-325] 1 ea PO Q6H PRN PRN 01/05/20 Orders to be completed after discharge: Abdomen Single View [RAD] Time Frame: 01/05/20, Facility: [facility], Location: Laboratory Primary Care Physician: Kait Tam NP-C [Primary Care Provider] - Test Results: Test results from this visit will be discussed in further detail at your follow- up appointment, if applicable. Please Follow Up With: Hong Petty MD When: in 2 weeks, please call to make an appointment.
[2020-01-05] MEDS: Ketorolac 15 MG/ML Vial IV (07:45)
[2020-01-05] MEDS: Cefazolin 2 GM in 0.9% Normal Saline 100 ML IV (07:56)
--- NOTE | 2020-01-05 08:40 | PCM.OPRPT ---
Problem List (1) Right renal stone Status: Acute Report of Operation Date of Procedure: 01/05/20 Pre-Operative Diagnosis: Right renal calculi Post-Operative Diagnosis: Same Surgery/Procedure Performed:: Right extracorporeal shockwave lithotripsy Description of Surgical Findings:: 49-year-old male was taken back to the operating room after smooth induction of general anesthesia he was placed supine on the table we then positioned the patient underneath the lithotripter machine under fluoroscopy we identified the stone is an 8 mm stone in the right renal pelvis. We used triangulation technique to identify the stone and then placed the stone to the F2 focal point of the lithotripter. We then proceeded with lithotripsy. Slowly increase the power from 5 to 7 kV. We ran out of 90 shocks per minute. We monitor the stone during the treatment. A total of 3000 shocks were then delivered to the stone at the end of the treatment the stone fragment had disappeared under fluoroscopy appeared to be a successful treatment. No visible more fragments were seen under fluoroscopy. Patient anesthetic was reversed and he was extubated taken back to the PACU in good condition we will see him in a few weeks with a KUB and we elected not to place a stent. Type of Anesthesia:: General Drains: no stent - Admit VTE Documentation VTE Present on Admission: No VTE Mechan Device Prophylaxis: SCD's
== END 2020-01-05 10:08 | disposition home or self-care (01) ==
LOC: SDC 05:17 → AC 05:19
PROVIDERS: Anesthesiology; PCP Nurse Practitioner; Referring Provider Urology; Visit Provider Urology
PROC: (CPT 50590; principal; 2020-01-05 07:20)
DX: N20.0 Calculus of kidney (principal); Z11.59 Encounter for screening for other viral diseases; Z79.899 Other long term (current) drug therapy; Z79.84 Long term (current) use of oral hypoglycemic drugs; F17.210 Nicotine dependence, cigarettes, uncomplicated; E11.9 Type 2 diabetes mellitus without complications; K21.9 Gastro-esophageal reflux disease without esophagitis; E78.00 Pure hypercholesterolemia, unspecified; F10.21 Alcohol dependence, in remission; K76.0 Fatty (change of) liver, not elsewhere classified; I10 Essential (primary) hypertension
CPT/HCPCS: 00873; 50590; 74018; 82962; 87635; G2023; J7120; J2405; U0003

== ENCOUNTER → 2020-01-30 08:24 | Outpatient (CLI) | payer BC, SELFPAY ==
[2020-01-05 06:30] VITALS: BMI 45.3
--- NOTE | 2020-01-30 08:45 | RAD_ITS ---
STUDY: X-RAY - ABDOMEN/PELVIS REASON FOR EXAM: Male, 49 years old. RIGHT KIDNEY STONE F/U, NO CURRENT PAIN OR COMPLAINTS TECHNIQUE: Single AP view of the abdomen / pelvis. COMPARISON: CT scan 12/28/2019, plain films 01/05/2020. FINDINGS: Normal visualized lung bases. No definite renal stones are seen. There is an unremarkable bowel gas pattern. There is no demonstrated free abdominal air. The visualized liver, spleen and kidneys are grossly normal in size and morphology. Normal soft tissue structures. Normal visualized osseous structures. RAD/Abdomen Single View IMPRESSION: No gross acute abnormality. No definite renal or ureteral stones. Electronically Signed: Haresh Loyd MD at 21:21 EDT , Service support ,
== END ==
PROVIDERS: PCP Nurse Practitioner; Visit Provider Urology
DX: N20.0 Calculus of kidney (principal)
CPT/HCPCS: 74018

== ENCOUNTER → 2020-05-01 08:21 | Outpatient (CLI) | payer BC, SELFPAY ==
[2020-01-05 06:30] VITALS: BMI 45.3
--- NOTE | 2020-05-01 14:34 | NEURO ---
NCS and/or EMG Patient Report Ordering Doctor: Kait Tam NP DATE OF SERVICE: 05/01/20 Etienne Jackson is a 49-year-old male presents for electrodiagnostic testing of the right upper limb. He reports tingling and burning in the right forearm and hand. Electrodiagnostic findings: Right median motor nerve demonstrates prolonged latency with normal amplitude and reduced conduction velocity. Normal right ulnar motor response. Normal median ulnar F-wave. Prolonged median sensory latency at the wrist. Prolonged right median palmar latency. On needle EMG, all muscles tested in the right upper limb showed no evidence of denervation with normal motor unit action potentials. Electrodiagnostic impression: This is an abnormal study in the right upper limb. 1. Electrodiagnostic findings demonstrate right-sided median mononeuropathy. This is consistent with a moderate right carpal tunnel syndrome. 2. No electrodiagnostic evidence is noted for cervical radiculopathy. If there are any further questions, please do not hesitate to contact me.
== END ==
PROVIDERS: PCP Nurse Practitioner; Referring Provider Nurse Practitioner; Visit Provider Nurse Practitioner
DX: M79.601 Pain in right arm (principal)
CPT/HCPCS: 95886; 95910

== ENCOUNTER 2022-05-25 08:17 | Inpatient (IN) | payer OTHER, SELFPAY ==
[2022-05-25] VITALS (28 sets, daily range): BP systolic 96–152; BP diastolic 54–110; PULSE 89–131; RESP 16–29; TEMP 36.6–36.9; O2SAT 93–97; BMI 39.5; BMI 39.3
--- NOTE | 2022-05-25 08:42 | EKG12_ITS ---
Test Reason : Blood Pressure : / mmHG Vent. Rate : 125 BPM Atrial Rate : 125 BPM P-R Int : 152 ms QRS Dur : 088 ms QT Int : 322 ms P-R-T Axes : 049 050 055 degrees QTc Int : 464 ms Sinus tachycardia Low voltage QRS (Limb Leads) Anteroseptal infarct , age undetermined Abnormal ECG Confirmed by JUNE PENA, ERIKA ([id number]), story editor XIOMARA WATTS ([id number]) on 05/26/2022 9:15:43 AM Referred By: TEAGAN Confirmed By:ERIKA WATKINS MD
--- NOTE | 2022-05-25 08:42 | CT_ITS ---
STUDY: CTA CHEST, ABDOMEN T PELVIS WITH CONTRAST REASON FOR EXAM: Male, 52 years old. Abdominal pain. Chills. Recovering alcoholic. RADIATION DOSAGE (If Supplied By Facility): CTDIvol = ( 14.63 ) mGy, DLP = ( 1568.35 ) mGycm TECHNIQUE: Transaxial imaging was performed following intravenous administration of IV 100mL [id number]-[id number]. Multiplanar coronal and sagittal images were reformatted. Individualized dose optimization techniques were used for this CT. COMPARISON: No relevant priors. FINDINGS: CHEST The lungs are normal. There is no demonstrated pleural abnormality. Normal heart and pericardium. There are multiple small lymph nodes within the mediastinum, which are normal in size and morphology most compatible with reactive lymph hyperplasia. Normal hilar regions. Normal unenhanced pulmonary arteries. Normal aorta arch and descending thoracic aorta. Normal osseous structures. There is no demonstrated abnormality of the visualized upper abdomen. ABDOMEN The visualized lung bases are unremarkable. The visualized portions of the heart are within normal limits. There is decreased attenuation of the liver consistent with steatosis. Hepatomegaly. Normal gallbladder and extrahepatic biliary system. Normal spleen. There is diffuse enlargement of the pancreas with denise-pancreatic edema suggesting acute pancreatitis. Normal bilateral adrenal glands. Normal right kidney. 1 cm cyst is seen in the upper medial portion of the left kidney. Moderate sized hiatal hernia. Abnormal thickening and enhancement of the second portion of the duodenum as well as the proximal third portion of the duodenum. Duodenitis should be ruled out. There are scattered colonic diverticula consistent with diverticulosis. The appendix is visualized and appears normal. Normal abdominal aorta. Normal inferior vena cava. There is borderline retroperitoneal lymphadenopathy with enlarged nodes no greater than 10mm in the short axis diameter. Normal abdominal wall. There are degenerative changes of the visualized lumbar spine. PELVIS Diffuse bladder wall thickening. Prostatic calcifications. There is no pelvic fluid. There is no pelvic lymphadenopathy or mass lesion. Normal visualized pelvic arteries. Small bilateral inguinal hernias containing fat. There are degenerative changes of the visualized lumbar spine. CT/CTA Chst, Abd, Pel W and/or WO IMPRESSION: Findings in keeping with acute pancreatitis with involvement of the second and third portions of the duodenum as described suggestive of duodenitis. Hepatomegaly and diffuse fatty infiltration of the liver. Bladder wall thickening. Electronically Signed: Erik Ramsey MD at 10:44 EST ,
--- NOTE | 2022-05-25 08:45 | ED.VIS.GI ---
HPI HPI - GI History of Present Illness Chief Complaint: Abd Pain Informant: patient Narrative Narrative: Patient presents with epigastric abdominal pain that radiates down toward his left lower quadrant. He states yesterday he started with some softer diarrhea but no blood. He had no nausea vomiting. He started to get epigastric discomfort that he just thought was heartburn last evening. He then woke up at about 2 or 3 this morning with dry heaves. He states he was not even nauseated but he was having dry heaves. The pain is a little bit worse in the epic and deep to the left lower quadrant but he also has pain in the back in the similar area. It is not tearing or ripping. In the past he had had pancreatitis but is not sure if this is the same. 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 He denies prior abdominal surgery. He has had a right-sided kidney stone but most of his pain is anteriorly at this time. He has a history of high blood pressure and diabetes but he has not been on meds since the summer due to insurance and cost issues. Nothing really makes his symptoms better or worse. PFSH PFS Medical History Diabetes Hemangioma Kidney stones Neuropathy Home Medications omeprazole 40 mg capsule,delayed release 40 mg PO DAILY ACID REFLUX 05/25/22 [History Last Taken 05/24/22] Allergy/AdvReac Type Severity Reaction Status Date / Time Penicillins Allergy Rash Verified 05/25/22 08:56 ibuprofen AdvReac Upset Verified 05/25/22 08:56 Stomach oxycodone HCl [From Percocet] AdvReac BECOMES Verified 05/25/22 08:56 VIOLENT Surgical History H/O knee surgery H/O rhinoplasty Social History Smoking Status: Current every day smoker tobacco type: cigarettes ROS ROS ED Constitutional Constitutional ED: Reports subjective and other Details: Mild subjective fever/chills but has not checked temperature. ENT ENT ED: Denies ear pain, rhinorrhea or sore throat Cardiovascular Cardiovascular: Denies chest pain, palpitations or racing heartbeat Respiratory/Chest Respiratory/Chest: Denies cough, dyspnea or sputum Gastrointestinal Gastrointestinal: Reports abdominal pain, diarrhea, nausea and vomiting; Denies constipation or melena Genitourinary Genitourinary ED: Denies dysuria or hematuria Musculoskeletal Musculoskeletal: Reports back pain; Denies neck pain Integumentary Denies rash Neurologic Neurologic: Denies headache(s), paresthesias or weakness Endocrine Endocrinology: Denies polydipsia or polyuria Hematologic/Lymphatic Hematologic/Lymphatic: Denies easy bleeding or easy bruising Allergic/Immunologic Allergic/Immunologic ED: Denies urticaria EXAM Physical Exam Const Vital Signs: 05/25/22 08:18 05/25/22 08:17 Temperature 98.5 F Temperature Source Temporal Pulse Rate 131 H 123 H Respiratory Rate 16 22 H Blood Pressure 136/96 H 139/110 H Blood Pressure Mean 109 119 Pulse Ox 97 93 Oxygen Delivery Method Room Air Room Air Positive well nourished, well developed and obese Constitutional Narrative: Patient looks uncomfortable in the room. He does start dry heaving toward the end of our visit. General Appearance ED: well developed; Negative for pallor Nutritional Appearance: obese HEENT Reports dry mucous membranes atraumatic Mouth ED: Yes dry mucous membranes Mouth: dry mucous membranes Eyes General Eye ED: Negative for pale conjunctiva or scleral icterus Neck supple and no JVD Resp normal respiratory effort and clear to auscultation bilaterally Resp Narrative: No pain with deep breath Effort and Inspection: Negative for respiratory distress or pain with movement Auscultation: Negative for rales, rhonchi or wheezes Cardio regular rhythm; Negative for regular rate Cardio Narrative: Heart rate is tachycardic. But he has good pulses x4. No duskiness of extremities. No muffled tones. Rate: tachycardic GI GI Narrative: No obvious distention. Bowel sounds are normal to possibly slightly increased. He has definite epigastric tenderness. Very mild left lateral and left lower quadrant tenderness. However he has no rebound or guarding. Noted numbness at all in the right side of his abdomen. I do not get any right upper quadrant tenderness. I do not feel a pulsatile mass but this would be difficult on this patient. I do not hear a bruit. Palpation: soft and tender; Negative for guarding, rigid, mass or pulsatile mass Back/Spine no CVA tenderness Neuro Sensorium / Orientation: alert Psych mental status grossly normal Skin no wounds Skin Narrative: Patient is not pale mottled or diaphoretic. General Skin Exam: Negative for pallor MDM MDM MDM Narrative Medical decision making narrative: Patient is given morphine for pain. He has had reaction to Percocet where he gets agitated but he is taking other pain meds. I will get him IV fluids I think he is high heart rate is due to both pain and some dehydration with diarrhea and vomiting and having not eaten in over 12 hours or drank anything. This patient looks somewhat ill and uncomfortable. I am concerned that he is tachycardic and has mild hypertension off of his medications for some months. I think primary pathology likely lies in the abdomen. But I will do CTA of chest abdomen and pelvis to make sure were not missing significant or life-threatening condition. I discussed the case with ST elevation physician Dr. Mario. We are sending the EKG for him to look at. I talked with the patient again. He states the epigastric pain started probably 10:00 or so last night. He did have some mild nonspecific lower chest discomfort earlier this morning but it was mild and gone for several hours. He is still not having chest pain now. He knows no history of abnormal EKGs or prior heart attacks. Dr. Mario has looked at the EKG. He feels that this is likely old anterior TX from the pattern. He does have a acute out area where his ST changes are. We will continue work-up at this time. Blood work including troponin are pending at this time. [place] count is elevated at 20.7. This might be demargination and some dehydration. Hemoglobin is also up a bit. Electrolytes actually look pretty good. Glucose was high at 300 and was treated. This is likely combination of pancreatitis and being off of his metformin. Lactate was slightly elevated 2.6. He is given IV fluids. Mild bump in his LFTs. Urine showed no acute process. CT scan showed no sign of dissection or aneurysm but there was signs of pancreatitis and some suspicion for duodenitis. Patient's pain is better. His nausea is better but not gone. I do not think this patient will do well at home. He has had multiple episodes of vomiting, lab abnormalities, elevated lactate and notable CT findings. Case was discussed with hospitalist. Of note his troponin was minimally elevated 85. This will need to be followed considering his history and EKG changes. Vp Of [employer] was already consulted. Lab Data Attestation: I reviewed the patient's lab results. Labs: Laboratory Results - last 24 hr 05/25/22 05/25/22 05/25/22 08:50 08:50 08:50 WBC 20.7 H RBC 5.98 Hgb 17.7 H Hct 52.3 MCV 87.5 MCH 29.6 MCHC 33.8 RDW Std Deviation 43.6 RDW Coeff of Kaye 13.7 Plt Count 223 MPV 11.0 Immature Gran % (Auto) 0.700 Neut % (Auto) 92.8 H Lymph % (Auto) 2.7 L [place] % (Auto) 3.2 Eos % (Auto) 0.4 Baso % (Auto) 0.2 Absolute Neuts (auto) 19.2 H Absolute Lymphs (auto) 0.55 L Nucleated RBC % 0 Differential Comment COMMENT Sodium 137 Potassium 4.1 Chloride 105 Carbon Dioxide 23.0 Anion Gap 9 BUN 11 Creatinine 0.98 Estim Creat Clear Calc 98.52 Est GFR (MDRD) Af Amer 103 Est GFR (MDRD) Non-Af 85 BUN/Creatinine Ratio 11.2 Glucose 301 H Lactic Acid 2.6 H* Calcium 9.0 Total Bilirubin 1.70 H AST 45 H ALT 61 Alkaline Phosphatase 116 Troponin I High Sens 85 H Total Protein 7.5 Albumin 3.8 Globulin 3.7 Albumin/Globulin Ratio 1.0 Lipase 7424 H Urine Color Urine Clarity Urine pH Ur Specific [place] Urine Protein Urine Glucose (UA) Urine Ketones Urine Occult Blood Urine Nitrite Urine Bilirubin Urine Urobilinogen Ur Leukocyte Esterase Urine RBC Urine WBC Ur Squamous Epith Cells Urine Bacteria Hyaline Casts Urine Mucus 05/25/22 09:15 WBC RBC Hgb Hct MCV MCH MCHC RDW Std Deviation RDW Coeff of Kaye Plt Count MPV Immature Gran % (Auto) Neut % (Auto) Lymph % (Auto) [place] % (Auto) Eos % (Auto) Baso % (Auto) Absolute Neuts (auto) Absolute Lymphs (auto) Nucleated RBC % Differential Comment Sodium Potassium Chloride Carbon Dioxide Anion Gap BUN Creatinine Estim Creat Clear Calc Est GFR (MDRD) Af Amer Est GFR (MDRD) Non-Af BUN/Creatinine Ratio Glucose Lactic Acid Calcium Total Bilirubin AST ALT Alkaline Phosphatase Troponin I High Sens Total Protein Albumin Globulin Albumin/Globulin Ratio Lipase Urine Color Yellow Urine Clarity Clear Urine pH 5.0 Ur Specific [place] 1.020 Urine Protein 15 H Urine Glucose (UA) 1000 H Urine Ketones 5 H Urine Occult Blood Negative Urine Nitrite Negative Urine Bilirubin Negative Urine Urobilinogen 1 H Ur Leukocyte Esterase Negative Urine RBC 0 SEEN Urine WBC 0 SEEN Ur Squamous Epith Cells 0-5 SEEN Urine Bacteria 0 SEEN Hyaline Casts 0-5 SEEN Urine Mucus 2+ Radiography Diagnostic Testing: Clinical Impression(s) from Imaging Studies Chest/Abdomen/Pelvis CTA 05/25/22 08:42 IMPRESSION: Findings in keeping with acute pancreatitis with involvement of the second and third portions of the duodenum as described suggestive of duodenitis. Hepatomegaly and diffuse fatty infiltration of the liver. Bladder wall thickening. Electronically Signed: Erik Ramsey MD at 10:44 EST , EKG Initial EKG: Comments: EKG done for epigastric pain read by me shows sinus tachycardia with overall rate of 125. No ventricular ectopy. There is ST elevation in the 1 V2 V3 V4 primarily. However, these areas also have complete Q waves. MT interval, QRS duration and QTc are normal. I was not able to find any old EKG for comparison. Staff was not able to find any. I did find an old rhythm strip from lead II which did not show if the ST changes are new. Discharge Plan Dx/Rx/DC Orders Clinical Impression: Acute pancreatitis, Elevated troponin, Intractable nausea and vomiting, Acidosis, lactic Disposition Disposition: Acute Care Hospital [facility] Discharge Date/Time: 05/25/22 11:44
[2022-05-25] MEDS: Ondansetron 4 MG/2 ML Vial IV (08:50)
[2022-05-25] MEDS: Morphine 4 MG/ML Syringe IV (08:50)
[2022-05-25] MEDS: 0.9% Normal Saline 1,000 ML 1000 ML IV (08:50)
[2022-05-25 08:57] LABS: Absolute Lymphocyte Count 0.55 X10^3/uL (0.83-4.51); Absolute Neutrophil Count 19.2 X10^3/uL (2.0-7.7); Basophil# 0.04 X10^3/uL; Basophil% 0.2 % (0-1); Eosinophil# 0.08 X10^3/uL; Eosinophils% 0.4 % (0-5); Hematocrit 52.3 % (40-54); Hemoglobin 17.7 g/dL (13.0-16.5); Lymphocyte # 0.55 X10^3/ul (0.83-4.51); Lymphocyte % 2.7 % (19-41); Mean Corp Hgb Conc 33.8 g/dL (32-36); Mean Corpuscular Hgb 29.6 pg (27.0-32.0); Mean Corpuscular Volume 87.5 fL (80-94); Monocyte# 0.67 X10^3/uL; Monocyte% 3.2 % (0-10); NRBC Flagged by Analyzer 0 % (0-5); Neutrophil % 92.8 % (47-70); POSITIVE DIFFERENTIAL YES; Platelet Count 223 K/mm3 (150-450); RBC Distribution Width CV 13.7 % (11.6-14.6); RBC Distribution Width SD 43.6 fl (35.1-43.9); Red Blood Count 5.98 M/mm3 (4.6-6.2); White Blood Count 20.7 K/mm3 (4.4-11.0)
[2022-05-25 09:00] LABS: Differential Indicated SCAN CRITERIA MET
[2022-05-25 09:21] LABS: AST(SGOT) 45 U/L (15-37); Alanine Aminotransfer ALT/SGPT 61 U/L (16-61); Albumin, Serum 3.8 g/dL (3.2-5.0); Alkaline Phosphatase 116 U/L (45-117); Anion Gap 9 (5-15); BUN 11 mg/dL (7-18); BUN/Creat Ratio 11.2 RATIO (10-20); Chloride 105 mmol/L (98-107); Creatinine, Serum 0.98 mg/dL (0.70-1.30); EST Glomerular Filtration Rate 85 mL/min (>60); Est Glom Filt Rate - Afr Amer 103 mL/min (>60); Estimated Creatinine Clearance 98.52 ml/min; Globulin 3.7 g/dL (2.2-4.2); Glucose 301 mg/dL (74-106); Lipase 7424 U/L (73-393); Potassium 4.1 mmol/L (3.5-5.1); Protein, Total 7.5 g/dL (6.4-8.2); Sodium Level 137 mmol/L (136-145); Troponin-I HS 85 pg/mL (3.0-78.0)
[2022-05-25 09:23] LABS: Lactic Acid 2.6 mmol/L (0.4-1.9)
[2022-05-25 09:33] LABS: Bacteria 0 SEEN /hpf (None Seen); Color, Urine Yellow (Yellow); Glucose, Dipstick 1000 mg/dl (Normal); Ketone-Dipstick 5 mg/dl (Negative); Leukocyte Esterase-Dipstick Negative /ul (Negative); Nitrite-Dipstick Negative (Negative); Occult Blood-Urine Negative /ul (Negative); Protein-Dipstick 15 mg/dl (Negative); Red Blood Cells-Urine 0 SEEN /hpf (0-5); Urine Bilirubin Dipstick Negative (Negative); Urine Clarity Clear (Clear); Urine Urobilinogen 1 mg/dl (Normal); White Blood Cells 0 SEEN /hpf (0-5)
[2022-05-25] MEDS: Insulin Lispro 100 UNIT/ML INSULN.PEN 6 UNIT SC (09:41)
[2022-05-25 09:43] LABS: Hyaline Cast 0-5 SEEN /lpf (0-5); Mucous, Urine 2+ /hpf (<or=2+); Squamous Epithelial Cells - UA 0-5 SEEN /hpf (0-5)
--- NOTE | 2022-05-25 11:03 | HP.PCM.HOS_ITS ---
HPI - General General Date of Admission: 05/25/22 Date of Service: 05/25/22 Chief Complaint: abdominal pain HPI Narrative NIEVES PAINTING, is a 52 M with a PMH as outlined who presents via the ED on 05/25/2022 with a complaint of abdominal pain. He had no associated nausea, or vomiting. Pain radiated to his left lower quadrant. He denied any fever, chills, chest pain, palpitations, dizziness or any other symptoms. He did have a history of pancreatitis due to alcohol use. He however hasnt drank any alcohol in ~ 6 years. Pain was mainly in the epigastrum and radiating to his left lower quadrant. He said he had a history of right kidney stone. Vitals were BP of 136/96, DE of 131, respiratory rate of 16 and temp of 98.5F. he was saturating at 97% on room air. CBC showed Hb of 17.7 and wbc of 20.7. Chemistry was largely unremarkable, except lactic acid of 2.6 and lipase of 7424. nitial troponin was 85. EKG showed ST elevation in V1-V4. This was discussed with litigation attorney tarper Dr Mario who per ED doctor, stated that the EKG changes appeared chronic. Urinalysis showed no evidence of UTI. CT abdomen pelvis showed findings keeping with acute pancreatitis with suggestion of duodenitis as well as hepatomegaly and diffuse fatty infiltration of hte liver. He is being admitted to be managed for acute pancreatitis and nonstemi [facility] Medical History Diabetes Hemangioma Kidney stones Neuropathy Home Medications omeprazole 40 mg capsule,delayed release 40 mg PO DAILY ACID REFLUX 05/25/22 [History Last Taken 05/24/22] Allergy/AdvReac Type Severity Reaction Status Date / Time Penicillins Allergy Rash Verified 05/25/22 08:56 ibuprofen AdvReac Upset Verified 05/25/22 08:56 Stomach oxycodone HCl [From Percocet] AdvReac BECOMES Verified 05/25/22 08:56 VIOLENT Surgical History H/O knee surgery H/O rhinoplasty Social History Smoking Status: Current every day smoker tobacco type: cigarettes ROS Constitutional Constitutional: Reports fatigue, malaise and weakness; Denies anorexia, chills or fever(s) Eyes Eyes: Denies change in vision ENT HEENT: Denies dysphagia, headache(s), nasal congestion or sore throat Cardiovascular Cardiovascular: Reports chest pain; Denies dyspnea on exertion, edema or lightheadedness Respiratory/Chest Respiratory/Chest: Denies cough, dyspnea, hemoptysis, shortness of breath at rest or shortness of breath with exertion Gastrointestinal Gastrointestinal: Reports abdominal pain; Denies constipation, diarrhea, dyspepsia, nausea or vomiting Genitourinary Genitourinary: Denies burning urination or dysuria Musculoskeletal Musculoskeletal: Denies arthralgias Neurologic Neurologic: Denies confusion, dizziness, focal weakness or seizures Psychiatric Psychiatric: Denies anxiety Endocrine Endocrinology: Denies change in body appearance Vital Signs Vital Signs Vital Signs: 05/25/22 08:18 05/25/22 08:17 Temperature 98.5 F Temperature Source Temporal Pulse Rate 131 H 123 H Respiratory Rate 16 22 H Blood Pressure 136/96 H 139/110 H Blood Pressure Mean 109 119 Pulse Ox 97 93 Oxygen Delivery Method Room Air Room Air Weight Weight: 300 lb Body Mass Index (BMI) 39.5 Physical Exam Const alert General Appearance: cooperative HEENT normocephalic, head/scalp atraumatic, hearing grossly normal bilaterally and moist oral mucous membranes Mouth: oral and palatal mucosa normal Eyes PERRL and EOMs intact bilaterally Neck no lymphadenopathy and supple Resp normal respiratory effort, no retractions, no use of accessory muscles and clear to auscultation bilaterally Cardio regular rate, regular rhythm, S1 normal heart sound, S2 normal heart sound and no murmurs GI GI Narrative: obese, moderate generalised tenderness, no guarding or rebound tenderness Extremity normal to inspection, full ROM and no clubbing, cyanosis or edema Neuro oriented x3, CN's II-XII intact bilaterally and moves all extremities Sensorium / Orientation: awake and alert Motor Exam: strength 5/5 throughout Psych affect normal Results Lab / Micro Data Result Diagrams: 05/25/22 08:50 05/25/22 08:50 Labs: Laboratory Results - last 24 hr 05/25/22 08:50: WBC 20.7 H, RBC 5.98, Hgb 17.7 H, Hct 52.3, MCV 87.5, MCH 29.6, MCHC 33.8, RDW Std Deviation 43.6, RDW Coeff of Kaye 13.7, Plt Count 223, MPV 11.0, Immature Gran % (Auto) 0.700, Neut % (Auto) 92.8 H, Lymph % (Auto) 2.7 L, [place] % (Auto) 3.2, Eos % (Auto) 0.4, Baso % (Auto) 0.2, Absolute Neuts (auto) 19.2 H, Absolute Lymphs (auto) 0.55 L, Nucleated RBC % 0, Differential Comment COMMENT 05/25/22 08:50: Sodium 137, Potassium 4.1, Chloride 105, Carbon Dioxide 23.0, Anion Gap 9, BUN 11, Creatinine 0.98, Estim Creat Clear Calc 98.52, Est GFR (MDRD) Af Amer 103, Est GFR (MDRD) Non-Af 85, BUN/Creatinine Ratio 11.2, Glucose 301 H, Calcium 9.0, Total Bilirubin 1.70 H, AST 45 H, ALT 61, Alkaline Phosphatase 116, Troponin I High Sens 85 H, Total Protein 7.5, Albumin 3.8, Globulin 3.7, Albumin/Globulin Ratio 1.0, Lipase 7424 H 05/25/22 08:50: Lactic Acid 2.6 H* 05/25/22 09:15: Urine Color Yellow, Urine Clarity Clear, Urine pH 5.0, Ur Specific [place] 1.020, Urine Protein 15 H, Urine Glucose (UA) 1000 H, Urine Ketones 5 H, Urine Occult Blood Negative, Urine Nitrite Negative, Urine Bilirubin Negative, Urine Urobilinogen 1 H, Ur Leukocyte Esterase Negative, Urine RBC 0 SEEN, Urine WBC 0 SEEN, Ur Squamous Epith Cells 0-5 SEEN, Urine Bacteria 0 SEEN, Hyaline Casts 0-5 SEEN, Urine Mucus 2+ Radiology Impression Chest/Abdomen/Pelvis CTA 05/25/22 08:42 IMPRESSION: Findings in keeping with acute pancreatitis with involvement of the second and third portions of the duodenum as described suggestive of duodenitis. Hepatomegaly and diffuse fatty infiltration of the liver. Bladder wall thickening. Electronically Signed: Erik Ramsey MD at 10:44 EST , Assessment & Plan Assessment/Plan (1) Acute pancreatitis: (2) NSTEMI, initial episode of care: PLAN: Plan #Acute pancreatitis and duodenitis * lipase was >7000. Also has generalised abdominal pain * has previous episodes of pancreatitis due to alcohol use * CT abdomen/pelvis showed evidence of acute pancreatitis * admit to PCU o/a of elevated troponin * keep NPO * hydrate with IVF * IV morphine prn for pain * IV PPI * #Nonstemi * initial troponin was 85; EKG did show ST elevation in anterior leads. ED doctor reviewed EKG with Dr Mario who said the EKG changes were chronic * repeat troponin showed increase from 85 to 408 * cardiology consulted. Aspirin 325mg x 1, and sq lovenox 130mg x 1. High intensity statin * will order 2 D echo * will benefit from cardiac cath. * #Type 2 diabetes mellitus * says he was diagnosed diabetic, but not on any meds because he doesnt have insurance * check A1C * ISS. Accuchecks ACHS * #Hiatal hernia * CT abdomen and pelvis showed moderate sized hiatal hernia * will monitor * #Hepatic steatosis * CT abdomen/pelvis shoed hepatomegaly with fatty liver * bilirubin is elevated at 1.7 * may be a sequelae of chronic alcohol use though he quit 6 years ago; may also be due to hypercholestrolemia * check lipid profile * DVT prophylaxis: therapeutic lovenox Code status: full code * Patient counseled extensively about different types of CODE STATUS including full code, DNR CCA and DNR CCA. Patient elects to be full code. * Total [id number] time 17 minutes. Addendum Patient did have cardiac cath which showed a 100% occluded LAD. In light of patient's acute pancreatitis and the use of anticoagulants in the calf which could possibly result in hemorrhagic transformation of the pancreatitis, there w as concern and consideration of transfer to a tertiary facility where there would be surgeons as backup if hemorrhagic transformation date of care. Attempts made to transfer patient; [facility] not able to accept patient due to a very long wait list; [facility] contacted but mentioned they would call this hospitalist back to get the information about the patient. Cardiology discussed the situation with the patient who made the choice to have the stent placed here. He will be transferred to the ICU after the stent is placed for closer monitoring. Charges/Coding Visit Charges Inpatient E&M: 98143 Init Hosp L3 Procedures Hospitalists Procedures: 75050 Advncd Care Plan 30 Min
--- NOTE | 2022-05-25 11:56 | ECHOCS_ITS ---
Reason For Study: Chest Pain Procedure This was a 2D Doppler, Color Flow transthoracic echocardiogram. Contrast injection was performed. Exam performed portable in patient room. Left Ventricle Normal LV size. The estimated ejection fraction is 25 %. Moderately severe segmental systolic dysfunction (see wall motion). Vida : Akinetic. Anterior Vida : Akinetic. Inferior Vida : Hypokinetic. Mid-Anterior : Hypokinetic. Mid-anteroseptal : Hypokinetic. The rest of the wall segments are normal. Right Ventricle Normal RV size. Normal systolic function. Atria Normal left atrium. Normal right atrium. Mitral Valve Normal mitral valve. Tricuspid Valve Normal tricuspid valve. Trivial tricuspid valve insufficiency. Aortic Valve Trisinus/trileaflet aortic valve. Mild focal aortic valve calcification. Pulmonic Valve The pulmonic valve is not well visualized. Great Vessels Normal aortic root. The pulmonary artery is normal size. Normal inferior vena cava. Pericardium/Pleural No pericardial effusion. Medication Diluted definity 2ml given slow IV push to enhance endocardial definition. MMode/2D Measurements & Calculations LVIDd: 5.6 cm IVSd: 0.97 cm Ao root diam: 3.3 cm LVIDs: 3.6 cm LVPWd: 1.1 cm RVDd: 3.4 cm FS: 35.1 % LAV(MOD-bp): 39.2 ml LVAd ap4: 40.6 cm2 LVAd ap2: 33.1 cm2 LAV(MOD-bp) Indexed: 15.4 ml/m2 LVLd ap4: 9.1 cm LVLd ap2: 9.0 cm LAV(MOD-sp2): 34.7 ml EDV(MOD-sp4): 146.8 ml EDV(MOD-sp2): 102.0 ml LAV(MOD-sp4): 35.3 ml EDV(sp4-el): 153.5 ml EDV(sp2-el): 103.9 ml LVAs ap4: 33.0 cm2 LVAs ap2: 26.6 cm2 LVLs ap4: 8.7 cm LVLs ap2: 8.6 cm ESV(MOD-sp4): 101.9 ml ESV(MOD-sp2): 66.5 ml ESV(sp4-el): 106.4 ml ESV(sp2-el): 69.7 ml EF(MOD-sp4): 30.5 % EF(MOD-sp2): 34.9 % EF(sp4-el): 30.7 % SV(MOD-sp4): 44.8 ml SV(MOD-sp2): 35.6 ml SV(sp4-el): 47.1 ml LA A4 area: 15.1 cm2 LA dimension(2D): 3.9 cm RA A4 area: 9.4 cm2 Doppler Measurements & Calculations MV E max ted: 74.5 cm/sec Lat Peak E' Ted: 9.5 cm/sec Med Peak E' Ted: 8.2 cm/sec MV A max ted: 90.0 cm/sec E/E' lat: 7.9 E/E' med: 9.0 MV E/A: 0.83 Ao V2 max: 152.7 cm/sec LV V1 max: 104.8 cm/sec PA V2 max: 131.6 cm/sec Ao max P.3 mmHg LV V1 max P.4 mmHg Ao V2 mean: 118.9 cm/sec Ao mean P.9 mmHg Ao V2 VTI: 25.9 cm TR max ted: 225.2 cm/sec TR max P.3 mmHg ECHO/Echo Complete W/ Contrast Interpretation Summary Normal LV size. The estimated ejection fraction is 25 %. Moderately severe segmental systolic dysfunction (see wall motion). Contrast injection was performed. The study was technically difficult. Ordering Physician: Daxa Casarez Referring Physician: Marcia Hughes Performed By: Rasheeda Abbott, DARVIN, RVT
[2022-05-25] MEDS: Morphine 2 MG/ML Syringe IV ×2 (12:23→22:37)
[2022-05-25] MEDS: 0.9% Normal Saline 1,000 ML 125 ML IV (12:23)
[2022-05-25] MEDS: 0.9% Saline Lock 10 ML Syringe IV (12:23)
[2022-05-25 12:51] LABS: Troponin-I HS 408 pg/mL (3.0-78.0)
[2022-05-25 12:53] LABS: Reflex Lactate? Y
--- NOTE | 2022-05-25 13:47 | CON.PCM.CA_ITS ---
Assessment & Plan Assessment/Plan (1) NSTEMI, initial episode of care: PLAN: He presents with abdominal discomfort and is noted to have a non-ST elevation myocardial infarction and his preliminary echocardiogram demonstrates segmental wall motion abnormalities present. His estimated ejection fraction is about 25%. I would recommend that we perform a left heart catheterization and depending on the findings further recommendations will be made. In the meantime he would continue on aspirin We should institute beta-byron I would hold off on statin for now especially with his elevated lipase and abdominal discomfort Addendum at 3 PM. Cardiac catheterization performed demonstrated the following: Normal left main coronary artery. Left anterior descending artery which is subtotally occluded in the midsegment. First diagonal vessel with high-grade proximal stenosis. First obtuse marginal branch with proximal high-grade stenosis. Second obtuse marginal branch with moderate stenosis. Right coronary artery with diffuse distal disease Left ventricular systolic dysfunction with anterior and apical hypokinesis Based on the above angiographic findings it appears that he would benefit from revascularization of the left anterior descending artery and possible circumflex artery. The issue of heparin or antithrombotic therapy in the face of definitive and attila gurdeep pancreatitis does raise the concern about hemorrhagic transformation. He is at this particular time hemodynamically stable but tenuous. I would recommend after discussing with the slipman that he be transferred to a tertiary care facility with the capabilities of interventional cardiology, GI surgery, and GI all available and willing to tackle this rather difficult case. I have explained the above to the patient, his family and discussed it with the physicians involved. HPI Consult Data Date of Consult: 05/25/22 HPI Narrative HPI Narrative: NIEVES PAINTING, is a 52 M who presents to the emergency room with a complaint of abdominal discomfort. He had no associated nausea or vomiting but pain radiating to his left lower quadrant. He denies any chest pain no palpitations no dizziness no diaphoresis no near syncope or syncope. He has had a previous history of pancreatitis due to alcohol use but has not had a drink in over 6 years. He points mainly to the epigastrium for the discomfort. On initial presentation he was noted to be tachycardic with a normal blood pressure. His h emoglobin was noted to be 17 with a white count of over 20,000. His lactic acid was elevated and lipase level of over 7000. His initial troponin was noted to be 85 and his EKG demonstrated Q waves in leads I through V4 with ST elevation in the same leads. He denied any chest discomfort. An echocardiogram performed demonstrated severe left ventricular systolic dysfunction with severe hypokinesi s of the anterior wall, apical akinesis. On the basis of the above it was decided to pursue a left heart catheterization. He is currently pain-free. [facility] Medical History Diabetes Hemangioma Kidney stones Neuropathy Home Medications omeprazole 40 mg capsule,delayed release 40 mg PO DAILY ACID REFLUX 05/25/22 [History Last Taken 05/24/22] Allergy/AdvReac Type Severity Reaction Status Date / Time Penicillins Allergy Rash Verified 05/25/22 08:56 ibuprofen AdvReac Upset Verified 05/25/22 08:56 Stomach oxycodone HCl [From Percocet] AdvReac BECOMES Verified 05/25/22 08:56 VIOLENT Surgical History H/O knee surgery H/O rhinoplasty Social History Smoking Status: Current every day smoker tobacco type: cigarettes ROS Constitutional Constitutional: Denies fever(s) or weight loss Eyes Eyes: Reports systems reviewed and no addt'l complaints, except as documented ENT HEENT: Reports systems reviewed and no addt'l complaints, except as documented Cardiovascular Cardiovascular: Denies chest pain at rest, chest pain with activity, dyspnea at rest, dyspnea on exertion, edema, palpitations or paroxysmal nocturnal dyspnea Respiratory/Chest Respiratory/Chest: Denies dyspnea on exertion, productive cough, shortness of breath at rest or shortness of breath with exertion Gastrointestinal Gastrointestinal: Denies change in bowel habits, nausea, vomiting or weight changes Genitourinary Genitourinary: Denies difficulty urinating Musculoskeletal Musculoskeletal: Denies joint stiffness or muscle weakness Integumentary Integumentary: Denies lesions Neurologic Neurologic: Denies dizziness or syncope Psychiatric Psychiatric: Denies anxiety Endocrine Endocrinology: Denies excessive sweating or fatigue Hematologic/Lymphatic Hematologic/Lymphatic: Denies anemia Allergic/Immunologic Allergic/Immunologic: Denies seasonal rhinorrhea Physical Exam Const alert, oriented x3 and no apparent distress General Appearance: cooperative HEENT hearing grossly normal bilaterally Head and Scalp: atraumatic Eyes EOMs intact bilaterally Neck General: normal visual inspection Chest inspection of chest normal and palpation of chest normal Resp normal respiratory effort Auscultation: clear to auscultation bilaterally Cardio regular rate, regular rhythm, S1 normal heart sound and S2 normal heart sound Jugular Venous Distention: JVD GI normal to inspection, nondistended, normoactive bowel sounds Extremity normal capillary refill and no pedal edema Peripheral Pulses: Yes pulses 2+ throughout and femoral pulses present Skin no rashes or lesions noted Neuro oriented x3 and CN's II-XII intact bilaterally Psych Appearance: grossly normal and appropriate Risk Stratification Risk Stratification Applicable: Yes Age >/= 65: No >/= 3 CAD Risk Factors (HTN, HLD, DM, family hx of CAD, or current smoker): No Aspirin Use in the Past 7 Days: No Severe Angina (>/= episodes in 24 hours): No EKG ST Changes >/= 0.5mm: Yes Positive Cardiac Marker: Yes ROBERTO CARLOS Risk Stratification Score: 2 ROBERTO CARLOS % Risk: 8% Risk Objective Data Vital Signs: Vital Signs Temp Pulse Resp BP Pulse Ox O2 Del Method 98.5 F 115 H 18 123/87 H 94 Room Air 05/25/22 12:00 05/25/22 12:33 05/25/22 12:00 05/25/22 12:00 05/25/22 12:00 05/25/22 12:00 Oxygen Delivery Method Room Air Weight: 298 lb 1.039 oz Body Mass Index (BMI) 39.3 Intake & Output: Intake and Output for Last 24 Hours 05/23/22 05/24/22 05/25/22 23:59 23:59 23:59 Intake Total 1000 / 1000 Balance 1000 / 1000 Lab / Micro Data Result Diagrams: 05/25/22 08:50 05/25/22 08:50 Labs: Laboratory Results - last 24 hr 05/25/22 08:50: WBC 20.7 H, RBC 5.98, Hgb 17.7 H, Hct 52.3, MCV 87.5, MCH 29.6, MCHC 33.8, RDW Std Deviation 43.6, RDW Coeff of Kaye 13.7, Plt Count 223, MPV 11.0, Immature Gran % (Auto) 0.700, Neut % (Auto) 92.8 H, Lymph % (Auto) 2.7 L, [place] % (Auto) 3.2, Eos % (Auto) 0.4, Baso % (Auto) 0.2, Absolute Neuts (auto) 19.2 H, Absolute Lymphs (auto) 0.55 L, Nucleated RBC % 0, Differential Comment COMMENT 05/25/22 08:50: Sodium 137, Potassium 4.1, Chloride 105, Carbon Dioxide 23.0, Anion Gap 9, BUN 11, Creatinine 0.98, Estim Creat Clear Calc 98.52, Est GFR (MDRD) Af Amer 103, Est GFR (MDRD) Non-Af 85, BUN/Creatinine Ratio 11.2, Glucose 301 H, Calcium 9.0, Total Bilirubin 1.70 H, AST 45 H, ALT 61, Alkaline Olya sphatase 116, Troponin I High Sens 85 H, Total Protein 7.5, Albumin 3.8, Glob ulin 3.7, Albumin/Globulin Ratio 1.0, Lipase 7424 H 05/25/22 08:50: Lactic Acid 2.6 H* 05/25/22 09:15: Urine Color Yellow, Urine Clarity Clear, Urine pH 5.0, Ur Specific [place] 1.020, Urine Protein 15 H, Urine Glucose (UA) 1000 H, Urine Ketones 5 H, Urine Occult Blood Negative, Urine Nitrite Negative, Urine Bilirubin Negative, Urine Urobilinogen 1 H, Ur Leukocyte Esterase Negative, Urine RBC 0 SEEN, Urine WBC 0 SEEN, Ur Squamous Epith Cells 0-5 SEEN, Urine Bacteria 0 SEEN, Hyaline Casts 0-5 SEEN, Urine Mucus 2+ 05/25/22 12:10: Troponin I High Sens 408 H* Cardiology Labs/Tests 05/25/22 08:50: WBC 20.7 H, RBC 5.98, Hgb 17.7 H, Hct 52.3, MCV 87.5, MCH 29.6, MCHC 33.8, Plt Count 223, MPV 11.0, Immature Gran % (Auto) 0.700, Neut % (Auto) 92.8 H, Lymph % (Auto) 2.7 L, [place] % (Auto) 3.2, Eos % (Auto) 0.4, Baso % (Auto) 0.2, Absolute Neuts (auto) 19.2 H, Nucleated RBC % 0 05/25/22 08:50: Sodium 137, Potassium 4.1, Chloride 105, Carbon Dioxide 23.0, Anion Gap 9, BUN 11, Creatinine 0.98, Est GFR (MDRD) Af Amer 103, Est GFR (MDRD) Non-Af 85, BUN/Creatinine Ratio 11.2, Glucose 301 H, Calcium 9.0, Total Bilirubin 1.70 H 05/25/22 08:50: Lactic Acid 2.6 H* 05/25/22 09:15: Urine Color Yellow, Urine Clarity Clear, Urine pH 5.0, Ur Speci fic [place] 1.020, Urine Protein 15 H, Urine Glucose (UA) 1000 H, Urine Ketones 5 H, Urine Occult Blood Negative, Urine Nitrite Negative, Urine Bilirubin Negative, Urine Urobilinogen 1 H, Ur Leukocyte Esterase Negative, Urine RBC 0 SEEN, Urine WBC 0 SEEN Rhythm: EKG: ECHO: Stress Test: Cardiac Cath: PCI: CT Surgery: Holter monitor: EPS: PPM: CXR: Chest CT Scan: Radiography Diagnostic Testing: Radiology Impression Chest/Abdomen/Pelvis CTA 05/25/22 08:42 IMPRESSION: Findings in keeping with acute pancreatitis with involvement of the second and third portions of the duodenum as described suggestive of duodenitis. Hepatomegaly and diffuse fatty infiltration of the liver. Bladder wall thickening. Electronically Signed: Erik Ramsey MD at 10:44 EST ,
[2022-05-25 13:48] LABS: Lactic Acid 1.7 mmol/L (0.4-1.9)
[2022-05-25] MEDS: Aspirin 325 MG Tablet PO (13:54)
--- NOTE | 2022-05-25 13:59 | NURSING ---
report called to Candy in animal laboratory helper
--- NOTE | 2022-05-25 16:19 | NURSING ---
Report called to Judy CASTRO in ICU
--- NOTE | 2022-05-25 18:22 | CL.I_ITS ---
Patient Name: NIEVES PAINTING Study Date: 05/25/2022 Performing: Mario Mario MD Ht: 73 inches 185.42 cm : 1970 Wt: 298.06 lbs 135.2 kg Age: 52 Gender: male BSA: 2.55 PROCEDURE(S) PERFORMED IC12-(07639/[id number])DORA W/WO PTCA, SINGLE CORONARY ARTERY CLINICAL PROFILE AND CO-MORBIDITIES Indications: ACS <= 24 hrs Heart Failure: None CAD Presentations: Non-STEMI. Symptom onset Date/Time: Time Not Available CONCLUSIONS 2.25x38 mm. D2 ostium dilated using 2.0 mm balloon RECOMMENDATIONS ASA Indefinitley Brilinta for at least 12 months DESCRIPTION OF PROCEDURE The patient arrived to the procedure lab. The risks and benefits of the procedure as well as a full description of our services here and current unavailability of surgical backup were fully explained to the patient and/or their significant other prior to the catheterization. The Timeout was completed, verifying the correct patient and procedure. The patient's procedural site was prepped and draped in the usual fashion. Local anesthetic was given subcutaneously to right radial region with Lidocaine 2%. Using a modified Seldinger technique, arterial access was obtained via the right radial artery, a 6Fr sheath was inserted.. The images were reviewed and options discussed. A decision was then made to proceed with an Intervention, IVUS or other adjunct procedure. XB 3.0 Guide catheter was inserted and engaged into the LCA. Runthrough Guide wire was advanced to the LAD. Emerge 2 x 15 Balloon catheter was inserted. Choice PT Extra Support Guide wire was advanced to the LAD. Shinobi Guide wire was advanced to the LAD. 1.5 x 15 OTW Emerge Balloon catheter was inserted. Balloon catheter was advanced across lesion in the LAD, mid. Choice Extra Support 300cm Guide wire was advanced to the LAD. PTCA balloon inflated at 8 atms for 20 secs. PTCA balloon inflated at 10 atms for 10 secs. PTCA balloon inflated at 10 atms for 10 secs. PTCA balloon inflated at 10 atms for 8 secs. PTCA balloon inflated at 10 atms for 10 secs. PTCA balloon inflated at 10 atms for 9 secs. PTCA balloon inflated at 10 atms for 8 secs. PTCA balloon inflated at 10 atms for 8 secs. Angiogram performed post balloon dilatation. 2 x 15 Emerge Balloon catheter was inserted. Balloon catheter was advanced across lesion in the LAD, mid. PTCA balloon inflated at 8 atms for 12 secs. PTCA balloon inflated at 10 atms for 8 secs. PTCA balloon inflated at 10 atms for 10 secs. PTCA balloon inflated at 14 atms for 13 secs. Angiogram performed post balloon dilatation. 2.25 x 38 Gary Drug Eluting stent was inserted. Angiogram performed post stent deployment. 3.0 x 26 Gary Drug Eluting stent was inserted. Drug Eluting stent was advanced across the lesion in the LAD, mid. Angiogram performed pre stent deployment. Angiogram performed post stent deployment. Runthrough Guide wire was advanced to the 2nd Diagonal. 2.25 x 20 NC Emerge Balloon catheter was inserted. Balloon catheter was inserted post stent LAD. 3.0 x 20 NC Emerge Balloon catheter was inserted. Balloon catheter was inserted post stent. 2 x 8 Emerge Balloon catheter was inserted. Balloon catheter was advanced across lesion in the second diagonal, ostial PTCA balloon inflated at 6 atms for 8 secs. PTCA balloon inflated at 8 atms for 10 secs. PTCA balloon inflated at 8 atms for 9 secs. PTCA balloon inflated at 6 atms for 9 secs. PTCA balloon inflated at 6 atms for 7 secs. Angiogram performed post balloon dilatation. 3.0 x 20 NC Emerge Balloon catheter was inserted. 3 x 8 NC Emerge Balloon catheter was inserted. Balloon catheter was inserted post stent. Angiogram performed post balloon dilatation. The arterial sheath was pulled and a TR Band was applied for hemostasis. 13cc air inserted. INTERVENTION INFORMATION LESION SITE: LAD (Mid) Lesion Complexity: High/C, thrombus present: Yes, lesion at bifurcation: Yes, lesion length: 52 mm, culprit lesion: Yes Pre Stenosis: 100 % Pre intervention ROBERTO CARLOS flow: 0 PROCEDURE: Drug Eluting Stent with pre and post dilatation Post Stenosis: 0 % Post intervention ROBERTO CARLOS flow: 3 Lesion Devices: Ketan Sci EMERGE MR 2.00x15 BALLOON Ketan Sci .014 Choice PT Xtra Support wire 182cm Cordis 0.014 300cm Shinobi Wire straight Ketan Sci EMERGE OTW 1.50x15 BALLOON Ketan Sci 0.014 300cm Choice Extra Support Wire straight Medtronic Resolute Gary RX DORA 2.25x38 Medtronic Resolute Cristofer RX DORA 3.0x26 Ketan Sci NC EMERGE MR 3.00x20 BALLOON Ketan Sci EMERGE MR 2.00x08 BALLOON Ketan Sci NC EMERGE MR 3.00x08 BALLOON COMPLICATIONS No Complications PROCEDURE MEDICATIONS Fentanyl 50 mcg IV Versed 2 mg IV Fentanyl 50 mcg IV Fentanyl 25 mcg IV Oxygen: 2 L/min via nasal cannula Brilinta 180 mg PO @ 05/25/2022 17:17:05 Heparin 8000 unit(s) IV 05/25/2022 16:42:07 Heparin 2000 unit(s) IV 05/25/2022 17:13:52 Heparin 2000 unit(s) IV 05/25/2022 17:33:51 Heparin 2000 unit(s) IV 05/25/2022 18:00:49 Nitro 100 mcg IC 05/25/2022 17:25:53 Nitro 200 mcg IC 05/25/2022 17:37:46 Nitro 200 mcg IC 05/25/2022 17:52:34 Nitro 200 mcg IC 05/25/2022 18:05:44 Nitro glycerin 25mg / 250ml D5W @ 10 mcg/min IV started 05/25/2022 18:17:59 Verapamil 2.5mg, Ntg 200mcgs, given IA 05/25/2022 16:41:58 SUMMARY OF HEMODYNAMIC DATA Time AIR REST ECG 16:12:38 AO 128/72 (93) SA 16:43:25 AO 117/82 (96) 16:45:09 18:21:21 Signed By Mario Mario MD On 05/25/2022 18:22:23 Mario Mario MD
[2022-05-25 18:36] LABS: ACT Activated Clotting Time 260 sec (74-137)
[2022-05-25 18:37] LABS: ACT Activated Clotting Time 254 sec (74-137)
--- NOTE | 2022-05-25 18:45 | EKG12_ITS ---
Test Reason : AM EKG Blood Pressure : / mmHG Vent. Rate : 081 BPM Atrial Rate : 081 BPM P-R Int : 178 ms QRS Dur : 094 ms QT Int : 380 ms P-R-T Axes : 019 021 055 degrees QTc Int : 441 ms Normal sinus rhythm Septal infarct , age undetermined Abnormal ECG Confirmed by JUNE PENA, ERIKA ([id number]), sports editor XIOMARA WATTS ([id number]) on 05/26/2022 11:07:44 AM Referred By: HANNAH Confirmed By:ERIKA WATKINS MD
[2022-05-25] MEDS: 0.9% Normal Saline 1,000 ML 100 ML IV (18:58)
[2022-05-25] MEDS: Nitroglycerin Infusion 250 ML 6 MG CONT INF (19:00)
--- NOTE | 2022-05-25 20:05 | NURSING ---
Report given to Melvina hernandez at this time.
[2022-05-25] MEDS: TICAGRELOR 90 MG TABLET PO ×2 (21:07→21:08)
[2022-05-25] MEDS: Carvedilol 3.125 MG TABLET PO (21:08)
[2022-05-25] MEDS: Atorvastatin Calcium 10 MG Tablet PO (21:08)
[2022-05-25] MEDS: Insulin Lispro 100 UNIT/ML INSULN.PEN SC (23:20)
[2022-05-25 23:40] LABS: Bedside Glucose 157 mg/dL (74-106)
[2022-05-26] VITALS (17 sets, daily range): BP systolic 101–147; BP diastolic 74–92; PULSE 80–90; RESP 14–26; TEMP 36.6–37.1; O2SAT 95–99
[2022-05-26 03:43] LABS: Absolute Lymphocyte Count 0.73 X10^3/uL (0.83-4.51); Absolute Neutrophil Count 10.5 X10^3/uL (2.0-7.7); Basophil# 0.01 X10^3/uL; Basophil% 0.1 % (0-1); Eosinophil# 0.22 X10^3/uL; Eosinophils% 1.8 % (0-5); Hematocrit 44.3 % (40-54); Hemoglobin 14.6 g/dL (13.0-16.5); Lymphocyte # 0.73 X10^3/ul (0.83-4.51); Mean Corpuscular Hgb 29.4 pg (27.0-32.0); Mean Corpuscular Volume 89.3 fL (80-94); Mean Platelet Vol. 10.7 fl (6.2-12.0); Monocyte# 0.67 X10^3/uL; Monocyte% 5.5 % (0-10); NRBC Flagged by Analyzer 0 % (0-5); Neutrophil # 10.53 X10^3/uL (2.7-7.7); Neutrophil % 85.8 % (47-70); Platelet Count 164 K/mm3 (150-450); RBC Distribution Width CV 13.9 % (11.6-14.6); RBC Distribution Width SD 45.1 fl (35.1-43.9); Red Blood Count 4.96 M/mm3 (4.6-6.2); White Blood Count 12.3 K/mm3 (4.4-11.0)
[2022-05-26 04:10] LABS: AST(SGOT) 27 U/L (15-37); Alanine Aminotransfer ALT/SGPT 40 U/L (16-61); Albumin, Serum 3.1 g/dL (3.2-5.0); Alkaline Phosphatase 79 U/L (45-117); Anion Gap 6 (5-15); BUN 11 mg/dL (7-18); BUN/Creat Ratio 13.2 RATIO (10-20); Chloride 106 mmol/L (98-107); Creatinine, Serum 0.83 mg/dL (0.70-1.30); EST Glomerular Filtration Rate 102 mL/min (>60); Est Glom Filt Rate - Afr Amer 124 mL/min (>60); Estimated Creatinine Clearance 116.32 ml/min; Glucose 193 mg/dL (74-106); Potassium 3.6 mmol/L (3.5-5.1); Protein, Total 6.1 g/dL (6.4-8.2); Sodium Level 139 mmol/L (136-145)
[2022-05-26] MEDS: 0.9% Saline Lock 10 ML Syringe IV ×2 (05:36→22:11)
[2022-05-26] MEDS: Insulin Lispro 100 UNIT/ML INSULN.PEN SC ×3 (05:37→22:09)
--- NOTE | 2022-05-26 06:20 | PN.CARD_ITS ---
Subjective Subjective The patient was seen and evaluated. Appears to be doing better this morning. No abdominal pain no nausea no vomiting and no chest pain. Objective Data Vital Signs: Vital Signs Temp Pulse Resp BP Pulse Ox O2 Del Method O2 Flow Rate 98.2 F 80 22 H 101/91 H 96 Room Air 2 05/26/22 00:00 05/26/22 06:00 05/26/22 06:00 05/26/22 06:00 05/26/22 06:00 05/26/22 06:00 05/26/22 04:00 Oxygen Flow Rate (L/min) 2 Oxygen Delivery Method Room Air Weight: 299 lb 13.259 oz Body Mass Index (BMI) 39.3 Intake & Output: Intake and Output for Last 24 Hours 05/24/22 05/25/22 05/26/22 23:59 23:59 23:59 Intake Total 1940.42 / 1985.42 948.33 / 948.33 Output Total 550 / 550 Balance 1940.42 / 1435.42 398.33 / 398.33 Lab / Micro Data Result Diagrams: 05/26/22 03:35 05/26/22 03:35 Labs: Laboratory Results - last 24 hr 05/25/22 08:50: WBC 20.7 H, RBC 5.98, Hgb 17.7 H, Hct 52.3, MCV 87.5, MCH 29.6, MCHC 33.8, RDW Std Deviation 43.6, RDW Coeff of Kaye 13.7, Plt Count 223, MPV 11.0, Immature Gran % (Auto) 0.700, Neut % (Auto) 92.8 H, Lymph % (Auto) 2.7 L, [place] % (Auto) 3.2, Eos % (Auto) 0.4, Baso % (Auto) 0.2, Absolute Neuts (auto) 19.2 H, Absolute Lymphs (auto) 0.55 L, Nucleated RBC % 0, Differential Comment COMMENT 05/25/22 08:50: Sodium 137, Potassium 4.1, Chloride 105, Carbon Dioxide 23.0, Anion Gap 9, BUN 11, Creatinine 0.98, Estim Creat Clear Calc 98.52, Est GFR (MDRD) Af Amer 103, Est GFR (MDRD) Non-Af 85, BUN/Creatinine Ratio 11.2, Glucose 301 H, Calcium 9.0, Total Bilirubin 1.70 H, AST 45 H, ALT 61, Alkaline Phosphatase 116, Troponin I High Sens 85 H, Total Protein 7.5, Albumin 3.8, Globulin 3.7, Albumin/Globulin Ratio 1.0, Lipase 7424 H 05/25/22 08:50: Lactic Acid 2.6 H* 05/25/22 09:15: Urine Color Yellow, Urine Clarity Clear, Urine pH 5.0, Ur Specific [place] 1.020, Urine Protein 15 H, Urine Glucose (UA) 1000 H, Urine Ketones 5 H, Urine Occult Blood Negative, Urine Nitrite Negative, Urine Bilirubin Negative, Urine Urobilinogen 1 H, Ur Leukocyte Esterase Negative, Urine RBC 0 SEEN, Urine WBC 0 SEEN, Ur Squamous Epith Cells 0-5 SEEN, Urine Bacteria 0 SEEN, Hyaline Casts 0-5 SEEN, Urine Mucus 2+ 05/25/22 12:10: Troponin I High Sens 408 H* 05/25/22 13:13: Lactic Acid 1.7 05/25/22 16:46: Activated Clotting Time 260 H 05/25/22 18:10: Activated Clotting Time 254 H 05/25/22 23:20: POC Glucose 157 H 05/26/22 03:35: WBC 12.3 H, RBC 4.96, Hgb 14.6, Hct 44.3, MCV 89.3, MCH 29.4, MCHC 33.0, RDW Std Deviation 45.1 H, RDW Coeff of Kaye 13.9, Plt Count 164, MPV 10.7, Immature Gran % (Auto) 0.800, Neut % (Auto) 85.8 H, Lymph % (Auto) 6.0 L, [place] % (Auto) 5.5, Eos % (Auto) 1.8, Baso % (Auto) 0.1, Absolute Neuts (auto) 10.5 H, Absolute Lymphs (auto) 0.73 L, Nucleated RBC % 0 05/26/22 03:35: Sodium 139, Potassium 3.6, Chloride 106, Carbon Dioxide 27.0, Anion Gap 6, BUN 11, Creatinine 0.83, Estim Creat Clear Calc 116.32, Est GFR (MDRD) Af Amer 124, Est GFR (MDRD) Non-Af 102, BUN/Creatinine Ratio 13.2, Glucose 193 H, Calcium 8.0 L, Total Bilirubin 1.40 H, AST 27, ALT 40, Alkaline Phosphatase 79, Total Protein 6.1 L, Albumin 3.1 L, Globulin 3.0, Albumin/Glob ulin Ratio 1.0 Cardiology Labs/Tests 05/25/22 08:50: WBC 20.7 H, RBC 5.98, Hgb 17.7 H, Hct 52.3, MCV 87.5, MCH 29.6, MCHC 33.8, Plt Count 223, MPV 11.0, Immature Gran % (Auto) 0.700, Neut % (Auto) 92.8 H, Lymph % (Auto) 2.7 L, [place] % (Auto) 3.2, Eos % (Auto) 0.4, Baso % (Auto) 0.2, Absolute Neuts (auto) 19.2 H, Nucleated RBC % 0 05/25/22 08:50: Sodium 137, Potassium 4.1, Chloride 105, Carbon Dioxide 23.0, Anion Gap 9, BUN 11, Creatinine 0.98, Est GFR (MDRD) Af Amer 103, Est GFR (MDRD) Non-Af 85, BUN/Creatinine Ratio 11.2, Glucose 301 H, Calcium 9.0, Total Bilirubin 1.70 H 05/25/22 08:50: Lactic Acid 2.6 H* 05/25/22 09:15: Urine Color Yellow, Urine Clarity Clear, Urine pH 5.0, Ur Specific [place] 1.020, Urine Protein 15 H, Urine Glucose (UA) 1000 H, Urine Ketones 5 H, Urine Occult Blood Negative, Urine Nitrite Negative, Urine Bilirubin Negative, Urine Urobilinogen 1 H, Ur Leukocyte Esterase Negative, Urine RBC 0 SEEN, Urine WBC 0 SEEN 05/25/22 13:13: Lactic Acid 1.7 05/26/22 03:35: WBC 12.3 H, RBC 4.96, Hgb 14.6, Hct 44.3, MCV 89.3, MCH 29.4, MCHC 33.0, Plt Count 164, MPV 10.7, Immature Gran % (Auto) 0.800, Neut % (Auto) 85.8 H, Lymph % (Auto) 6.0 L, [place] % (Auto) 5.5, Eos % (Auto) 1.8, Baso % (Auto) 0.1, Absolute Neuts (auto) 10.5 H, Nucleated RBC % 0 05/26/22 03:35: Sodium 139, Potassium 3.6, Chloride 106, Carbon Dioxide 27.0, Anion Gap 6, BUN 11, Creatinine 0.83, Est GFR (MDRD) Af Amer 124, Est GFR (MDRD) Non-Af 102, BUN/Creatinine Ratio 13.2, Glucose 193 H, Calcium 8.0 L, Total Bilirubin 1.40 H Rhythm: EKG: ECHO: Stress Test: Cardiac Cath: PCI: CT Surgery: Holter monitor: EPS: PPM: CXR: Chest CT Scan: Radiography Diagnostic Testing: Radiology Impression Chest/Abdomen/Pelvis CTA 05/25/22 08:42 IMPRESSION: Findings in keeping with acute pancreatitis with involvement of the second and third portions of the duodenum as described suggestive of duodenitis. Hepatomegaly and diffuse fatty infiltration of the liver. Bladder wall thickening. Electronically Signed: Erik Ramsey MD at 10:44 EST , Echocardiogram 05/25/22 11:56 Interpretation Summary Normal LV size. The estimated ejection fraction is 25 %. Moderately severe segmental systolic dysfunction (see wall motion). Contrast injection was performed. The study was technically difficult. Ordering Physician: Daxa Casarez Referring Physician: Marcia Hughes Performed By: Rasheeda Abbott, RDCS, RVT Physical Exam Const alert, oriented x3 and no apparent distress General Appearance: cooperative HEENT hearing grossly normal bilaterally Head and Scalp: atraumatic Eyes EOMs intact bilaterally Neck General: normal visual inspection Chest inspection of chest normal and palpation of chest normal Resp normal respiratory effort Auscultation: clear to auscultation bilaterally Cardio regular rate, regular rhythm, S1 normal heart sound and S2 normal heart sound Jugular Venous Distention: JVD GI normal to inspection, nondistended, normoactive bowel sounds Extremity normal capillary refill and no pedal edema Peripheral Pulses: Yes pulses 2+ throughout and femoral pulses present Skin no rashes or lesions noted Neuro oriented x3 and CN's II-XII intact bilaterally Psych Appearance: grossly normal and appropriate Assessment & Plan Assessment/Plan (1) NSTEMI, initial episode of care: PLAN: He presents with abdominal discomfort and is noted to have a non-ST elevation myocardial infarction and his echocardiogram demonstrates segmental wall motion abnormalities present. His estimated ejection fraction is about 25%. Cardiac catheterization performed demonstrated the following: Normal left main coronary artery. Left anterior descending artery which is subtotally occluded in the midsegment. First diagonal vessel with high-grade proximal stenosis. First obtuse marginal branch with proximal high-grade stenosis. Second obtuse marginal branch with moderate stenosis. Right coronary artery with diffuse distal disease Left ventricular systolic dysfunction with anterior and apical hypokinesis Based on the above angiographic findings it appears that he would benefit from revascularization of the left anterior descending artery and possible circumflex artery. An extensive discussion and difficult deliberation about PCI with the use of a ntithrombotic agents and the risk of possible hemorrhagic pancreatitis transformation was entertained. Initially plans were made to transfer the patient to a tertiary care facility where a GI surgeon would be available. However due to the lack of beds at the tertiary care institution we proceeded and performed a PCI. There was a fair amount of calcification and stents were deployed to the proxim al and mid LAD with shinto of flow distally albeit small. Patient however appears to be doing hemodynamically well and the plan will be to continue him with statin as well as aspirin and ticagrelor. The risk for hemorrhagic transformation on antiplatelet agents is noted to be minimal. He can be transferred to the telemetry unit (2) Cardiomyopathy: PLAN: Patient is noted to have ischemic cardiomyopathy with an estimated ejection fraction of 25 to 30%. Would recommend continuing the beta-byron Continue OLEKSANDR inhibitor Consider the addition of an SGLT2 inhibitor Ultimately will need a repeat echocardiogram in approximately 2 months and if LV dysfunction persists on guideline directed medical therapy then 1 would need to consider an implantable defibrillator. We will have this discussion further when he is discharged and seen in the office. (3) Acute pancreatitis: PLAN: He appears to be stable at this time. Would recommend lactated Ringer's. Have ordered a repeat amylase and lipase level. Liver function tests are normal Would defer further treatment to the hospitalist.
[2022-05-26] MEDS: Lactated Ringers 1,000 ML 100 ML IV ×2 (06:27→16:46)
[2022-05-26 06:44] LABS: Amylase 249 U/L (25-115)
[2022-05-26 06:46] LABS: Lipase 1461 U/L (73-393)
[2022-05-26 07:46] LABS: Cholesterol 158 mg/dL (200); High Density Lipoprotein 36 mg/dL; Triglycerides 96 mg/dL; Very Low Density Lipoprotein 19 mg/dL (5-40)
--- NOTE | 2022-05-26 08:36 | CRPHASE1 ---
Patient Communication PHII Cardiac Rehab Discussed with Patient:: Yes Guide to Cardiac Rehab Given to Patient:: Yes Cardiac Rehab Facility Choice List Given to Patient:: Yes Choice Program [facility] PHII:: Communication Given to CR [employer] Engineer [employer]:: [facility] Phase II Cardiac Rehab:: Yes Sessions:: 36 sessions - 3 days/wk, 12 weeks Cardiac Rehabilitation Info Cardiac Rehabilitation Program Information: Cardiac Rehabilitation is important for patients like you who are recovering from a heart problem. Cardiac rehabilitation programs are recognized as integral to the continued care of the patient with coronary heart disease. The cardiac rehabilitation program is designed to optimize a patient's physical, psychological, and social functioning. Health adult daycare coordinator work in cardiac rehabilitation programs and assist you with getting the treatments you need to get stronger and healthier - like exercise, healthy eating habits, and medications. Cardiac rehabilitation has been show to help people with heart problems live longer and have better life enjoyment than people who do not go to cardiac rehabilitation. Please contact the Cardiac Rehabilitation Program at [facility] at in two weeks if you have not heard from them.
--- NOTE | 2022-05-26 08:36 | CRPH1.INSTRU ---
General Education CAD and cardiac anatomy and function:: Patient communicates acknowledgment Explanation of diagnoses and procedures:: Patient communicates acknowledgment Sign/Symptoms of NC:: Patient communicates acknowledgment Antiplatelet therapy: Patient communicates acknowledgment Proper use of NTG-SL: Patient communicates acknowledgment Emergency procedures and activation of EMS: Patient communicates acknowledgment Compliance of all prescribed medications: Patient communicates acknowledgment Smoking Patient Nicotine/Smoking Risk Factors Are:: Cigarettes Recommendations Include:: Participation in a smoking cessation program Nicotine/Smoking Response Code:: Patient communicates acknowledgment, Needs reinforcement Dyslipidemia Patient Dyslipidemia Risk Factors Are:: Total Cholesterol, Triglycerides, HDL, LDL Recommendations Include:: Lipid profile not available Dyslipidemia Response Code:: Patient communicates acknowledgment, Needs reinforcement Overweight/Obesity Patient Overweight/Obesity Risk Factors Are:: Obesity - > or = 30 Recommendations Include:: Weight loss of 5-10%, Reduced calorie diet, Exercise 5-7 times/week Overweight/Obesity:: Patient communicates acknowledgment, Needs reinforcement Hypertension Recommendations Include:: BP <130/80 if diabetic, Decrease/maintain normal body weight, Moderation of ETOH Hypertension:: Patient communicates acknowledgment, Needs reinforcement Heart Disease Patient Heart Disease Risk Factors Are:: Family history of heart disease < 65 years old Recommendations Include:: Educated family members of their risk Heart Disease Response Code:: Patient communicates acknowledgment Diabetes Patient Diabetes Risk Factors Are:: Elevated blood sugars Recommendations Include:: Maintain fasting blood sugars 70-110 md/dL, Maintain HgbA1c of 6% or less, Monitor blood sugar as prescribed, Decrease/maintain body weight Diabetes:: Patient communicates acknowledgment, Needs reinforcement Sedentary Patient Sedentary Risk Factors Are:: Lack of regular exercise Recommendations Include:: Aerobic exercise 5-7 times/week for 20-30 minutes continuously, Benefits of regular exercise, Discussed home walking program, Monitored Outpatient Cardiac Rehab Sedentary Response Code:: Patient communicates acknowledgment, Needs reinforcement
--- NOTE | 2022-05-26 10:00 | EKG12_ITS ---
Test Reason : PCI Blood Pressure : / mmHG Vent. Rate : 084 BPM Atrial Rate : 084 BPM P-R Int : 166 ms QRS Dur : 094 ms QT Int : 368 ms P-R-T Axes : 024 045 060 degrees QTc Int : 434 ms Normal sinus rhythm Septal infarct (cited on or before 25-MAY-2022) Abnormal ECG When compared with ECG of 26-MAY-2022 05:36, No significant change was found Confirmed by OLGA PENA, LEAH ([id number]), acquisitions editor XIOMARA WATTS ([id number]) on 05/27/2022 9:20:06 AM Referred By: Confirmed By:LEAH ESPINOZA MD
[2022-05-26] MEDS: Carvedilol 3.125 MG TABLET PO ×2 (10:03→22:09)
[2022-05-26] MEDS: Lisinopril 2.5 MG Tablet PO (10:04)
[2022-05-26] MEDS: Aspirin E.C. 81 MG Tablet PO (10:04)
--- NOTE | 2022-05-26 10:04 | PN.HOSP_ITS ---
Subjective Subjective Patient seen and examined. He feels much better today. His abdominal pain has improved markedly. He denies any fever, chills, nausea, vomiting or chest pain. Review of systems is otherwise negative. Objective Data Objective Data Vital Signs: Vital Signs Temp Pulse Resp BP Pulse Ox O2 Del Method O2 Flow Rate 97.8 F 84 16 115/81 H 96 Room Air 2 05/26/22 08:47 05/26/22 08:47 05/26/22 08:47 05/26/22 08:47 05/26/22 08:47 05/26/22 08:47 05/26/22 04:00 Oxygen Flow Rate (L/min) 2 Oxygen Delivery Method Room Air Weight: 299 lb 13.259 oz Body Mass Index (BMI) 39.3 Intake & Output: Intake and Output for Last 24 Hours 05/24/22 05/25/22 05/26/22 23:59 23:59 23:59 Intake Total 1940.42 / 1985.42 948.33 / 948.33 Output Total 550 / 550 Balance 1940.42 / 1435.42 398.33 / 398.33 Lab / Micro Data Result Diagrams: 05/26/22 03:35 05/26/22 03:35 Labs: Laboratory Results - last 24 hr 05/25/22 12:10: Troponin I High Sens 408 H* 05/25/22 13:13: Lactic Acid 1.7 05/25/22 16:46: Activated Clotting Time 260 H 05/25/22 18:10: Activated Clotting Time 254 H 05/25/22 23:20: POC Glucose 157 H 05/26/22 03:35: WBC 12.3 H, RBC 4.96, Hgb 14.6, Hct 44.3, MCV 89.3, MCH 29.4, MCHC 33.0, RDW Std Deviation 45.1 H, RDW Coeff of Kaye 13.9, Plt Count 164, MPV 10.7, Immature Gran % (Auto) 0.800, Neut % (Auto) 85.8 H, Lymph % (Auto) 6.0 L, [place] % (Auto) 5.5, Eos % (Auto) 1.8, Baso % (Auto) 0.1, Absolute Neuts (auto) 10.5 H, Absolute Lymphs (auto) 0.73 L, Nucleated RBC % 0 05/26/22 03:35: Sodium 139, Potassium 3.6, Chloride 106, Carbon Dioxide 27.0, Anion Gap 6, BUN 11, Creatinine 0.83, Estim Creat Clear Calc 116.32, Est GFR (MDRD) Af Amer 124, Est GFR (MDRD) Non-Af 102, BUN/Creatinine Ratio 13.2, Glucose 193 H, Calcium 8.0 L, Total Bilirubin 1.40 H, AST 27, ALT 40, Alkaline Phosphatase 79, Total Protein 6.1 L, Albumin 3.1 L, Globulin 3.0, Albumin/Globulin Ratio 1.0 05/26/22 03:35: Triglycerides 96, Cholesterol 158, LDL Cholesterol 103, VLDL Cholesterol 19, HDL Cholesterol 36 L 05/26/22 03:35: Lipase 1461 H 05/26/22 03:35: Amylase 249 H Radiography Diagnostic Testing: Radiology Impression Chest/Abdomen/Pelvis CTA 05/25/22 08:42 IMPRESSION: Findings in keeping with acute pancreatitis with involvement of the second and third portions of the duodenum as described suggestive of duodenitis. Hepatomegaly and diffuse fatty infiltration of the liver. Bladder wall thickening. Electronically Signed: Erik Ramsey MD at 10:44 EST , Echocardiogram 05/25/22 11:56 Interpretation Summary Normal LV size. The estimated ejection fraction is 25 %. Moderately severe segmental systolic dysfunction (see wall motion). Contrast injection was performed. The study was technically difficult. Ordering Physician: Daxa Casarez Referring Physician: Marcia Hughes Performed By: Rasheeda Abbott, RDCS, RVT Physical Exam Const alert and oriented x3 General Appearance: cooperative HEENT normocephalic, head/scalp atraumatic, hearing grossly normal bilaterally and moist oral mucous membranes Head and Scalp: normocephalic Mouth: oral and palatal mucosa normal Eyes PERRL and EOMs intact bilaterally Neck no lymphadenopathy and supple Resp normal respiratory effort, no retractions, no use of accessory muscles and clear to auscultation bilaterally Cardio regular rate, regular rhythm, S1 normal heart sound, S2 normal heart sound and no murmurs GI GI Narrative: obese, moderate generalised tenderness, no guarding or rebound tenderness Extremity normal to inspection, full ROM and no clubbing, cyanosis or edema Neuro oriented x3, CN's II-XII intact bilaterally and moves all extremities Sensorium / Orientation: awake and alert Motor Exam: strength 5/5 throughout Psych affect normal Assessment & Plan Assessment/Plan (1) Acute pancreatitis: (2) NSTEMI, initial episode of care: PLAN: Plan #Acute pancreatitis and duodenitis * abdominal pain has improved markedly. * on IV morphine prn and IV PPI * will start on clear liquid diet today and advance as tolerated * * * #Nonstemi * had cardiac cath which showed normal left main coronary artery and a subtotally occluded LAD in the midsegment, as well as a first diagnonal vessel with high grade proximal stenosis and second obtuse marginal branch with moderate stenosis; right coronary artery had diffuse distal disease and left ventricular systolic dysfunction had anterio and apical hypokinesis; * he had PCI with stents deployed to the proximal and mid LAD with islam of flow distally, albeit small * 2D echo showed EF of 25% with moderately severe segmental systolic dysfunction. * on aspirin, brilinta and high intensity statin * cardiology on board * * #Type 2 diabetes mellitus * says he was diagnosed diabetic, but not on any meds because he doesnt have insurance * A1C pending * ISS. Accuchecks ACHS * #Hiatal hernia * CT abdomen and pelvis showed moderate sized hiatal hernia * will monitor * #Hepatic steatosis * CT abdomen/pelvis shoed hepatomegaly with fatty liver * bilirubin is elevated at 1.7 * may be a sequelae of chronic alcohol use though he quit 6 years ago; may also be due to hypercholestrolemia * lipid profile showed LDL of 103 and total cholesterol of 158 * DVT prophylaxis: lovenox Code status: full code * Charges/Coding Visit Charges Inpatient E&M: 84368 Subs Hosp L2
[2022-05-26] MEDS: Enoxaparin 40 MG/0.4 ML Syringe SC (10:07)
[2022-05-26 11:40] LABS: Hemoglobin A1c 9.9 % (3.8-5.6)
--- NOTE | 2022-05-26 11:45 | CASEMGMT ---
RN NELLY Face to Face with patient for initial transition planning/care coordination assessment. RN CM introduced self and role at [facility]. Patient sitting at bedside, alert and oriented, at bedside. Patient willing to participate in assessment and is able to answer all questions appropriately. Care providers, pharmacy, and demographics verified. Patient wishes to discharge home, denies need for home health at this time. Patient states he has no further needs or concerns at this time. CM to follow for discharge planning needs that may arise. PCP: Saul Specialists: none Preferred Pharmacy: [facility] Insurance: none, to provide resources Prescription Benefit: none Living Will/HPOA: none LNOK: Living Arrangements: Patient lives with in a 2 story duplex. Patient states he is independent and able to ambulate stairs at home. Transportation: self, DME/HHC: Patient states he has cane at home. No previous HHC or SNF. Disposition Plan: Patient to discharge home with family support and follow-up plans in place. Ana HILTON, RN, CM
[2022-05-26 12:14] LABS: Bedside Glucose 200 mg/dL (74-106)
--- NOTE | 2022-05-26 13:33 | CASEMGMT ---
Pt to be sent home on Brilinta and pt provided with Brilinta month free trial card, voices understanding. Pt/sig other voice no further questions/concerns/needs. Tracey CASTRO CM
[2022-05-26 17:11] LABS: Bedside Glucose 248 mg/dL (74-106)
[2022-05-26] MEDS: Atorvastatin Calcium 10 MG Tablet PO (22:09)
[2022-05-26] MEDS: TICAGRELOR 90 MG TABLET PO (22:09)
[2022-05-27 00:30] LABS: Bedside Glucose 166 mg/dL (74-106)
[2022-05-27] MEDS: Lactated Ringers 1,000 ML 100 ML IV (01:51)
[2022-05-27 03:17] VITALS: PULSE 78
[2022-05-27 04:00] VITALS: BP 139/96; PULSE 81; RESP 16; TEMP 36.9; O2SAT 97
[2022-05-27 06:20] LABS: Absolute Lymphocyte Count 1.05 X10^3/uL (0.83-4.51); Absolute Neutrophil Count 7.8 X10^3/uL (2.0-7.7); Basophil# 0.02 X10^3/uL; Basophil% 0.2 % (0-1); Eosinophil# 0.18 X10^3/uL; Eosinophils% 1.8 % (0-5); Hematocrit 42.5 % (40-54); Hemoglobin 14.4 g/dL (13.0-16.5); Lymphocyte # 1.05 X10^3/ul (0.83-4.51); Lymphocyte % 10.6 % (19-41); Mean Corp Hgb Conc 33.9 g/dL (32-36); Mean Corpuscular Hgb 30.1 pg (27.0-32.0); Mean Corpuscular Volume 88.9 fL (80-94); Mean Platelet Vol. 10.8 fl (6.2-12.0); Monocyte# 0.75 X10^3/uL; Monocyte% 7.6 % (0-10); NRBC Flagged by Analyzer 0 % (0-5); Neutrophil # 7.83 X10^3/uL (2.7-7.7); Neutrophil % 78.9 % (47-70); Platelet Count 144 K/mm3 (150-450); RBC Distribution Width CV 13.8 % (11.6-14.6); Red Blood Count 4.78 M/mm3 (4.6-6.2); White Blood Count 9.9 K/mm3 (4.4-11.0)
[2022-05-27] MEDS: Insulin Lispro 100 UNIT/ML INSULN.PEN SC (06:40)
[2022-05-27 06:44] VITALS: PULSE 80
[2022-05-27 06:44] LABS: ALB/GLOB Ratio 0.9 RATIO (0.9-2.4); AST(SGOT) 22 U/L (15-37); Alanine Aminotransfer ALT/SGPT 36 U/L (16-61); Albumin, Serum 2.9 g/dL (3.2-5.0); Alkaline Phosphatase 89 U/L (45-117); Anion Gap 7 (5-15); BUN 9 mg/dL (7-18); BUN/Creat Ratio 11.6 RATIO (10-20); Calcium,Total 8.4 mg/dL (8.5-10.1); Chloride 105 mmol/L (98-107); Creatinine, Serum 0.78 mg/dL (0.70-1.30); EST Glomerular Filtration Rate 112 mL/min (>60); Est Glom Filt Rate - Afr Amer 135 mL/min (>60); Estimated Creatinine Clearance 123.78 ml/min; Globulin 3.2 g/dL (2.2-4.2); Glucose 193 mg/dL (74-106); Potassium 3.8 mmol/L (3.5-5.1); Protein, Total 6.1 g/dL (6.4-8.2); Sodium Level 137 mmol/L (136-145)
[2022-05-27 07:00] LABS: Bedside Glucose 186 mg/dL (74-106)
[2022-05-27 07:00] LABS: Bedside Glucose 163 mg/dL (74-106)
[2022-05-27 07:30] VITALS: O2SAT 98
--- NOTE | 2022-05-27 08:01 | PCM.PN.CARD ---
Subjective Subjective Patient seen and evaluated. Appears to be doing well. No complaints this morning. Objective Data Vital Signs: Vital Signs Temp Pulse Resp BP Pulse Ox O2 Del Method O2 Flow Rate 98.4 F 80 16 139/96 H 97 Room Air 2 05/27/22 04:00 05/27/22 06:44 05/27/22 04:00 05/27/22 04:00 05/27/22 04:00 05/27/22 07:33 05/26/22 04:00 Oxygen Flow Rate (L/min) 2 Oxygen Delivery Method Room Air Weight: 300 lb 7.841 oz Body Mass Index (BMI) 39.3 Intake & Output: Intake and Output for Last 24 Hours 05/25/22 05/26/22 05/27/22 23:59 23:59 23:59 Intake Total 1940.42 / 1985.42 2668.33 / 2668.33 908.33 / 908.33 Output Total 1000 / 1000 Balance 1940.42 / 1435.42 1668.33 / 1668.33 908.33 / 908.33 Lab / Micro Data Result Diagrams: 05/27/22 06:11 05/27/22 06:11 Labs: Laboratory Results - last 24 hr 05/26/22 03:35: Hemoglobin A1c 9.9 H 05/26/22 05:36: POC Glucose 200 H 05/26/22 16:48: POC Glucose 248 H 05/26/22 22:07: POC Glucose 166 H 05/27/22 04:07: POC Glucose 163 H 05/27/22 06:11: WBC 9.9, RBC 4.78, Hgb 14.4, Hct 42.5, MCV 88.9, MCH 30.1, MCHC 33.9, RDW Std Deviation 45.0 H, RDW Coeff of Kaye 13.8, Plt Count 144 L, MPV 10.8, Immature Gran % (Auto) 0.900, Neut % (Auto) 78.9 H, Lymph % (Auto) 10.6 L, [place] % (Auto) 7.6, Eos % (Auto) 1.8, Baso % (Auto) 0.2, Absolute Neuts (auto) 7.8 H, Absolute Lymphs (auto) 1.05, Nucleated RBC % 0 05/27/22 06:11: Sodium 137, Potassium 3.8, Chloride 105, Carbon Dioxide 25.0, Anion Gap 7, BUN 9, Creatinine 0.78, Estim Creat Clear Calc 123.78, Est GFR (MDRD) Af Amer 135, Est GFR (MDRD) Non-Af 112, BUN/Creatinine Ratio 11.6, Glucose 193 H, Calcium 8.4 L, Total Bilirubin 1.70 H, AST 22, ALT 36, Alkaline Phosphatase 89, Total Protein 6.1 L, Albumin 2.9 L, Globulin 3.2, Albumin/Globulin Ratio 0.9 05/27/22 06:38: POC Glucose 186 H Cardiology Labs/Tests 05/26/22 03:35: Hemoglobin A1c 9.9 H 05/27/22 06:11: WBC 9.9, RBC 4.78, Hgb 14.4, Hct 42.5, MCV 88.9, MCH 30.1, MCHC 33.9, Plt Count 144 L, MPV 10.8, Immature Gran % (Auto) 0.900, Neut % (Auto) 78.9 H, Lymph % (Auto) 10.6 L, [place] % (Auto) 7.6, Eos % (Auto) 1.8, Baso % (Auto) 0.2, Absolute Neuts (auto) 7.8 H, Nucleated RBC % 0 05/27/22 06:11: Sodium 137, Potassium 3.8, Chloride 105, Carbon Dioxide 25.0, Anion Gap 7, BUN 9, Creatinine 0.78, Est GFR (MDRD) Af Amer 135, Est GFR (MDRD) Non-Af 112, BUN/Creatinine Ratio 11.6, Glucose 193 H, Calcium 8.4 L, Total Bilirubin 1.70 H Rhythm: EKG: ECHO: Stress Test: Cardiac Cath: PCI: CT Surgery: Holter monitor: EPS: PPM: CXR: Chest CT Scan: Physical Exam Const alert and oriented x3 General Appearance: cooperative HEENT normocephalic, head/scalp atraumatic, hearing grossly normal bilaterally and moist oral mucous membranes Head and Scalp: normocephalic Mouth: oral and palatal mucosa normal Eyes PERRL and EOMs intact bilaterally Neck no lymphadenopathy and supple Resp normal respiratory effort, no retractions, no use of accessory muscles and clear to auscultation bilaterally Cardio regular rate, regular rhythm, S1 normal heart sound, S2 normal heart sound and no murmurs GI GI Narrative: obese, moderate generalised tenderness, no guarding or rebound tenderness Extremity normal to inspection, full ROM and no clubbing, cyanosis or edema Neuro oriented x3, CN's II-XII intact bilaterally and moves all extremities Sensorium / Orientation: awake and alert Motor Exam: strength 5/5 throughout Psych affect normal Assessment & Plan Assessment/Plan (1) NSTEMI, initial episode of care: PLAN: He presents with abdominal discomfort and is noted to have a non-ST elevation myocardial infarction and his echocardiogram demonstrates segmental wall motion abnormalities present. His estimated ejection fraction is about 25%. Cardiac catheterization performed demonstrated the following: Normal left main coronary artery. Left anterior descending artery which is subtotally occluded in the midsegment. First diagonal vessel with high-grade proximal stenosis. First obtuse marginal branch with proximal high-grade stenosis. Second obtuse marginal branch with moderate stenosis. Right coronary artery with diffuse distal disease Left ventricular systolic dysfunction with anterior and apical hypokinesis Based on the above angiographic findings it appears that he would benefit from revascularization of the left anterior descending artery and possible circumflex artery. An extensive discussion and difficult deliberation about PCI with the use of antithrombotic agents and the risk of possible hemorrhagic pancreatitis transformation was entertained. Initially plans were made to transfer the patient to a tertiary care facility where a GI surgeon would be available. However due to the lack of beds at the tertiary care institution we proceeded and performed a PCI. There was a fair amount of calcification and stents were deployed to the proximal and mid LAD with anabaptism of flow distally albeit small. Patient however appears to be doing hemodynamically well and the plan will be to continue him with statin as well as aspirin and ticagrelor. The risk for hemorrhagic transformation on antiplatelet agents is noted to be minimal. He can be discharged home for outpatient follow-up (2) Cardiomyopathy: PLAN: Patient is noted to have ischemic cardiomyopathy with an estimated ejection fraction of 25 to 30%. Would recommend continuing the beta-byron Continue OLEKSANDR inhibitor Consider the addition of an SGLT2 inhibitor Ultimately will need a repeat echocardiogram in approximately 2 months and if LV dysfunction persists on guideline directed medical therapy then 1 would need to consider an implantable defibrillator. We will have this discussion further when he is discharged and seen in the office. (3) Acute pancreatitis: PLAN: He appears to be stable at this time.
[2022-05-27 09:17] VITALS: BP 135/84; PULSE 88; RESP 18; TEMP 36.4; O2SAT 98
[2022-05-27] MEDS: Lisinopril 2.5 MG Tablet PO (09:19)
[2022-05-27] MEDS: Enoxaparin 40 MG/0.4 ML Syringe SC (09:19)
[2022-05-27] MEDS: TICAGRELOR 90 MG TABLET PO (09:19)
[2022-05-27] MEDS: Carvedilol 3.125 MG TABLET PO (09:19)
[2022-05-27] MEDS: Aspirin E.C. 81 MG Tablet PO (09:19)
--- NOTE | 2022-05-27 09:26 | DCINST_ITS ---
Discharge Instructions Diet Discharge Diet: Low fat / Low cholesterol Activity Discharge Activity: Return to Normal Activity Weight Bearing Status: Weight bearing as tolerated Dressing / Incision Call your doctor if you observe: Shortness of breath, Dizziness, Swelling in the ankles, Chest pain and Uncontrolled pain Follow Up Care Test Results: Test results from this visit will be discussed in further detail at your follow- up appointment, if applicable. Discharge Plan Admission Admit Date/Time: 05/25/22 11:16 Primary Reason for Your Visit: nonstemi, acute pancreatitis Attending Provider: Daxa Casarez Primary Care Provider: Marcia Hughes Consulting Providers: Roly Lezama Instructions Forms: Work Excuse Patient Instructions: Pancreatitis Acute Dc, Heart Attack Dc, Heart Attack Meds Discharge Orders/Prescriptions Prescriptions: New metformin 500 mg Tablet 500 mg PO BIDCM Qty: 60 2RF atorvastatin 10 mg Tablet 10 mg PO QHS Qty: 30 2RF aspirin 81 mg Tablet,Delayed Release (Dr/Ec) 81 mg PO DAILY@0800 Qty: 30 2RF carvedilol 3.125 mg Tablet 3.125 mg PO BID Qty: 60 2RF lisinopril 2.5 mg Tablet 2.5 mg PO DAILY Qty: 30 2RF Brilinta 90 mg Tablet 90 mg PO BID Qty: 60 2RF Jardiance 10 mg Tablet 10 mg PO DAILY Qty: 30 2RF Continued omeprazole 40 mg Capsule,Delayed Release(Dr/Ec) 40 mg PO DAILY Referrals / Follow Up: Roly Lezama MD [Med Staff - Active Staff] - Within 2 Weeks Marcia Hughes DO [Primary Care Provider] - Within 2 Weeks NOT,DEFINED [Non-Staff] - Disposition Disposition (needs filled in before D/C Order can be placed): Home, Self Care
--- NOTE | 2022-05-27 09:26 | CASEMGMT ---
Patient does not have insurance. This LUIS F and LUIS F Wooten met with patient. Introduced selves and role at [facility]. LUIS F provided patient with financial resources including, [employer], Kylah Do, [facility] financial assistance program, list of prescription assistance programs, and a Medicaid application. SW also let patient know that SW can check the cost of his discharge medications. SW let him know if the cost is too much for him [facility] can assist him with medications one time a year. Marci Palacios [employer] SHERLEY
--- NOTE | 2022-05-27 09:27 | DS.PCM_ITS ---
Providers Date of Admission: 05/25/22 Date of Discharge: 05/27/22 Primary Care Physician: Dr. Marcia Hughes, Consultations 05/25/22 13:16 Consult: Cardiology Routine Consulting Provider: Roly Lezama Reason for Consult: nstemi EMERGENT Consult: No MD Notified: Yes Date Notified: 05/25/22 Time Notified: 13:16 Method of Notification: Text Reason For Visit: ACUTE PANCREATITIS, ELEVATED TROPONIN Diagnosis Discharge Diagnosis (1) NSTEMI, initial episode of care: Status: Acute Code(s): I21.4 - Non-ST elevation (NSTEMI) myocardial infarction (2) Cardiomyopathy: Status: Acute Code(s): I42.9 - Cardiomyopathy, unspecified (3) Acute pancreatitis: Status: Acute Code(s): K85.90 - Acute pancreatitis without necrosis or infection, unspecified Plan #Acute pancreatitis and duodenitis * abdominal pain has improved markedly. * on IV morphine prn and IV PPI * will start on clear liquid diet today and advance as tolerated * * * #Nonstemi * had cardiac cath which showed normal left main coronary artery and a subtotally occluded LAD in the midsegment, as well as a first diagnonal vessel with high grade proximal stenosis and second obtuse marginal branch with moderate stenosis; right coronary artery had diffuse distal disease and left ventricular systolic dysfunction had anterio and apical hypokinesis; * he had PCI with stents deployed to the proximal and mid LAD with episcopal of flow distally, albeit small * 2D echo showed EF of 25% with moderately severe segmental systolic dysfun ction. * on aspirin, brilinta and high intensity statin * cardiology on board * * #Type 2 diabetes mellitus * says he was diagnosed diabetic, but not on any meds because he doesnt have insurance * A1C pending * ISS. Accuchecks ACHS * #Hiatal hernia * CT abdomen and pelvis showed moderate sized hiatal hernia * will monitor * #Hepatic steatosis * CT abdomen/pelvis shoed hepatomegaly with fatty liver * bilirubin is elevated at 1.7 * may be a sequelae of chronic alcohol use though he quit 6 years ago; may also be due to hypercholestrolemia * lipid profile showed LDL of 103 and total cholesterol of 158 * DVT prophylaxis: lovenox Code status: full code * Medications at Discharge Home Medications omeprazole 40 mg capsule,delayed release 40 mg PO DAILY ACID REFLUX 11/28/22 aspirin 81 mg tablet,delayed release 81 mg PO DAILY@0800 #30 tabs 05/27/22 atorvastatin 10 mg tablet 10 mg PO QHS #30 tabs 05/27/22 carvedilol 3.125 mg tablet 3.125 mg PO BID #60 tabs 05/27/22 insulin glargine 100 unit/mL (3 mL) subcutaneous pen (Basaglar KwikPen U-100 Insulin) 10 unit (0.1 mL) subcut QPM #15 mL 05/27/22 lisinopril 2.5 mg tablet 2.5 mg PO DAILY #30 tabs 05/27/22 metformin 500 mg tablet 500 mg PO BIDCM #60 tabs 05/27/22 ticagrelor 90 mg tablet (Brilinta) 90 mg PO BID #60 tabs 05/27/22 Hospital Course Operations None Procedures 2-D Echocardiogram and Cardiac catheterization Summary of Care Provided Minutes Spent on Discharge: 45 Hospital Course: NIEVES PAINTING, is a 52 M with a PMH as outlined who presents via the ED on 05/25/2022 with a complaint of abdominal pain. He had no associated nausea, or vomiting. Pain radiated to his left lower quadrant. He denied any fever, chills, chest pain, palpitations, dizziness or any other symptoms. He did have a history of pancreatitis due to alcohol use. He however hasnt drank any alcohol in ~ 6 years. Pain was mainly in the epigastrum and radiating to his left lower quadrant. He said he had a history of right kidney stone. Vitals were BP of 136/96, PA of 131, respiratory rate of 16 and temp of 98.5F. he was saturating at 97% on room air. CBC showed Hb of 17.7 and wbc of 20.7. Chemistry was largely unremarkable, except lactic acid of 2.6 and lipase of 7424. nitial troponin was 85. EKG showed ST elevation in V1-V4. This was discussed with stoneworking sander bander and cellophaner machine Dr Mario who per ED doctor, stated that the EKG changes appeared chronic. Urinalysis showed no evidence of UTI. CT abdomen pelvis showed findings keeping with acute pancreatitis with suggestion of duodenitis as well as hepatomegaly and diffuse fatty infiltration of the liver. He was admitted to be managed for acute pancreatitis and nonstemi. His troponins did trend upwards and cardiology was consulted. Patient had cardiac cath which showed normal left main coronary artery and a subtotally occluded LAD in the midsegment, as well as a first diagnonal vessel with high grade proximal stenosis and second obtuse marginal branch with moderate stenosis; right coronary artery had diffuse distal disease and left ventricular systolic dysfunction had anterior and apical hypokinesis; he had PCI with stents deployed to the proximal and mid LAD with episcopal of flow distally, albeit small; 2D echo showed EF of 25% with moderately severe segmental systolic dysfunction. He was placed on aspirin, Brilinta and high intensity statin. He was initially kept NPO. His abdominal pain gradually improved and resolved. He was started on a diet which he tolerated. He was placed on aspirin and Brilinta as well as statin and carvedilol. His abdominal pain resolved and he felt much better. He remained stable and was discharged home on 05/27/2022. He is to follow-up with his primary care doctor and cardiology within 1 to 2 weeks. Of note, A1c checked was also elevated at 9.9. Patient was initially placed on Jardiance but due to insurance issues he could not get that. He was therefore placed on metformin 500 mg twice daily as well as insulin glargine 10 units daily. He is to keep blood sugar log and follow-up with her PCP for medication adjustment. Patient seen and examined prior to discharge. He had no active complaints and had an uneventful night. Review of stems otherwise negative. Labs and vitals reviewed. Home medication reviewed and reconciled. Physical Exam Const alert and oriented x3 General Appearance: cooperative and comfortable Orientation / Consciousness: awake Exam Limitations: no limitations HEENT normocephalic, head/scalp atraumatic, hearing grossly normal bilaterally and moist oral mucous membranes Mouth: oral and palatal mucosa normal Eyes PERRL and EOMs intact bilaterally Neck no lymphadenopathy and supple Resp normal respiratory effort, no retractions, no use of accessory muscles and clear to auscultation bilaterally Cardio regular rate, regular rhythm, S1 normal heart sound, S2 normal heart sound and no murmurs GI normal to inspection, nondistended, normoactive bowel sounds Extremity normal to inspection, full ROM and no clubbing, cyanosis or edema Skin no rashes or lesions noted Neuro oriented x3, CN's II-XII intact bilaterally and moves all extremities Sensorium / Orientation: awake and alert Motor Exam: strength 5/5 throughout Psych affect normal Weight / BMI Weight Weight: 300 lb 7.841 oz Body Mass Index (BMI) 39.3 ABG / Lab / Microbiology Data Result Diagrams: 05/27/22 06:11 05/27/22 06:11 Laboratory: Laboratory Results - last 24 hr 05/26/22 03:35: Hemoglobin A1c 9.9 H 05/26/22 05:36: POC Glucose 200 H 05/26/22 16:48: POC Glucose 248 H 05/26/22 22:07: POC Glucose 166 H 05/27/22 04:07: POC Glucose 163 H 05/27/22 06:11: WBC 9.9, RBC 4.78, Hgb 14.4, Hct 42.5, MCV 88.9, MCH 30.1, MCHC 33.9, RDW Std Deviation 45.0 H, RDW Coeff of Kaye 13.8, Plt Count 144 L, MPV 10.8, Immature Gran % (Auto) 0.900, Neut % (Auto) 78.9 H, Lymph % (Auto) 10.6 L, [place]ye % (Auto) 7.6, Eos % (Auto) 1.8, Baso % (Auto) 0.2, Absolute Neuts (auto) 7.8 H, Absolute Lymphs (auto) 1.05, Nucleated RBC % 0 05/27/22 06:11: Sodium 137, Potassium 3.8, Chloride 105, Carbon Dioxide 25.0, Anion Gap 7, BUN 9, Creatinine 0.78, Estim Creat Clear Calc 123.78, Est GFR (MDRD) Af Amer 135, Est GFR (MDRD) Non-Af 112, BUN/Creatinine Ratio 11.6, Glucose 193 H, Calcium 8.4 L, Total Bilirubin 1.70 H, AST 22, ALT 36, Alkaline Phosphatase 89, Total Protein 6.1 L, Albumin 2.9 L, Globulin 3.2, Albumin/Globulin Ratio 0.9 05/27/22 06:38: POC Glucose 186 H D/C Instructions Discharge Diet: Low fat / Low cholesterol Weight Bearing Status: Weight bearing as tolerated Call your doctor if you observe: Shortness of breath, Dizziness, Swelling in the ankles, Chest pain and Uncontrolled pain Meaningful Use Info Meaningful Use Diagnoses (Choose all that apply): AMI AMI/Post PCI/Angioplasty Aspirin given w/in 24hrs of arrival?: Yes ASA at discharge?: Yes Antiplatelet Therapy at Discharge:: Yes Statins at discharge?: Yes Vitaly/ARB at discharge?: Yes Beta Rossy at discharge?: Yes Done w/ Acute NV measure.: Yes Documented LVEF (%): 25 Discharge Plan Admission Admit Date/Time: 05/25/22 11:16 Primary Reason for Your Visit: nonstemi, acute pancreatitis Attending Provider: Daxa Casarez Primary Care Provider: Marcia Hughes Consulting Providers: Roly Lezama Instructions Forms: Work Excuse Patient Instructions: Pancreatitis Acute Dc, Heart Attack Dc, Heart Attack Meds Discharge Orders/Prescriptions Prescriptions: New metformin 500 mg Tablet 500 mg PO BIDCM Qty: 60 2RF atorvastatin 10 mg Tablet 10 mg PO QHS Qty: 30 2RF aspirin 81 mg Tablet,Delayed Release (Dr/Ec) 81 mg PO DAILY@0800 Qty: 30 2RF carvedilol 3.125 mg Tablet 3.125 mg PO BID Qty: 60 2RF lisinopril 2.5 mg Tablet 2.5 mg PO DAILY Qty: 30 2RF Brilinta 90 mg Tablet 90 mg PO BID Qty: 60 2RF insulin glargine [Basaglar KwikPen U-100 Insulin] 100 unit/mL (3 mL) insulin pen 10 unit subcut QPM Qty: 15 0RF Continued omeprazole 40 mg Capsule,Delayed Release(Dr/Ec) 40 mg PO DAILY Referrals / Follow Up: Roly Lezama MD [Med Staff - Active Staff] - Within 2 Weeks Marcia Hughes DO [Primary Care Provider] - Within 2 Weeks NOT,DEFINED [Non-Staff] - Disposition Disposition (needs filled in before D/C Order can be placed): Home, Self Care Charges/Coding Visit Charges Inpatient E&M: 60060 Disch Hosp
[2022-05-27] MEDS: Empagliflozin 10 MG Tablet PO (09:49)
[2022-05-27] MEDS: metFORMIN HCl 500 MG Tablet PO (09:49)
--- NOTE | 2022-05-27 10:00 | EKG12_ITS ---
Test Reason : am ekg Blood Pressure : / mmHG Vent. Rate : 080 BPM Atrial Rate : 080 BPM P-R Int : 154 ms QRS Dur : 096 ms QT Int : 380 ms P-R-T Axes : 019 020 067 degrees QTc Int : 438 ms Normal sinus rhythm Septal infarct , age undetermined Abnormal ECG Confirmed by JUNE PENA, ERIKA ([id number]), science editor XIOMARA WATTS ([id number]) on 05/28/2022 10:07:23 AM Referred By: Confirmed By:ERIKA WATKINS MD
--- NOTE | 2022-05-27 10:05 | CASEMGMT ---
LUIS F completed prescription assistance program form for patient. LUIS F also notified patient that [facility] assisted him with his discharge medications as there are numerous. Marci LEPE
--- NOTE | 2022-05-27 10:37 | CASEMGMT ---
Jardiance script cancelled by Dr. Lezama d/t cost and pt does not have insurance. Pt provided glucometer script. Pt voices no further questions/concerns/needs. SStlee CASTRO CM
--- NOTE | 2022-05-27 11:52 | CL.D_ITS ---
Patient Name: NIEVES PAINTING Study Date: 05/25/2022 Performing: Roly Lezama MD Ht: 73 inches 185.42 cm : 1970 Wt: 298.5 lbs 135.2 kg Age: 52 Gender: male BSA: 2.55 PROCEDURE(S) PERFORMED DC01-(76524)LHC/COR/LV CLINICAL PROFILE AND INDICATIONS Indications: Suspected CAD Heart Failure: None Stress/Imaging Stress/Image Study Performed: No Angina Classification Anginal Classification w/in 2 Weeks: Anginal Equivalent Dyspnea CONCLUSIONS Severe disease involving a subtotally occluded left anterior descending artery, severely diseased diagonal branch, moderately diseased circumflex artery and distally diseased right coronary artery with left ventricular systolic dysfunction RECOMMENDATIONS DESCRIPTION OF PROCEDURE The patient arrived to the procedure lab. The risks and benefits of the procedure as well as a full description of our services here and current unavailability of surgical backup were fully explained to the patient and/or their significant other prior to the catheterization. The Timeout was completed, verifying the correct patient and procedure. The patient's procedural site was prepped and draped in the usual fashion. Local anesthetic was given subcutaneously to right radial region with Lidocaine 2%. Using a modified Seldinger technique, arterial access was obtained via the right radial artery, a 6Fr sheath was inserted. Left Coronary Artery selective angiography was performed in multiple views using a 5 Fr. 4.0 Omak catheter. Right Coronary Artery selective angiography was then performed in multiple views using a 5 Fr. 4.0 Omak catheter. Left Ventriculography was performed in HERRERA projection using a 5 Fr. Pigtail catheter. LV to AO pullback pressures were then recorded.The arterial sheath was pulled and a TR Band was applied for hemostasis. 8cc of air CORONARY ANGIOGRAPHY DOMINANCE: Right Dominant LEFT HEART ASSESSMENT Left Ventricular Ejection Fraction: by LV Gram 30 % Anterior Hypokinesis - Severe. Apical Hypokinesis - Severe Depressed Left Ventricular systolic function LEFT MAIN: Mild calcification, No significant disease noted LEFT ANTERIOR DESCENDING ARTERY: MID LAD: is occluded DIAGONAL 1: Proximal - Sequential 80% stenosis CIRCUMFLEX ARTERY: Non dominant but large vessel with first obtuse marginal branch with sequential 80% stenosis and obtuse marginal branch with diffuse 60% stenosis and mild disease noted in the AV groove branch and distal circumflex artery RIGHT CORONARY ARTERY: Dominant large vessel with no proximal or mid high-grade stenosis but diffuse distal disease of approximately 60% COMPLICATIONS No Complications PROCEDURE MEDICATIONS Fentanyl 50 mcg IV Versed 1 mg IV Versed 1 mg IV Oxygen: 2 L/min via nasal cannula Heparin given IA 05/25/2022 14:41:57 Verapamil 2.5mg, Ntg 100mcgs, 3000 units of Heparin given IA 05/25/2022 14:41:57 SUMMARY OF HEMODYNAMIC DATA Time AIR REST ECG 14:15:44 Art 170/80 (105) 14:39:58 AO 115/79 (94) SA 14:43:32 LV 121/13, 32 14:50:58 LV 116/14, 23 14:51:06 LV 113/17, 23 14:52:14 LVp 111/17, 25 14:52:19 AOp 118/81 (97) 14:52:26 AIR REST 15:36:27 Signed By Roly Lezama MD On 05/27/2022 11:51:10 Roly Lezama MD
== END 2022-05-27 10:40 | disposition home or self-care (01) | DRG 246 ==
LOC: ED 09:16 → PCU 11:34 → ICU 17:49 → PCU 05-26 13:20
PROVIDERS: Internal Medicine Cardiovascular Disease; Admitting Provider Student in an Organized Health Care Education/Training Program; Emergency Provider Emergency Medicine; PCP Internal Medicine; Visit Provider Student in an Organized Health Care Education/Training Program
DX: I21.4 Non-ST elevation (NSTEMI) myocardial infarction (principal); K85.90 Acute pancreatitis without necrosis or infection, unspecified; E87.20 Acidosis, unspecified; I42.9 Cardiomyopathy, unspecified; E11.40 Type 2 diabetes mellitus with diabetic neuropathy, unspecified; E11.65 Type 2 diabetes mellitus with hyperglycemia; F17.210 Nicotine dependence, cigarettes, uncomplicated; K44.9 Diaphragmatic hernia without obstruction or gangrene; K76.0 Fatty (change of) liver, not elsewhere classified; K29.80 Duodenitis without bleeding; I25.10 Atherosclerotic heart disease of native coronary artery without angina pectoris; Z66 Do not resuscitate; R00.0 Tachycardia, unspecified; Z79.02 Long term (current) use of antithrombotics/antiplatelets; Z79.82 Long term (current) use of aspirin; Z87.442 Personal history of urinary calculi
CPT/HCPCS: 36415; 71275; 74174; 80053; 80061; 81001; 82150; 82962; 83036; 83605; 83690; 84484; 85025; 85347; 92928; 93005; 93306; 93458; 99152; 99153; 99284; 99406; C1769; C1874; J7030; J7120; Q9957; Q9967; A4216; C1725; C1887; C1894; C8929; C9600; J1327; J2405

== ENCOUNTER → 2022-07-01 | Outpatient (CLI) | payer BC, SELFPAY ==
--- NOTE | 2022-07-01 09:27 | CR.HP_ITS ---
CR - History & Physical - General Arrival date:: 07/01/22 Arrival time:: 09:27 Date of Referral:: 06/24/22 Date of CR Evaluation:: 07/01/22 Referring Physician: Dr. Roly Lezama Primary Diagnosis: PCI with stent - History of Present Cardiac Event Onset Date: Enter Onset Date of cardiac illnesses in Comment field below PTCA or coronary stenting:: Yes - Prox and mid LAD - Sleep Disorder Evaluation Hx of Sleep Apnea: Yes Do you snore loudly (louder than talking or can be heard through closed doors)?: Yes Do you often feel tired/ fatigued/ sleepy during daytime?: Yes Has anyone observed you stop breathing during sleep?: No History of Hypertension (for STOP score): No STOP Results: Positive - Medications Home Medications: Ambulatory Orders Medication Instructions Recorded omeprazole 40 mg capsule,delayed 40 mg PO DAILY ACID REFLUX 05/25/22 release aspirin 81 mg tablet,delayed 81 mg PO DAILY@0800 #30 tabs 05/27/22 release atorvastatin 10 mg tablet 10 mg PO QHS #30 tabs 05/27/22 carvedilol 3.125 mg tablet 3.125 mg PO BID #60 tabs 05/27/22 insulin glargine 100 unit/mL (3 10 unit (0.1 mL) subcut QPM #15 mL 05/27/22 mL) subcutaneous pen (Basaglar KwikPen U-100 Insulin) lisinopril 2.5 mg tablet 2.5 mg PO DAILY #30 tabs 05/27/22 metformin 500 mg tablet 500 mg PO BIDCM #60 tabs 05/27/22 ticagrelor 90 mg tablet (Brilinta) 90 mg PO BID #60 tabs 05/27/22 - Allergies Allergies/Adverse Reactions: Allergies Penicillins Allergy (Verified 05/25/22 08:56) Rash ibuprofen Adverse Reaction (Verified 05/25/22 08:56) Upset Stomach oxycodone HCl [From Percocet] Adverse Reaction (Verified 05/25/22 08:56) BECOMES VIOLENT Advanced Directives - Advanced Directives Power of V Belt Builder: No Living Will: No Advance Directives Information Provided: No Advance Directives on File: No DNR Order?:: No Past Medical History - Covid-19 Screening Has a serious heart condition:: Yes Diabetic:: Yes - Past Medical Illness Medical History: Past Medical History (Last Updated 05/26/22 @ 08:57 by Mela Aguilera) Atherosclerosis of coronary artery of [place] heart without angina pectoris I25.10 Cardiomyopathy I42.9 Diabetes E11.9 Hemangioma D18.00 Kidney stones N20.0 Neuropathy G62.9 horizontal - Past Surgical History Surgical History: Past Surgical History (Last Updated 05/26/22 @ 08:57 by Mela Aguilera) H/O knee surgery Z98.890 bilateral for meniscus repair H/O rhinoplasty Z98.890 History of coronary artery stent placement Onset Date: ~05/25/22 Z95.5 Mid-LAD DORA [place] 2.86s12iu and DORA [place] 3.0x26mm Surgical History: arthroscopy, knee, - - Removal of kidney stones Social History - Smoking History Smoking Status: Current every day smoker Years Smokin Packs Smoked per Day: 1 - Alcohol Use Alcohol Usage: No - stopped about 6 years ago - Substance Abuse Hx Substance Use: No - Occupation Occupation (List type of work in comments):: Employed Hours worked per day:: 8 - Hobbies, Recreation, Social Activities Hobbies: Other - coloring Recreational Activities: I am able to engage in all my recreational activities Social Environment - Status Marital Status: - Current Living Arrangements Living Environment:: Spouse - Children How many children do you have?: 0 - Safety Do you feel safe in your surroundings?: Yes - Assistance Do you need any assistance at home?: no Review of Systems - Review of Systems Hints: Right click = Denies (Slash). Left click = Reports ([place]) Review of Present Symptoms: Reports: Shortness of Breath at Rest, Shortness of Breath with Exertion, Dizziness/Lightheadedness, Fatigue, Appetite - Normal, Sleep - Normal. Denies: PVD, Operative Discomfort, Angina, Wound Healing, Heart Arrhythmia/Irregularities, Appetite - Special Diet, Sexual Changes - Pain Is Patient Pain Free?: No Pain Location: back Pain Level: 12/05 Risk Factor Assessment - Vital Signs Pulse Ox: 96 - Pulse Pulse Rate: 88 Pulse Rhythm: Regular - Hypertension Blood Pressure Sitting - Left Arm: 142/96 - Stress Stress: Work-related - Diabetes Diabetic History: Type II Nutrition Referral for Diabetes: Yes - Obesity Height: 6 ft 1 in Weight:: 136.078 kg Weight in Pounds: 300.0 lbs Body Mass Index (BMI): 39.5 Nutritional Referral for Obesity: Yes - Physical Inactivity Physical Inactivity: None - Risk Stratification Risk Guidelines: Moderate Risk: Risk Factor for Smoking, Risk Factor for Dyslipidemia, Risk Factor for Hypertension, Risk Factor for Sedentary Lifestyle, Risk Factor for Depression, Highest Risk: Risk Factor for Diabetes, Risk Factor for Obesity Motivation - Motivation to Participate On a scale of 1 to 10, how prepared are you to commit to attending program?: 5 What do you see as barriers to successfully being able to complete the program?: nothing What do you see as the benefits of succesfully completing the program? In other words, what do you hope to get out of participating in the program?: feeling better, energy Are there issues you are dealing with that will interfere with completing the program?: no Do you have a spouse or signficant other, family or friends who will help support you to complete the program?: yes
[2022-07-01 10:23] VITALS: BP 142/96; PULSE 88; O2SAT 96; BMI 39.5
--- NOTE | 2022-07-01 10:23 | PCM.CR.ITP ---
Diagnosis - General Information Admitting Diagnosis: PCI with stent Personal Learning Style:: Audio/Visual Stage of change r/t lifestyle modifications:: Contemplation Gave educational material for:: Treating Heart Disease, Emotions & Heart Disease, Stress Management & Relaxation, Sleep Disorders & Heart Disease, How The Heart Works, What it means to have Heart Disease, How Coronary Artery Disease is Diagnosed, Heart Procedures, What Heart Medications Do, Risk Factors & Modifications, Living an Active Life, Nutrition - Education/Goals Cardiac Rehabilitation Goals: 1. Maintain the individual as the primary focus of care. 2. To improve the patient's quality of life. 3. Identification of cardiac risk factors and provide cardiac risk factor management. 4. Enhance the psychosocial status of the patient. 5. Reconditioning enough to allow the patient to resume customary activities. 6. Control symptoms of cardiac disease Personal Goals: Initial Assessment: Quit smoking (participate in smoking cessation, Improve management of stress and emotions, Improve energy level, Improve knowledge of cardiac disease, Improve muscle strength and endurance, Improve diet and eating habits (eat healthier), Control risk factors (learn risk factor modification), Other goal: Scale for measuring improvement of personal goals: Enter appropriate number in Comments. 2 = Unchanged. 3 = Slightly Better. 4 = Moderate Improvement. 5 = Met my Goal - Diagnosis & Disease Process Outcomes/Goals: Pt IDs own risk factors & lifestyle modifications by Session 10, Verbalizes symptoms of angina & response by session 3., Pt independently manages, Other Additional Outcomes/Goals: Plan/Interventions: Assist Pt to ID & engage in lifestyle modification to reduce CVD risk, Instruct on individual risk factors, Review symptoms of angina & emergency actions, Review secondary diagnosis & identify educational needs., Other see comment 30 day Reassessments:: Not Met 30 day Reassessments:: Not Met 30 day Reassessments:: Not Met - Safety Referral to Physical Therapy: No Referral to [facility] Case Management: No Fall Risk Assessed:: Yes Assistive Devices:: None Exercise - Initial Assessment - Visit Date of Eval: 07/01/22 - initial eval Mets: Pre-: >3 METS for 30 minutes by discharge, >5 METS for 30 minutes by discharge, >7 METS for 30 minutes by discharge, Unable to meet goal due to: (see comment below) - Physician Prescribed Exercise Modalities: Treadmill, Rower, Airdyne, NuStep, SciFit, Lateral Zihlman Frequency: 2x/week for 18 weeks [36 sessions], 3x/week for 12 weeks [36 sessions] Intensity: 60-80% of age predicted maximum heart rate reserve Current METSs:: 3.0 Target Heart Rate:: 108-125 Resting Blood Pressure: 142/96 Current Physical Activity or Exercising minutes: NSR - Outcomes & Goals Goals:: Verbalizes understanding of THR, RPE & goal METS by session 6, Documents in home exercise log/reports 30 min aerobic 5 day/wk by DC, Demonstrates accurate pulse taking by DC, Other additional outcome/goals: see below - Intervention & Plan Exercise Program Goals: Instruct on personal THR & RPE, Instruct on MET level & personal MET goal, Show patient to take own pulse /validate performance until accurate, Instruct on home exercise, Other additional plan/int - Physical Activity Home Exercise Physical Activity - Home Exercise: Safe Exercise, Warm-up, Self-monitoring, Cool-Down, Home Exercise > 30 min Daily, Sitting Time <3 hours/daily - Outcomes & Goals Outcomes/Goals: Demonstrates correct Warm-up/exercise Cool-Down (S3) if = 2.5 METs, Verbalizes symptoms of exercise intolerance by Session 3 (S3), Demonstrate safe equipment use (S3) & follows exercise prescrition (6), Other: See below - Intervention & Plan Plan/Intervention: Instruct warm-up & cool-down if exercising at > 2 METs, Instruct on symptoms of exercise intolerance & actions to take, Instruct & monitor on saf, Assess intial functional capacity & safety risk, Other See below Nutrition - Initial Assessment - Program Goals Nutrition Program Goals: LDL <100 optimal. 100 - 129 Near optimal. 130 - 159 Borderline High. 160 - 189 High. Total Cholesterol <200 desirable. 200 - 239 Borderline High. >/= 240 High. HDL < 40 Low >/=60 High. Triglycerides <150 desirable. <199 optimal. VlDL 5 - 40. HgbA1C <7%. BMI <25 Patient has diagnosis of Hyperlipidemia (ICD E78)?: No - Visit Date of Assessment:: 07/01/22 - initial eval - Cholesterol/Lipids (Other Core Measures) Determine presence & major risk factors that modify LDL goal: Cigarette smoking, Hypertension or hypertensive medication, Low HDL cholesterol <40 mg/dL*, Family history of premature CHD in Male < 55 years: female <65 yearsFa, Age men > 45 years; women >/= 55 years Outcomes/Goals: Pt IDs own risk factors & lifestyle modifications by Session 10, Verbalizes symptoms of angina & response by session 3., Pt independently manages, Other Additional Outcomes/Goals: Intervention/Plan: Advocate for lipid panel cholesterol medication if applicable, Instruct on personal lipid levels & lipid goals/NCEP guidelines, Instruct on cholesterol, Other additional plan/int Referral to dietitian:: Yes - DM II, medical nutrition therapy - Diabetes (Other Core Measures) Diabetes Type: Diagnosis Type II ICD-10 E11 Insulin dependent injection/pump?: Yes Non-Insulin Dependent?: Yes Do you monitor your blood sugar at home?: Yes Referral to Diabetic Clinic:: Yes Outcomes/Goals:: Able to state symptoms of, Able to state, Able to state, Other additional Intervention/Plan:: Instruct on, Refer to, Instruct on, Other - Weight Mgt (Other Care) Height: 6 ft 1 in Weight:: 136.078 kg BMI: 39.5 Diagnosis Overweight/Obesity BMI> 30% ICD-10 E66: Yes Diagnosis High BMI/Morbid Obesity BMI> 35% ICD-10 Z68: Yes Outcomes/Goals: Pt sets, maintains & shows weight loss goal & trend during rehab, Other additional outcomes/goals Intervention/Plan: Instruct on ideal BMI & set weight loss goal w/patient, Assist pt to ID & incorporate diet changes for weight loss by S9, Refer to Structured Weight Loss program as appropriate, Encourage goal of using 250-300dcal per session for weight loss, Other additional plan/interventions - Healthy Eating Habits Will attend diet classes:: Yes Outcomes/Goals:: Consume diet rich in vegs,fruits,whole grain/high fiber,fish,lean meat, Limit sat/trans fats,cholesterol & added salts & sugars, Other additional outcome/goals: Intervention/Plan:: Assess current eating habits, Other Additional plan/interventions - Education Gave educational materials for:: Signs & symptoms of hypoglycemia, Signs & symptoms of hyperglycemia, Relate diabetes to coronary artery disease, Healthy eating Nutrition - 30-Day Assessment Nutrition - 60-Day Assessment Nutrition - 90-Day Assessment Nutrition - Final Assessment Core - Initial Assessment - Visit Date of Eval: 07/01/22 - initial eval - Medication Compliance Preventative Medication(s):: Aspirin, OLEKSANDR inhibitor, Ticagrelor/P2Y12 inhibitor, Statin/lipid, Beta byron H/O mental health issues: depression, anxiety, or addiction?: Yes Doesn?t believe in the benefits of treatment?: No Believes medications are unnecessary or harmful?: No Has a concern about medication side effects?: No Expresses concern over the cost of medications?: No Outcomes/Goals: Verbalizes medications,desired effect & common side effects @ DC, Pt self-reports following medication regimen, Keeps card in wallet w/medications listed by DC, Other additional outcome/goals: Interventions/plans: Instruct on medication effects & side effects, Review medication list w/patient every two weeks, Instruct importance of taking meds as ordered & assist problem solving, Other additional - Tobacco Use Tobacco Use: Cigarettes How many cigarettes do you smoke per day?: 20 Years Smokin Outcomes/Goals: Smoking cessation achieved or maintained by discharge, Identify aids/strategies for achieving smoking cessation by session 6, Other additional outcome/goals Interventions/plan: Instruct on effects of smoking & provide smoking cessation resource, Assist pt to set quit date & provide encouragement, Assist pt to develop strategies to achieve/maintain quit date, Assist pt w/nicotine replacement & medication for cessation success, Other additional plan/interventions - Hypertension Hypertension Diagnosis:: Hypertension ICD-10 I10 Resting Blood Pressure:: 142/96 [place] [employer] Hypertension Guidelines: [place] [employer] Hypertension Guidelines. Normal BP Less than 120/80. Elevated BP 120/80. Hypertension Stage 1: BP 130-139/80-89. Hypertesnion Stage 2: BP 140 or higher/90 or higher. Hypertension Crisis: BP higher than 180/120 Outcomes/Goals: Able to verbalize/achieve optimal blood pressure <130/80, Incorporates diet changes & exercise for blood pressure control by DC, Other additional outcomes/goals Interventions/plan: Instruct on optimal blood pressure, hypertension & medications, Instruct on effects of sodium, alcohol, stress, exercise &hypertension, Other additional plan/interventions - Tobacco Cessation Referral Smoking Cessation Referral:: No Individual Education/Counseling:: No Education Schedule Given:: Yes Core - 30-Day Assessment Core - 60-Day Assessment Core - 90 Day Assessment Core - Final Assessment Psychosocial - Initial Assess - VIsit Date of Eval: 07/01/22 - initial eval History of previous Mental disease:: Yes - pt states he is depressed. Declines counseling History of Emotional Disorders: Depression Self-reported stressors: Other - work - Psychosocial Test Tool Used:: [employer] get2play QOL Cardiac, PHQ-9 Questionnaire phq-9 Severity: Severity. 1-4 Minimal Depression. 5-9 Mild Depression. 10-14 Moderate Depression. 15-19 Moderately Sever Depression. 20-27 Severe Depression. Rule: - Outcomes/Goals: See list Psychosocial Outcomes/Goals:: ID's personal stressors & 2 strategies to manage stress by discharge, Other Additional outcome/goals: - Intervention/Plan: See List Interventions/Plan:: Assess stressors,coping strategies & signs of derpression on admission, Instruct/assist pt to develop coping & personal stress Mgt strategies, Refer to Behavioral Health if appropriate, Refer to Physician if appropriate, Instruct patient to recognize signs & symptoms of depression, Instruct patient to recog, Other additional plan/intervention Comments:: pt declines counseling Psychosocial - 30-Day Assess Psychosocial - 60-Day Assess Psychosocial - 90-Day Assess Psychosocial - Final Assessmen Patient Health Questionnaire Initial Assessment 1. Little interest or pleasure in doing things: More than half the days 2. Feeling down, depressed, or hopeless: Several days 3. Trouble falling or staying asleep, or sleeping too much: Nearly every day 4. Feeling tired or having little energy: Nearly every day 5. Poor appetite or overeating: Nearly every day 6. Feeling bad about yourself -- or that you are a failure or have let yourself or your family down: More than half the days 7. Trouble concentrating on things, such as reading the newspaper or watching television: More than half the days 8. Moving or speaking so slowly that other people could have noticed. Or the opposite - being so fidgety or restless that you have been moving around a lot more than usual: More than half the days 9. Thoughts that you would be better off , or of hurting yourself in some way: Not at all How difficult have these problems made it for you to do your work, take care of things at home, or get along with other people?: Somewhat difficult Total Score: 18 CHRISTINA-Q SV Test - Statements CAD is a disease of the arteries in the heart: True Examples of risk factors for heart disease: True Angina is chest pain or discomfort: False The benefits of resistance training include: True Eating more meat and dairy products: True Anti-platelet medications such as aspirin are important: I Don't Know The only effective way to manage stress: True An exercise warm-up slowly increases heart rate: True Prepared, processed foods usually have high sodium: True Depression is common after a heart attack: I Don't Know The statin medications lower cholesterol: I Don't Know To control blood pressure, lower the amount of sodium: True If someone gets chest discomfort during walking: False Transfats are partially hydrogenated vegetable oils: True Sleep apnea that is not treated increases the risk: I Don't Know To control cholesterol, one should become a vegetarian: False Someone knows if he/she is exercising at the right level: I Don't Know Diabetes cannot be prevented with exercise & health eating: False Stress is a large risk for heart attack: True A diet that can help lower blood pressure is rich in: True - Total Score Total Correct Responses: 11 Self-Efficacy Initial Assessment We would like to know how confident you are in doing certain activities. Please select your confidence level for:: Select your confidence level for the following using the scale 1-10 where 1 is not at all confident and 10 is totally confident. Your score is the average of all 6 responses. Fatigue: How confident are you that you can keep the fatigue caused by your disease from interfering with the things you want to do? Select Number: 4 Physical Discomfort or Pain: How confident are you that you can keep the physical discomfort or pain of your disease from interfering with the things you want to do? Select Number: 5 Emotional Distress: How confident are you that you can keep the emotional distress caused by your disease from interfering with the things you want to do? Select Number: 2 Other Symptoms or Health Problems: How confident are you that you can keep other symptoms or health problems from interfering with the things you want to do? Select Number: 6 Different Tasks and Activities: How confident are you that you can do the different tasks and activities needed to manage your health condition so as to reduce your need to see a doctor? Select Number: 3 Medication: How confident are you that you can do things other than just taking medication to reduce how much your illness affects your everyday life? Select Number: 4 Total Score:: 4 Nutrition Survey - Nutrition Survey Initial Have you lost >10 lbs over the past 2 months without trying?: Yes Are you following a special diet at home for diabetes, low fat, or low salt?: No Are you interested in meeting with a dietitian for help understanding your diet?: Yes Do you eat less than 3 meals a day?: Yes Do you eat fatty meats (hilario, sausage, ribs, etc), fried foods, desserts, large amounts of salad dressings, margarine, butter, or cheese most days?: Yes Do you have food allergies? [Enter types in comment field]: No Do you eat in restaurants more than 3 times a week?: No Do you season food with salt, seasoning salt, or garlic salt?: No Do you used canned, boxed, frozen meals, or soups, seasoning packets?: No Total Score:: 4
[2022-07-01 10:39] VITALS: BP 142/96; BMI 39.5
== END | disposition home or self-care (01) ==
LOC: CR 09:20
PROVIDERS: PCP Nurse Practitioner Family; Referring Provider Internal Medicine Cardiovascular Disease; Visit Provider Internal Medicine Cardiovascular Disease
DX: I25.10 Atherosclerotic heart disease of native coronary artery without angina pectoris (principal); I42.9 Cardiomyopathy, unspecified; E11.9 Type 2 diabetes mellitus without complications; F17.200 Nicotine dependence, unspecified, uncomplicated

== ENCOUNTER → 2022-07-24 | Outpatient (CLI) | payer BC, SELFPAY ==
[2022-07-01 10:39] VITALS: BMI 39.5
[2022-07-24 17:28] LABS: AST(SGOT) 21 U/L (15-37); Alanine Aminotransfer ALT/SGPT 25 U/L (16-61); Albumin, Serum 3.9 g/dL (3.2-5.0); Alkaline Phosphatase 85 U/L (45-117); Amylase 46 U/L (25-115); Anion Gap 5 (5-15); BUN 11 mg/dL (7-18); BUN/Creat Ratio 11.3 RATIO (10-20); Bilirubin, Direct 0.31 mg/dL (0.00-0.30); Calcium,Total 9.2 mg/dL (8.5-10.1); Chloride 104 mmol/L (98-107); Cholesterol 149 mg/dL (200); Creatinine, Serum 0.97 mg/dL (0.70-1.30); EST Glomerular Filtration Rate 86 mL/min (>60); Est Glom Filt Rate - Afr Amer 104 mL/min (>60); Globulin 3.5 g/dL (2.2-4.2); Glucose 189 mg/dL (74-106); High Density Lipoprotein 39 mg/dL; Lipase 161 U/L (73-393); Potassium 4.2 mmol/L (3.5-5.1); Protein, Total 7.4 g/dL (6.4-8.2); Sodium Level 138 mmol/L (136-145); Triglycerides 142 mg/dL; Very Low Density Lipoprotein 28 mg/dL (5-40)
== END | disposition home or self-care (01) ==
LOC: LAB 16:37
PROVIDERS: PCP Nurse Practitioner Family; Referring Provider Internal Medicine Cardiovascular Disease; Visit Provider Internal Medicine Cardiovascular Disease
DX: I25.10 Atherosclerotic heart disease of native coronary artery without angina pectoris (principal); Z95.5 Presence of coronary angioplasty implant and graft
CPT/HCPCS: 36415; 80048; 80061; 80076; 82150; 83690

== ENCOUNTER 2022-07-27 09:30 | Outpatient (RCR) | payer BC, SELFPAY ==
[2022-07-01 10:39] VITALS: BMI 39.5
== END 2022-07-28 23:59 ==
LOC: CR 09:30
PROVIDERS: PCP Nurse Practitioner Family; Visit Provider Internal Medicine Cardiovascular Disease
DX: Z95.5 Presence of coronary angioplasty implant and graft (principal)
CPT/HCPCS: 93798

== ENCOUNTER → 2022-08-10 | Outpatient (CLI) | payer BC, SELFPAY ==
[2022-07-01 10:39] VITALS: BMI 39.5
--- NOTE | 2022-08-10 16:44 | US_ITS ---
EXAM: US ABDOMEN COMPLETE CLINICAL INDICATION: bladder wall thickening -- bladder wall thickening TECHNIQUE: Real-time ultrasound of the abdomen with image documentation. This report was created using [employer] report generation technology. COMPARISON: None. FINDINGS: No right or left UVJ calculus. Bladder distended appearance measures 74 ml and postsurgical residual measures 22 millimeters. Bladder wall measures 0.8 cm in thickness but the bladder is not fully distended. No gross evidence for any bladder wall lesions. No intraluminal masses. No bladder calculi. No focal catheter in place. US/Post Void Residual Bladder IMPRESSION: Very limited assessment due to a decompressed appearance of the bladder with no obvious bladder wall masses or or any significant intraluminal pathology. Electronically Signed: Jose Corley MD at 21:15 EST ,
== END | disposition home or self-care (01) ==
PROVIDERS: PCP Nurse Practitioner Family; Referring Provider Nurse Practitioner Family; Visit Provider Nurse Practitioner Family
DX: N32.89 Other specified disorders of bladder (principal)
CPT/HCPCS: 51798

== ENCOUNTER → 2022-08-13 | Outpatient (CLI) | payer BC, SELFPAY ==
[2022-07-01 10:39] VITALS: BMI 39.5
--- NOTE | 2022-08-13 09:47 | US_ITS ---
STUDY: ABDOMINAL ULTRASOUND - RIGHT UPPER QUADRANT REASON FOR VISIT: Male, 52 years old . Fatty infiltration of the liver. TECHNIQUE: Ultrasound evaluation of the right upper quadrant was performed with real-time and static faustin-scale imaging. TECHNICAL QUALITY: Adequate. COMPARISON: Comparison is made with prior study dated 05/25/2022. FINDINGS: Liver: The liver measures 16.8 cm. There is increased echogenicity consistent with fatty infiltration. The bile ducts are within normal limits. There is hepatic color flow. The direction of portal flow is hepatopetal. There is no demonstrated mass lesion. Gallbladder: Normal distended gallbladder. The gallbladder wall measures 2.9 mm. There is a negative sonographic Catalan''s sign. There is no pericholecystic fluid. There are no gallstones. Common Bile Duct (C.B.D.): The common bile duct measures 3.1 mm. Pancreas: Normal size of the head, body and tail of the pancreas. There is normal echogenicity of the pancreas. There is no demonstrated pancreatic mass or cyst. Right Kidney: Normal size of the right kidney. The right kidney measures 13.9 cm x 6.4 cm x 4.9 cm. Normal renal cortex. The right cortex measures 1.4 cm. There is no demonstrated renal mass or cyst. Mild degree of fullness of the renal pelvis. US/Abdomen Limited IMPRESSION: Fatty infiltration of the liver. Mild degree of fullness of the right renal pelvis. Electronically Signed: Erik Ramsey MD at 11:02 [facility] ,
[2022-08-14 07:08] LABS: HEPATITIS B SURFACE AG Negative (Negative); Hep C Antibodies Non Reactive (Non Reactive); Hepatitis A IgM Antibody Negative (Negative); Hepatitis B Core AB IgM Negative (Negative)
== END | disposition home or self-care (01) ==
PROVIDERS: PCP Nurse Practitioner Family; Visit Provider Nurse Practitioner Family
DX: K76.0 Fatty (change of) liver, not elsewhere classified (principal)
CPT/HCPCS: 36415; 76705; 80074

== ENCOUNTER → 2022-08-17 | Outpatient (CLI) | payer BC, SELFPAY ==
[2022-07-01 10:39] VITALS: BMI 39.5
--- NOTE | 2022-08-17 13:49 | ECHOCS_ITS ---
Reason For Study: CAD/ASHD Procedure This was a 2D Doppler, Color Flow transthoracic echocardiogram. Contrast injection was performed. Exam performed in department. Left Ventricle Normal LV size. Mild concentric left ventricular hypertrophy. The left ventricular ejection fraction is 45 %. Mild to moderate segmental systolic dysfunction (see wall motion). Stage 1 diastolic dysfunction. [place] : Akinetic. Inferior [place] : Akinetic. Septal [place] : Akinetic. The rest of the wall segments are normal. Right Ventricle Normal RV size. Normal systolic function. Atria Normal left atrium. Normal right atrium. Mitral Valve Normal mitral valve. Tricuspid Valve Normal tricuspid valve. Mild (1+) tricuspid valve insufficiency. Pulmonary artery systolic pressure is 38 mmHg. Aortic Valve Trisinus/trileaflet aortic valve. Pulmonic Valve The pulmonic valve is not well visualized. Great Vessels Normal aortic root. The pulmonary artery is normal size. Normal inferior vena cava. Pericardium/Pleural No pericardial effusion. Medication Diluted definity 3.5ml given slow IV push to enhance endocardial definition. MMode/2D Measurements & Calculations LVIDd: 4.7 cm IVSd: 1.4 cm Ao root diam: 3.2 cm LVIDs: 3.4 cm LVPWd: 1.2 cm RVDd: 2.8 cm FS: 28.8 % LAV(MOD-bp): 44.7 ml LVAd ap4: 38.9 cm2 SV(MOD-sp4): 71.5 ml LAV(MOD-bp) Indexed: 17.8 ml/m2 LVLd ap4: 9.3 cm LAV(MOD-sp2): 47.7 ml EDV(MOD-sp4): 132.1 ml LAV(MOD-sp4): 31.9 ml EDV(sp4-el): 138.4 ml LVAs ap4: 25.3 cm2 LVLs ap4: 8.4 cm ESV(MOD-sp4): 60.6 ml ESV(sp4-el): 64.3 ml EF(MOD-sp4): 54.1 % EF(sp4-el): 53.5 % SV(sp4-el): 74.0 ml LA A4 area: 15.0 cm2 LA dimension(2D): 4.4 cm RA A4 area: 10.8 cm2 Time Measurements MV dec time: 0.26 sec Doppler Measurements & Calculations MV E max ted: 83.2 cm/sec Lat Peak E' Ted: 13.6 cm/sec Med Peak E' Ted: 8.6 cm/sec MV A max ted: 92.4 cm/sec E/E' lat: 6.1 E/E' med: 9.7 MV E/A: 0.90 MV dec slope: 323.7 cm/sec2 Ao V2 max: 158.3 cm/sec LV V1 max: 116.0 cm/sec Ao max P.0 mmHg LV V1 max P.4 mmHg Ao V2 mean: 112.2 cm/sec Ao mean P.5 mmHg Ao V2 VTI: 29.9 cm PA V2 max: 115.1 cm/sec TR max ted: 296.3 cm/sec TR max P.1 mmHg ECHO/Echo Complete W/ Contrast Interpretation Summary Normal LV size. The left ventricular ejection fraction is 45 %. Mild to moderate segmental systolic dysfunction (see wall motion). Mild concentric left ventricular hypertrophy. Stage 1 diastolic dysfunction. Contrast injection was performed. Compared to previous study, the left ventricu lar systolic function has improved.. Ordering Physician: Roly Lezama Referring Physician: Lynette Seals Performed By: Rasheeda Abbott, RDCS, RVT
== END | disposition home or self-care (01) ==
LOC: CVS 13:48
PROVIDERS: PCP Nurse Practitioner Family; Referring Provider Internal Medicine Cardiovascular Disease; Visit Provider Internal Medicine Cardiovascular Disease
DX: I42.9 Cardiomyopathy, unspecified (principal); Z95.5 Presence of coronary angioplasty implant and graft; I25.10 Atherosclerotic heart disease of native coronary artery without angina pectoris
CPT/HCPCS: 93306; Q9957; A4216; C8929

== ENCOUNTER 2022-08-21 09:30 | Outpatient (RCR) | payer BC, SELFPAY ==
[2022-07-01 10:39] VITALS: BMI 39.5
== END 2022-08-25 23:59 ==
LOC: CR 09:30
PROVIDERS: PCP Nurse Practitioner Family; Visit Provider Internal Medicine Cardiovascular Disease
DX: Z95.5 Presence of coronary angioplasty implant and graft (principal)
CPT/HCPCS: 93798

== ENCOUNTER → 2022-08-31 | Outpatient (CLI) | payer BC, SELFPAY ==
[2022-08-28 08:16] VITALS: BMI 37.7
[2022-08-31 10:52] LABS: Anion Gap 7 (5-15); BUN 11 mg/dL (7-18); BUN/Creat Ratio 11.9 RATIO (10-20); Chloride 105 mmol/L (98-107); Creatinine, Serum 0.93 mg/dL (0.70-1.30); EST Glomerular Filtration Rate 91 mL/min (>60); Est Glom Filt Rate - Afr Amer 110 mL/min (>60); Glucose 151 mg/dL (74-106); Potassium 3.9 mmol/L (3.5-5.1); Sodium Level 140 mmol/L (136-145)
== END | disposition home or self-care (01) ==
LOC: LAB 09:55
PROVIDERS: PCP Nurse Practitioner Family; Referring Provider Physician Assistant Medical; Visit Provider Physician Assistant Medical
DX: I42.9 Cardiomyopathy, unspecified (principal)
CPT/HCPCS: 36415; 80048

== ENCOUNTER 2022-09-25 09:30 | Outpatient (RCR) | payer BC, SELFPAY ==
[2022-07-01 10:39] VITALS: BMI 39.5
--- NOTE | 2022-08-28 08:05 | CR.ITP_ITS ---
Diagnosis Exercise - 60-day Assessment - Visit Date of Eval: 08/28/22 Session #:: 21 - Physician Prescribed Exercise Modalities: NuStep, SciFit, Lateral Automatic Coin Machine Mechanic Frequency: 3x/week for 12 weeks [36 sessions] Intensity: 60-80% of age predicted maximum heart rate reserve Duration: 30 - 45 minutes Current METSs:: 6.0 Target Heart Rate:: 108-125 Current RPE:: 13 Maximum Excercise HR:: 96 Resting Blood Pressure: 112/80 Maximum Exercise Blood Pressure: 132/78 EKG Type: Sinus rhythm to sinus tachycardia with rare PVCs. - Outcomes & Goals Goals:: Verbalizes understanding of THR, RPE & goal METS by session 6, Documents in home exercise log/reports 30 min aerobic 5 day/wk by DC, Demonstrates accurate pulse taking by DC - Intervention & Plan Exercise Program Goals: Instruct on personal THR & RPE, Instruct on MET level & personal MET goal, Show patient to take own pulse /validate performance until accurate, Instruct on home exercise - 30-day Reassessments 30 day Reassessments:: Met - Physical Activity Home Exercise Physical Activity - Home Exercise: Safe Exercise, Warm-up, Self-monitoring, Cool-Down, Home Exercise > 30 min Daily, Sitting Time <3 hours/daily - Outcomes & Goals Outcomes/Goals: Demonstrates correct Warm-up/exercise Cool-Down (S3) if = 2.5 METs, Verbalizes symptoms of exercise intolerance by Session 3 (S3), Demonstrate safe equipment use (S3) & follows exercise prescrition (6) - Intervention & Plan Plan/Intervention: Instruct warm-up & cool-down if exercising at > 2 METs, Instruct on symptoms of exercise intolerance & actions to take, Instruct & monitor on saf, Assess intial functional capacity & safety risk - 30-day Reassessments 30 day Reassessments:: Met Nutrition - Initial Assessment Nutrition - 30-Day Assessment Nutrition - 60-Day Assessment - Program Goals Nutrition Program Goals: LDL <100 optimal. 100 - 129 Near optimal. 130 - 159 Borderline High. 160 - 189 High. Total Cholesterol <200 desirable. 200 - 239 Borderline High. >/= 240 High. HDL < 40 Low >/=60 High. Triglycerides <150 desirable. <199 optimal. VlDL 5 - 40. HgbA1C <7%. BMI <25 Patient has diagnosis of Hyperlipidemia (ICD E78)?: Yes - Visit Date of Assessment:: 08/28/22 Session #:: 21 - Cholesterol/Lipids (Other Core Measures) Triglycerides (mg/dL): 96 Total Cholesterol (mg/dL): 158 LDL Cholesterol (mg/dL): 103 HDL Cholesterol (mg/dL): 36 Determine presence & major risk factors that modify LDL goal: Cigarette smoking, Hypertension or hypertensive medication, Low HDL cholesterol <40 mg/dL*, Family history of premature CHD in Male < 55 years: female <65 yearsFa, Age men > 45 years; women >/= 55 years Outcomes/Goals: Pt IDs own risk factors & lifestyle modifications by Session 10, Verbalizes symptoms of angina & response by session 3., Pt independently manages Intervention/Plan: Instruct on personal lipid levels & lipid goals/NCEP guidelines, Instruct on cholesterol Referral to dietitian:: Yes 30-day Reassessments:: Progressing - Diabetes (Other Core Measures) Diabetes Type: Diagnosis Type II ICD-10 E11 Insulin dependent injection/pump?: Yes Non-Insulin Dependent?: Yes Do you monitor your blood sugar at home?: Yes Referral to Diabetic Clinic:: Yes Outcomes/Goals:: Able to state symptoms of, Able to state, Able to state Intervention/Plan:: Instruct on, Refer to, Instruct on 30-day Reassessments:: Progressing - Weight Mgt (Other Care) Not Applicable: No Height: 6 ft 1 in Weight:: 286 lb BMI: 37.7 Diagnosis Overweight/Obesity BMI> 30% ICD-10 E66: Yes Diagnosis High BMI/Morbid Obesity BMI> 35% ICD-10 Z68: Yes Outcomes/Goals: Pt sets, maintains & shows weight loss goal & trend during rehab Intervention/Plan: Instruct on ideal BMI & set weight loss goal w/patient, Assist pt to ID & incorporate diet changes for weight loss by S9, Refer to Structured Weight Loss program as appropriate, Encourage goal of using 250- 300dcal per session for weight loss 30 day Reassessments:: Progressing - Healthy Eating Habits Will attend diet classes:: Yes Outcomes/Goals:: Consume diet rich in vegs,fruits,whole grain/high fiber,fish,lean meat, Limit sat/trans fats,cholesterol & added salts & sugars Intervention/Plan:: Assess current eating habits 30-day Reassessments:: Progressing - Education Gave educational materials for:: Signs & symptoms of hypoglycemia, Signs & symptoms of hyperglycemia, Relate diabetes to coronary artery disease, Healthy eating Nutrition - 90-Day Assessment Nutrition - Final Assessment Core - Initial Assessment Core - 30-Day Assessment Core - 60-Day Assessment - Visit Date of Evmarcel: 08/28/22 Session #:: 21 - Medication Compliance Preventative Medication(s):: Aspirin, Ticagrelor/P2Y12 inhibitor, Statin/lipid, Beta byron H/O mental health issues: depression, anxiety, or addiction?: No Doesn?t believe in the benefits of treatment?: No Believes medications are unnecessary or harmful?: No Has a concern about medication side effects?: No Expresses concern over the cost of medications?: No Outcomes/Goals: Verbalizes medications,desired effect & common side effects @ DC, Pt self-reports following medication regimen, Keeps card in wallet w/medications listed by DC Interventions/plans: Instruct on medication effects & side effects, Review medication list w/patient every two weeks, Instruct importance of taking meds as ordered & assist problem solving 30-day Reassessments:: Met - Tobacco Use Tobacco Use: Cigarettes Do you use smokeless tobacco?: No Outcomes/Goals: Smoking cessation achieved or maintained by discharge, Identify aids/strategies for achieving smoking cessation by session 6 Interventions/plan: Instruct on effects of smoking & provide smoking cessation resource, Assist pt to set quit date & provide encouragement, Assist pt to develop strategies to achieve/maintain quit date, Assist pt w/nicotine replacement & medication for cessation success 30-day Reassessments:: Progressing Reassessment Notes & Comments:: Patient is still willing to participate in Smoking Cessation program but has not received any calls from the Smoking Cessation Counselor. - Hypertension Hypertension Diagnosis:: Hypertension ICD-10 I10 Resting Blood Pressure:: 112/80 [place] [employer] Hypertension Guidelines: [place] [employer] Hypertension Guidelines. Normal BP Less than 120/80. Elevated BP 120/80. Hypertension Stage 1: BP 130-139/80-89. Hypertesnion Stage 2: BP 140 or higher/ 90 or higher. Hypertension Crisis: BP higher than 180/120 Peak Exercise Blood Pressure:: 132/78 Outcomes/Goals: Able to verbalize/achieve optimal blood pressure <130/80, Incorporates diet changes & exercise for blood pressure control by DC Interventions/plan: Instruct on optimal blood pressure, hypertension & medications, Instruct on effects of sodium, alcohol, stress, exercise &hypertension 30 day Reassessments:: Progressing - Tobacco Cessation Referral Smoking Cessation Referral:: Yes Individual Education/Counseling:: Yes Education Schedule Given:: Yes - Patient is actively participating in education classes Core - 90 Day Assessment Core - Final Assessment Psychosocial - Initial Assess Psychosocial - 30-Day Assess Psychosocial - 60-Day Assess - VIsit Date of Eval: 08/28/22 Session #:: 21 Not Applicable: Yes History of previous Mental disease:: No History of Emotional Disorders: Anxious - Psychosocial Test Tool Used:: PHQ-9 Questionnaire phq-9 Severity: Severity. 1-4 Minimal Depression. 5-9 Mild Depression. 10-14 Moderate Depression. 15-19 Moderately Sever Depression. 20-27 Severe Depression. Rule: - Referral to Behavioral Health PS - Interventions: Yes Attend Stress Management Classes, No Referral to [facility] if PHQ-9 score >9:, No Referral to [facility], No Referral to Physician if PHQ-9 if score is 5-9: - Outcomes/Goals: See list Psychosocial Outcomes/Goals:: ID's personal stressors & 2 strategies to manage stress by discharge - Intervention/Plan: See List Interventions/Plan:: Assess stressors,coping strategies & signs of derpression on admission, Instruct/assist pt to develop coping & personal stress Mgt strategies, Instruct patient to recognize signs & symptoms of depression, Instruct patient to recog - 30-day Reassessments: 30 day Reassessments:: Progressing Psychosocial - 90-Day Assess Psychosocial - Final Assessmen Patient Health Questionnaire 60-Day Re-eval Assessment 1. Little interest or pleasure in doing things: Several days 2. Feeling down, depressed, or hopeless: Not at all 3. Trouble falling or staying asleep, or sleeping too much: More than half the days 4. Feeling tired or having little energy: More than half the days 5. Poor appetite or overeating: More than half the days 6. Feeling bad about yourself -- or that you are a failure or have let yourself or your family down: Several days 7. Trouble concentrating on things, such as reading the newspaper or watching television: Several days 8. Moving or speaking so slowly that other people could have noticed. Or the opposite - being so fidgety or restless that you have been moving around a lot more than usual: Several days 9. Thoughts that you would be better off , or of hurting yourself in some way: Not at all How difficult have these problems made it for you to do your work, take care of things at home, or get along with other people?: Somewhat difficult Total Score: 10 Self-Efficacy 60-Day Re-eval Assessment We would like to know how confident you are in doing certain activities. Please select your confidence level for:: Select your confidence level for the following using the scale 1-10 where 1 is not at all confident and 10 is totally confident. Your score is the average of all 6 responses. Fatigue: How confident are you that you can keep the fatigue caused by your disease from interfering with the things you want to do? Select Number: 6 Physical Discomfort or Pain: How confident are you that you can keep the physical discomfort or pain of your disease from interfering with the things you want to do? Select Number: 8 Emotional Distress: How confident are you that you can keep the emotional distress caused by your disease from interfering with the things you want to do? Select Number: 5 Other Symptoms or Health Problems: How confident are you that you can keep other symptoms or health problems from interfering with the things you want to do? Select Number: 8 Different Tasks and Activities: How confident are you that you can do the different tasks and activities needed to manage your health condition so as to reduce your need to see a doctor? Select Number: 5 Medication: How confident are you that you can do things other than just taking medication to reduce how much your illness affects your everyday life? Select Number: 6 Total Score:: 6 Nutrition Survey
[2022-08-28 08:16] VITALS: BP 112/80; BP 132/78; BMI 37.7
== END 2022-09-25 23:59 ==
LOC: CR 09:30
PROVIDERS: PCP Nurse Practitioner Family; Visit Provider Internal Medicine Cardiovascular Disease
DX: Z95.5 Presence of coronary angioplasty implant and graft (principal)
CPT/HCPCS: 93798

== ENCOUNTER 2022-10-05 09:30 | Outpatient (RCR) | payer BC, SELFPAY ==
[2022-08-28 08:16] VITALS: BMI 37.7
[2022-09-26 01:47] VITALS: BP 112/80; BP 132/78
== END 2022-10-25 23:59 ==
LOC: CR 09:30
PROVIDERS: PCP Nurse Practitioner Family; Visit Provider Internal Medicine Cardiovascular Disease
DX: Z95.5 Presence of coronary angioplasty implant and graft (principal)
CPT/HCPCS: 93798

== ENCOUNTER → 2022-11-26 | Outpatient (CLI) | payer BC, SELFPAY ==
[2022-08-28 08:16] VITALS: BMI 37.7
[2022-11-26 12:00] LABS: Absolute Neutrophil Count 6.4 X10^3/uL (2.0-7.7); Basophil# 0.03 X10^3/uL; Basophil% 0.3 % (0-1); Eosinophil# 0.13 X10^3/uL; Eosinophils% 1.4 % (0-5); Hematocrit 46.7 % (40-54); Hemoglobin 15.9 g/dL (13.0-16.5); Lymphocyte % 20.9 % (19-41); Mean Corpuscular Hgb 30.4 pg (27.0-32.0); Mean Corpuscular Volume 89.3 fL (80-94); Mean Platelet Vol. 11.2 fl (6.2-12.0); Monocyte# 0.55 X10^3/uL; Monocyte% 6.1 % (0-10); NRBC Flagged by Analyzer 0 % (0-5); Neutrophil % 70.6 % (47-70); Platelet Count 234 K/mm3 (150-450); RBC Distribution Width CV 13.6 % (11.6-14.6); RBC Distribution Width SD 44.7 fl (35.1-43.9); Red Blood Count 5.23 M/mm3 (4.6-6.2); White Blood Count 9.1 K/mm3 (4.4-11.0)
[2022-11-26 12:51] LABS: ALB/GLOB Ratio 1.1 RATIO (0.9-2.4); AST(SGOT) 12 U/L (15-37); Alanine Aminotransfer ALT/SGPT 20 U/L (16-61); Alkaline Phosphatase 88 U/L (45-117); Anion Gap 8 (5-15); BUN 16 mg/dL (7-18); BUN/Creat Ratio 15.7 RATIO (10-20); Calcium,Total 9.3 mg/dL (8.5-10.1); Chloride 106 mmol/L (98-107); Creatinine, Serum 1.02 mg/dL (0.70-1.30); EST Glomerular Filtration Rate 81 mL/min (>60); Est Glom Filt Rate - Afr Amer 98 mL/min (>60); Globulin 3.6 g/dL (2.2-4.2); Glucose 152 mg/dL (74-106); Potassium 3.8 mmol/L (3.5-5.1); Protein, Total 7.6 g/dL (6.4-8.2); Sodium Level 139 mmol/L (136-145); Thyroid Stim Hormone (TSH) 1.82 uIU/mL (0.358-3.74)
[2022-11-26 12:52] LABS: Microalbumin,Random Urine < 5.0 mg/L (NO RANGE EST.)
== END | disposition home or self-care (01) ==
LOC: LAB 10:57
PROVIDERS: PCP Nurse Practitioner Family; Visit Provider Internal Medicine Cardiovascular Disease
DX: F41.9 Anxiety disorder, unspecified (principal); I50.20 Unspecified systolic (congestive) heart failure; E11.65 Type 2 diabetes mellitus with hyperglycemia
CPT/HCPCS: 36415; 80053; 82043; 82570; 84443; 85025

== ENCOUNTER → 2022-12-28 | Outpatient (CLI) | payer BC, SELFPAY ==
[2022-08-28 08:16] VITALS: BMI 37.7
--- NOTE | 2022-12-28 08:43 | ECHOLC_ITS ---
Reason For Study: CHF Procedure This was a limited 2D transthoracic echocardiogram. The study was technically difficult. Contrast injection was performed. Exam performed in department. Left Ventricle Normal LV size. Left ventricular systolic function is normal. Mild segmental systolic dysfunction (see wall motion). The left ventricular ejection fraction is 55 %. Mid-anteroseptal : Mildly hypokinetic. [place] : Akinetic. Right Ventricle Normal RV size. Normal systolic function. Atria Normal left atrium. Normal right atrium. Mitral Valve Normal mitral valve. Tricuspid Valve Normal tricuspid valve. Pericardium/Pleural No pericardial effusion. Medication 22 gauge I.V. with prn adaptor inserted into right arm. Diluted definity 3ml given slow IV push to enhance endocardial definition. MMode/2D Measurements & Calculations LAV(MOD-bp): 36.6 ml LVAd ap4: 40.8 cm2 SV(MOD-sp4): 84.6 ml LAV(MOD-bp) Indexed: 14.4 ml/m2 LVLd ap4: 9.4 cm LAV(MOD-sp2): 41.2 ml EDV(MOD-sp4): 143.1 ml LAV(MOD-sp4): 23.4 ml EDV(sp4-el): 149.8 ml LVAs ap4: 24.7 cm2 LVLs ap4: 8.3 cm ESV(MOD-sp4): 58.5 ml ESV(sp4-el): 62.7 ml EF(MOD-sp4): 59.1 % EF(sp4-el): 58.2 % SV(sp4-el): 87.2 ml LA A4 area: 9.9 cm2 RA A4 area: 12.4 cm2 ECHO/Echo Limited w/Contrast Interpretation Summary Normal LV size. Left ventricular systolic function is normal. Mild segmental systolic dysfunction (see wall motion). The left ventricular ejection fraction is 55 %. Contrast injection was performed. Compared to previous study, the left ventricu lar systolic function has improved.. Ordering Physician: Benjy Abbott Referring Physician: Benjy Abbott Performed By: Rossy Wolfe RCS
== END | disposition home or self-care (01) ==
PROVIDERS: PCP Nurse Practitioner Family; Referring Provider Nurse Practitioner Family; Visit Provider Nurse Practitioner Family
DX: I42.9 Cardiomyopathy, unspecified (principal); I50.9 Heart failure, unspecified
CPT/HCPCS: 93308; Q9957; A4216; C8924

== ENCOUNTER → 2024-08-23 | Outpatient (CLI) | payer MEDICAID, SELFPAY ==
[2022-08-28 08:16] VITALS: BMI 37.7
[2024-08-23 10:58] LABS: Absolute Lymphocyte Count 2.46 X10^3/uL (0.83-4.51); Absolute Neutrophil Count 7.1 X10^3/uL (2.0-7.7); Basophil# 0.03 X10^3/uL; Basophil% 0.3 % (0-1); Hematocrit 47.2 % (40-54); Hemoglobin 16.1 g/dL (13.0-16.5); Lymphocyte # 2.46 X10^3/ul (0.83-4.51); Lymphocyte % 23.8 % (19-41); Mean Corp Hgb Conc 34.1 g/dL (32-36); Mean Corpuscular Hgb 30.1 pg (27.0-32.0); Mean Corpuscular Volume 88.4 fL (80-94); Mean Platelet Vol. 11.2 fl (6.2-12.0); Monocyte% 5.8 % (0-10); NRBC Flagged by Analyzer 0 % (0-5); Neutrophil # 7.05 X10^3/uL (2.7-7.7); Platelet Count 214 K/mm3 (150-450); RBC Distribution Width SD 45.3 fl (35.1-43.9); Red Blood Count 5.34 M/mm3 (4.6-6.2); White Blood Count 10.4 K/mm3 (4.4-11.0)
[2024-08-23 11:51] LABS: AST(SGOT) 20 U/L (<=37); Alanine Aminotransfer ALT/SGPT 21 U/L (<=46); Albumin, Serum 4.2 g/dL (3.5-5.0); Alkaline Phosphatase 108 U/L (40-129); Anion Gap 9 (5-15); BUN 9 mg/dL (4-19); BUN/Creat Ratio 10.6 RATIO (10-20); Bilirubin, Direct 0.33 mg/dL (0.00-0.30); Carbon Dioxide 26.1 mmol/L (22.0-29.0); Chloride 101 mmol/L (96-108); Cholesterol 161 mg/dL (<=200); Creatinine, Serum 0.9 mg/dL (0.8-1.3); EST Glomerular Filtration Rate 102 (>60); Globulin 2.6 g/dL (2.2-4.2); Glucose 274 mg/dL (70-99); High Density Lipoprotein 41 mg/dL; Low Density Lipoprotein Calc. 96 mg/dL; Potassium 4.4 mmol/L (3.3-5.1); Protein, Total 6.7 g/dL (5.9-8.4); Sodium Level 137 mmol/L (133-145); Triglycerides 120 mg/dL; Very Low Density Lipoprotein 24 mg/dL (5-40); cholesterol:hdl ratio screen 3.92
[2024-08-23 17:31] LABS: Hemoglobin A1c 12.4 % (<=5.6)
== END | disposition home or self-care (01) ==
LOC: LAB 10:26
PROVIDERS: Referring Provider Nurse Practitioner Family; Visit Provider Nurse Practitioner Family
DX: E11.9 Type 2 diabetes mellitus without complications (principal); E78.2 Mixed hyperlipidemia; I25.5 Ischemic cardiomyopathy; Z95.5 Presence of coronary angioplasty implant and graft
CPT/HCPCS: 36415; 80048; 80061; 80076; 83036; 85025

== ENCOUNTER → 2025-01-03 | Outpatient (CLI) | payer MEDICAID, SELFPAY ==
[2025-01-03 15:16] VITALS: BMI 37.7
--- NOTE | 2025-01-03 15:38 | RAD_ITS ---
PROCEDURE: KNEE 3 VIEWS 01/03/2025 REASON FOR EXAM: FALL TECHNIQUE: KNEE 3 VIEWS COMPARISON: None. RAD/Knee 3 Views IMPRESSION: At least moderate tricompartmental degenerative changes are seen, with at least moderate medial, moderately severe lateral, probably moderately severe patellofemoral joint narrowing, as well. A very small left knee joint effusion is noted. No acute fracture or dislocation is seen. If clinical concern persists, short-term follow-up imaging may be obtained to r ule out a currently occult fracture. Reading Location: [address]
== END | disposition home or self-care (01) ==
PROVIDERS: PCP Internal Medicine; Referring Provider Physician Assistant; Visit Provider Physician Assistant
DX: M25.462 Effusion, left knee (principal); W19.XXXA Unspecified fall, initial encounter
CPT/HCPCS: 73562

== ENCOUNTER → 2025-04-30 | Outpatient (CLI) | payer MEDICAID, SELFPAY ==
[2025-01-03 15:16] VITALS: BMI 37.7
--- NOTE | 2025-04-30 13:58 | STRESSREP_ITS ---
Stress Test Report
--- NOTE | 2025-04-30 13:58 | STRESSREP ---
Stress Test Report Date: 04/30/2025 Procedure: Pharmacologic stress nuclear imaging study Indications: Coronary artery disease Consent: Per the patient Procedure: The patient underwent pharmacologic (Regadenoson 0.4mg ) evaluation with a peak heart rate of 100 beats per minute (60%predicted maximal heart rate) and a peak blood pressure of 126/78 mmHg. The baseline ECG demonstrated sinus rhythm with changes consistent with previous anterior myocardial infarction. The peak pharmacologic ECG failed to show any diagnostic changes. There were no cardiac dysrhythmias pretest, during pharmacologic infusion, or recovery. There was no complaint of chest discomfort during pharmacologic infusion or recovery. The patient was injected with 15.1 millicuries of technetium 99m Cardiolite and subsequently rest SPECT Cardiolite nuclear imaging was obtained in the horizontal long, vertical long, and short axis views. The patient underwent pharmacologic (Regadenoson) evaluation. The patient was injected with 45.3 millicuries of technetium 99m Cardiolite and subsequently stress SPECT Cardiolite nuclear imaging was obtained in the horizontal long, vertical long, and short axis views. A gated Cardiolite study at peak stress was obtained. The examination was stopped secondary to completion of protocol. Rest and stress SPECT Cardiolite nuclear imaging status post realignment, normalization, and attenuation correction demonstrate a moderate-sized apical fixed perfusion defect suggestive of previous myocardial infarction. There is moderate denise-infarct ischemia extending into the mid anterior wall and into the apical inferior wall as well. There is end systolic thickening and brightening. The gated study shows severe apical and inferior hypokinesis. The reported LVEF is 43%. Impression: 1. Pharmacologic (Regadenoson) evaluation 2. Peak pharmacologic ECG with no diagnostic ischemic changes. 3. There were no cardiac dysrhythmias pretest, during pharmacologic infusion, or recovery. 5. Moderate size apical infarct with mild to moderate denise-infarct ischemia extending into the mid anterior wall and inferior wall.. 6. The gated Cardiolite study reports an LVEF of 43%. This note was generated with OpenBookation software. It may contain incorrect words, spelling, and punctuation that were not noted in checking the note before signing.
== END | disposition home or self-care (01) ==
PROVIDERS: PCP Internal Medicine; Referring Provider Internal Medicine Cardiovascular Disease; Visit Provider Internal Medicine Cardiovascular Disease
DX: I25.10 Atherosclerotic heart disease of native coronary artery without angina pectoris (principal); Z95.5 Presence of coronary angioplasty implant and graft
CPT/HCPCS: 78452; 93017; A9500; A4216; J2785

== ENCOUNTER 2025-05-14 17:31 | Inpatient (IN) | payer MEDICAID, SELFPAY ==
[2025-01-03 15:16] VITALS: BMI 37.7
[2025-05-14] VITALS (11 sets, daily range): BP systolic 82–142; BP diastolic 64–84; PULSE 61–87; RESP 15–28; TEMP 36.2–37.2; O2SAT 95–99; BMI 34.8; BMI 37.7
--- NOTE | 2025-05-14 18:09 | EKG12_ITS ---
Test Reason : s/p heart cath Blood Pressure : */* mmHG Vent. Rate : 60 BPM Atrial Rate : 60 BPM P-R Int : 164 ms QRS Dur : 78 ms QT Int : 398 ms P-R-T Axes : 13 52 106 degrees QTcB Int : 398 ms Critical Test Result: STEMI Normal sinus rhythm Low voltage QRS Septal infarct , age undetermined Inferior injury pattern ACUTE MO / STEMI Consider right ventricular involvement in acute inferior infarct Abnormal ECG No previous ECGs available Confirmed by OLGA PENA, LEAH ([id number]), design editor XIOMARA WATTS ([id number]) on 05/16/2025 8:57:51 AM Referred By: Mario Mario Confirmed By: LEAH ESPINOZA MD
--- NOTE | 2025-05-14 18:10 | ED.VIS.DYS ---
HPI History of Present Illness Chief Complaint: Shortness of Breath Narrative Narrative: Patient is a 54-year-old male presenting to the emergency department for shortness of breath. Patient has a past medical history of hypertension, current tobacco abuse, hyperlipidemia, diabetes, cardiomyopathy and CAD with stent placement in 2021. He follows with Dr. Lezama. Patient states that the SOB started yesterday. He reports that he had a cough and congestion for about the past month. Describes it as a dry cough. Endorses pain in between his shoulder blades, denies any chest pain. Reports that when he is sitting he does not have significant shortness of breath but whenever he takes a few steps he feels very short of breath. Denies any diaphoresis, abdominal pain, nausea or vomiting. Denies any lower extremity edema. Denies any recent travel, hospitalizations or surgeries. Denies any use of oral anticoagulation. Denies any history of DVT or PE. [facility] Medical History Depression GERD (gastroesophageal reflux disease) Sleep apnea Smoker Congestive heart failure (CHF) Myocardial infarct Hypertension Strain of left knee Personal history of other mental and behavioral disorders Anxiety and depression NSTEMI (non-ST elevated myocardial infarction) Atherosclerosis of coronary artery of [place] heart without angina pectoris Cardiomyopathy Hemangioma Kidney stones Neuropathy Diabetes Right renal stone Home Medications ?Medication ?Instructions ?Recorded ?Last Taken ?Type aspirin 81 mg tablet,delayed 81 mg PO DAILY@0800 #30 tabs 05/27/22 05/14/25 Rx release omeprazole 20 mg capsule,delayed 20 mg PO DAILY 06/08/23 05/13/25 History release insulin glargine 100 unit/mL (3 18 unit (0.18 mL) subcut QPM 30 08/14/24 05/13/25 Rx mL) subcutaneous pen (Basaglar days #5.4 mL KwikPen U-100 Insulin) atorvastatin 10 mg tablet 10 mg PO QHS #30 tabs 09/11/24 05/13/25 Rx losartan 25 mg tablet 25 mg PO DAILY #30 tabs 09/11/24 05/14/25 Rx spironolactone 25 mg tablet 25 mg PO DAILY #30 tabs 09/11/24 05/14/25 Rx empagliflozin 10 mg tablet 10 mg PO QAM #30 tabs 10/04/24 05/14/25 Rx (Jardiance) metformin 500 mg tablet 500 mg PO BID #60 tabs 10/04/24 05/14/25 Rx semaglutide 0.25 mg or 0.5 mg (2 0.25 mg (0.368 mL) subcut QWEEK #3 12/06/24 Unknown Rx mg/3 mL) subcutaneous pen injector mL (Ozempic) carvedilol 6.25 mg tablet 6.25 mg PO BID #60 tabs 04/13/25 05/14/25 Rx chlorpheniramine-dextromethorphan 1 tab PO Q6H PRN cold symptoms 05/14/25 05/12/25 History 4 mg-30 mg tablet (Cough and Cold (chlorpheniramine-DM)) ibuprofen 200 mg tablet (Advil) 400 mg PO Q6H PRN fever or pain 05/14/25 05/13/25 History Allergy/AdvReac Type Severity Reaction Status Date / Time Penicillins Allergy Rash Verified 05/14/25 17:34 lisinopril AdvReac Intermediate Dry Verified 05/14/25 17:34 nagging cough oxycodone HCl (From Percocet) AdvReac BECOMES Verified 05/14/25 17:34 VIOLENT Family History Mother Diabetes Atrial fibrillation Father Myocardial infarction Sister SVT (supraventricular tachycardia) Surgical History H/O lithotripsy History of coronary artery stent placement (~05/25/22) H/O rhinoplasty H/O knee surgery Social History adopted: No household members: spouse number of children: 0 current occupational status: employed 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 [employer] pets and animals: Yes pets and animals: cat(s) sexually active: No Smoking Status: Current every day smoker tobacco type: cigarettes Tobacco: How many years used: 26 quit status: not considering quitting alcohol intake: former year quit: 2009 details: 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 substance use type: does not use caffeine: Yes (2-3) Type: carbonated beverages Number of servings: 1 and tea Number of servings: 3 frequency: does not exercise do you feel safe at home: Yes ROS ROS ED ROS Narrative see HPI EXAM Physical Exam Narrative Exam Narrative: Vital signs: Reviewed General: Alert and orientedx3. No acute distress HEENT: Head is normocephalic and atraumatic, sinuses nontender, pupils equal round and reactive. Nares are patent. Oropharynx and throat exams normal. Neck: Supple without lymphadenopathy nontender Cardiovascular: Regular rate and rhythm, no murmurs. No rubs or gallops. Normal S1 and S2 Respiratory: Clear to auscultation bilaterally. No wheezes, rales, rhonchi Abdominal: Soft and nontender. Normal bowel sounds. No guarding or rebound. Nonsurgical abdomen Extremities: No lower extremity edema. No tenderness. No bruising. Normal range of motion. Normal sensation. Skin: No rash or redness. Neurological: Cranial nerves II through XII are grossly intact. Normal strength and sensation. Normal cerebellar function The rest of the physical exam is unremarkable Const Vital Signs: 05/14/25 17:32 05/14/25 17:33 05/14/25 17:42 Temperature 98.2 F 99.0 F Temperature Source Oral Oral Pulse Rate 79 64 Respiratory Rate 16 15 Respiratory Effort Short of Breath Blood Pressure 122/84 H 142/78 H Blood Pressure Mean 96 99 Blood Pressure Source Blood Pressure Position Blood Pressure Location Pulse Ox 98 97 Oxygen Delivery Method Room Air Room Air Room Air 05/14/25 18:45 05/14/25 18:48 05/14/25 21:13 Temperature 97.8 F 97.2 F L Temperature Source Temporal Pulse Rate 78 65 Respiratory Rate 20 H 20 H 22 H Respiratory Effort Blood Pressure 101/73 101/73 94/73 Blood Pressure Mean 82 80 Blood Pressure Source Monitor Blood Pressure Position Semi-Fowlers Blood Pressure Location Left Arm Pulse Ox 99 95 Oxygen Delivery Method Room Air MDM MDM MDM Narrative Medical decision making narrative: Patient is a 54-year-old male presenting to the emergency department for dyspnea. Patient was seen and examined. Vitals are stable. Patient resting in bed comfortably in no acute distress. Saturating 98% on room air. Differential includes but is not limited to: ACS, pneumonia, CHF, PE EKG shows ST elevation in leads III and aVF with reciprocal changes in leads I and aVL consistent with an acute inferior STEMI. Spoke with Dr. Mario, radiation engineer STEMI doctor. STEMI team called. While Pharmacist Helper was being prepped, lab work was drawn and patient was started on heparin, Brilinta and aspirin. Patient and family at beside updated on the findings and the treatment plan. CBC with mild leukocytosis of 13.3 and a normal hemoglobin. BMP with no significant abnormalities. BNP is elevated at 2751 and inital troponin elevated at 236. D-dimer within normal limits. Chest x-ray reviewed myself, no opacities, pneumothorax or wide mediastinum. Radiology read in agreement. Clinical impression Inferior wall STEMI History & Record Review Discussion w/independent historian: Patient Lab Data Attestation: I reviewed the patient's lab results. Labs: Laboratory Results - last 24 hr 05/14/25 05/14/25 05/14/25 17:52 17:55 19:36 WBC 13.3 H RBC 5.15 Hgb 16.0 Hct 46.1 MCV 89.5 MCH 31.1 MCHC 34.7 RDW Std Deviation 44.5 H RDW Coeff of Kaye 13.6 Plt Count 267 MPV 11.5 Immature Gran % (Auto) 0.700 Neut % (Auto) 68.6 Lymph % (Auto) 22.5 [place] % (Auto) 7.4 Eos % (Auto) 0.3 Baso % (Auto) 0.5 Absolute Neuts (auto) 9.1 H Absolute Lymphs (auto) 2.99 Nucleated RBC % 0 PT 15.2 H INR 1.2 APTT 29.7 Activated Clotting Time 158 H D-Dimer Quant (PE/DVT) 0.44 Sodium 137 Potassium 3.8 Chloride 101 Carbon Dioxide 20.8 L Anion Gap 16 H BUN 14 Creatinine 1.06 Estim Creat Clear Calc 106.74 Est GFR (MDRD) Non-Af 83 BUN/Creatinine Ratio 13.0 Glucose 264 H Calcium 9.4 Troponin T High Sens 236 H* NT pro BNP II 2751 H 05/14/25 20:42 WBC RBC Hgb Hct MCV MCH MCHC RDW Std Deviation RDW Coeff of Kaye Plt Count MPV Immature Gran % (Auto) Neut % (Auto) Lymph % (Auto) [place] % (Auto) Eos % (Auto) Baso % (Auto) Absolute Neuts (auto) Absolute Lymphs (auto) Nucleated RBC % PT INR APTT Activated Clotting Time 250 H D-Dimer Quant (PE/DVT) Sodium Potassium Chloride Carbon Dioxide Anion Gap BUN Creatinine Estim Creat Clear Calc Est GFR (MDRD) Non-Af BUN/Creatinine Ratio Glucose Calcium Troponin T High Sens NT pro BNP II Radiography Diagnostic Testing: Clinical Impression(s) from Imaging Studies Chest X-Ray 05/14/25 18:36 IMPRESSION: No acute cardiopulmonary process. Reading [facility] Disposition Disposition: Acute Care Hospital [facility] Discharge Date/Time: 05/14/25 19:15
[2025-05-14 18:32] LABS: Hematocrit 46.1 % (40-54); Hemoglobin 16.0 g/dL (13.0-16.5); Immature Granulocytes Count 0.090 X10^3/uL (0.0-0.0); Mean Corp Hgb Conc 34.7 g/dL (32-36); Mean Corpuscular Volume 89.5 fL (80-94); Mean Platelet Vol. 11.5 fl (6.2-12.0); NRBC Flagged by Analyzer 0 % (0-5); Platelet Count 267 K/mm3 (150-450); RBC Distribution Width CV 13.6 % (11.6-14.6); RBC Distribution Width SD 44.5 fl (35.1-43.9); Red Blood Count 5.15 M/mm3 (4.6-6.2); White Blood Count 13.3 K/mm3 (4.4-11.0)
--- NOTE | 2025-05-14 18:36 | RAD_ITS ---
EXAM: XR Chest, 2 Views CLINICAL INDICATION: CHEST PAIN TECHNIQUE: Frontal and lateral views of the chest. COMPARISON: No relevant prior studies available. FINDINGS: LUNGS AND PLEURAL SPACES: Unremarkable. No consolidation. No pneumothorax. HEART: Unremarkable. No cardiomegaly. MEDIASTINUM: Unremarkable. Normal mediastinal contour. BONES/JOINTS: Unremarkable. No acute fracture. RAD/Chest PA and Lateral IMPRESSION: No acute cardiopulmonary process. Reading Location: [id number]
[2025-05-14] MEDS: Heparin Injection (Vial) 5,000 UNIT/ML VIAL 4000 UNIT IV (18:43)
[2025-05-14] MEDS: TICAGRELOR 90 MG TABLET 180 MG PO (18:44)
[2025-05-14 18:45] LABS: D-Dimer Quantitative (DVT/PE) 0.44 FEU/ug/m (0.27-0.49)
[2025-05-14 18:49] LABS: Anion Gap 16 (5-15); BUN 14 mg/dL (4-19); BUN/Creat Ratio 13.0 RATIO (10-20); Calcium,Total 9.4 mg/dL (7.6-11.0); Carbon Dioxide 20.8 mmol/L (21.0-32.0); Chloride 101 mmol/L (98-108); Estimated Creatinine Clearance 106.74 ml/min (50-250); Glucose 264 mg/dL (70-99); Potassium 3.8 mmol/L (3.3-5.1)
[2025-05-14 18:52] LABS: Pro- Brain NATRIURETIC PEPTIDE 2751 pg/mL (<=900); Troponin T High Sensitivity 236 ng/L (<=22)
[2025-05-14 20:46] LABS: Prothrombin Time (Protime)PT. 15.2 SECONDS (11.7-14.9)
[2025-05-14 20:47] LABS: Partial Thromboplast Time 29.7 Seconds (24.1-36.2)
[2025-05-14 21:08] LABS: ACT Activated Clotting Time 250 sec (74-137)
[2025-05-14 21:08] LABS: ACT Activated Clotting Time 158 sec (74-137)
--- NOTE | 2025-05-14 21:09 | CL.I_ITS ---
Patient Name: NIEVES PAINTING Study Date: 05/14/2025 Performing: Mario Mario MD Ht: 73 inches 185.42 cm : 1970 Wt: 264 lbs 119.75 kg Age: 54 Gender: male BSA: 2.42 PROCEDURE(S) PERFORMED IC17-([id number])CORONARY MECHANICAL THROMBECTOMY (ANGIOJET,PENUMBRA) IC16-([id number])AMI, DORA OR PTCA, ARTERY/GRAFT, SINGLE VESSEL IC13-([id number])DORA W/WO PTCA, EACH ADD'L ART, SAME MAJOR DC01-([id number])LHC/COR/LV CLINICAL PROFILE AND CO-MORBIDITIES Indications: ACS <= 24 hrs Heart Failure: None CAD Presentations: STEMI. 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 The risks and benefits of the procedure as well as a full description of our services here and lack of surgical backup were fully explained to the patient and/or their significant other prior to the catheterization. The Timeout was completed, verifying the correct patient and procedure. The patient's procedural site was prepped and draped in the usual fashion. Local anesthetic was given subcutaneously to right radial region with Lidocaine 2%. Using a modified Seldinger technique, and ultrasound guidance,arterial access was obtained via the right radial artery, a 6Fr sheath was inserted.. Left Coronary Artery selective angiography was performed in multiple views using a 5 Fr. 4.0 [place] catheter. Right Coronary Artery selective angiography was then performed in multiple views using a 5 Fr. 4.0 [place] catheter. Left Ventriculography was performed in HERRERA projection using a 5 Fr. Pigtail catheter. LV to AO pullback pressures were then recorded AL 0.75 Guide catheter was inserted and engaged into the RCA. Runthrough Guide wire was advanced to the RCA. Emerge 2.50x20 Balloon catheter was inserted. PTCA balloon inflated at 6 atms for 10 secs. PTCA balloon inflated at 8 atms for 8 secs. Angiogram performed post balloon dilatation. Zavala Lashanda 3.0x22 Drug Eluting stent was inserted. Angiogram performed post balloon dilatation. Zavala Oxyx 2.0x18 Drug Eluting stent was inserted. Angiogram performed post stent deployment. NC Emerge 2.00x15 Balloon catheter was inserted. Angiogram performed post balloon dilatation. NC Euphora 2.5x8 Balloon catheter was inserted. Angiogram performed post balloon dilatation. Zavala Julian 3.0x30 Drug Eluting stent was inserted. Angiogram performed post balloon dilatation. NC Emerge 3.00x20 Balloon catheter was inserted. Angiogram performed post balloon dilatation. The arterial sheath was pulled and a TR Band was applied for hemostasis w/ 10ml air CORONARY ANGIOGRAPHY DOMINANCE: Right Dominant LEFT HEART ASSESSMENT Left Ventricular Ejection Fraction: by LV Gram 35 % LVEDP: 28 mmHg Right radial access was attempted multiple times and was unsuccessful and caused delay with sheath insertion. Ultrasound guidance was then used for right radial access which still proved to be difficult, however access was finally obtained and sheath was inserted into right radial artery. LEFT MAIN: Angiographically normal LEFT ANTERIOR DESCENDING ARTERY: LAD: In-Stent Restenosis 100% Mid lesion in LAD DIAGONAL 1: Tubular 90% Proximal lesion in DIAG1 DIAGONAL 2: Tubular 70% Ostial lesion in DIAG2 OM 1: Tubular 80% Ostial lesion in MARG1 OM 2: Tubular 80% Ostial lesion in MARG1 RIGHT CORONARY ARTERY: RCA: Thrombus 100% Proximal lesion in RCA INTERVENTION INFORMATION LESION SITE: RCA (Proximal) Lesion Complexity: High/C, thrombus present: Yes, lesion length: 50 mm, culprit lesion: Yes Pre Stenosis: 100 % Pre intervention ROBERTO CARLOS flow: 0 PROCEDURE: Drug Eluting Stent with pre and post dilatation, Aspiration thrombectomy Post Stenosis: 0 % Post intervention ROBERTO CARLOS flow: 3 Lesion Devices: Terumo .014 180cm Runthrough Extra Floppy straight Cordis 6 Fr AL.75 100cm Guide Catheter Ketan Sci EMERGE MR 2.50x20 BALLOON Medtronic 3.0 x 22 LASHANDA FRONTIER DORA Medtronic 3.0 x 30 LASHANDA FRONTIER DORA Ketan Sci NC EMERGE MR 3.00x20 BALLOON LESION SITE: RT PDA (Mid) lesion length: 16 mm, Lesion Complexity: Non-High/Non-C, culprit lesion: No Pre Stenosis: 80 % Pre intervention ROBERTO CARLOS flow: 3 PROCEDURE: Drug Eluting Stent with post dilatation Post Stenosis: 0 % Post intervention ROBERTO CARLOS flow: 3 Lesion Devices: Terumo .014 180cm Runthrough Extra Floppy straight Cordis 6 Fr AL.75 100cm Guide Catheter Medtronic 2.00 x 18 LASHANDA FRONTIER DORA Ketan Sci NC EMERGE MR 2.00x15 BALLOON Medtronic NC EUPHORA RX 2.5x08 BALLOON COMPLICATIONS No Complications PROCEDURE MEDICATIONS Fentanyl 50 mcg IV Fentanyl 50 mcg IV Oxygen: 2 L/min via nasal cannula Heparin 38524 unit(s) IV 05/14/2025 19:41:57 Heparin 2000 unit(s) IV 05/14/2025 20:26:10 Nitro 100 mcg IC 05/14/2025 20:24:07 Verapamil 2.5mg, Ntg 200mcgs, given IA 05/14/2025 19:33:15 IV Bolus: .9 NaCl 300 ml total 05/14/2025 20:54:10 SUMMARY OF HEMODYNAMIC DATA Time AIR REST ECG 19:21:21 AO 109/81 (93) SA 19:36:34 AO 111/62 (92) 19:40:17 AO 120/84 (100) 19:44:23 AO 106/63 (82) 19:53:28 AO 103/60 (80) 19:58:43 AO 99/69 (83) 20:05:51 AO 93/62 (79) 20:20:49 AO 102/62 (83) 20:23:28 AO 99/67 (80) 20:27:43 AO 102/72 (85) 20:29:52 LV 121/18, 28 20:34:58 LV 121/16, 28 20:35:07 LV 108/30, 35 20:36:36 LV 109/29, 34 20:36:44 LVp 104/22, 33 20:37:04 AOp 110/77 (91) 20:37:11 AIR REST 20:55:41 Signed By Mario Mario MD On 05/15/2025 08:48:50 Mario Mario MD
--- NOTE | 2025-05-14 21:10 | PCM.CONS.C ---
Assessment & Plan Assessment/Plan (1) Acute ST elevation myocardial infarction (STEMI) of inferior wall: PLAN: Emergent coronary angiography revealed totally occluded proximal RCA. Successful percutaneous intervention was performed. 2 drug-eluting stents deployed to proximal mid RCA in overlapping fashion. Drug-eluting stent to mid right PDA. Continue aspirin lifelong. P2 Y12 treatment for at least 6 months (2) Coronary artery disease: PLAN: See #1 above. Recommend viability study as outpatient. If there is viability in the LAD territory, then consider CABG with grafts to the LAD which fills faintly retrogradely via collaterals, obtuse marginal and diagonal 1 and 2. (3) Ischemic cardiomyopathy: PLAN: Beta-blockers, ACEI, spironolactone, SGLT2 inhibitors. (4) Essential hypertension: PLAN: Beta-byron, ACEI, spironolactone (5) Dyslipidemia: PLAN: Atorvastatin. (6) Nicotine dependence: PLAN: Quit smoking. (7) Diabetes: QUALIFIERS: Diabetes mellitus type: type 2 Diabetes mellitus [facility] insulin use: with termite inspector use Diabetes mellitus complication status: with neurologic complications Diabetes mellitus complication detail: with polyneuropathy Qualified Code(s): E11.42 - Type 2 diabetes mellitus with diabetic polyneuropathy; Z79.4 - half-way (current) use of insulin PLAN: As per PCP. HPI Consult Data Date of Consult: 05/14/25 HPI Narrative Reason for Consultation: STEMI HPI Narrative: Gentleman presented to the emergency room with complaints of shortness of breath over the last couple of days. Also intrascapular pain that started around 12 noon today. As part of his workup in the emergency room, an ECG was done. It showed changes consistent with acute inferior myocardial infarction. Subsequently a STEMI alert was called. 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 [facility] Medical History Depression GERD (gastroesophageal reflux disease) Sleep apnea Smoker Congestive heart failure (CHF) Myocardial infarct Hypertension Strain of left knee Personal history of other mental and behavioral disorders Anxiety and depression NSTEMI (non-ST elevated myocardial infarction) Atherosclerosis of coronary artery of [place] heart without angina pectoris Cardiomyopathy Hemangioma Kidney stones Neuropathy Diabetes Right renal stone Home Medications ?Medication ?Instructions ?Recorded ?Last Taken ?Type aspirin 81 mg tablet,delayed 81 mg PO DAILY@0800 #30 tabs 05/27/22 05/14/25 Rx release omeprazole 20 mg capsule,delayed 20 mg PO DAILY 06/08/23 05/13/25 History release insulin glargine 100 unit/mL (3 18 unit (0.18 mL) subcut QPM 30 08/14/24 05/13/25 Rx mL) subcutaneous pen (agl days #5.4 mL KwikPen U-100 Insulin) atorvastatin 10 mg tablet 10 mg PO QHS #30 tabs 09/11/24 05/13/25 Rx losartan 25 mg tablet 25 mg PO DAILY #30 tabs 09/11/24 05/14/25 Rx spironolactone 25 mg tablet 25 mg PO DAILY #30 tabs 09/11/24 05/14/25 Rx empagliflozin 10 mg tablet 10 mg PO QAM #30 tabs 10/04/24 05/14/25 Rx (Jardiance) metformin 500 mg tablet 500 mg PO BID #60 tabs 10/04/24 05/14/25 Rx semaglutide 0.25 mg or 0.5 mg (2 0.25 mg (0.368 mL) subcut QWEEK #3 12/06/24 Unknown Rx mg/3 mL) subcutaneous pen injector mL (Ozempic) carvedilol 6.25 mg tablet 6.25 mg PO BID #60 tabs 04/13/25 05/14/25 Rx chlorpheniramine-dextromethorphan 1 tab PO Q6H PRN cold symptoms 05/14/25 05/12/25 History 4 mg-30 mg tablet (Cough and Cold (chlorpheniramine-DM)) ibuprofen 200 mg tablet (Advil) 400 mg PO Q6H PRN fever or pain 05/14/25 05/13/25 History Allergy/AdvReac Type Severity Reaction Status Date / Time Penicillins Allergy Rash Verified 05/14/25 17:34 lisinopril AdvReac Intermediate Dry Verified 05/14/25 17:34 nagging cough oxycodone HCl (From Percocet) AdvReac BECOMES Verified 05/14/25 17:34 VIOLENT Family History Mother Diabetes Atrial fibrillation Father Myocardial infarction Sister SVT (supraventricular tachycardia) Surgical History H/O lithotripsy History of coronary artery stent placement (~05/25/22) H/O rhinoplasty H/O knee surgery Social History adopted: No household members: spouse number of children: 0 current occupational status: employed 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 No apparent distress. Heart rate regular rate and rhythm. Chest clear to auscultation. Alert oriented x 3. Objective Data Vital Signs: Vital Signs Temp Pulse Resp BP Pulse Ox O2 Del Method 97.8 F 78 20 H 101/73 99 Room Air 05/14/25 18:48 05/14/25 18:48 05/14/25 18:48 05/14/25 18:48 05/14/25 18:48 05/14/25 17:42 Oxygen Delivery Method Room Air Weight: 264 lb Body Mass Index (BMI) 34.8 Lab / Micro Data 05/14/25 17:55 05/14/25 17:55 Labs: Laboratory Results - last 24 hr 05/14/25 17:52: PT 15.2 H, INR 1.2, APTT 29.7, D-Dimer Quant (PE/DVT) 0.44 05/14/25 17:55: WBC 13.3 H, RBC 5.15, Hgb 16.0, Hct 46.1, MCV 89.5, MCH 31.1, MCHC 34.7, RDW Std Deviation 44.5 H, RDW Coeff of Kaye 13.6, Plt Count 267, MPV 11.5, Immature Gran % (Auto) 0.700, Neut % (Auto) 68.6, Lymph % (Auto) 22.5, [place] % (Auto) 7.4, Eos % (Auto) 0.3, Baso % (Auto) 0.5, Absolute Neuts (auto) 9.1 H, Absolute Lymphs (auto) 2.99, Nucleated RBC % 0, Sodium 137, Potassium 3.8, Chloride 101, Carbon Dioxide 20.8 L, Anion Gap 16 H, BUN 14, Creatinine 1.06, Estim Creat Clear Calc 106.74, Est GFR (MDRD) Non-Af 83, BUN/Creatinine Ratio 13.0, Glucose 264 H, Calcium 9.4, Troponin T High Sens 236 H*, NT pro BNP II 2751 H 05/14/25 19:36: Activated Clotting Time 158 H 05/14/25 20:42: Activated Clotting Time 250 H Cardiology Labs/Tests 05/14/25 17:52: PT 15.2 H, INR 1.2, APTT 29.7, D-Dimer Quant (PE/DVT) 0.44 05/14/25 17:55: WBC 13.3 H, RBC 5.15, Hgb 16.0, Hct 46.1, MCV 89.5, MCH 31.1, MCHC 34.7, Plt Count 267, MPV 11.5, Immature Gran % (Auto) 0.700, Neut % (Auto) 68.6, Lymph % (Auto) 22.5, [place] % (Auto) 7.4, Eos % (Auto) 0.3, Baso % (Auto) 0.5, Absolute Neuts (auto) 9.1 H, Nucleated RBC % 0, Sodium 137, Potassium 3.8, Chloride 101, Carbon Dioxide 20.8 L, Anion Gap 16 H, BUN 14, Creatinine 1.06, Est GFR (MDRD) Non-Af 83, BUN/Creatinine Ratio 13.0, Glucose 264 H, Calcium 9.4 Rhythm: EKG: ECHO: Stress Test: Cardiac Cath: PCI: CT Surgery: Holter monitor: EPS: PPM: CXR: Chest CT Scan: Radiography Diagnostic Testing: Radiology Impression Chest X-Ray 05/14/25 18:36 IMPRESSION: No acute cardiopulmonary process. Reading Location: [facility] ROBERTO CARLOS Risk Score for UA/STEMI Assesmment (YES = 1) Risk Stratification Applicable: No
--- NOTE | 2025-05-14 21:17 | NURSING ---
2116- This RN and primary RN Brionna Abdi bedside, pt reports that he has a piece of glass stuck in the bottom of his right foot that has been present for awhile.
--- NOTE | 2025-05-14 21:21 | ECHOCS_ITS ---
Reason For Study Reason For Study: STEMI Procedure This was a 2D Doppler, Color Flow transthoracic echocardiogram. Contrast injection was performed. Exam performed portable in ICU/CCU. Left Ventricle Normal LV size. The left ventricular ejection fraction is 40 %. Apical Thrombus 1.2 x 1.3cm. [place] : Akinetic. There are regional wall motion abnormalities as specified. Right Ventricle Normal RV size. Normal systolic function. Atria Normal left atrium. Normal right atrium. Mitral Valve Normal mitral valve. Tricuspid Valve Normal tricuspid valve. Mild (1+) tricuspid valve insufficiency. Pulmonary artery systolic pressure is 24 mmHg. Aortic Valve Trisinus/trileaflet aortic valve. Mild focal aortic valve thickening. Pulmonic Valve The pulmonic valve is not well visualized. Great Vessels Normal aortic root. The pulmonary artery is normal size. Inferior vena cava collapse with sniff. Pericardium/Pleural No pericardial effusion. Medication Diluted definity 2.5ml given slow IV push to enhance endocardial definition. MMode/2D Measurements & Calculations LVIDd: 5.2 cm IVSd: 1.1 cm Ao root diam: 3.4 cm LVIDs: 3.6 cm LVPWd: 1.0 cm RVDd: 4.3 cm FS: 32.0 % LAV(MOD-bp): 43.5 ml LVAd ap4: 32.1 cm2 SV(MOD-sp4): 40.6 ml LAV(MOD-bp) Indexed: 17.4 ml/m2 LVLd ap4: 8.9 cm SI(MOD-sp4): 16.2 ml/m2 LAV(MOD-sp2): 52.5 ml EDV(MOD-sp4): 93.7 ml LAV(MOD-sp4): 32.7 ml EDV(sp4-el): 97.8 ml LVAs ap4: 23.2 cm2 LVLs ap4: 8.1 cm ESV(MOD-sp4): 53.2 ml ESV(sp4-el): 56.8 ml EF(MOD-sp4): 43.3 % EF(sp4-el): 41.9 % SV(sp4-el): 41.0 ml LA A4 area: 15.1 cm2 LA dimension(2D): 3.0 cm RA A4 area: 11.9 cm2 TAPSE: 1.3 cm Time Measurements MV dec time: 0.21 sec Doppler Measurements & Calculations MV E max ted: 63.4 cm/sec Lat Peak E' Ted: 9.8 cm/sec Med Peak E' Ted: 9.3 cm/sec MV A max ted: 58.5 cm/sec E/E' lat: 6.4 E/E' med: 6.8 MV E/A: 1.1 MV dec slope: 305.7 cm/sec2 Ao V2 max: 125.9 cm/sec LV V1 max: 111.0 cm/sec Ao max P.3 mmHg LV V1 max P.9 mmHg Ao V2 mean: 92.6 cm/sec Ao mean P.7 mmHg Ao V2 VTI: 27.8 cm PA V2 max: 79.8 cm/sec TR max ted: 239.2 cm/sec TR max P.9 mmHg ECHO/Echo Complete W/ Contrast Interpretation Summary Normal LV size. The left ventricular ejection fraction is 40 %. Apical Thrombus 1.2 x 1.3cm [place] : Akinetic. Contrast injection was performed. Ordering Physician: Mario Mario Referring Physician: Cynthia Alaniz Performed By: Rasheeda Abbott, DARVIN, RVT
[2025-05-14] MEDS: 0.9% Normal Saline (1000mL) 1,000 ML 75 ML IV (22:17)
[2025-05-14] MEDS: TICAGRELOR 90 MG TABLET PO (22:18)
[2025-05-14] MEDS: 0.9% Saline Lock 10 ML Syringe IV (22:18)
--- NOTE | 2025-05-14 22:55 | CON.PCM.HO_ITS ---
Assessment & Plan Assessment/Plan (1) Coronary artery disease: (2) Acute ST elevation myocardial infarction (STEMI) of inferior wall: (3) Nicotine dependence: (4) Essential hypertension: (5) Dyslipidemia: PLAN: Plan 1 coronary artery disease status post STEMI for right coronary artery total occlusion status post receiving 2 stents and is now resting comfortably in the intensive care unit. Dr. Mario accounting advisory services manager is managing his case. 2. Dyslipidemia?fasting lipid panel is ordered for the morning 3. Essential hypertension?continue antihypertensive therapy and monitor overnight, repeat CBC BMP in the a.m. 4. nicotine dependence?encourage cessation 5. DVT prophylaxis?patient is receiving heparin. 6. CODE STATUS full verified HPI Consult Data Date of Consult: 05/14/25 HPI Narrative Reason for Consultation: Hospitalist consult HPI Narrative: NIEVES PAINTING, is a 54 M who presented to the emergency room with chief complaint of shortness of breath over the last few days. Patient described worsening intrascapular pain that started around noon today. In the emergency room a ST elevation ID was called which was consistent with an inferior myocardial infarction. Patient does have significant past medical history coronary artery disease and did have a positive stress test 2 weeks ago that he was going to have an outpatient cath done. Patient is now currently resting comfortably after having a cardiac catheterization for STEMI and had 2 stents placed in the proximal right coronary artery which was totally occluded. Hospitalist team was consulted for assistance with medical management. [facility] Medical History Depression GERD (gastroesophageal reflux disease) Sleep apnea Smoker Congestive heart failure (CHF) Myocardial infarct Hypertension Strain of left knee Personal history of other mental and behavioral disorders Anxiety and depression NSTEMI (non-ST elevated myocardial infarction) Atherosclerosis of coronary artery of [place] heart without angina pectoris Cardiomyopathy Hemangioma Kidney stones Neuropathy Diabetes Right renal stone Home Medications ?Medication ?Instructions ?Recorded ?Last Taken ?Type aspirin 81 mg tablet,delayed 81 mg PO DAILY@0800 #30 t abs 05/27/22 05/14/25 Rx release omeprazole 20 mg capsule,delayed 20 mg PO DAILY 05/13/25 History release insulin glargine 100 unit/mL (3 18 unit (0.18 mL) subc ut QPM 30 08/14/24 05/13/25 Rx mL) subcutaneous pen (Basaglar days #5.4 mL KwikPen U-100 Insulin) atorvastatin 10 mg tablet 10 mg PO QHS #30 tabs 05/13/25 Rx losartan 25 mg tablet 25 mg PO DAILY #30 tabs 08/2605/14/25 Rx spironolactone 25 mg tablet 25 mg PO DAILY #30 tabs 05/14/25 Rx empagliflozin 10 mg tablet 10 mg PO QAM #30 tabs 10/0405/14/25 Rx (Jardiance) metformin 500 mg tablet 500 mg PO BID #60 tabs 10/0405/14/25 Rx semaglutide 0.25 mg or 0.5 mg (2 0.25 mg (0.368 mL) stacy bcut QWEEK #3 12/06/24 Unknown Rx mg/3 mL) subcutaneous pen injector mL (Ozempic) carvedilol 6.25 mg tablet 6.25 mg PO BID #60 tabs 03/2805/14/25 Rx chlorpheniramine-dextromethorphan 1 tab PO Q6H PRN col d symptoms 05/14/25 05/12/25 History 4 mg-30 mg tablet (Cough and Cold (chlorpheniramine-DM)) ibuprofen 200 mg tablet (Advil) 400 mg PO Q6H PRN feve r or pain 05/14/25 05/13/25 History Allergy/AdvReac Type Severity Reaction Status Date / Time Penicillins Allergy Rash Verified 05/14/25 17:34 lisinopril AdvReac Intermediate Dry Verified 05/14/25 17:34 nagging cough oxycodone HCl (From Percocet) AdvReac BECOMES Verified 05/14/25 17:34 VIOLENT Family History Mother Diabetes Atrial fibrillation Father Myocardial infarction Sister SVT (supraventricular tachycardia) Surgical History H/O lithotripsy History of coronary artery stent placement (~05/25/22) H/O rhinoplasty H/O knee surgery Social History adopted: No household members: spouse number of children: 0 current occupational status: employed 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 [employer] pets and animals: Yes pets and animals: cat(s) sexually active: No Smoking Status: Current every day smoker tobacco type: cigarettes Tobacco: How many years used: 26 quit status: not considering quitting alcohol intake: former year quit: 2009 details: 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 substance use type: does not use caffeine: Yes (2-3) Type: carbonated beverages Number of servings: 1 and tea Number of servings: 3 frequency: does not exercise do you feel safe at home: Yes ROS Constitutional Constitutional: Denies chills or fever(s) Eyes Eyes: Denies blurry vision ENT HEENT: Denies abnormal hearing Cardiovascular Cardiovascular: Reports chest pain and dyspnea on exertion Respiratory/Chest Respiratory/Chest: Denies cough Gastrointestinal Gastrointestinal: Denies abdominal pain Genitourinary Genitourinary: Denies difficulty urinating Musculoskeletal Musculoskeletal: Denies back pain Neurologic Neurologic: Denies abnormal gait Psychiatric Psychiatric: Denies anxiety Physical Exam Const oriented x3 HEENT normocephalic and head/scalp atraumatic Eyes PERRL Neck no lymphadenopathy Resp normal respiratory effort, no retractions and no use of accessory muscles Cardio regular rate, regular rhythm, S1 normal heart sound and S2 normal heart sound GI normal to inspection, nondistended, normoactive bowel sounds Extremity normal to inspection Neuro oriented x3, moves all extremities and no focal motor deficits Psych affect normal Lab / Micro Data 05/14/25 17:55 05/14/25 17:55 Labs: Laboratory Results - last 24 hr 05/14/25 17:52: PT 15.2 H, INR 1.2, APTT 29.7, D-Dimer Quant (PE/DVT) 0.44 05/14/25 17:55: WBC 13.3 H, RBC 5.15, Hgb 16.0, Hct 46.1, MCV 89.5, MCH 31.1, MCHC 34.7, RDW Std Deviation 44.5 H, RDW Coeff of Kaye 13.6, Plt Count 267, MPV 11.5, Immature Gran % (Auto) 0.700, Neut % (Auto) 68.6, Lymph % (Auto) 22.5, [place] % (Auto) 7.4, Eos % (Auto) 0.3, Baso % (Auto) 0.5, Absolute Neuts (auto) 9.1 H, Absolute Lymphs (auto) 2.99, Nucleated RBC % 0, Sodium 137, Potassium 3.8, Chloride 101, Carbon Dioxide 20.8 L, Anion Gap 16 H, BUN 14, Creatinine 1.06, Estim Creat Clear Calc 106.74, Est GFR (MDRD) Non-Af 83, BUN/Creatinine Ratio 13.0, Glucose 264 H, Calcium 9.4, Troponin T High Sens 236 H*, NT pro BNP II 2751 H 05/14/25 19:36: Activated Clotting Time 158 H 05/14/25 20:42: Activated Clotting Time 250 H Imaging Radiology Impression Chest X-Ray 05/14/25 18:36 IMPRESSION: No acute cardiopulmonary process. Reading Location: [id number]
[2025-05-14] MEDS: MELATONIN 10 MG TABLET 5 MG PO (23:52)
[2025-05-15] VITALS (25 sets, daily range): BP systolic 83–120; BP diastolic 56–85; PULSE 55–73; RESP 14–25; TEMP 36–36.6; O2SAT 92–99; BMI 37.7
[2025-05-15 05:14] LABS: Hematocrit 40.9 % (40-54); Hemoglobin 14.2 g/dL (13.0-16.5); Mean Corp Hgb Conc 34.7 g/dL (32-36); Mean Corpuscular Volume 90.1 fL (80-94); Mean Platelet Vol. 11.4 fl (6.2-12.0); Platelet Count 168 K/mm3 (150-450); RBC Distribution Width CV 14.0 % (11.6-14.6); RBC Distribution Width SD 45.3 fl (35.1-43.9); Red Blood Count 4.54 M/mm3 (4.6-6.2); White Blood Count 10.4 K/mm3 (4.4-11.0)
[2025-05-15 05:41] LABS: AST(SGOT) 27 U/L (<=37); Alanine Aminotransfer ALT/SGPT 15 U/L (<=46); Albumin, Serum 3.9 g/dL (3.5-5.0); Alkaline Phosphatase 78 U/L (40-129); Anion Gap 14 (5-15); BUN 15 mg/dL (4-19); BUN/Creat Ratio 14.9 RATIO (10-20); Calcium,Total 8.7 mg/dL (7.6-11.0); Carbon Dioxide 22.5 mmol/L (21.0-32.0); Chloride 102 mmol/L (98-108); Cholesterol 164 mg/dL (<=200); Estimated Creatinine Clearance 115.58 ml/min (50-250); Globulin 2.6 g/dL (2.2-4.2); Glucose 211 mg/dL (70-99); Low Density Lipoprotein Calc. 97 mg/dL; Potassium 3.5 mmol/L (3.3-5.1); Triglycerides 222 mg/dL; Very Low Density Lipoprotein 44 mg/dL (5-40); cholesterol:hdl ratio screen 5.75
--- NOTE | 2025-05-15 06:41 | PCM.PN.CARD ---
Subjective Subjective Patient seen and evaluated. Appears to be doing well this morning chest pain-free Objective Data Vital Signs: Vital Signs Temp Pulse Resp BP Pulse Ox O2 Del Method 97.7 F L 73 24 H 116/56 L 92 Room Air 05/15/25 04:00 05/15/25 06:00 05/15/25 06:00 05/15/25 06:00 05/15/25 06:00 05/15/25 06:00 Oxygen Delivery Method Room Air Weight: 286 lb 2.56 oz Body Mass Index (BMI) 37.7 Intake & Output: Intake and Output for Last 24 Hours 05/13/25 05/14/25 05/15/25 23:59 23:59 23:59 Output Total 600 / 600 600 / 600 Balance -600 / -600 -600 / -600 Lab / Micro Data 05/15/25 04:40 05/15/25 04:40 Labs: Laboratory Results - last 24 hr 05/14/25 17:52: PT 15.2 H, INR 1.2, APTT 29.7, D-Dimer Quant (PE/DVT) 0.44 05/14/25 17:55: WBC 13.3 H, RBC 5.15, Hgb 16.0, Hct 46.1, MCV 89.5, MCH 31.1, MCHC 34.7, RDW Std Deviation 44.5 H, RDW Coeff of Kaye 13.6, Plt Count 267, MPV 11.5, Immature Gran % (Auto) 0.700, Neut % (Auto) 68.6, Lymph % (Auto) 22.5, [place] % (Auto) 7.4, Eos % (Auto) 0.3, Baso % (Auto) 0.5, Absolute Neuts (auto) 9.1 H, Absolute Lymphs (auto) 2.99, Nucleated RBC % 0, Sodium 137, Potassium 3.8, Chloride 101, Carbon Dioxide 20.8 L, Anion Gap 16 H, BUN 14, Creatinine 1.06, Estim Creat Clear Calc 106.74, Est GFR (MDRD) Non-Af 83, BUN/Creatinine Ratio 13.0, Glucose 264 H, Calcium 9.4, Troponin T High Sens 236 H*, NT pro BNP II 2751 H 05/14/25 19:36: Activated Clotting Time 158 H 05/14/25 20:42: Activated Clotting Time 250 H 05/15/25 04:40: WBC 10.4, RBC 4.54 L, Hgb 14.2, Hct 40.9, MCV 90.1, MCH 31.3, MCHC 34.7, RDW Std Deviation 45.3 H, RDW Coeff of Kaye 14.0, Plt Count 168, MPV 11.4, Sodium 139, Potassium 3.5, Chloride 102, Carbon Dioxide 22.5, Anion Gap 14, BUN 15, Creatinine 1.02, Estim Creat Clear Calc 115.58, Est GFR (MDRD) Non-Af 87, BUN/Creatinine Ratio 14.9, Glucose 211 H, Calcium 8.7, Total Bilirubin 0.93, AST 27, ALT 15, Alkaline Phosphatase 78, Total Protein 6.5, Albumin 3.9, Globulin 2.6, Albumin/Globulin Ratio 1.5, Triglycerides 222 H, Cholesterol 164, LDL Cholesterol, Calc 97, VLDL Cholesterol 44 H, HDL Cholesterol 29 L, Cholesterol/HDL Ratio 5.75 Cardiology Labs/Tests 05/14/25 17:52: PT 15.2 H, INR 1.2, APTT 29.7, D-Dimer Quant (PE/DVT) 0.44 05/14/25 17:55: WBC 13.3 H, RBC 5.15, Hgb 16.0, Hct 46.1, MCV 89.5, MCH 31.1, MCHC 34.7, Plt Count 267, MPV 11.5, Immature Gran % (Auto) 0.700, Neut % (Auto) 68.6, Lymph % (Auto) 22.5, [place] % (Auto) 7.4, Eos % (Auto) 0.3, Baso % (Auto) 0.5, Absolute Neuts (auto) 9.1 H, Nucleated RBC % 0, Sodium 137, Potassium 3.8, Chloride 101, Carbon Dioxide 20.8 L, Anion Gap 16 H, BUN 14, Creatinine 1.06, Est GFR (MDRD) Non-Af 83, BUN/Creatinine Ratio 13.0, Glucose 264 H, Calcium 9.4 05/15/25 04:40: WBC 10.4, RBC 4.54 L, Hgb 14.2, Hct 40.9, MCV 90.1, MCH 31.3, MCHC 34.7, Plt Count 168, MPV 11.4, Sodium 139, Potassium 3.5, Chloride 102, Carbon Dioxide 22.5, Anion Gap 14, BUN 15, Creatinine 1.02, Est GFR (MDRD) Non-Af 87, BUN/Creatinine Ratio 14.9, Glucose 211 H, Calcium 8.7, Total Bilirubin 0.93, Triglycerides 222 H, Cholesterol 164, VLDL Cholesterol 44 H, HDL Cholesterol 29 L, Cholesterol/HDL Ratio 5.75 Rhythm: EKG: ECHO: Stress Test: Cardiac Cath: PCI: CT Surgery: Holter monitor: EPS: PPM: CXR: Chest CT Scan: Radiography Diagnostic Testing: Radiology Impression Chest X-Ray 05/14/25 18:36 IMPRESSION: No acute cardiopulmonary process. Reading Location: [facility] Physical Exam Const alert and oriented x3 Orientation / Consciousness: awake HEENT normocephalic Eyes PERRL Neck Carotids: normal carotid upstroke Chest inspection of chest normal Resp normal respiratory effort Cardio regular rate and regular rhythm GI normal to inspection, nondistended, normoactive bowel sounds Extremity no clubbing, cyanosis or edema Assessment & Plan Assessment/Plan (1) Acute ST elevation myocardial infarction (STEMI) of inferior wall: PLAN: Patient's status postacute inferior wall myocardial infarction. He underwent angioplasty and stenting of the above. He does have residual disease in the distal right coronary artery, the circumflex artery also has disease in the mid to distal vessel and his left anterior descending artery appears to be subtotally occluded post stent. Will optimize medical therapy, obtain an echocardiogram and discuss further revascularization attempts. Continue aspirin Continue Brilinta Continue beta-byron (2) Ischemic cardiomyopathy: PLAN: Does have a history of ischemic cardiomyopathy Will obtain an echocardiogram today Continue carvedilol (3) Dyslipidemia: PLAN: Will increase statin to 80 mg daily.
[2025-05-15] MEDS: Aspirin E.C. 81 MG Tablet PO (08:20)
[2025-05-15] MEDS: TICAGRELOR 90 MG TABLET PO ×2 (08:20→21:09)
[2025-05-15] MEDS: 0.9% Saline Lock 10 ML Syringe IV (08:23)
--- NOTE | 2025-05-15 09:20 | PCM.PN.HOSP ---
Subjective Subjective Doing well, no issues overnight. No chest pain Objective Data Objective Data Vital Signs: Vital Signs Temp Pulse Resp BP Pulse Ox O2 Del Method 97.7 F L 62 22 H 94/64 99 Room Air 05/15/25 04:00 05/15/25 07:00 05/15/25 07:00 05/15/25 07:00 05/15/25 07:06 05/15/25 07:06 Oxygen Delivery Method Room Air Weight: 286 lb 2.56 oz Body Mass Index (BMI) 37.7 Intake & Output: Intake and Output for Last 24 Hours 05/14/25 05/15/25 05/16/25 03:59 03:59 03:59 Output Total 600 / 1200 600 / 600 Balance -600 / -1200 -600 / -600 Lab / Micro Data 05/15/25 04:40 05/15/25 04:40 Labs: Laboratory Results - last 24 hr 05/14/25 17:52: PT 15.2 H, INR 1.2, APTT 29.7, D-Dimer Quant (PE/DVT) 0.44 05/14/25 17:55: WBC 13.3 H, RBC 5.15, Hgb 16.0, Hct 46.1, MCV 89.5, MCH 31.1, MCHC 34.7, RDW Std Deviation 44.5 H, RDW Coeff of Kaye 13.6, Plt Count 267, MPV 11.5, Immature Gran % (Auto) 0.700, Neut % (Auto) 68.6, Lymph % (Auto) 22.5, [place] % (Auto) 7.4, Eos % (Auto) 0.3, Baso % (Auto) 0.5, Absolute Neuts (auto) 9.1 H, Absolute Lymphs (auto) 2.99, Nucleated RBC % 0, Sodium 137, Potassium 3.8, Chloride 101, Carbon Dioxide 20.8 L, Anion Gap 16 H, BUN 14, Creatinine 1.06, Estim Creat Clear Calc 106.74, Est GFR (MDRD) Non-Af 83, BUN/Creatinine Ratio 13.0, Glucose 264 H, Calcium 9.4, Troponin T High Sens 236 H*, NT pro BNP II 2751 H 05/14/25 19:36: Activated Clotting Time 158 H 05/14/25 20:42: Activated Clotting Time 250 H 05/15/25 04:40: WBC 10.4, RBC 4.54 L, Hgb 14.2, Hct 40.9, MCV 90.1, MCH 31.3, MCHC 34.7, RDW Std Deviation 45.3 H, RDW Coeff of Kaye 14.0, Plt Count 168, MPV 11.4, Sodium 139, Potassium 3.5, Chloride 102, Carbon Dioxide 22.5, Anion Gap 14, BUN 15, Creatinine 1.02, Estim Creat Clear Calc 115.58, Est GFR (MDRD) Non-Af 87, BUN/Creatinine Ratio 14.9, Glucose 211 H, Calcium 8.7, Total Bilirubin 0.93, AST 27, ALT 15, Alkaline Phosphatase 78, Total Protein 6.5, Albumin 3.9, Globulin 2.6, Albumin/Globulin Ratio 1.5, Triglycerides 222 H, Cholesterol 164, LDL Cholesterol, Calc 97, VLDL Cholesterol 44 H, HDL Cholesterol 29 L, Cholesterol/HDL Ratio 5.75 Radiography Diagnostic Testing: Radiology Impression Chest X-Ray 05/14/25 18:36 IMPRESSION: No acute cardiopulmonary process. Reading Location: [facility] Physical Exam Narrative General: Alert, Oriented x3, Cooperative, No apparent distress HEENT: Atraumatic, PERRLA, EOMI, Normocephalic Oral: Moist Mucosa Neck: Supple, No JVD Lungs: Diminished, Normal air movement, No rhonchi, No wheeze, No rales Cardiovascular: Regular rate, Regular Rhythm, Normal S1, Normal S2, No murmurs Abdomen: Soft, Non Tender, Non-Distended, No Hepato-splenomegaly Extremities: No edema, Capillary Refill Less than 3 Seconds Skin: No rashes, No breakdown Musculoskeletal: No Tenderness to Palpation of Joints or Extremities Neurological: No focal neurological deficits, moves all extremities Psych/Mental Status: Normal Affect, Appropriate Assessment & Plan Assessment/Plan (1) Acute ST elevation myocardial infarction (STEMI) of inferior wall: PLAN: Plan 1. STEMI status post stent to the RCA and right PDA/ischemic cardiomyopathy/essential HTN/HLD ? EF during heart catheter 35% consistent with ischemic cardiomyopathy ? Continue with Lipitor, Coreg, Jardiance, losartan ? Continue with aspirin and Brilinta ? Continue with Aldactone 2. DM2 ? Insulin ? Accu-Cheks ? Will monitor make adjustments as necessary 3. GERD ? Stable ? Continue PPI DVT: Heparin Charges/Coding Visit Charges Inpatient E&M: 51366 Subs Hosp L2
--- NOTE | 2025-05-15 10:00 | EKG12_ITS ---
Test Reason : post pci Blood Pressure : */* mmHG Vent. Rate : 62 BPM Atrial Rate : 62 BPM P-R Int : 144 ms QRS Dur : 88 ms QT Int : 420 ms P-R-T Axes : 24 24 105 degrees QTcB Int : 426 ms Critical Test Result: STEMI Normal sinus rhythm Low voltage QRS Inferior infarct , possibly acute Cannot rule out Anterior infarct , age undetermined T wave abnormality, consider lateral ischemia ACUTE ME / STEMI Consider right ventricular involvement in acute inferior infarct Confirmed by OLGA PENA, LEAH ([id number]), editor & co founder BECKIE WONG ([id number]) on 05/16/2025 6:40:51 AM Referred By: Mario Mario Confirmed By: ELAH ESPINOZA MD
--- NOTE | 2025-05-15 10:24 | CASEMGMT ---
GLORIA VILLEGAS Assessment Face to Face with patient for initial transition planning/care coordination assessment. GLORIA VILLEGAS introduced self and role at [facility], pt voices understanding. Pt is A&Ox4 and is resting comfortably in bed and is calm. Care providers, pharmacy, and demographics verified. Admitting dx: STEMI LACE Strata: 2 PCP: Cynthia Alaniz Specialists: [facility] Preferred Pharmacy: [facility]. Nursing has educated the pt on the P2Y Rx. This development writer offered to use [facility]. However, pt declines and states that he prefers [facility] and that his can bring the Rx to the bedside prior to leaving the hospital. Insurance: [employer] Prescription Benefit: Yes LNOK: Benjy (H) Living Arrangements: Pt lives with his in a 2 story home with one step to enter ADLs/IADLs: Indep. 6-Click score is 24 Transportation: Self, DME: Functioning B[employer] with sufficient testing supplies including lancets, test strips, and EtOH swabs.?Pt also has pen needles for insulin shots. Pt has a BP Monitor. HHC/SNF: Denies hx or needs Pt?s goal: Home Plan: Home with pt's , follow for P2Y Rx and Rx costs. Follow up with cardiology as an OP. Per ICU rounds, DC is projected for tomorrow. Pt states that he feels safe returning home with his tomorrow and denies the need for any additional resources or therapy at this time. Pt denies further questions or concerns. Dl Romero RN, CM
--- NOTE | 2025-05-15 10:53 | ECQM.STEMI ---
STEMI STEMI ED Door Time / Other REG STEMI EKG Time (1) Acute ST elevation myocardial infarction (STEMI) of inferior wall: Acute 05/14/25 17:31 Balloon/Aspiration Date-Time Date of Balloon/Aspiration:: 05/14/25 Time of Balloon/Aspiration:: 19:47
[2025-05-15] MEDS: FLU VACCINE 2025-26(6MOS UP) 45 MCG/0.5 ML SYRINGE IM (13:44)
--- NOTE | 2025-05-15 15:08 | CRPHASE1_ITS ---
Patient Communication Patient Information Former Patient:: Phase I PHII Cardiac Rehab Discussed with Patient:: Yes Guide to Cardiac Rehab Given to Patient:: Yes Cardiac Rehab Facility Choice List Given to Patient:: Yes Communication to Cardiac Rehab Choice Program [facility] CR PHII:: Communication Given to CR Lab Asst:: Mario Mario Cardiac Rehabilitation Info Program Information Cardiac Rehabilitation Program Information: Cardiac Rehab The cardiac rehab team at [facility] consists of highly skilled exercise physiologists, nurses, respiratory therapists and physicians working together with you. Our purpose is to help you have a full recovery and achieve the goals you set for yourself. Over the years many of our patients have returned to activities they assumed they would never do again! We can help restore your confidence and motivation to make lifestyle changes that can have a significant impact on your health and quality of life! We can help answer questions and concerns you may have about exercise, lifestyle, medications, diet, stress and anxiety which are common following a hospitalization. WE monitor ECG and vital signs during exercise and discuss your progress with you and report to your physician(s). Cardiac Rehab is proven to help reduce readmissions, improve functional capacity and lower recurrence of problems with your heart. Our Cardiac Rehab program is Certified by the [place] [employer]-V[employer] Pulmonary [employer] (AACVPR) and Accredited by the [place] [employer] through our [facility]. You can contact us at . We invite you to call us with your questions or to get started in our program. If you have other questions or concerns be sure to ask your physician/provider during your follow-up visit. WE look forward to seeing you!
--- NOTE | 2025-05-15 15:09 | CRPH1.INST_ITS ---
General Education Discussed with Patient CAD and cardiac anatomy and function:: Patient communicates acknowledgment Explanation of diagnoses and procedures:: Patient communicates acknowledgment Sign/Symptoms of KS:: Patient communicates acknowledgment Antiplatelet therapy: Patient communicates acknowledgment Proper use of NTG-SL: Patient communicates acknowledgment Emergency procedures and activation of EMS: Patient communicates acknowledgment Compliance of all prescribed medications: Patient communicates acknowledgment Smoking Risk Factors Patient Nicotine/Smoking Risk Factors Are:: Cigarettes and Second-hand smoke Recommendations Recommendations Include:: Smoking cessation strategies/Smoking packet, Second- hand smoke recommendation and Participation in a smoking cessation program Response Code Nicotine/Smoking Response Code:: Patient communicates acknowledgment Dyslipidemia Risk Factors Patient Dyslipidemia Risk Factors Are:: Total Cholesterol, Triglycerides, HDL and LDL Recommendations Recommendations Include:: Lipid profile not available, Reviewed NCEP/ATP guidelines and Therapeutic Lifestyle Change dietary guidelines Response Code Dyslipidemia Response Code:: Patient communicates acknowledgment Overweight/Obesity Risk Factors Patient Overweight/Obesity Risk Factors Are:: Overweight = 26-29 and Obesity - > or = 30 Recommendations Recommendations Include:: Weight loss of 5-10%, Reduced calorie diet and Exercise 5-7 times/week Response Code Overweight/Obesity:: Patient communicates acknowledgment Hypertension Recommendations Recommendations Include:: BP <130/80 if diabetic, DASH dietary guidelines, Decrease/maintain normal body weight and Moderation of ETOH Response Code Hypertension:: Patient communicates acknowledgment Heart Disease Risk Factors Patient Heart Disease Risk Factors Are:: Family history of heart disease < 65 years old and Previous cardiac event Recommendations Recommendations Include:: Educated family members of their risk and Educated family members of importance of prevention of heart disease Response Code Heart Disease Response Code:: Patient communicates acknowledgment Diabetes Risk Factors Patient Diabetes Risk Factors Are:: Elevated blood sugars and Post-op hyperglycemia Recommendations Recommendations Include:: Maintain fasting blood sugars 70-110 md/dL, Maintain HgbA1c of 6% or less, Monitor blood sugar as prescribed, Diabetic dietary guidelines and Decrease/maintain body weight Response Code Diabetes:: Patient communicates acknowledgment Metabolic Syndrome Risk Factors Patient Metabolic Syndrome Risk Factors Are [3 of 5]:: Fasting blood sugar > 100 mg/dL, Waist circumference > 35 [female] or 40 [male], High triglyceride >150 and Hypertension Recommendations Recommendations Include:: Reinforce compliance to risk factor modifications, Patient is diabetic and Encouraged follow-up with Primary Care Physician Response Code Metabolic Syndrome Response Code:: Patient communicates acknowledgment Sedentary Risk Factors Patient Sedentary Risk Factors Are:: Lack of regular exercise Recommendations Recommendations Include:: Aerobic exercise 5-7 times/week for 20-30 minutes continuously, Benefits of regular exercise, Discussed home walking program and Monitored Outpatient Cardiac Rehab Response Code Sedentary Response Code:: Patient communicates acknowledgment Stress Risk Factors Patient Stress Risk Factors Are:: Patient denies stress as a risk factor Recommendations Recommendations Include:: Identification of stressors, and assessment of coping skills and Stress management techniques Response Code Stress Response Code:: Patient communicates acknowledgment
[2025-05-15] MEDS: Insulin Glargine-YFGN 100 UNIT/ML Pen 18 UNIT SC (21:05)
[2025-05-15] MEDS: APIXABAN 5 MG TABLET PO (21:10)
[2025-05-16 00:10] VITALS: BP 117/81; PULSE 64; RESP 16; TEMP 36.4; O2SAT 97
[2025-05-16 04:30] VITALS: BP 125/82; PULSE 63; RESP 17; TEMP 36.4; O2SAT 97
[2025-05-16 04:42] VITALS: BMI 37.7
[2025-05-16 04:49] LABS: Hematocrit 42.1 % (40-54); Hemoglobin 14.6 g/dL (13.0-16.5); Immature Granulocytes Count 0.050 X10^3/uL (0.0-0.0); Mean Corp Hgb Conc 34.7 g/dL (32-36); Mean Corpuscular Volume 90.5 fL (80-94); Mean Platelet Vol. 11.2 fl (6.2-12.0); NRBC Flagged by Analyzer 0 % (0-5); Platelet Count 162 K/mm3 (150-450); RBC Distribution Width CV 14.0 % (11.6-14.6); RBC Distribution Width SD 46.1 fl (35.1-43.9); Red Blood Count 4.65 M/mm3 (4.6-6.2); White Blood Count 9.6 K/mm3 (4.4-11.0)
[2025-05-16 05:57] LABS: Anion Gap 13 (5-15); BUN 12 mg/dL (4-19); BUN/Creat Ratio 14.7 RATIO (10-20); Calcium,Total 8.6 mg/dL (7.6-11.0); Carbon Dioxide 21.6 mmol/L (21.0-32.0); Chloride 104 mmol/L (98-108); Estimated Creatinine Clearance 145.43 ml/min (50-250); Glucose 178 mg/dL (70-99); Potassium 3.8 mmol/L (3.3-5.1)
--- NOTE | 2025-05-16 07:05 | PN.CARD_ITS ---
Subjective Subjective Patient seen and evaluated. Appears to be stable no complaints. No chest pain or shortness of breath. Has been out of bed. Objective Data Vital Signs: Vital Signs Temp Pulse Resp BP Pulse Ox O2 Del Method 97.6 F L 63 17 125/82 H 97 Room Air 05/16/25 04:30 05/16/25 04:30 05/16/25 04:30 05/16/25 04:30 05/16/25 04:30 05/16/25 04:30 Oxygen Delivery Method Room Air Weight: 285 lb 11.505 oz Body Mass Index (BMI) 37.7 Intake & Output: Intake and Output for Last 24 Hours 05/14/25 05/15/25 05/16/25 23:59 23:59 23:59 Intake Total 1600 / 1600 Output Total 600 / 600 1100 / 1500 700 / 700 Balance -600 / -600 500 / 100 -700 / -700 Lab / Micro Data 05/16/25 04:40 05/16/25 04:40 Labs: Laboratory Results - last 24 hr 05/15/25 21:03: POC Glucose 226 H 05/16/25 04:40: WBC 9.6, RBC 4.65, Hgb 14.6, Hct 42.1, MCV 90.5, MCH 31.4, MCHC 34.7, RDW Std Deviation 46.1 H, RDW Coeff of Kaye 14.0, Plt Count 162, MPV 11.2, Immature Gran % (Auto) 0.500, Neut % (Auto) 74.0 H, Lymph % (Auto) 17.3 L, [place] % (Auto) 7.3, Eos % (Auto) 0.7, Baso % (Auto) 0.2, Absolute Neuts (auto) 7.1, Absolute Lymphs (auto) 1.66, Nucleated RBC % 0, Sodium 139, Potassium 3.8, Chloride 104, Carbon Dioxide 21.6, Anion Gap 13, BUN 12, Creatinine 0.81, Estim Creat Clear Calc 145.43, Est GFR (MDRD) Non-Af 104, BUN/Creatinine Ratio 14.7, G lucose 178 H, Calcium 8.6 Cardiology Labs/Tests 05/16/25 04:40: WBC 9.6, RBC 4.65, Hgb 14.6, Hct 42.1, MCV 90.5, MCH 31.4, MCHC 34.7, Plt Count 162, MPV 11.2, Immature Gran % (Auto) 0.500, Neut % (Auto) 74.0 H, Lymph % (Auto) 17.3 L, [place] % (Auto) 7.3, Eos % (Auto) 0.7, Baso % (Auto) 0.2, Absolute Neuts (auto) 7.1, Nucleated RBC % 0, Sodium 139, Potassium 3.8, Chloride 104, Carbon Dioxide 21.6, Anion Gap 13, BUN 12, Creatinine 0.81, Est GFR (MDRD) Non-Af 104, BUN/Creatinine Ratio 14.7, Glucose 178 H, Calcium 8.6 Rhythm: EKG: ECHO: Stress Test: Cardiac Cath: PCI: CT Surgery: Holter monitor: EPS: PPM: CXR: Chest CT Scan: Radiography Diagnostic Testing: Radiology Impression Echocardiogram 05/14/25 21:21 Interpretation Summary Normal LV size. The left ventricular ejection fraction is 40 %. Apical Thrombus 1.2 x 1.3cm [place] : Akinetic. Contrast injection was performed. Ordering Physician: Mario Mario Referring Physician: Cynthia Alaniz Performed By: Rasheeda Abbott, DARVIN, RVT Physical Exam Const alert and oriented x3 Orientation / Consciousness: awake HEENT normocephalic Eyes PERRL Neck Carotids: normal carotid upstroke Chest inspection of chest normal Resp normal respiratory effort Cardio regular rate and regular rhythm GI normal to inspection, nondistended, normoactive bowel sounds Extremity no clubbing, cyanosis or edema Assessment & Plan Assessment/Plan (1) Acute ST elevation myocardial infarction (STEMI) of inferior wall: PLAN: Patient's status postacute inferior wall myocardial infarction. He underwent angioplasty and stenting of the above. He does have residual disease in the distal right coronary artery, the circumflex artery also has disease in the mid to distal vessel and his left anterior descending artery appears to be subtotally occluded post stent. Will continue current medical therapy. Continue aspirin Continue Brilinta Continue beta-byron (2) Ischemic cardiomyopathy: PLAN: Does have a history of ischemic cardiomyopathy Echocardiogram demonstrated moderate LV dysfunction with evidence of left ventricular thrombus and anterior wall motion abnormality noted. Continue carvedilol (3) Dyslipidemia: PLAN: Will increase statin to 80 mg daily. (4) LV (left ventricular) mural thrombus following NV: PLAN: He does have evidence of a left ventricular mural thrombus. My recommendation will be as follows: Eliquis 5 mg twice a day for 3 to 6 months. Aspirin 81 mg a day for 1 month. Brilinta 90 mg twice a day for 3 to 6 months. (5) NSVT (nonsustained ventricular tachycardia): PLAN: Patient had nonsustained VT. Intravenous magnesium Continue current medication keeping potassium closer to 4-4.5 as per recent recommendations Discharge with outpatient Holter monitor.
[2025-05-16 07:24] VITALS: O2SAT 94
[2025-05-16 07:31] LABS: Magnesium 2.3 mg/dL (1.5-2.2)
[2025-05-16] MEDS: Aspirin E.C. 81 MG Tablet PO (08:10)
[2025-05-16] MEDS: Magnesium Sulfate 2 GM in Dextrose 5%-Water (100mL Bag) 100 ML IV (08:58)
[2025-05-16] MEDS: TICAGRELOR 90 MG TABLET PO (09:02)
[2025-05-16] MEDS: APIXABAN 5 MG TABLET PO (09:03)
[2025-05-16 09:10] VITALS: BP 121/79; PULSE 66; RESP 15; TEMP 37.1; O2SAT 99
--- NOTE | 2025-05-16 10:00 | EKG12_ITS ---
Test Reason : POST PCI Blood Pressure : */* mmHG Vent. Rate : 58 BPM Atrial Rate : 58 BPM P-R Int : 164 ms QRS Dur : 80 ms QT Int : 424 ms P-R-T Axes : 3 41 94 degrees QTcB Int : 416 ms Critical Test Result: STEMI Sinus bradycardia Low voltage QRS Inferior infarct , possibly acute Cannot rule out Anteroseptal infarct , age undetermined ACUTE KS / STEMI Confirmed by OLGA PENA, LEAH ([id number]), dictionary editor BECKIE WONG ([id number]) on 05/17/2025 6:31:05 AM Referred By: Mario Mario Confirmed By: LEAH ESPINOZA MD
--- NOTE | 2025-05-16 11:48 | PCM.DC ---
Discharge Instructions DC O2, CPAP, BIPAP needs Home O2 Discharge instructions: No Dressing / Incision Discharge Activity: Return to Normal Activity Weight Bearing Status: Full weight bearing Follow Up Care Test Results: Test results from this visit will be discussed in further detail at your follow-up appointment, if applicable. Discharge Plan Admission Admit Date/Time: 05/14/25 22:00 Primary Reason for Your Visit: STEMI Attending Provider: Gautam Nobles Primary Care Provider: Cynthia Alaniz Consulting Providers: Mario Mario; Eros Valiente; Mikael Pearl Discharge Orders/Prescriptions Prescriptions: New atorvastatin 80 mg Tablet 80 mg PO QHS Qty: 30 0RF ticagrelor 90 mg Tablet 90 mg PO BID Qty: 60 0RF Eliquis 5 mg Tablet 5 mg PO BID Qty: 60 0RF Continued omeprazole 20 mg capsule,delayed release(DR/EC) 20 mg PO DAILY insulin glargine [Basaglar KwikPen U-100 Insulin] 100 unit/mL (3 mL) insulin pen 18 unit subcut QPM 30 Days Qty: 5.4 12RF carvedilol 6.25 mg tablet 6.25 mg PO BID Qty: 60 11RF Jardiance 10 mg tablet 10 mg PO QAM Qty: 30 5RF metformin 500 mg tablet 500 mg PO BID Qty: 60 5RF Rx Instructions: ALEXIS aspirin 81 mg Tablet,Delayed Release (Dr/Ec) 81 mg PO DAILY@0800 Qty: 30 2RF losartan 25 mg tablet 25 mg PO DAILY Qty: 30 11RF spironolactone 25 mg tablet 25 mg PO DAILY Qty: 30 11RF Discontinued Ozempic 0.25 mg or 0.5 mg (2 mg/3 mL) pen injector 0.25 mg subcut QWEEK Qty: 3 1RF Patient Comments: PT HAS NOT STARTED YET Rx Instructions: for 4 weeks ibuprofen [Advil] 200 mg tablet 400 mg PO Q6H PRN (Reason: fever or pain) Cough and Cold (chlorphen-DM) 4-30 mg tablet 1 tab PO Q6H PRN (Reason: cold symptoms) atorvastatin 10 mg tablet 10 mg PO QHS Qty: 30 11RF Other Ambulatory Orders: Cardiac Holter Monitor, 48 Hrs (Routine) Timeframe: 20250516 Facility: [facility] [place] - Location: Cardiovascular Services Ordered By: Dr. Gautam Nobles Referrals / Follow Up: Cynthia Alaniz MD [Primary Care Provider, Internal Medicine] - Within 1 Month Mario Mario MD [Med Staff - Active Staff, Cardiology] - See Referral Note Referral Note: In 3 weeks-call for an appointment Disposition Disposition (needs filled in before D/C Order can be placed): Home, Self Care
--- NOTE | 2025-05-16 12:36 | DS.PCM_ITS ---
Providers Date of Admission: 05/14/25 Date of Discharge: 05/16/25 Primary Care Physician: Dr. Cynthia Alaniz MD Consultations 05/14/25 21:54 Consult: Hospitalist Routine Consulting Provider: Eros Valiente Reason for Consult: admission EMERGENT Consult: No MD Notified: Yes Date Notified: 05/14/25 Time Notified: 21:54 Method of Notification: Text Reason For Visit: STEMI Diagnosis Discharge Diagnosis (1) Acute ST elevation myocardial infarction (STEMI) of inferior wall: Status: Acute Code(s): I21.19 - ST elevation (STEMI) myocardial infarction involving other coronary artery of inferior wall (2) Ischemic cardiomyopathy: Status: Acute Code(s): I25.5 - Ischemic cardiomyopathy (3) Dyslipidemia: Status: Deleted Code(s): E78.5 - Hyperlipidemia, unspecified (4) LV (left ventricular) mural thrombus following AK: Status: Acute Code(s): I23.6 - Thrombosis of atrium, auricular appendage, and ventricle as current complications following acute myocardial infarction (5) NSVT (nonsustained ventricular tachycardia): Status: Acute Code(s): I47.29 - Other ventricular tachycardia Plan 1. STEMI- RCA and right PDA occlusive disease #2 type 2 diabetes #3 left ventricular thrombus #4 ischemic cardiomyopathy #5 essential hypertension Medications at Discharge Home Medications aspirin 81 mg tablet,delayed release 81 mg PO DAILY@0800 #30 tabs 05/27/22 omeprazole 20 mg capsule,delayed release 20 mg PO DAILY 06/08/23 insulin glargine 100 unit/mL (3 mL) subcutaneous pen (Basaglar KwikPen U-100 Insulin) 18 unit (0.18 mL) subcut QPM 30 days #5.4 mL 08/14/24 losartan 25 mg tablet 25 mg PO DAILY #30 tabs 09/11/24 spironolactone 25 mg tablet 25 mg PO DAILY #30 tabs 09/11/24 empagliflozin 10 mg tablet (Jardiance) 10 mg PO QAM #30 tabs 10/04/24 metformin 500 mg tablet 500 mg PO BID #60 tabs 10/04/24 carvedilol 6.25 mg tablet 6.25 mg PO BID #60 tabs 04/13/25 apixaban 5 mg tablet (Eliquis) 5 mg PO BID #60 tabs 05/16/25 atorvastatin 80 mg tablet 80 mg PO QHS #30 tabs 05/16/25 ticagrelor 90 mg tablet 90 mg PO BID #60 tabs 05/16/25 Hospital Course Operations None Procedures Cardiac catheterization (With stent placement on the mid RCA and right PDA) Summary of Care Provided Minutes Spent on Discharge: 31 Hospital Course: This 54-year-old white male presented to the emergency department at [facility] with shortness of breath. Patient also complained of a dry cough. He also endorses pain between his shoulder blades, patient denied any chest pain. EKG was obtained which showed ST elevation in leads III and aVF with reciprocal changes leads I and aVL consistent with an acute inferior STEMI, the emergency room physician spoke with the well site drilling engineer on-call, STEMI team was called and the patient was taken to the cardiac Was placed in the mid RCA and mid right PDA. Patient's medications were adjusted and he underwent an echocardiogram which showed an EF of 40%, there was also noted to be an apical thrombus present. Patient was anticoagulated. On 05/16/2025, patient was seen and examined: On examination he appeared in good health and spirits. Vital signs as documented. Skin warm and dry and without overt rashes. Neck without JVD, neck was supple, trachea midline, thyroid was normal. Lungs clear bilaterally, normal air movement was noted. Heart exam notable for regular rhythm, normal sounds and absence of murmurs, rubs or gallops. Abdomen unremarkable and without evidence of organomegaly, masses, or abdominal aortic enlargement. Bowel sounds are present, abdomen is not distended. Extremities nonedematous, no cyanosis was noted, no clubbing was noted. Neuro: Cranial nerves II through XII are grossly intact, no focal motor deficits were noted, sensation to light touch and pinprick intact, motor exam 5/5 throughout. Psych: Patient is alert and oriented x3, he does not appear anxious or depressed, he does not appear agitated. Patient appears stable for discharge home on 05/16/2025. Weight / BMI Weight Weight: 129.6 kg Body Mass Index (BMI) 37.7 ABG / Lab / Microbiology Data 05/16/25 04:40 05/16/25 04:40 Laboratory: Laboratory Results - last 24 hr 05/15/25 21:03: POC Glucose 226 H 05/16/25 04:40: WBC 9.6, RBC 4.65, Hgb 14.6, Hct 42.1, MCV 90.5, MCH 31.4, MCHC 34.7, RDW Std Deviation 46.1 H, RDW Coeff of Kaye 14.0, Plt Count 162, MPV 11.2, Immature Gran % (Auto) 0.500, Neut % (Auto) 74.0 H, Lymph % (Auto) 17.3 L, [place] % (Auto) 7.3, Eos % (Auto) 0.7, Baso % (Auto) 0.2, Absolute Neuts (auto) 7.1, Absolute Lymphs (auto) 1.66, Nucleated RBC % 0, Sodium 139, Potassium 3.8, Chloride 104, Carbon Dioxide 21.6, Anion Gap 13, BUN 12, Creatinine 0.81, Estim Creat Clear Calc 145.43, Est GFR (MDRD) Non-Af 104, BUN/Creatinine Ratio 14.7, G lucose 178 H, Calcium 8.6, Magnesium 2.3 H D/C Instructions Weight Bearing Status: Full weight bearing DC O2, CPAP, BIPAP Needs Home O2 Discharge instructions: No Meaningful Use Info Meaningful Use Meaningful Use Diagnoses (Choose all that apply): AMI AMI/Post PCI/Angioplasty Aspirin given w/in 24hrs of arrival?: Yes ASA at discharge?: No Reason ASA not ordered:: Drug Interaction (Patient was discharged on Brilinta and Eliquis) Antiplatelet Therapy at Discharge:: Yes Statins at discharge?: Yes Vitaly/ARB at discharge?: Yes Beta Rossy at discharge?: Yes Done w/ Acute AK measure.: Yes Documented LVEF (%): 40 Discharge Plan Admission Admit Date/Time: 05/14/25 22:00 Primary Reason for Your Visit: STEMI Attending Provider: Gautam Nobles Primary Care Provider: Cynthia Alaniz Consulting Providers: Mario Mario; Eros Valiente; Mikael Pearl Discharge Orders/Prescriptions Prescriptions: New atorvastatin 80 mg Tablet 80 mg PO QHS Qty: 30 0RF ticagrelor 90 mg Tablet 90 mg PO BID Qty: 60 0RF Eliquis 5 mg Tablet 5 mg PO BID Qty: 60 0RF Continued omeprazole 20 mg capsule,delayed release(DR/EC) 20 mg PO DAILY insulin glargine [Basaglar KwikPen U-100 Insulin] 100 unit/mL (3 mL) insulin pen 18 unit subcut QPM 30 Days Qty: 5.4 12RF carvedilol 6.25 mg tablet 6.25 mg PO BID Qty: 60 11RF Jardiance 10 mg tablet 10 mg PO QAM Qty: 30 5RF metformin 500 mg tablet 500 mg PO BID Qty: 60 5RF Rx Instructions: ALEXIS aspirin 81 mg Tablet,Delayed Release (Dr/Ec) 81 mg PO DAILY@0800 Qty: 30 2RF losartan 25 mg tablet 25 mg PO DAILY Qty: 30 11RF spironolactone 25 mg tablet 25 mg PO DAILY Qty: 30 11RF Discontinued Ozempic 0.25 mg or 0.5 mg (2 mg/3 mL) pen injector 0.25 mg subcut QWEEK Qty: 3 1RF Patient Comments: PT HAS NOT STARTED YET Rx Instructions: for 4 weeks ibuprofen [Advil] 200 mg tablet 400 mg PO Q6H PRN (Reason: fever or pain) Cough and Cold (chlorphen-DM) 4-30 mg tablet 1 tab PO Q6H PRN (Reason: cold symptoms) atorvastatin 10 mg tablet 10 mg PO QHS Qty: 30 11RF Referrals / Follow Up: Cynthia Alaniz MD [Primary Care Provider, Internal Medicine] - Within 1 Month FabianoMario MD [Med Staff - Active Staff, Cardiology] - See Referral Note Referral Note: In 3 weeks-call for an appointment Disposition Disposition (needs filled in before D/C Order can be placed): Home, Self Care Charges/Coding Visit Charges Inpatient E&M: 35599 Disch Hosp >30min
--- NOTE | 2025-05-16 13:42 | CASEMGMT ---
Addendum entered by Trixie Romero 05/16/25 15:36: 1415: TC to [facility] who states that the pt's Eliquis will not be ready for pickup until tomorrow and that the Rx cost is 20$. [facility] states that the pt's Ticagrelor requires a PA (DURAN#[id number]). PA submitted through CoverMyMeds. CoverMyMeds states that [employer] has not yet replied to the request and that it could take up to 24 hours for a response. See GLORIA Flaherty CM note regarding pt's self pay cost ($41.71). GLORIA VILLEGAS to the pt's room at this time. Pt's at the bedside as well as the RN. Pt's RN reports that the pt has gotten his Eliquis today already and that it will be OK for the pt to get this tomorrow. Pt updated on he PA status and SP option. Pt and pt's reports that they prefer to pay for the medication now and bring it into the hospital before leaving. Pt is aware that they can submit for potential reimbursement through the insurance if they SP and the PA is approved. Pt states understanding and denies further DC needs. 1530: Pt's SO leaves the hospital to go to [facility] to picker tender helper the pt's rxs. Original Note: Pt has an order for DC placed with new rxs for Eliquis and Brilinta. TC to pt's preferred pharmacy, [facility]. [facility] is closed for lunch until 1400. CM to follow. GLORIA VILLEGAS to the pt's room at this time and updated. Pt denies further questions at this time. Pt states that his will go picker tender helper the rxs once they know the cost and know that they are ready for pickup. CM to follow.
[2025-05-16 13:57] VITALS: BP 116/69; PULSE 63; RESP 23; TEMP 36.9; O2SAT 98
--- NOTE | 2025-05-16 15:25 | CASEMGMT ---
TC to [facility], spoke with pharmacist Jeff, cost of brilinta using [facility] card is $41.71. Updated MEDICAL TECHNOLOGIST PRN CM.
== END 2025-05-16 16:50 | disposition home or self-care (01) | DRG 360 ==
LOC: ED 18:41 → ICU 22:36
PROVIDERS: Family Medicine; Internal Medicine Cardiovascular Disease; Admitting Provider Internal Medicine Cardiovascular Disease; Emergency Provider Student in an Organized Health Care Education/Training Program; PCP Internal Medicine; Referring Provider Internal Medicine Cardiovascular Disease; Visit Provider Internal Medicine
DX: I21.19 ST elevation (STEMI) myocardial infarction involving other coronary artery of inferior wall (principal); I23.6 Thrombosis of atrium, auricular appendage, and ventricle as current complications following acute myocardial infarction; I47.29 Other ventricular tachycardia; T82.855A Stenosis of coronary artery stent, initial encounter; E11.42 Type 2 diabetes mellitus with diabetic polyneuropathy; I10 Essential (primary) hypertension; I25.5 Ischemic cardiomyopathy; E78.5 Hyperlipidemia, unspecified; I25.10 Atherosclerotic heart disease of native coronary artery without angina pectoris; I25.2 Old myocardial infarction; K21.9 Gastro-esophageal reflux disease without esophagitis; Z79.4 Long term (current) use of insulin; F17.210 Nicotine dependence, cigarettes, uncomplicated; Z79.82 Long term (current) use of aspirin; Z79.85 Long-term (current) use of injectable non-insulin antidiabetic drugs; Z79.899 Other long term (current) drug therapy; Z79.84 Long term (current) use of oral hypoglycemic drugs; Z23 Encounter for immunization
CPT/HCPCS: 71046; 80048; 80053; 80061; 82962; 83735; 83880; 84484; 85025; 85027; 85347; 85379; 85610; 85730; 92929; 92941; 92973; 93005; 93306; 93458; 99152; 99153; 99285; 99406; C1757; C1874; C1894; Q9957; Q9967; A4216; C1725; C1769; C1887; C8929; C9601; C9606

== ENCOUNTER → 2025-05-16 | Outpatient (CLI) | payer MEDICAID, SELFPAY ==
[2025-01-03 15:16] VITALS: BMI 37.7
== END | disposition home or self-care (01) ==
PROVIDERS: PCP Internal Medicine; Referring Provider Internal Medicine; Visit Provider Internal Medicine
DX: I47.20 Ventricular tachycardia, unspecified (principal)
CPT/HCPCS: 93225; 93226

== ENCOUNTER → 2025-06-01 | Outpatient (CLI) | payer MEDICAID, SELFPAY ==
[2025-01-03 15:16] VITALS: BMI 37.7
[2025-06-01 17:54] LABS: Hematocrit 46.5 % (40-54); Hemoglobin 15.7 g/dL (13.0-16.5); Immature Granulocytes Count 0.090 X10^3/uL (0.0-0.0); Mean Corp Hgb Conc 33.8 g/dL (32-36); Mean Corpuscular Volume 88.7 fL (80-94); Mean Platelet Vol. 11.2 fl (6.2-12.0); NRBC Flagged by Analyzer 0 % (0-5); Platelet Count 220 K/mm3 (150-450); RBC Distribution Width CV 13.2 % (11.6-14.6); RBC Distribution Width SD 43.3 fl (35.1-43.9); Red Blood Count 5.24 M/mm3 (4.6-6.2); White Blood Count 10.3 K/mm3 (4.4-11.0)
[2025-06-01 17:59] LABS: AST(SGOT) 17 U/L (<=37); Alanine Aminotransfer ALT/SGPT 12 U/L (<=46); Albumin, Serum 4.2 g/dL (3.5-5.0); Alkaline Phosphatase 91 U/L (40-129); Anion Gap 13 (5-15); BUN 7 mg/dL (4-19); BUN/Creat Ratio 9.1 RATIO (10-20); Calcium,Total 9.4 mg/dL (7.6-11.0); Carbon Dioxide 23.2 mmol/L (21.0-32.0); Chloride 99 mmol/L (98-108); Globulin 3.1 g/dL (2.2-4.2); Glucose 295 mg/dL (70-99); Potassium 3.8 mmol/L (3.3-5.1); Uric Acid 3.5 mg/dL (3.5-7.2)
== END | disposition home or self-care (01) ==
LOC: MTLAB 14:53
PROVIDERS: PCP Internal Medicine; Referring Provider Physician Assistant; Visit Provider Physician Assistant
DX: E11.9 Type 2 diabetes mellitus without complications (principal); M79.674 Pain in right toe(s)
CPT/HCPCS: 36415; 80053; 83036; 84550; 85025